=== PATIENT | female | born 1960 | race Caucasian/White ===

== ENCOUNTER → 2016-11-27 | Outpatient (CLI) | payer MEDICARE, OTHER ==
[2016-11-21 15:25] VITALS: BMI 20.9
[2016-11-27 12:54] VITALS: BP 145/63; PULSE 97; RESP 16; TEMP 98.1
--- NOTE | 2016-11-28 10:52 | P.CONS ---
History of Present Illness - Reason for Consult Consult date: 11/27/16 - History of Present Illness This is the initial consultation visit for this 74 years old female with a chronic history of severe neck and upper back pain and low back pain, the pain started more than 30 years ago and she is being in the treatment of different physicians, and she was diagnosed with fibromyalgia and lumbar degenerative disc disease, patient had multiple pain intervention is procedure/lumbar epidural steroid injection and she got no benefit, and she tried different kind of pain medication, she cannot either side effects or no benefit from it, currently patient on OxyContin 60 mg 3 times a day and oxycodone 30 mg every 6 hours, and Motrin 800 mg 2-3 times a day, and trazodone 50 mg daily at bedtime, patient denies any side effects of the medication she denies any excessive drowsiness and sleepiness and she reported that the current regimen is helping to control her pain, patient denies any motor or sensory deficit and she denies any change in the bowel movement or urination, and patient denies any fever or night sweats, she tried physical therapy in the past without any benefit, and she reported that most of her pain localized in the low back area with radiation to the left leg ,and hips pain ,and she is complaining of severe neck pain and upper back pain but this pain is not transmitted to the upper extremity Past Medical History Past Medical History: COPD, Fibromyalgia, GERD/Reflux, Hyperlipidemia, Hypertension Additional Past Medical History / Comment(s): diverticulitis, emphysema, pain posterior back from rashad. scapulas down History of Any Multi-Drug Resistant Organisms: MRSA Year Discovered:: 08/2014 MDRO Source:: unknown Past Surgical History: Appendectomy, Bowel Resection, Orthopedic Surgery, Tubal Ligation Additional Past Surgical History / Comment(s): rt wrist fusion, neck fusion, 3 surgeries for kidney stones, salpingo/oophorectomy Past Anesthesia/Blood Transfusion Reactions: No Reported Reaction Additional Past Anesthesia/Blood Transfusion Reaction / Comm: needed more medication for last colonoscopy Past Psychological History: Anxiety, Depression, PTSD Smoking Status: Current some day smoker Past Alcohol Use History: None Reported Additional Past Alcohol Use History / Comment(s): currently down to 2 cigarettes daily(was 1 PPD). smoked for 40 yrs Past Drug Use History: Marijuana Additional Drug Use History / Comment(s): rare-marijuana use. - Past Family History Sister(s) Family Medical History: Cancer Mother Family Medical History: Cancer Medications and Allergies Home Medications Medication Instructions Recorded Confirmed Type Lisinopril [Zestril] 2.5 mg PO 1500 09/09/14 11/27/16 History Albuterol Inhaler [Ventolin Hfa 2 puff INHALATION TID PRN 09/17/16 11/27/16 History Inhaler] Ezetimibe [Zetia] 10 mg PO 1500 09/17/16 11/27/16 History Ibuprofen [Motrin] 800 mg PO BID PRN 09/17/16 11/27/16 History oxyCODONE HCL 30 mg PO QID 09/17/16 11/27/16 History oxyCODONE HCL [OxyCONTIN] 60 mg PO TID 09/17/16 11/27/16 History traZODone HCL 50 mg PO HS 09/17/16 11/27/16 History Allergies Allergy/AdvReac Type Severity Reaction Status Date / Time pregabalin [From Lyrica] Allergy Severe Swelling Verified 11/27/16 12:28 of throat tizanidine HCl Allergy Severe Swelling Verified 11/27/16 12:28 [From Zanaflex] of throat Physical Exam Vitals: Vital Signs Temp Pulse Resp BP 11/27/16 12:52 98.1 F 97 16 145/63 Social history : smoker , NO ETOH , NO Illegal drugs use ( remotes history of marijuana use). Family history : , positive for cancer Review of Systems : 1- Constitutional : no chills , no fever , no night sweats , 2- Ears : no ear discharge , no change in hearing 3-Nose, Mouth ,Throat ; no bleeding gums, no sore throat , no epistaxis , 4-Cardiovascular : Denies chest pain, , no orthopnea , no palpitation 5-Respiratory : Denies cough , no dyspnea , no hemoptysis 6-Gastrointestinal :, no change in bowel habits , no coffee- ground emesis . 7-Genitourinary : No hematuria , no discharge , no incontinence, 8-Musculoskeletal : No gait dysfunction , report low back pain , 9- Neurological : no ataxia , no tremor , no sezure , 10-Psychatric , no suicidal ideation no hallucination 11- Endocrine : no cold intolerence , no polyuria , no polydypsia , 12-Hematologic : no easy bleeding , no easy brusing , 13-Allergic / immunology : no angioedema , no wheezing ,no allergic rhinitis 14-Integumentary : no brttle nails , no change hair / nails , no foot/leg ulcers . Physical Examinations : 1-Constitutional : Cooperative , not in acute distress . 2-HEENT : nech ; supple , no Lymphadenopathy , no Thyromegaly , eyes , no icterus, no photophobia . ENT : , normal oropharynx , no Thrush 3- Respiratory : Chest clear to auscultations Bilaterally , no wheezing . 4- Cardiovascular : regular rate and rhythem , S1 , S2 , no S3 , no S4. 5- Gastrointestinal: abdomen soft no tenderness , no organomegally . 6- Genitourinary : Defferred . 7-Integumentary : No cellulitis , no ulcers , normal skin turgor , no cyanotic . 8- neurologic : Cranial nerve II to XII intact , no focal neurological deffecit 9-psychatric : alert , oriented X 3 , appropriate affect , intact judgment and insight . 10-Lymphatic : no Lymphadenopathy. 11- musculoskeltal: normal gait , exams of the cervical spine = motor stregnth in the deltoid and biceps, normal right side , normal Left side motor stregnth biceps and the wrist extensors normal right side ,normal left side . motor stregnth in the triceps muscle . normal Right side , normal Left side deep tendon reflexes normal at the biceps , normal at Brachioradialis , normal at triceps. positive cervical facet loading test . Generalized tenderness over the cervical paravertebral muscles and the neck area anteriorly. Exams of the thoracic spine= generalized tenderness in the upper thoracic paravertebral muscles between the shoulder blade area bilaterally. exams of the Lumber spine = moter stegnth lower extremities , thigh and legs 5/5 Right side , 5/5 Left side deep tendon reflexes : normal Knee Jerk , normal ankle Jerk positive lumber facet Loading Test Range of motion of the lumbar spine Flexion 30 degrees, extension 10 degrees strait leg raising test , positive at 60 degree Fabere test positive RT and positive LT . Sever tenderness over the trochanteric bursa bilaterally. Results Comments: Computed tomography scan of the lumbar spine done in August 2016= lumbar degenerative disc disease Assessment and Plan Plan: Assessment and plan = - Chronic low back pain secondary to lumbar degenerative disc disease , -Chronic pain secondary to fibromyalgia -Patient denies any side effect of the medication, and the current medication helped the patient to control the pain and improve activity of daily living, The patient was counseled about risk of opioid use, psychological risk associated with opioid Patient signed the narcotic agreement , and was orally counseled not to overuse , abuse , divert, or sell medications ,and take them as prescribed only , and the patient was counseled against driving and while you are using the narcotic medication also not to use alcohol or any illicit drugs and the patient verbalized understanding Recommend start patient on Cymbalta 30 mg daily , I recommend start patient on Flexeril 5 mg 3 times a day, and we recommend decreasing the OxyContin dose to 60 mg twice a day and continue oxycodone 30 mg every 6 hours and trazodone 50 mg daily at bedtime (she isn't getting Prescription from her primary care, and patient will follow up with the pain clinic when necessary basis (discussed with the patient the option of doing an interventional pain management,patient refused to have any interventions goes, and she prefers medication management) Time with Patient: Greater than 30
== END | disposition home or self-care (01) ==
LOC: PNWHC3 12:00
PROVIDERS: ATTEND Specialist
DX: G89.29 Other chronic pain (principal); M51.36 Other intervertebral disc degeneration, lumbar region; M79.7 Fibromyalgia; I10 Essential (primary) hypertension; F32.9 Major depressive disorder, single episode, unspecified; F17.200 Nicotine dependence, unspecified, uncomplicated; Z88.6 Allergy status to analgesic agent; Z88.8 Allergy status to other drugs, medicaments and biological substances; Z86.14 Personal history of Methicillin resistant Staphylococcus aureus infection; Z79.891 Long term (current) use of opiate analgesic; Z79.899 Other long term (current) drug therapy
CPT/HCPCS: 99211

== ENCOUNTER 2016-12-03 23:29 | Emergency (ER) | payer MEDICARE, OTHER ==
[2016-12-03] MEDS ORDERED: ALBUTEROL NEB (CONC) 2.5 MG/0.5 ML INHALATION STA (23:40)
[2016-12-03] MEDS ORDERED: IPRATROPIUM-ALBUTEROL 3 ML NEB INHALATION STA (23:40)
[2016-12-04] MEDS ORDERED: IPRATROPIUM-ALBUTEROL 3 ML NEB INHALATION STA (00:19)
[2016-12-04] MEDS ORDERED: predniSONE 20 MG TAB PO STA (00:19)
[2016-12-04] MEDS ORDERED: MORPHINE SULFATE 4 MG/ML SYRINGE IV STA (00:19)
--- NOTE | 2016-12-04 00:23 | ED ---
SOB HPI - General Chief Complaint: Chest Pain Stated Complaint: Chest Pain/SOB Time Seen by Provider: 12/04/16 00:11 Source: patient, RN notes reviewed Mode of arrival: ambulatory Limitations: no limitations - History of Present Illness Initial Comments: This patient's 56-year-old woman who has 2 complaints. She complains of what she thinks is a worsening of her COPD, with increased cough (nonproductive), wheezing, and shortness of breath. She is also having left low back pain that she states is a sequela of a fall as she had on Friday. She states that she had gotten up and was off balance and fell landing on her left side striking just above the hip. The patient states she has noticed a large bruise to that area. She denies any related abdominal pain. MD Complaint: shortness of breath, cough Onset/Timin -: days(s) Worsens With: nothing Known History Of: COPD Associated Symptoms: cough - Related Data Home Medications Medication Instructions Recorded Confirmed Lisinopril [Zestril] 2.5 mg PO 1500 09/09/14 11/27/16 Albuterol Inhaler [Ventolin Hfa 2 puff INHALATION TID PRN 09/17/16 11/27/16 Inhaler] Ezetimibe [Zetia] 10 mg PO 1500 09/17/16 11/27/16 Ibuprofen [Motrin] 800 mg PO BID PRN 09/17/16 11/27/16 oxyCODONE HCL 30 mg PO QID 09/17/16 11/27/16 oxyCODONE HCL [OxyCONTIN] 60 mg PO TID 09/17/16 11/27/16 traZODone HCL 50 mg PO HS 09/17/16 11/27/16 Previous Rx's Medication Instructions Recorded Levofloxacin [Levaquin] 750 mg PO DAILY #7 tab 12/04/16 predniSONE 20 mg PO BID #8 tab 12/04/16 Allergies Allergy/AdvReac Type Severity Reaction Status Date / Time pregabalin [From Lyrica] Allergy Severe Swelling Verified 12/03/16 23:35 of throat tizanidine HCl Allergy Severe Swelling Verified 12/03/16 23:35 [From Zanaflex] of throat Review of Systems ROS Statement: Those systems with pertinent positive or pertinent negative responses have been documented in the HPI. ROS Other: All systems not noted in ROS Statement are negative. Constitutional: Denies: fever, chills Respiratory: Reports: cough, dyspnea, wheezes. Denies: hemoptysis Cardiovascular: Denies: chest pain Gastrointestinal: Denies: abdominal pain, nausea, vomiting Genitourinary: Denies: dysuria, hematuria Musculoskeletal: Reports: back pain Skin: Denies: rash Neurological: Denies: headache, weakness, numbness Past Medical History Past Medical History: COPD, Fibromyalgia, GERD/Reflux, Hyperlipidemia, Hypertension Additional Past Medical History / Comment(s): diverticulitis, emphysema, pain posterior back from rashad. scapulas down History of Any Multi-Drug Resistant Organisms: MRSA Date of last positivie culture/infection: 08/2014 MDRO Source:: unknown Past Surgical History: Appendectomy, Bowel Resection, Orthopedic Surgery, Tubal Ligation Additional Past Surgical History / Comment(s): rt wrist fusion, neck fusion, 3 surgeries for kidney stones, salpingo/oophorectomy Past Anesthesia/Blood Transfusion Reactions: No Reported Reaction Additional Past Anesthesia/Blood Transfusion Reaction / Comment(s): needed more medication for last colonoscopy Past Psychological History: Anxiety, Depression, PTSD Smoking Status: Current some day smoker Past Alcohol Use History: None Reported Additional Past Alcohol Use History / Comment(s): currently down to 2 cigarettes daily(was 1 PPD). smoked for 40 yrs Past Drug Use History: Marijuana Additional Drug Use History / Comment(s): rare-marijuana use. - Past Family History Sister(s) Family Medical History: Cancer Mother Family Medical History: Cancer General Exam Limitations: no limitations General appearance: alert, in no apparent distress Head exam: Present: atraumatic, normocephalic Eye exam: Present: normal appearance. Absent: scleral icterus, conjunctival injection ENT exam: Present: normal oropharynx Respiratory exam: Present: wheezes, decreased breath sounds. Absent: respiratory distress, rales, rhonchi, stridor, chest wall tenderness, accessory muscle use, prolonged expiratory Cardiovascular Exam: Present: regular rate, normal rhythm, normal heart sounds. Absent: systolic murmur, diastolic murmur, rubs, gallop GI/Abdominal exam: Present: soft. Absent: distended, tenderness, guarding, rebound, mass Extremities exam: Present: normal inspection, full ROM, normal capillary refill. Absent: pedal edema, calf tenderness Back exam: Present: other (Patient has an approximately 6-8 cm hematoma to the left flank located just above the posterior iliac crest. There is moderate tenderness.). Absent: CVA tenderness (R), CVA tenderness (L) Neurological exam: Present: alert, normal gait Skin exam: Present: warm, dry, intact, normal color. Absent: rash Course Vital Signs 12/03/16 12/03/16 12/03/16 23:33 23:47 23:52 Temperature 98.1 F Pulse Rate 100 97 88 Respiratory 24 Rate Blood Pressure 152/71 O2 Sat by Pulse 99 Oximetry 12/04/16 12/04/16 12/04/16 00:36 00:46 01:20 Temperature Pulse Rate 99 104 H 90 Respiratory 18 Rate Blood Pressure 111/56 O2 Sat by Pulse 95 Oximetry 12/04/16 12/04/16 12/04/16 02:00 02:50 03:50 Temperature 98.3 F Pulse Rate 86 96 78 Respiratory 18 18 18 Rate Blood Pressure 116/67 126/67 139/66 O2 Sat by Pulse 96 96 95 Oximetry Medical Decision Making - Medical Decision Making Patient is reevaluated following medications, and she states she is feeling significantly better and that she wishes to go home. Did discuss appropriate further care and follow-up as well as return parameters. - Lab Data Result diagrams: 12/03/16 23:52 12/03/16 23:52 Lab Results 12/03/16 12/03/16 12/03/16 Range/Units 23:52 23:52 23:52 WBC 9.3 (3.8-10.6) k/uL RBC 4.41 (3.80-5.40) m/uL Hgb 14.0 (11.4-16.0) gm/dL Hct 41.3 (34.0-46.0) % MCV 93.6 (80.0-100.0) fL MCH 31.6 (25.0-35.0) pg MCHC 33.8 (31.0-37.0) g/dL RDW 12.9 (11.5-15.5) % Plt Count 314 (150-450) k/uL Neutrophils % 53 % Lymphocytes % 34 % Monocytes % 8 % Eosinophils % 2 % Basophils % 1 % Neutrophils # 5.0 (1.3-7.7) k/uL Lymphocytes # 3.1 (1.0-4.8) k/uL Monocytes # 0.7 (0-1.0) k/uL Eosinophils # 0.2 (0-0.7) k/uL Basophils # 0.0 (0-0.2) k/uL PT (9.0-12.0) sec INR (<1.1) APTT (22.0-30.0) sec D-Dimer (<0.60) mg/L FEU Sodium 140 (137-145) mmol/L Potassium 3.5 (3.5-5.1) mmol/L Chloride 99 (98-107) mmol/L Carbon Dioxide 24 (22-30) mmol/L Anion Gap 17 mmol/L BUN 6 L (7-17) mg/dL Creatinine 0.63 (0.52-1.04) mg/dL Est GFR (MDRD) Af Amer >60 (>60 ml/min/1.73 sqM) Est GFR (MDRD) Non-Af >60 (>60 ml/min/1.73 sqM) Glucose 97 (74-99) mg/dL Calcium 9.4 (8.4-10.2) mg/dL Magnesium 1.7 (1.6-2.3) mg/dL Total Bilirubin 0.6 (0.2-1.3) mg/dL AST 32 (14-36) U/L ALT 23 (9-52) U/L Alkaline Phosphatase 63 (38-126) U/L Total Creatine Kinase 117 (30-135) U/L CK-MB (CK-2) 1.8 (0.0-2.4) ng/mL CK-MB (CK-2) Rel Index 1.5 Troponin I <0.012 (0.000-0.034) ng/mL Total Protein 8.2 (6.3-8.2) g/dL Albumin 4.4 (3.5-5.0) g/dL Serum Alcohol mg/dL 12/03/16 12/03/16 12/03/16 Range/Units 23:52 23:52 23:52 WBC (3.8-10.6) k/uL RBC (3.80-5.40) m/uL Hgb (11.4-16.0) gm/dL Hct (34.0-46.0) % MCV (80.0-100.0) fL MCH (25.0-35.0) pg MCHC (31.0-37.0) g/dL RDW (11.5-15.5) % Plt Count (150-450) k/uL Neutrophils % % Lymphocytes % % Monocytes % % Eosinophils % % Basophils % % Neutrophils # (1.3-7.7) k/uL Lymphocytes # (1.0-4.8) k/uL Monocytes # (0-1.0) k/uL Eosinophils # (0-0.7) k/uL Basophils # (0-0.2) k/uL PT 9.7 (9.0-12.0) sec INR 0.9 (<1.1) APTT 24.9 (22.0-30.0) sec D-Dimer 0.97 H (<0.60) mg/L FEU Sodium (137-145) mmol/L Potassium (3.5-5.1) mmol/L Chloride (98-107) mmol/L Carbon Dioxide (22-30) mmol/L Anion Gap mmol/L BUN (7-17) mg/dL Creatinine (0.52-1.04) mg/dL Est GFR (MDRD) Af Amer (>60 ml/min/1.73 sqM) Est GFR (MDRD) Non-Af (>60 ml/min/1.73 sqM) Glucose (74-99) mg/dL Calcium (8.4-10.2) mg/dL Magnesium (1.6-2.3) mg/dL Total Bilirubin (0.2-1.3) mg/dL AST (14-36) U/L ALT (9-52) U/L Alkaline Phosphatase (38-126) U/L Total Creatine Kinase (30-135) U/L CK-MB (CK-2) (0.0-2.4) ng/mL CK-MB (CK-2) Rel Index Troponin I (0.000-0.034) ng/mL Total Protein (6.3-8.2) g/dL Albumin (3.5-5.0) g/dL Serum Alcohol 174 mg/dL - EKG Data -: EKG Interpreted by [facility] EKG shows normal: sinus rhythm, axis (Normal), intervals (Normal), QRS complexes (Normal), ST-T waves (Normal) Rate: normal (Rate 93 bpm) Interpretation: normal EKG Disposition Clinical Impression: COPD exacerbation, Pneumonia, Hematoma Disposition: HOME SELF-CARE Condition: Fair Instructions: COPD (Chronic Obstructive Pulmonary Disease) (ED), Pneumonia (ED) , Hematoma (ED) Prescriptions: Levofloxacin [Levaquin] 750 mg PO DAILY #7 tab predniSONE 20 mg PO BID #8 tab Referrals: Abrahan Anderson MD [Primary Care Provider] - 1-2 days
[2016-12-04 00:24] LABS: Basophils % (A) 1 %; CH 31.7; Eosinophils # (A) 0.2 k/uL (0-0.7); Eosinophils % (A) 2 %; HCT 41.3 % (34.0-46.0); HDW 2.61; Luc # (Auto) 0.25; Luc % (Auto) 3; Lymphocytes # (A) 3.1 k/uL (1.0-4.8); Lymphocytes % (A) 34 %; MCH 31.6 pg (25.0-35.0); MCHC 33.8 g/dL (31.0-37.0); MCV 93.6 fL (80.0-100.0); Mean Platelet Volume 7.3; Monocytes # (A) 0.7 k/uL (0-1.0); Monocytes % (A) 8 %; Neutrophils % (A) 53 %; RBC 4.41 m/uL (3.80-5.40); RDW 12.9 % (11.5-15.5); WBC 9.3 k/uL (3.8-10.6); WBC (Perox) 9.42
[2016-12-04 00:32] LABS: INR 0.9 (<1.1); Partial Thromboplastin Time 24.9 sec (22.0-30.0); Prothrombin Time 9.7 sec (9.0-12.0)
--- NOTE | 2016-12-04 00:38 | XR ---
EXAMINATION TYPE: XR chest 2V DATE OF EXAM: 12/04/2016 12:24 AM COMPARISON: 09/09/2014 HISTORY: Wheezing and difficulty breathing TECHNIQUE: Frontal and lateral views of the chest are obtained. FINDINGS: Heart and mediastinum are normal. Lungs are clear. Diaphragm is normal. Bony thorax is int act. There are chest leads. IMPRESSION: Normal chest. No change.
[2016-12-04 00:41] LABS: Anion Gap 17 mmol/L; Calcium 9.4 mg/dL (8.4-10.2); Carbon Dioxide 24 mmol/L (22-30); Chloride 99 mmol/L (98-107); Glucose 97 mg/dL (74-99); Non-African American GFR(MDRD) >60 (>60 ml/min/1.73 sqM); Sodium 140 mmol/L (137-145); Total Bilirubin 0.6 mg/dL (0.2-1.3); Total Protein 8.2 g/dL (6.3-8.2)
[2016-12-04 00:42] LABS: Potassium 3.5 mmol/L (3.5-5.1)
[2016-12-04 00:43] LABS: ALT 23 U/L (9-52); AST 32 U/L (14-36); Alkaline Phosphatase 63 U/L (38-126); Blood Urea Nitrogen 6 mg/dL (7-17); Magnesium 1.7 mg/dL (1.6-2.3)
[2016-12-04 00:44] LABS: Creatine Kinase 117 U/L (30-135)
[2016-12-04 00:57] LABS: Creatine Kinase MB 1.8 ng/mL (0.0-2.4); Troponin I <0.012 ng/mL (0.000-0.034)
[2016-12-04] MEDS ORDERED: RX INFO: IV CONTRAST WAS GIVEN 1 EACH MISC MISCELLANE PRN (01:28)
[2016-12-04] MEDS ORDERED: HYDROmorphone 1 MG/ML 1 ML SYRINGE IVP STA ×2 (01:28→03:22)
[2016-12-04 01:42] VITALS: RESP 18
--- NOTE | 2016-12-04 02:21 | CT ---
EXAMINATION TYPE: CT chest angio for PE DATE OF EXAM: 12/04/2016 1:52 AM COMPARISON: NONE HISTORY: R/O PE, MUKUND, wheezing CT DLP: 335 mGycm Automated exposure control for dose reduction was used. CONTRAST: CT Chest for pulmonary embolism performed with with IV Contrast, patient injected with 70 mL of Omnip aque 350. FINDINGS: There is slight coarsening of pulmonary interstitial markings. There is no pulmonary consolidation. T here is no evidence of a pulmonary mass. There is normal contrast opacification of the pulmonary kim buster. I see no filling defects. There is no evidence of aortic aneurysm or dissection. There are no h ilar masses. There is no mediastinal adenopathy. There is no pleural effusion. The bony thorax appear s intact. There are bronchial lymph nodes that measure up to 1 cm. IMPRESSION: No evidence of pulmonary embolism. Slight increased pulmonary interstitial density could relate to mi nimal interstitial pneumonia.
[2016-12-04] MEDS ORDERED: LEVOFLOXACIN 750MG-D5W PMX 750 MG in DEXTROSE/WATER 1 150ML.BAG IVPB STA (03:23)
[2016-12-04 04:12] VITALS: BP 139/66; PULSE 78; TEMP 98.3
== END 2016-12-04 04:13 | disposition home or self-care (01) ==
LOC: EC 23:29
DX: J44.1 Chronic obstructive pulmonary disease with (acute) exacerbation (principal); J18.9 Pneumonia, unspecified organism; S70.02XA Contusion of left hip, initial encounter; M54.5 Low back pain; W19.XXXA Unspecified fall, initial encounter; E78.5 Hyperlipidemia, unspecified; I10 Essential (primary) hypertension; M79.7 Fibromyalgia; F32.9 Major depressive disorder, single episode, unspecified; F17.210 Nicotine dependence, cigarettes, uncomplicated; Z79.891 Long term (current) use of opiate analgesic; Z79.899 Other long term (current) drug therapy; Z88.8 Allergy status to other drugs, medicaments and biological substances
CPT/HCPCS: 36415; 94640 ×2; 93005; 85379; 80053; 82550; 82553; 83735; 84484; 85025; 85610; 85730; 80320; 71020; 71275; 99285; 96365; 96375; 96376; J2270; Q9967; J1170; J1956; J7512

== ENCOUNTER → 2017-01-27 | Outpatient (CLI) | payer MEDICARE, OTHER ==
--- NOTE | 2017-01-27 08:34 | MR ---
EXAMINATION TYPE: MR tspine/lspine wo con DATE OF EXAM: 01/27/2017 8:17 AM COMPARISON: CT chest December 04, 2016. CT lumbar spine September 18, 2016. HISTORY: Tsp/Lsp pain per order. Mid back pain for 12 years with burning and stabbing sensation per p atient. Low back pain for 12 years going into right thigh and buttocks per patient. TECHNIQUE: Multiplanar, multisequence imaging of the thoracic and lumbar spine are performed without IV contrast. FINDINGS: T-SPINE: FINDINGS: Spinal cord shows normal course, caliber, and signal as it courses the thoracic spine. Shahnaz tebral body heights and alignment are satisfactory. There is mild to moderate multilevel disc space n arrowing with mild to moderate spurring centered in the mid thoracic spine. Small posterior disc neelam iation is seen T7-T8 level on sagittal image 9 and T10-T11 level on sagittal image 11. Artifact from fusion hardware C7-T1 level is noted. Right paracentral disc herniation effacing clovis lateral thecal sac at T10-T11 level is confirmed on axial image 8. Remainder thoracic levels on axial images show no additional suspicious disc herniation or neural foraminal narrowing. IMPRESSION: Some mild to moderate multilevel spurring and disc space narrowing with 2 small disc neelam iations noted as detailed above. L-SPINE: Sagittal images of the lumbar spine show vertebral body heights and alignment to appear satisfactory. There is multilevel disc desiccation with relative sparing of L5-S1 level. There is mild disc space narrowing L4-L5 level otherwise disc space heights are fairly well-maintained. No significant posteri or disc herniations are seen on sagittal images. The conus medullaris is normal in position and signa l ending at mid L1 vertebral body level. The bone marrow signal intensity is within normal limits. M ild multilevel anterior spurring is present. Axial images show the T12-L1 and L1-L2 levels to appear within normal limits. Axial images at L2-L3 level show mild to moderate broad disc bulge effacing anterior thecal sac on ax ial image 18, there is mild bilateral anterior inferior neural foraminal narrowing. Axial images at L3-L4 level show mild broad disc bulge mildly effacing anterior thecal sac on axial i mage 13, there is mild bilateral anterior inferior neural foraminal narrowing at this level identifie d. Axial images at L4-L5 level show mild facet degenerative changes bilaterally with mild broad disc bul ge appears to have a left lateral disc protrusion component, there is mild to moderate left-sided ant erior inferior neural foraminal narrowing with mild right-sided anterior inferior neural foraminal na rrowing noted. Axial images at L5-S1 level show mild facet degenerative changes bilaterally. There is no significant disc herniation. Spinal canal is preserved. Bilateral neural foramina are patent. IMPRESSION: Some multilevel degenerative changes in the mid to lower lumbar spine as detailed above, however no suspicious disc herniation is seen to account for patient's right-sided radiculopathy type symptoms.
== END | disposition home or self-care (01) ==
LOC: RADMRIMAIN 07:15
PROVIDERS: ATTEND Physical Medicine & Rehabilitation Pain Medicine
DX: M47.816 Spondylosis without myelopathy or radiculopathy, lumbar region (principal)
CPT/HCPCS: 72146; 72148

== ENCOUNTER 2017-05-03 01:49 | Emergency (ER) | payer MEDICARE, OTHER ==
[2017-05-03] MEDS ORDERED: IPRATROPIUM-ALBUTEROL 3 ML NEB INHALATION STA (02:03)
[2017-05-03] MEDS ORDERED: MORPHINE SULFATE 4 MG/ML SYRINGE IVP STA (02:03)
[2017-05-03] MEDS ORDERED: KETOROLAC 30 MG/ML 1 ML VIAL IVP STA (02:03)
--- NOTE | 2017-05-03 02:04 | ED ---
General Adult HPI - General Chief complaint: Shortness of Breath Stated complaint: SOB Time Seen by Provider: 05/03/17 01:58 Source: patient, RN notes reviewed, old records reviewed Mode of arrival: ambulatory Limitations: no limitations - History of Present Illness Initial comments: This is a 26-year-old female year for a shortness of breath, back pain, not feeling well. Patient was has no shortness of breath, also had a fall. Following aback that her back pain medication was not working, severe back pain. No fevers, mild cough mild congestion. No other traumatic injury - Related Data Home Medications Medication Instructions Recorded Confirmed Lisinopril [Zestril] 2.5 mg PO 1500 09/09/14 05/03/17 Albuterol Inhaler [Ventolin Hfa 2 puff INHALATION TID PRN 09/17/16 05/03/17 Inhaler] Ezetimibe [Zetia] 10 mg PO 1500 09/17/16 05/03/17 Ibuprofen [Motrin] 800 mg PO BID PRN 09/17/16 05/03/17 oxyCODONE HCL 30 mg PO QID 09/17/16 05/03/17 oxyCODONE HCL [OxyCONTIN] 60 mg PO TID 09/17/16 05/03/17 traZODone HCL 50 mg PO HS 09/17/16 05/03/17 Previous Rx's Medication Instructions Recorded predniSONE 20 mg PO BID #8 tab 12/04/16 Allergies Allergy/AdvReac Type Severity Reaction Status Date / Time pregabalin [From Lyrica] Allergy Severe Swelling Verified 05/03/17 01:55 of throat tizanidine HCl Allergy Severe Swelling Verified 05/03/17 01:55 [From Zanaflex] of throat Review of Systems ROS Statement: Those systems with pertinent positive or pertinent negative responses have been documented in the HPI. ROS Other: All systems not noted in ROS Statement are negative. Past Medical History Past Medical History: COPD, Fibromyalgia, GERD/Reflux, Hyperlipidemia, Hypertension Additional Past Medical History / Comment(s): diverticulitis, emphysema, pain posterior back from rashad. scapulas down History of Any Multi-Drug Resistant Organisms: MRSA Date of last positivie culture/infection: 08/2014 MDRO Source:: unknown Past Surgical History: Appendectomy, Bowel Resection, Orthopedic Surgery, Tubal Ligation Additional Past Surgical History / Comment(s): rt wrist fusion, neck fusion, 3 surgeries for kidney stones, salpingo/oophorectomy Past Anesthesia/Blood Transfusion Reactions: No Reported Reaction Additional Past Anesthesia/Blood Transfusion Reaction / Comment(s): needed more medication for last colonoscopy Past Psychological History: Anxiety, Depression, PTSD Smoking Status: Current some day smoker Past Alcohol Use History: None Reported Past Drug Use History: Marijuana - Past Family History Sister(s) Family Medical History: Cancer Mother Family Medical History: Cancer General Exam Limitations: no limitations General appearance: alert, in no apparent distress, anxious Head exam: Present: atraumatic, normocephalic, normal inspection Eye exam: Present: normal appearance, PERRL, EOMI. Absent: scleral icterus, conjunctival injection, periorbital swelling ENT exam: Present: normal exam, mucous membranes moist Neck exam: Present: normal inspection. Absent: tenderness, meningismus, lymphadenopathy Respiratory exam: Present: normal lung sounds bilaterally. Absent: respiratory distress, wheezes, rales, rhonchi, stridor Cardiovascular Exam: Present: normal rhythm, tachycardia, normal heart sounds. Absent: systolic murmur, diastolic murmur, rubs, gallop, clicks GI/Abdominal exam: Present: soft, normal bowel sounds. Absent: distended, tenderness, guarding, rebound, rigid Extremities exam: Present: normal inspection, full ROM, normal capillary refill. Absent: tenderness, pedal edema, joint swelling, calf tenderness Back exam: Present: normal inspection Neurological exam: Present: alert, oriented X3, CN II-XII intact Psychiatric exam: Present: normal affect, normal mood Skin exam: Present: warm, dry, intact, normal color. Absent: rash Course Vital Signs 05/03/17 05/03/17 05/03/17 01:51 02:12 02:13 Temperature 98.3 F Pulse Rate 116 H 98 99 Respiratory 20 18 Rate Blood Pressure 118/77 140/76 O2 Sat by Pulse 98 98 Oximetry 05/03/17 05/03/17 05/03/17 02:22 03:02 03:55 Temperature 97.7 F Pulse Rate 103 H 98 100 Respiratory 18 18 Rate Blood Pressure 110/73 107/74 O2 Sat by Pulse 98 96 Oximetry EKG Findings - EKG Comments: EKG Findings:: EKG shows sinus tach rate of 107, ME 160, QRS 72, QTc 453. EKG shows rate of about 2, ME 132, QRS 80, QTC 463 Medical Decision Making - Medical Decision Making 56 female to the ER today status post fall shortness of breath, patient has no trauma from fall, does have some back pain which is improved at this time, x- rays otherwise negative lab work is normal, patient's breathing is much improved with breathing treatment and symptom control. Patient is stable for discharge home - Lab Data Result diagrams: 05/03/17 02:25 05/03/17 02:25 Lab Results 05/03/17 05/03/17 05/03/17 Range/Units 02:25 02:25 02:25 WBC 12.8 H (3.8-10.6) k/uL RBC 4.65 (3.80-5.40) m/uL Hgb 15.1 (11.4-16.0) gm/dL Hct 43.3 (34.0-46.0) % MCV 93.0 (80.0-100.0) fL MCH 32.5 (25.0-35.0) pg MCHC 34.9 (31.0-37.0) g/dL RDW 13.1 (11.5-15.5) % Plt Count 335 (150-450) k/uL Neutrophils % 59 % Lymphocytes % 32 % Monocytes % 5 % Eosinophils % 2 % Basophils % 1 % Neutrophils # 7.5 (1.3-7.7) k/uL Lymphocytes # 4.1 (1.0-4.8) k/uL Monocytes # 0.6 (0-1.0) k/uL Eosinophils # 0.2 (0-0.7) k/uL Basophils # 0.1 (0-0.2) k/uL PT (9.0-12.0) sec INR (<1.1) APTT (22.0-30.0) sec Sodium 140 (137-145) mmol/L Potassium 3.7 (3.5-5.1) mmol/L Chloride 106 (98-107) mmol/L Carbon Dioxide 22 (22-30) mmol/L Anion Gap 12 mmol/L BUN 11 (7-17) mg/dL Creatinine 0.50 L (0.52-1.04) mg/dL Est GFR (MDRD) Af Amer >60 (>60 ml/min/1.73 sqM) Est GFR (MDRD) Non-Af >60 (>60 ml/min/1.73 sqM) Glucose 85 (74-99) mg/dL Calcium 9.4 (8.4-10.2) mg/dL Magnesium 1.6 (1.6-2.3) mg/dL Total Bilirubin 0.5 (0.2-1.3) mg/dL AST 24 (14-36) U/L ALT 31 (9-52) U/L Alkaline Phosphatase 75 (38-126) U/L Total Creatine Kinase 193 H (30-135) U/L CK-MB (CK-2) 1.4 (0.0-2.4) ng/mL CK-MB (CK-2) Rel Index 0.7 Troponin I <0.012 (0.000-0.034) ng/mL Total Protein 7.0 (6.3-8.2) g/dL Albumin 4.3 (3.5-5.0) g/dL 05/03/17 Range/Units 02:25 WBC (3.8-10.6) k/uL RBC (3.80-5.40) m/uL Hgb (11.4-16.0) gm/dL Hct (34.0-46.0) % MCV (80.0-100.0) fL MCH (25.0-35.0) pg MCHC (31.0-37.0) g/dL RDW (11.5-15.5) % Plt Count (150-450) k/uL Neutrophils % % Lymphocytes % % Monocytes % % Eosinophils % % Basophils % % Neutrophils # (1.3-7.7) k/uL Lymphocytes # (1.0-4.8) k/uL Monocytes # (0-1.0) k/uL Eosinophils # (0-0.7) k/uL Basophils # (0-0.2) k/uL PT 10.1 (9.0-12.0) sec INR 1.0 (<1.1) APTT 26.8 (22.0-30.0) sec Sodium (137-145) mmol/L Potassium (3.5-5.1) mmol/L Chloride (98-107) mmol/L Carbon Dioxide (22-30) mmol/L Anion Gap mmol/L BUN (7-17) mg/dL Creatinine (0.52-1.04) mg/dL Est GFR (MDRD) Af Amer (>60 ml/min/1.73 sqM) Est GFR (MDRD) Non-Af (>60 ml/min/1.73 sqM) Glucose (74-99) mg/dL Calcium (8.4-10.2) mg/dL Magnesium (1.6-2.3) mg/dL Total Bilirubin (0.2-1.3) mg/dL AST (14-36) U/L ALT (9-52) U/L Alkaline Phosphatase (38-126) U/L Total Creatine Kinase (30-135) U/L CK-MB (CK-2) (0.0-2.4) ng/mL CK-MB (CK-2) Rel Index Troponin I (0.000-0.034) ng/mL Total Protein (6.3-8.2) g/dL Albumin (3.5-5.0) g/dL - Radiology Data Radiology results: report reviewed (Chest x-ray with rib study is negative for traumatic injury), image reviewed Disposition Clinical Impression: COPD exacerbation, Tachycardia, Contusion of rib on left side, Fall Disposition: HOME SELF-CARE Condition: Good Instructions: Rib Contusion (ED) Referrals: Abrahan Anderson MD [Primary Care Provider] - 1-2 days
[2017-05-03 02:39] LABS: Basophils # (A) 0.1 k/uL (0-0.2); Basophils % (A) 1 %; CH 32.1; CHCM 34.6; Eosinophils # (A) 0.2 k/uL (0-0.7); Eosinophils % (A) 2 %; HCT 43.3 % (34.0-46.0); HDW 2.12; HGB 15.1 gm/dL (11.4-16.0); Luc # (Auto) 0.23; Luc % (Auto) 2; Lymphocytes # (A) 4.1 k/uL (1.0-4.8); Lymphocytes % (A) 32 %; MCH 32.5 pg (25.0-35.0); MCHC 34.9 g/dL (31.0-37.0); Mean Platelet Volume 6.6; Monocytes # (A) 0.6 k/uL (0-1.0); Monocytes % (A) 5 %; Neutrophils # (A) 7.5 k/uL (1.3-7.7); Neutrophils % (A) 59 %; RBC 4.65 m/uL (3.80-5.40); RDW 13.1 % (11.5-15.5); WBC 12.8 k/uL (3.8-10.6); WBC (Perox) 11.61
[2017-05-03 02:49] LABS: ALT 31 U/L (9-52); AST 24 U/L (14-36); Alkaline Phosphatase 75 U/L (38-126); Anion Gap 12 mmol/L; Blood Urea Nitrogen 11 mg/dL (7-17); Calcium 9.4 mg/dL (8.4-10.2); Carbon Dioxide 22 mmol/L (22-30); Chloride 106 mmol/L (98-107); Glucose 85 mg/dL (74-99); Magnesium 1.6 mg/dL (1.6-2.3); Non-African American GFR(MDRD) >60 (>60 ml/min/1.73 sqM); Potassium 3.7 mmol/L (3.5-5.1); Sodium 140 mmol/L (137-145); Total Bilirubin 0.5 mg/dL (0.2-1.3)
[2017-05-03 02:57] LABS: Partial Thromboplastin Time 26.8 sec (22.0-30.0); Prothrombin Time 10.1 sec (9.0-12.0)
--- NOTE | 2017-05-03 03:02 | XR ---
CXR 2 View INDICATION: difficulty breathing COMPARISON: chest radiography 12/04/16 FINDINGS: frontal and lateral views of the chest. The cardiomediastinal silhouette is within normal limits. No evidence for pleural effusion. No focal consolidations. Partially visualize cervical fusion hardware. There are overlying leads. No evidence for acute displaced fracture. IMPRESSION: No acute cardiopulmonary disease.
--- NOTE | 2017-05-03 03:06 | XR ---
Left Rib radiograph Indication: Pain Comparison: none FINDINGS: Two views of the left ribs. No evidence for acute displaced rib fractures. Partially visualized cervical fusion hardware. There are overlying leads. IMPRESSION: No evidence for acute displaced ribs fractures. Please note if there is history of trauma, CT is the modality of choice for evaluation of trauma.
[2017-05-03 03:14] LABS: Creatine Kinase 193 U/L (30-135)
[2017-05-03 03:24] VITALS: RESP 18
[2017-05-03 03:27] LABS: Creatine Kinase MB 1.4 ng/mL (0.0-2.4); Troponin I <0.012 ng/mL (0.000-0.034)
[2017-05-03 03:56] VITALS: BP 107/74; PULSE 100; TEMP 97.7
== END 2017-05-03 03:56 | disposition home or self-care (01) ==
LOC: EC 01:49
DX: S20.222A Contusion of left back wall of thorax, initial encounter (principal); J44.1 Chronic obstructive pulmonary disease with (acute) exacerbation; R00.0 Tachycardia, unspecified; E78.5 Hyperlipidemia, unspecified; I10 Essential (primary) hypertension; F41.9 Anxiety disorder, unspecified; F43.10 Post-traumatic stress disorder, unspecified; F32.9 Major depressive disorder, single episode, unspecified; F17.200 Nicotine dependence, unspecified, uncomplicated; Z88.8 Allergy status to other drugs, medicaments and biological substances; Z79.891 Long term (current) use of opiate analgesic; Z79.899 Other long term (current) drug therapy; W19.XXXA Unspecified fall, initial encounter
CPT/HCPCS: 99285; 96374; 96375; 36415; 94640; 93005; 80053; 82550; 82553; 83735; 84484; 85025; 85610; 85730; 71020; 71100; J2270; J1885

== ENCOUNTER 2017-09-22 16:05 | Emergency (ER) | payer MEDICARE, OTHER ==
[2017-09-22 16:24] VITALS: RESP 20
[2017-09-22] MEDS ORDERED: HYDROmorphone 2 MG/ML 1 ML SYRINGE IM STA (18:16)
[2017-09-22] MEDS ORDERED: IBUPROFEN 800 MG TAB PO STA (18:16)
[2017-09-22] MEDS ORDERED: DIAZEPAM 5 MG TAB PO STA (18:16)
[2017-09-22] MEDS ORDERED: predniSONE 20 MG TAB PO STA (18:16)
--- NOTE | 2017-09-22 18:18 | ED ---
General Adult HPI - General Chief complaint: Back Pain/Injury Stated complaint: Back Pain Time Seen by Provider: 09/22/17 18:04 Source: EMS, RN notes reviewed, old records reviewed Mode of arrival: wheelchair Limitations: no limitations - History of Present Illness Initial comments: This is a 49-year-old female to ER for reevaluation back pain history of acute on chronic back pain patient is followed pain management does get injections does have significant pain control medications at home. Patient denies significant fall or trauma no neurological deficits. No fevers. Patient denies any recent tattoos or drug abuse. - Related Data Home Medications Medication Instructions Recorded Confirmed Lisinopril [Zestril] 2.5 mg PO 1500 09/09/14 05/03/17 Albuterol Inhaler [Ventolin Hfa 2 puff INHALATION TID PRN 09/17/16 05/03/17 Inhaler] Ezetimibe [Zetia] 10 mg PO 1500 09/17/16 05/03/17 Ibuprofen [Motrin] 800 mg PO BID PRN 09/17/16 05/03/17 oxyCODONE HCL 30 mg PO QID 09/17/16 05/03/17 oxyCODONE HCL [OxyCONTIN] 60 mg PO TID 09/17/16 05/03/17 traZODone HCL 50 mg PO HS 09/17/16 05/03/17 Previous Rx's Medication Instructions Recorded predniSONE 20 mg PO BID #8 tab 12/04/16 Allergies Allergy/AdvReac Type Severity Reaction Status Date / Time pregabalin [From Lyrica] Allergy Severe Swelling Verified 09/22/17 16:24 of throat tizanidine HCl Allergy Severe Swelling Verified 09/22/17 16:24 [From Zanaflex] of throat Review of Systems ROS Statement: Those systems with pertinent positive or pertinent negative responses have been documented in the HPI. ROS Other: All systems not noted in ROS Statement are negative. Past Medical History Past Medical History: Cancer, COPD, Fibromyalgia, GERD/Reflux, Hyperlipidemia, Hypertension Additional Past Medical History / Comment(s): diverticulitis, emphysema, pain posterior back from rashad. scapulas down. lung cancer History of Any Multi-Drug Resistant Organisms: MRSA Date of last positivie culture/infection: 08/2014 MDRO Source:: unknown Past Surgical History: Appendectomy, Bowel Resection, Orthopedic Surgery, Tubal Ligation Additional Past Surgical History / Comment(s): rt wrist fusion, neck fusion, 3 surgeries for kidney stones, salpingo/oophorectomy Past Anesthesia/Blood Transfusion Reactions: No Reported Reaction Additional Past Anesthesia/Blood Transfusion Reaction / Comment(s): needed more medication for last colonoscopy Past Psychological History: Anxiety, Depression, PTSD Smoking Status: Current some day smoker Past Alcohol Use History: Occasional Past Drug Use History: Marijuana - Past Family History Sister(s) Family Medical History: Cancer Mother Family Medical History: Cancer General Exam Limitations: no limitations General appearance: alert, in no apparent distress Head exam: Present: atraumatic, normocephalic, normal inspection Eye exam: Present: normal appearance, PERRL, EOMI. Absent: scleral icterus, conjunctival injection, periorbital swelling ENT exam: Present: normal exam, mucous membranes moist Neck exam: Present: normal inspection. Absent: tenderness, meningismus, lymphadenopathy Respiratory exam: Present: normal lung sounds bilaterally. Absent: respiratory distress, wheezes, rales, rhonchi, stridor Cardiovascular Exam: Present: regular rate, normal rhythm, normal heart sounds. Absent: systolic murmur, diastolic murmur, rubs, gallop, clicks GI/Abdominal exam: Present: soft, normal bowel sounds. Absent: distended, tenderness, guarding, rebound, rigid Extremities exam: Present: normal inspection, full ROM, normal capillary refill. Absent: tenderness, pedal edema, joint swelling, calf tenderness Back exam: Present: normal inspection Neurological exam: Present: alert, oriented X3, CN II-XII intact Psychiatric exam: Present: normal affect, normal mood Skin exam: Present: warm, dry, intact, normal color. Absent: rash Course Vital Signs 09/22/17 16:19 Temperature 97.8 F Pulse Rate 108 H Respiratory 20 Rate Blood Pressure 130/71 O2 Sat by Pulse 98 Oximetry - Reevaluation(s) Reevaluation #1: 09/22/17 18:17 Back pain is improved at this time Medical Decision Making - Medical Decision Making 57 female to the ER for evaluation of acute on chronic back pain. Sprained back. Patient given injections here in emergency room and will be discharged home Disposition Clinical Impression: Mechanical back pain, Strain of lumbar region, Chronic back pain Disposition: HOME SELF-CARE Condition: Good Instructions: Acute Low Back Pain (ED), Chronic Back Pain (ED) Referrals: Abrahan Anderson MD [Primary Care Provider] - 1-2 days
[2017-09-22 18:37] VITALS: BP 141/69; PULSE 100; TEMP 98
== END 2017-09-22 18:37 | disposition home or self-care (01) ==
LOC: EC 16:05
DX: S39.012A Strain of muscle, fascia and tendon of lower back, initial encounter (principal); E78.5 Hyperlipidemia, unspecified; I10 Essential (primary) hypertension; M79.7 Fibromyalgia; F41.9 Anxiety disorder, unspecified; F32.9 Major depressive disorder, single episode, unspecified; F43.10 Post-traumatic stress disorder, unspecified; F17.200 Nicotine dependence, unspecified, uncomplicated; Z85.118 Personal history of other malignant neoplasm of bronchus and lung; Z86.14 Personal history of Methicillin resistant Staphylococcus aureus infection; Z79.891 Long term (current) use of opiate analgesic; Z79.899 Other long term (current) drug therapy; Z88.8 Allergy status to other drugs, medicaments and biological substances; X58.XXXA Exposure to other specified factors, initial encounter
CPT/HCPCS: 99284; 96372; J1170; J7512

== ENCOUNTER → 2018-01-10 | Outpatient (CLI) | payer MEDICARE, OTHER ==
--- NOTE | 2018-01-10 14:08 | MR ---
EXAMINATION TYPE: MR thoracic spine wo con DATE OF EXAM: 01/10/2018 COMPARISON: 01/27/2017 HISTORY: Back Pain x10 years Standard multiplanar, multisequence MRI departmental protocol Multiplanar, multisequence images of the thoracic spine were acquired. . FINDINGS: Alignment is anatomic. There is loss of disc signal at all levels with loss of disc space particularl y noted at levels T4-T9. Findings compatible with multilevel degenerative disc disease which appears stable from the prior exam. Central and left paracentral disc bulging or protrusion T7-T8 stable with mild effacement of thecal s ac. No foraminal encroachment or spinal cord contact. At T10-T11 there is a right paracentral disc bulge or tiny protrusion. No foraminal encroachment or c anal stenosis. Finding is stable. Abnormal signal involving the T11 vertebral body is nonspecific. Hypertrophic spurring noted on the previous exam and stable. No abnormal signal the visualized spinal cord. Visualized aorta of normal caliber. Artifact from prev ious surgery involving the lower cervical spine again noted. IMPRESSION: 1. Stable multilevel degenerative disc disease. 2. Stable disc bulge or protrusion T7-T8 and T10-T11 with no foraminal encroachment or spinal cord co ntact. 3. There is nonspecific reduced signal within the T11 vertebral body on the sagittal images. This may be artifactual. Bone scan could BE obtained for confirmation.
== END | disposition home or self-care (01) ==
LOC: RADMRIMAIN 12:37
PROVIDERS: ATTEND Physical Medicine & Rehabilitation Pain Medicine
DX: M51.34 Other intervertebral disc degeneration, thoracic region (principal); M51.24 Other intervertebral disc displacement, thoracic region
CPT/HCPCS: 72146

== ENCOUNTER 2018-03-10 21:47 | Emergency (ER) | payer MEDICARE, OTHER ==
[2018-03-10] MEDS ORDERED: DIPH,PERTUS(ACELL)TETVAC-LF 0.5 ML VIAL IM ONE (21:54)
[2018-03-10 21:56] VITALS: TEMP 98.3
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
[2018-03-10 22:25] LABS: Basophils % (A) 0 %; Eosinophils # (A) 0.3 k/uL (0-0.7); Eosinophils % (A) 2 %; HCT 39.9 % (34.0-46.0); HGB 13.5 gm/dL (11.4-16.0); Lymphocytes % (A) 25 %; MCH 32.6 pg (25.0-35.0); Mean Platelet Volume 7.6; Monocytes # (A) 0.6 k/uL (0-1.0); Monocytes % (A) 5 %; Neutrophils # (A) 7.9 k/uL (1.3-7.7); Neutrophils % (A) 66 %; Platelet Count 188 k/uL (150-450); RBC 4.15 m/uL (3.80-5.40)
[2018-03-10 22:33] LABS: Anion Gap 19 mmol/L; Blood Urea Nitrogen 12 mg/dL (7-17); Calcium 9.6 mg/dL (8.4-10.2); Carbon Dioxide 19 mmol/L (22-30); Chloride 110 mmol/L (98-107); Glucose 125 mg/dL (74-99); Potassium 3.6 mmol/L (3.5-5.1); Sodium 148 mmol/L (137-145)
[2018-03-10 22:40] LABS: Alcohol 296 mg/dL
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
[2018-03-11 00:14] LABS: Partial Thromboplastin Time 22.8 sec (22.0-30.0); Prothrombin Time 9.5 sec (9.0-12.0)
[2018-03-11] MEDS ORDERED: oxyCODONE ER 20 MG TAB.ER.12H PO STA (00:51)
[2018-03-11 01:41] VITALS: BP 112/77; PULSE 103; RESP 18
== END 2018-03-11 01:55 | disposition home or self-care (01) ==
LOC: EC 21:47
DX: S01.01XA Laceration without foreign body of scalp, initial encounter (principal); F10.129 Alcohol abuse with intoxication, unspecified; Y90.8 Blood alcohol level of 240 mg/100 ml or more; M79.7 Fibromyalgia; F17.200 Nicotine dependence, unspecified, uncomplicated; Z23 Encounter for immunization; Z86.14 Personal history of Methicillin resistant Staphylococcus aureus infection; Z98.1 Arthrodesis status; Z88.8 Allergy status to other drugs, medicaments and biological substances; Z79.891 Long term (current) use of opiate analgesic; Y04.0XXA Assault by unarmed brawl or fight, initial encounter; W18.09XA Striking against other object with subsequent fall, initial encounter; Y92.009 Unspecified place in unspecified non-institutional (private) residence as the place of occurrence of the external cause
CPT/HCPCS: 12002; 36415; 70450; 72125; 80048; 80320; 85025; 85610; 85730; 90471; 90715; 99284

== ENCOUNTER 2018-08-10 20:35 | Emergency (ER) | payer MEDICARE, OTHER ==
--- NOTE | 2018-08-10 22:31 | ED ---
Head Injury HPI - General Stated complaint: FALL, ETOH Time Seen by Provider: 08/10/18 21:00 Limitations: altered mental status (Intoxicated) - History of Present Illness Initial comments: This patient is a 55-year-old woman sent to the emergency department to be evaluated after she had a fall and hit her head. The patient was not able to give history initially and it came from EMS personnel. They had reportedly taken report from her life partner. Patient had a fair amount to drink tonight. The patient is not able to recall the details of the fall. MD Complaint: head injury -: unknown Mechanism of Injury: mechanical fall Location: frontal Loss of Consciousness: unsure Place: home Other Injuries: laceration Associated Symptoms: confusion, repetitive questioning - Related Data Home Medications Medication Instructions Recorded Confirmed oxyCODONE HCL 30 mg PO QID PRN 09/17/16 08/10/18 oxyCODONE HCL [OxyCONTIN] 60 mg PO BID 09/17/16 08/10/18 Allergies/Adverse reactions: Allergies Allergy/AdvReac Type Severity Reaction Status Date / Time pregabalin [From Lyrica] Allergy Severe Anaphylaxis Verified 08/10/18 23:20 tizanidine HCl Allergy Severe Anaphylaxis Verified 08/10/18 23:20 [From Zanaflex] Review of Systems ROS Statement: Those systems with pertinent positive or pertinent negative responses have been documented in the HPI. ROS Other: All systems not noted in ROS Statement are negative. Limitations: ROS unobtainable due to patients medical condition (Appears intoxicated) Past Medical History Past Medical History: Cancer, COPD, Fibromyalgia, GERD/Reflux, Hyperlipidemia, Hypertension Additional Past Medical History / Comment(s): diverticulitis, emphysema, pain posterior back from rashad. scapulas down. lung cancer History of Any Multi-Drug Resistant Organisms: MRSA Date of last positivie culture/infection: 08/2014 MDRO Source:: unknown Past Surgical History: Appendectomy, Bowel Resection, Orthopedic Surgery, Tubal Ligation Additional Past Surgical History / Comment(s): rt wrist fusion, neck fusion, 3 surgeries for kidney stones, salpingo/oophorectomy Past Anesthesia/Blood Transfusion Reactions: No Reported Reaction Additional Past Anesthesia/Blood Transfusion Reaction / Comment(s): needed more medication for last colonoscopy Past Psychological History: Anxiety, Depression, PTSD Smoking Status: Current some day smoker Past Alcohol Use History: Occasional Past Drug Use History: Marijuana - Past Family History Sister(s) Family Medical History: Cancer Mother Family Medical History: Cancer General Exam General appearance: alert, appears intoxicated Head exam: Present: normocephalic, other (Patient has laceration to the right forehead approximately 5-6 cm in length, linear, no foreign body.) Eye exam: Present: normal appearance, PERRL, EOMI, nystagmus. Absent: scleral icterus, conjunctival injection ENT exam: Present: normal oropharynx Neck exam: Present: normal inspection, full ROM. Absent: tenderness Respiratory exam: Present: normal lung sounds bilaterally. Absent: respiratory distress, wheezes, rales, rhonchi, stridor Cardiovascular Exam: Present: regular rate (Heart rate approximately 108 at my exam), normal rhythm, normal heart sounds. Absent: systolic murmur, diastolic murmur, rubs, gallop GI/Abdominal exam: Present: soft. Absent: tenderness, guarding, rebound, rigid , mass Extremities exam: Present: normal inspection, normal capillary refill. Absent: pedal edema, calf tenderness Back exam: Present: normal inspection, vertebral tenderness (Patient has some mild tenderness palpation over the upper lumbar spine.). Absent: CVA tenderness (R), CVA tenderness (L) Neurological exam: Present: alert, CN II-XII intact. Absent: oriented X3 ( Oriented only to person), motor sensory deficit Skin exam: Present: warm, dry, intact, normal color. Absent: rash Course Vital Signs 08/10/18 08/11/18 08/11/18 20:39 00:00 03:11 Temperature 98.2 F 98.4 F Pulse Rate 107 H 94 87 Respiratory 20 20 20 Rate Blood Pressure 139/91 109/74 114/77 O2 Sat by Pulse 96 96 97 Oximetry Procedures - Laceration Laceration #1 Consent Obtained: verbal consent Indication: laceration Site: face Size (cm): 6 Description: linear Anesthetic Used: lidocaine 1% Anesthesia Technique: local infiltration Type of Sutures: nylon Size of Sutures: 6-0 Number of Sutures: 7 Technique: simple, interrupted Patient Tolerated Procedure: well, no complications Medical Decision Making - Lab Data Result diagrams: 08/10/18 21:52 08/10/18 21:52 Lab Results 08/10/18 08/10/18 Range/Units 21:52 21:52 WBC 12.2 H (3.8-10.6) k/uL RBC 4.06 (3.80-5.40) m/uL Hgb 13.5 (11.4-16.0) gm/dL Hct 41.5 (34.0-46.0) % MCV 102.2 H (80.0-100.0) fL MCH 33.2 (25.0-35.0) pg MCHC 32.5 (31.0-37.0) g/dL RDW 13.2 (11.5-15.5) % Plt Count 297 (150-450) k/uL Neutrophils % 67 % Lymphocytes % 22 % Monocytes % 7 % Eosinophils % 1 % Basophils % 1 % Neutrophils # 8.1 H (1.3-7.7) k/uL Lymphocytes # 2.7 (1.0-4.8) k/uL Monocytes # 0.9 (0-1.0) k/uL Eosinophils # 0.1 (0-0.7) k/uL Basophils # 0.1 (0-0.2) k/uL Macrocytosis Slight Sodium 143 (137-145) mmol/L Potassium 3.8 (3.5-5.1) mmol/L Chloride 109 H (98-107) mmol/L Carbon Dioxide 23 (22-30) mmol/L Anion Gap 11 mmol/L BUN 8 (7-17) mg/dL Creatinine 0.42 L (0.52-1.04) mg/dL Est GFR (CKD-EPI)AfAm >90 (>60 ml/min/1.73 sqM) Est GFR (CKD-EPI)NonAf >90 (>60 ml/min/1.73 sqM) Glucose 89 (74-99) mg/dL Calcium 9.2 (8.4-10.2) mg/dL Serum Alcohol 285 H* mg/dL Disposition Clinical Impression: Fall, Head injury, Laceration, Alcohol intoxication Disposition: HOME SELF-CARE Condition: Fair Instructions: Laceration (ED), Head Injury (ED), Alcohol Intoxication (ED) Is patient prescribed a controlled substance at d/c from ED?: No Referrals: Abrahan Anderson MD [Primary Care Provider] - 1-2 days
[2018-08-10 22:36] VITALS: RESP 20
[2018-08-10 23:48] LABS: Anion Gap 11 mmol/L; Blood Urea Nitrogen 8 mg/dL (7-17); Calcium 9.2 mg/dL (8.4-10.2); Carbon Dioxide 23 mmol/L (22-30); Chloride 109 mmol/L (98-107); Glucose 89 mg/dL (74-99); Potassium 3.8 mmol/L (3.5-5.1); Sodium 143 mmol/L (137-145)
[2018-08-10 23:49] LABS: Alcohol 285 mg/dL; Basophils # (A) 0.1 k/uL (0-0.2); Basophils % (A) 1 %; Eosinophils # (A) 0.1 k/uL (0-0.7); Eosinophils % (A) 1 %; HCT 41.5 % (34.0-46.0); HGB 13.5 gm/dL (11.4-16.0); Lymphocytes # (A) 2.7 k/uL (1.0-4.8); Lymphocytes % (A) 22 %; MCH 33.2 pg (25.0-35.0); MCHC 32.5 g/dL (31.0-37.0); MCV 102.2 fL (80.0-100.0); Macrocytosis Slight; Mean Platelet Volume 7.2; Monocytes # (A) 0.9 k/uL (0-1.0); Monocytes % (A) 7 %; Neutrophils # (A) 8.1 k/uL (1.3-7.7); Neutrophils % (A) 67 %; Platelet Count 297 k/uL (150-450); RBC 4.06 m/uL (3.80-5.40); RDW 13.2 % (11.5-15.5); WBC 12.2 k/uL (3.8-10.6)
[2018-08-11] MEDS ORDERED: LIDOCAINE 1% INJ 10MG/ML (20 ML MDV) SQ ONE (02:12)
[2018-08-11] MEDS ORDERED: HYDROcodone/APAP 5-325MG 1 EACH TAB PO STA (02:45)
[2018-08-11 03:14] VITALS: BP 114/77; PULSE 87; TEMP 98.4
== END 2018-08-11 03:10 | disposition home or self-care (01) ==
LOC: EC 20:35
DX: S01.81XA Laceration without foreign body of other part of head, initial encounter (principal); F10.129 Alcohol abuse with intoxication, unspecified; F17.200 Nicotine dependence, unspecified, uncomplicated; Z79.899 Other long term (current) drug therapy; Z88.8 Allergy status to other drugs, medicaments and biological substances; W18.09XA Striking against other object with subsequent fall, initial encounter
CPT/HCPCS: 36415; 80048; 85025; 99283; 12014; G0480; J2001; 80320

== ENCOUNTER 2018-11-09 05:08 | Inpatient (IN) | payer MEDICARE, OTHER ==
[2018-11-09] MEDS ORDERED: SODIUM CHLORIDE 0.9% 1,000 ML IV STA (05:33)
[2018-11-09] MEDS ORDERED: THIAMINE 100 MG/ML 2 ML VIAL IM STA (05:33)
[2018-11-09] MEDS ORDERED: chlordiazePOXIDE 25 MG CAP PO STA (05:41)
[2018-11-09] MEDS: LORazepam 2 MG/ML INJ IV PRN ×4 (05:43→22:51)
--- NOTE | 2018-11-09 05:45 | ED ---
SOB HPI - General Chief Complaint: Shortness of Breath Stated Complaint: chest pain Time Seen by Provider: 11/09/18 05:31 Source: patient Mode of arrival: wheelchair Limitations: no limitations - History of Present Illness Initial Comments: This patient is a 58-year-old woman who presents with many complaints, the major one being that she believes she is drinking alcohol withdrawal. Patient states she has been drinking for approximately 14 months, lately about a fifth per day. She states that she has not had a drink in a number of hours now and is feeling very anxious, shaking. Patient also is concerned she may have a pneumonia developing. She states she has had that previously and feels similar now. She is complaining of cough with some yellow sputum as well as shortness of breath though she states this may be her emphysema. She has had some burning substernal chest pain. MD Complaint: shortness of breath, cough, chest pain -: hour(s) Severity: moderate Quality: aching Consistency: constant Improves With: upright position Worsens With: lying flat Known History Of: COPD - Related Data Home Medications Medication Instructions Recorded Confirmed oxyCODONE HCL 30 mg PO QID PRN 09/17/16 08/10/18 oxyCODONE HCL [OxyCONTIN] 60 mg PO BID 09/17/16 08/10/18 Albuterol Inhaler [Ventolin Hfa 2 puff INHALATION RT-Q6H PRN 11/09/18 11/09/18 Inhaler] Allergies Allergy/AdvReac Type Severity Reaction Status Date / Time pregabalin [From Lyrica] Allergy Severe Anaphylaxis Verified 11/09/18 07:08 tizanidine HCl Allergy Severe Anaphylaxis Verified 11/09/18 07:08 [From Zanaflex] Review of Systems ROS Statement: Those systems with pertinent positive or pertinent negative responses have been documented in the HPI. ROS Other: All systems not noted in ROS Statement are negative. Constitutional: Denies: fever, chills, weakness Respiratory: Reports: cough, dyspnea. Denies: hemoptysis Cardiovascular: Reports: chest pain, palpitations, orthopnea. Denies: edema, syncope Gastrointestinal: Reports: nausea, vomiting. Denies: abdominal pain, diarrhea Genitourinary: Denies: dysuria, hematuria Musculoskeletal: Denies: back pain Skin: Denies: rash Neurological: Denies: headache, weakness, numbness Psychiatric: Reports: anxiety. Denies: homicidal thoughts, suicidal thoughts Past Medical History Past Medical History: Cancer, COPD, Fibromyalgia, GERD/Reflux, Hyperlipidemia, Hypertension Additional Past Medical History / Comment(s): diverticulitis, emphysema, pain posterior back from [place]. scapulas down. lung cancer History of Any Multi-Drug Resistant Organisms: MRSA Date of last positivie culture/infection: 08/2014 MDRO Source:: unknown Past Surgical History: Appendectomy, Bowel Resection, Orthopedic Surgery, Tubal Ligation Additional Past Surgical History / Comment(s): rt wrist fusion, neck fusion, 3 surgeries for kidney stones, salpingo/oophorectomy Past Anesthesia/Blood Transfusion Reactions: No Reported Reaction Additional Past Anesthesia/Blood Transfusion Reaction / Comment(s): needed more medication for last colonoscopy Past Psychological History: Anxiety, Depression, PTSD Smoking Status: Current some day smoker Past Alcohol Use History: Abuse, Daily, Heavy Past Drug Use History: Marijuana - Past Family History Sister(s) Family Medical History: Cancer Mother Family Medical History: Cancer General Exam Limitations: no limitations General appearance: alert, anxious, other (Tremulous) Head exam: Present: atraumatic, normocephalic Eye exam: Present: normal appearance. Absent: scleral icterus, conjunctival injection ENT exam: Present: mucous membranes dry Neck exam: Present: normal inspection, full ROM Respiratory exam: Present: wheezes. Absent: rales, rhonchi, stridor, accessory muscle use, decreased breath sounds, prolonged expiratory Cardiovascular Exam: Present: tachycardia, normal heart sounds. Absent: systolic murmur, diastolic murmur, rubs, gallop GI/Abdominal exam: Present: soft. Absent: distended, tenderness, guarding, rebound, rigid, mass Extremities exam: Present: normal inspection, normal capillary refill. Absent: pedal edema, calf tenderness Back exam: Present: normal inspection. Absent: CVA tenderness (R), CVA tenderness (L) Neurological exam: Present: alert Psychiatric exam: Present: anxious. Absent: homicidal ideation, suicidal ideation Skin exam: Present: warm, dry, intact, normal color. Absent: rash Course Vital Signs 11/09/18 11/09/18 11/09/18 05:13 05:45 06:09 Temperature 98.2 F Pulse Rate 109 H 75 87 Respiratory 18 18 20 Rate Blood Pressure 157/79 151/81 166/82 O2 Sat by Pulse 96 97 97 Oximetry Medical Decision Making - Lab Data Result diagrams: 11/09/18 05:26 11/09/18 05:26 Lab Results 11/09/18 11/09/18 11/09/18 Range/Units 05:26 05:26 05:26 WBC 6.7 (3.8-10.6) k/uL RBC 4.23 (3.80-5.40) m/uL Hgb 14.3 (11.4-16.0) gm/dL Hct 42.0 (34.0-46.0) % MCV 99.4 (80.0-100.0) fL MCH 33.8 (25.0-35.0) pg MCHC 34.1 (31.0-37.0) g/dL RDW 14.6 (11.5-15.5) % Plt Count 225 (150-450) k/uL Neutrophils % 58 % Lymphocytes % 30 % Monocytes % 6 % Eosinophils % 1 % Basophils % 1 % Neutrophils # 3.9 (1.3-7.7) k/uL Lymphocytes # 2.0 (1.0-4.8) k/uL Monocytes # 0.4 (0-1.0) k/uL Eosinophils # 0.1 (0-0.7) k/uL Basophils # 0.1 (0-0.2) k/uL Macrocytosis Slight PT (9.0-12.0) sec INR (<1.2) APTT (22.0-30.0) sec Sodium 137 (137-145) mmol/L Potassium 3.6 (3.5-5.1) mmol/L Chloride 99 (98-107) mmol/L Carbon Dioxide 28 (22-30) mmol/L Anion Gap 10 mmol/L BUN 6 L (7-17) mg/dL Creatinine 0.51 L (0.52-1.04) mg/dL Est GFR (CKD-EPI)AfAm >90 (>60 ml/min/1.73 sqM) Est GFR (CKD-EPI)NonAf >90 (>60 ml/min/1.73 sqM) Glucose 95 (74-99) mg/dL Calcium 9.5 (8.4-10.2) mg/dL Magnesium 1.3 L (1.6-2.3) mg/dL Total Bilirubin 0.7 (0.2-1.3) mg/dL AST 55 H (14-36) U/L ALT 28 (9-52) U/L Alkaline Phosphatase 99 (38-126) U/L Total Creatine Kinase 234 H (30-135) U/L CK-MB (CK-2) 3.3 H (0.0-2.4) ng/mL CK-MB (CK-2) Rel Index 1.4 Troponin I <0.012 (0.000-0.034) ng/mL Total Protein 8.2 (6.3-8.2) g/dL Albumin 4.6 (3.5-5.0) g/dL Amylase 51 (30-110) U/L Lipase 49 (23-300) U/L 11/09/18 Range/Units 05:26 WBC (3.8-10.6) k/uL RBC (3.80-5.40) m/uL Hgb (11.4-16.0) gm/dL Hct (34.0-46.0) % MCV (80.0-100.0) fL MCH (25.0-35.0) pg MCHC (31.0-37.0) g/dL RDW (11.5-15.5) % Plt Count (150-450) k/uL Neutrophils % % Lymphocytes % % Monocytes % % Eosinophils % % Basophils % % Neutrophils # (1.3-7.7) k/uL Lymphocytes # (1.0-4.8) k/uL Monocytes # (0-1.0) k/uL Eosinophils # (0-0.7) k/uL Basophils # (0-0.2) k/uL Macrocytosis PT 10.0 (9.0-12.0) sec INR 0.9 (<1.2) APTT 26.6 (22.0-30.0) sec Sodium (137-145) mmol/L Potassium (3.5-5.1) mmol/L Chloride (98-107) mmol/L Carbon Dioxide (22-30) mmol/L Anion Gap mmol/L BUN (7-17) mg/dL Creatinine (0.52-1.04) mg/dL Est GFR (CKD-EPI)AfAm (>60 ml/min/1.73 sqM) Est GFR (CKD-EPI)NonAf (>60 ml/min/1.73 sqM) Glucose (74-99) mg/dL Calcium (8.4-10.2) mg/dL Magnesium (1.6-2.3) mg/dL Total Bilirubin (0.2-1.3) mg/dL AST (14-36) U/L ALT (9-52) U/L Alkaline Phosphatase (38-126) U/L Total Creatine Kinase (30-135) U/L CK-MB (CK-2) (0.0-2.4) ng/mL CK-MB (CK-2) Rel Index Troponin I (0.000-0.034) ng/mL Total Protein (6.3-8.2) g/dL Albumin (3.5-5.0) g/dL Amylase (30-110) U/L Lipase (23-300) U/L Disposition Clinical Impression: COPD exacerbation, Chest pain, Alcohol withdrawal Disposition: ADMITTED IP TO THIS HOSP Condition: Fair Referrals: Abrahan Anderson MD [Primary Care Provider] - 1-2 days
[2018-11-09 06:04] LABS: Basophils # (A) 0.1 k/uL (0-0.2); Basophils % (A) 1 %; Eosinophils # (A) 0.1 k/uL (0-0.7); Eosinophils % (A) 1 %; HGB 14.3 gm/dL (11.4-16.0); Lymphocytes % (A) 30 %; MCH 33.8 pg (25.0-35.0); MCHC 34.1 g/dL (31.0-37.0); MCV 99.4 fL (80.0-100.0); Macrocytosis Slight; Mean Platelet Volume 6.8; Monocytes # (A) 0.4 k/uL (0-1.0); Monocytes % (A) 6 %; Neutrophils # (A) 3.9 k/uL (1.3-7.7); Neutrophils % (A) 58 %; Platelet Count 225 k/uL (150-450); RBC 4.23 m/uL (3.80-5.40); RDW 14.6 % (11.5-15.5); WBC 6.7 k/uL (3.8-10.6)
--- NOTE | 2018-11-09 06:08 | XR ---
EXAM: XR Chest, 1 View CLINICAL HISTORY: ITS.REASON XR Reason: chest pain TECHNIQUE: Frontal view of the chest. COMPARISON: 05/03/17 chest x-ray IMPRESSION: Normal heart size. No consolidation or pleural effusion. Unremarkable exam.
[2018-11-09 06:13] LABS: INR 0.9 (<1.2); Partial Thromboplastin Time 26.6 sec (22.0-30.0)
[2018-11-09 06:15] LABS: ALT 28 U/L (9-52); AST 55 U/L (14-36); Albumin 4.6 g/dL (3.5-5.0); Alkaline Phosphatase 99 U/L (38-126); Amylase 51 U/L (30-110); Anion Gap 10 mmol/L; Blood Urea Nitrogen 6 mg/dL (7-17); Calcium 9.5 mg/dL (8.4-10.2); Carbon Dioxide 28 mmol/L (22-30); Chloride 99 mmol/L (98-107); Glucose 95 mg/dL (74-99); Lipase 49 U/L (23-300); Magnesium 1.3 mg/dL (1.6-2.3); Potassium 3.6 mmol/L (3.5-5.1); Sodium 137 mmol/L (137-145); Total Bilirubin 0.7 mg/dL (0.2-1.3); Total Protein 8.2 g/dL (6.3-8.2)
[2018-11-09 06:36] LABS: Creatine Kinase 234 U/L (30-135)
[2018-11-09] MEDS ORDERED: NITROGLYCERIN SL TABS 0.4 MG TAB SUBLINGUAL PRN (06:42)
[2018-11-09 06:49] LABS: Creatine Kinase MB 3.3 ng/mL (0.0-2.4); Troponin I <0.012 ng/mL (0.000-0.034)
[2018-11-09] MEDS ORDERED: Magnesium Replacement Protocol 1 EACH MISC MISCELLANE PRN (07:56)
[2018-11-09] MEDS: MAGNESIUM SULFATE-D5W PMX 1 GM in DEXTROSE/WATER 1 100ML.BAG IVPB SCH ×3 (08:23→12:12)
--- NOTE | 2018-11-09 10:19 | CONS ---
CONSULTATION CHIEF COMPLAINT: Chest pain. Ashley is a 58-year-old lady with history of EtOH abuse, who presented to hospital with alcohol withdrawal. She complains of chest discomfort that is sharp, atypical, unrelated to exertion with diaphoresis. There is no definite radiation to neck, arm or back. She has been drinking for 14 months about a fifth a day and has not had a drink for several hours is feeling anxious and shaky. She came to the hospital from where she has been admitted. EKG shows normal sinus rhythm without acute ST-T wave changes. Labs show that the troponin is negative. I believe her problem is primarily related to alcohol abuse and this chest discomfort is of unclear clinical significance. I will obtain a 2D echo to evaluate her LV function and if LV function and wall motion appear normal patient does not require any further evaluation at this time. PAST MEDICAL HISTORY: Negative for hypertension, diabetes, dyslipidemia. MEDICATIONS: Medications include albuterol inhaler and OxyContin. ALLERGIES: Allergies to LYRICA and ZANAFLEX. FAMILY HISTORY: Family history is negative for premature coronary artery disease. SOCIAL HISTORY: Significant for smoking and EtOH abuse. REVIEW OF SYSTEMS: HEENT is unremarkable. CARDIAC: As described above. RESPIRATORY: Negative. GI: Negative. GENITOURINARY: Negative. ALLERGY/IMMUNOLOGICAL: Negative. SKIN: Negative. MUSCULOSKELETAL: Significant for arthritis. PSYCHOSOCIAL: Negative. ENDOCRINE: Negative. HEMATOLOGIC: Negative. DERM: Negative. CONSTITUTIONAL: Negative. ONCOLOGICAL: Negative. Rest of the system review is not relevant. PHYSICAL EXAMINATION: On exam, patient is comfortable at rest. Vital signs are stable. There is no jugular venous distention. Carotid upstroke is normal. There is no bruit. Chest exam reveals good air entry bilaterally. Heart exam reveals first and second heart sounds. No gallop. Examination of extremities did not reveal edema. Peripheral pulses are felt. LABS: Labs show that the hemoglobin is 14.3, platelet count is 225. Potassium is 3.6, creatinine is 0.5. Troponin is negative. EKG is normal. ASSESSMENT: 1. Precordial chest pain. 2. Alcohol withdrawal. PLAN: Her chest discomfort is sharp, atypical. I will obtain a 2D echo and another set of troponin and if these are unremarkable, she does not require any further evaluation at this time. MMODL / IJN: [id number] /
[2018-11-09] MEDS: oxyCODONE ER 20 MG TAB.ER.12H PO SCH ×2 (11:24→21:06)
[2018-11-09 11:37] VITALS: BMI 20.9
[2018-11-09 12:07] LABS: Creatine Kinase 217 U/L (30-135)
[2018-11-09 12:15] LABS: Creatine Kinase MB 3.2 ng/mL (0.0-2.4); Troponin I <0.012 ng/mL (0.000-0.034)
[2018-11-09] MEDS: THIAMINE 100 MG TAB PO SCH (16:43)
[2018-11-09 18:44] LABS: Troponin I 0.013 ng/mL (0.000-0.034)
--- NOTE | 2018-11-09 19:47 | ECHOF ---
Referral Reason:cp MEASUREMENTS -------- HEIGHT: 167.6 cm WEIGHT: 59.0 kg BP: 143/78 RVIDd: 2.4 cm (< 3.3) IVSd: 1.0 cm (0.6 - 1.1) LVIDd: 4.3 cm (3.9 - 5.3) LVPWd: 1.2 cm (0.6 - 1.1) IVSs: 1.1 cm LVIDs: 2.9 cm LVPWs: 1.3 cm LAESV Index (A-L): 19.18 ml/m Ao Diam: 2.9 cm (2.0 - 3.7) AV Cusp: 1.8 cm (1.5 - 2.6) LA Diam: 2.5 cm (2.7 - 3.8) MV E Kevon: 0.85 m/s MV DecT: 389 ms MV A Kevon: 1.17 m/s MV E/A Ratio: 0.73 RAP: 5.00 mmHg RVSP: 10.25 mmHg FINDINGS -------- Sinus rhythm. This was a technically good study. The left ventricular size is normal. There is borderline concentric left ventricular hypertrophy. Overall left ventricular systolic function is normal with, an EF between 55 - 60 %. The right ventricle is normal in size and function. Normal LA size by volume 22+/-6 ml/m2. The right atrium is normal in size. Aortic valve is trileaflet and is mildly thickened. There is no evidence of aortic regurgitation. There is no evidence of aortic stenosis. The mitral valve leaflets are mildly thickened. There is trace to mild mitral regurgitation. Trace tricuspid regurgitation present. Right ventricular systolic pressure is normal at < 35 mmHg. There is no evidence of pulmonary hypertension. Trace/mild (physiologic) pulmonic regurgitation. The aortic root size is normal. Normal inferior vena cava with normal inspiratory collapse consistent with estimated right atrial pre ssure of 5 mmHg. There is no pericardial effusion. CONCLUSIONS -------- 1. Sinus rhythm. 2. This was a technically good study. 3. The left ventricular size is normal. 4. There is borderline concentric left ventricular hypertrophy. 5. Overall left ventricular systolic function is normal with, an EF between 55 - 60 %. 6. Normal LA size by volume 22+/-6 ml/m2. 7. Aortic valve is trileaflet and is mildly thickened. 8. The mitral valve leaflets are mildly thickened. 9. There is trace to mild mitral regurgitation. 10. Trace tricuspid regurgitation present. 11. Right ventricular systolic pressure is normal at < 35 mmHg. 12. There is no evidence of pulmonary hypertension. 13. Trace/mild (physiologic) pulmonic regurgitation. 14. The aortic root size is normal. 15. There is no pericardial effusion. [employer] SERVICER: Dar Sy RDCS
--- NOTE | 2018-11-09 21:38 | P.HPIM ---
History of Present Illness H&P Date: 11/09/18 Chief Complaint: Chest pain This is a 58-year-old white female who has been struggling with alcoholism for the last year at least. She has an element of chronic pain. The patient states significant chest pain and alcohol withdrawal elements. She's been drinking up to a fifth of liquor daily. She is now admitted for appropriate detoxification and evaluation for cardiac issues. Psychiatry and cardiology consulted. Review of Systems Constitutional: Denies chills, Denies fever Eyes: denies blurred vision, denies pain Ears, nose, mouth and throat: Denies headache, Denies sore throat Cardiovascular: Denies chest pain, Denies shortness of breath Respiratory: Denies cough Gastrointestinal: Denies abdominal pain, Denies diarrhea, Denies nausea, Denies vomiting Genitourinary: Denies dysuria, Denies hematuria Psychiatric: Reports anxiety, Reports hopelessness Past Medical History Past Medical History: Cancer, COPD, Fibromyalgia, GERD/Reflux, Hyperlipidemia, Hypertension Additional Past Medical History / Comment(s): diverticulitis, emphysema, pain posterior back from [place]ad. scapulas down. lung cancer History of Any Multi-Drug Resistant Organisms: MRSA Date of last positivie culture/infection: 08/2014 MDRO Source:: unknown Past Surgical History: Appendectomy, Bowel Resection, Orthopedic Surgery, Tubal Ligation Additional Past Surgical History / Comment(s): rt wrist fusion, neck fusion, 3 surgeries for kidney stones, salpingo/oophorectomy Past Anesthesia/Blood Transfusion Reactions: No Reported Reaction Additional Past Anesthesia/Blood Transfusion Reaction / Comment(s): needed more medication for last colonoscopy Past Psychological History: Anxiety, Depression, PTSD Smoking Status: Current some day smoker Past Alcohol Use History: Abuse, Daily, Heavy Past Drug Use History: Marijuana - Past Family History Sister(s) Family Medical History: Cancer Mother Family Medical History: Cancer Medications and Allergies Home Medications Medication Instructions Recorded Confirmed Type oxyCODONE HCL 30 mg PO Q6H PRN 09/17/16 11/09/18 History oxyCODONE HCL [OxyCONTIN] 60 mg PO BID 09/17/16 11/09/18 History Albuterol Inhaler [Ventolin Hfa 2 puff INHALATION RT-Q6H PRN 11/09/18 11/09/18 History Inhaler] Allergies Allergy/AdvReac Type Severity Reaction Status Date / Time pregabalin [From Lyrica] Allergy Severe Anaphylaxis Verified 11/09/18 07:08 tizanidine HCl Allergy Severe Anaphylaxis Verified 11/09/18 07:08 [From Zanaflex] Physical Exam Vitals: Vital Signs Temp Pulse Resp BP Pulse Ox 11/09/18 06:09 87 20 166/82 97 11/09/18 05:45 75 18 151/81 97 11/09/18 05:13 98.2 F 109 H 18 157/79 96 Intake and Output 11/08/18 11/09/18 11/09/18 22:59 06:59 14:59 Other: Weight 58.967 kg - Constitutional General appearance: no acute distress - EENT Eyes: EOMI - Neck Neck: no lymphadenopathy - Respiratory Respiratory: bilateral: CTA - Cardiovascular Rhythm: regular Heart sounds: normal: S1, S2 Abnormal Heart Sounds: no S3 Gallop - Gastrointestinal General gastrointestinal: soft, no tenderness - Neurologic Neurologic: CNII-XII intact - Psychiatric Psychiatric: A&O x's 3, no appropriate affect Results CBC & Chem 7: 11/09/18 05:26 11/09/18 05:26 Labs: Abnormal Lab Results - Last 24 Hours (Table) 11/09/18 11/09/18 Range/Units 05:26 05:26 BUN 6 L (7-17) mg/dL Creatinine 0.51 L (0.52-1.04) mg/dL Magnesium 1.3 L (1.6-2.3) mg/dL AST 55 H (14-36) U/L Total Creatine Kinase 234 H (30-135) U/L CK-MB (CK-2) 3.3 H (0.0-2.4) ng/mL Assessment and Plan (1) Alcohol withdrawal Current Visit: Yes Status: Acute Code(s): F10.239 - ALCOHOL DEPENDENCE WITH WITHDRAWAL, UNSPECIFIED SNOMED Code(s): 686760973 (2) COPD exacerbation Current Visit: Yes Status: Acute Code(s): J44.1 - CHRONIC OBSTRUCTIVE PULMONARY DISEASE W (ACUTE) EXACERBATION SNOMED Code(s): 342945653 (3) Chest pain Current Visit: Yes Status: Acute Code(s): R07.9 - CHEST PAIN, UNSPECIFIED SNOMED Code(s): 54114193 Plan: Rule out myocardial infarction. Alcohol withdrawal protocol. Hypomagnesemia will be addressed by protocol. Check CBC and CMP in a.m. Appreciate consultants input. see orders otherwise. Opiate dependence element will be also addressed. Otherwise, she is full code.
[2018-11-10] MEDS: LORazepam 2 MG/ML INJ IV PRN ×8 (00:09→22:01)
[2018-11-10 07:14] LABS: Magnesium 1.7 mg/dL (1.6-2.3)
[2018-11-10] MEDS: oxyCODONE ER 20 MG TAB.ER.12H PO SCH ×2 (08:37→20:54)
[2018-11-10] MEDS: ASPIRIN 325 MG TAB PO SCH (08:38)
[2018-11-10] MEDS: MAGNESIUM SULFATE-D5W PMX 1 GM in DEXTROSE/WATER 1 100ML.BAG IVPB SCH ×2 (08:39→10:35)
--- NOTE | 2018-11-10 11:43 | P.PN ---
Subjective Progress Note Date: 11/10/18 This is a 58-year-old female with history of EtOH abuse who presented to the hospital with alcohol withdrawal. She was complaining of some chest discomfort, atypical, sharp in nature and related to exertion. Her troponins were negative 3. Her initial EKG showed a normal sinus rhythm with no ST-T wave changes. Patient does not have any history of hypertension, no diabetes, no hyperlipidemia. An echocardiogram with Doppler study was performed which revealed an ejection fraction of 55-60%. Blood pressure 150/80, heart rate in the 90s, 96% on 2 L of oxygen. At the time of my examination this morning, the patient complains of feeling tired, weak, achy all over. Objective - Vital Signs Vital signs: Vital Signs Temp 98.3 F 11/10/18 08:00 Pulse 96 11/10/18 08:00 Resp 20 11/10/18 08:00 BP 151/83 11/10/18 08:00 Pulse Ox 96 11/10/18 08:00 Intake & Output 11/09/18 11/10/18 11/10/18 18:59 06:59 18:59 Intake Total 1422 160 240 Output Total 700 Balance 1422 -540 240 Weight 58.967 kg 64 kg Intake: IV 1200 160 0.9@20ml/hr 160 Magnesium Sulfate-D5w Pmx 200 1 gm In Dextrose/Water 1 100ml.bag @ 100 mls/hr IVPB Q1H ABHI Rx#: [id number] Sodium Chloride 0.9% 1, 1000 000 ml @ 999 mls/hr IV . Q1H1M STA Rx#:[id number] Oral 222 240 Output: Urine 700 Other: Voiding Method Toilet Toilet Toilet # Voids 1 - Exam PHYSICAL EXAMINATION: GENERAL: 58-year-old female in no acute distress at the time of my examination HEENT: Head is atraumatic, normocephalic. Pupils equal, round. Sclera anicteric. Conjunctiva are clear. Mucous membranes of the mouth are moist. Neck is supple. There is no elevated jugular venous pressure. No carotid bruit is heard. HEART EXAMINATION: Heart S1, S2 normal. No murmur or gallop heard. CHEST EXAMINATION: On's reveal scattered coarse rhonchi that clear with cough. ABDOMEN: Soft, nontender. Bowel sounds are heard. No organomegaly noted. EXTREMITIES: 2+ peripheral pulses with no evidence of peripheral edema and no calf tenderness noted. NEUROLOGIC patient is awake, alert and oriented 3 . . - Labs CBC & Chem 7: 11/09/18 05:26 11/09/18 05:26 Labs: Abnormal Lab Results - Last 24 Hours (Table) 11/09/18 11/09/18 11/10/18 Range/Units 11:03 17:23 05:49 Total Creatine Kinase 217 H 174 H (30-135) U/L CK-MB (CK-2) 3.2 H (0.0-2.4) ng/mL Cholesterol 271 H (<200) mg/dL HDL Cholesterol 193 H (40-60) mg/dL Assessment and Plan Plan: Assessment and plan #1 atypical chest discomfort, troponins negative 3. Echo reveals normal left ventricular systolic function. #2 no prior documented history of hypertension, diabetes, hyperlipidemia. #3 hypertension #4 EtOH abuse Plan We will start the patient on a small dose of Norvasc to optimize blood pressure control. From our perspective she may be able to be discharged home once cleared by primary. DNP note has been reviewed, I agree with a documented findings and plan of care. Patient was seen and examined.
[2018-11-10] MEDS: THIAMINE 100 MG TAB PO SCH ×2 (11:51→17:25)
[2018-11-11] MEDS: LORazepam 2 MG/ML INJ IV PRN ×3 (01:05→08:12)
--- NOTE | 2018-11-11 08:02 | P.DS ---
Providers Date of admission: 11/09/18 06:42 Attending physician: Abrahan Anderson Consults: 11/09/18 06:42 Consult Physician Routine Consulting Provider: Danielito Taylor Consult Reason/Comments: alcohol dependence Do you want consulting provider notified?: Yes Consult Physician Routine Consulting Provider: Lee Whelan Consult Reason/Comments: Chest pain Do you want consulting provider notified?: Yes Primary care physician: Abrahan Anderson - Discharge Diagnosis(es) (1) Alcohol withdrawal Current Visit: Yes Status: Acute (2) COPD exacerbation Current Visit: Yes Status: Acute (3) Chest pain Current Visit: Yes Status: Acute Hospital Course: This is a discharge summary 58-year-old white female who has been binge alcoholic drinking for the last several months. She drinks of the fifth daily. She states that she is significantly sad because she does not live with her immediate family in [place]. She is worried because she knows that this is inappropriate behavior to do with her chronic pain medication. I've told her that this could be an issue in the future as far as continuing to get her chronic pain medication from her Dr. Lester Turner. Commercial Underwriter consulted secondary chest pain. Psychiatry was consulted secondary to her alcohol dependence. We will discharge once cleared by her consultants. We will reconcile home medications and have her follow-up in about 3-4 days. Patient Condition at Discharge: Serious Plan - Discharge Summary Discharge Rx Participant: No New Discharge Prescriptions: New Aspirin 325 mg PO DAILY tab Continue oxyCODONE HCL [OxyCONTIN] 60 mg PO BID oxyCODONE HCL 30 mg PO Q6H PRN PRN Reason: Pain Albuterol Inhaler [Ventolin Hfa Inhaler] 2 puff INHALATION RT-Q6H PRN PRN Reason: Shortness Of Breath Discharge Medication List oxyCODONE HCL 30 mg PO Q6H PRN 09/17/16 [History] oxyCODONE HCL [OxyCONTIN] 60 mg PO BID 09/17/16 [History] Albuterol Inhaler [Ventolin Hfa Inhaler] 2 puff INHALATION RT-Q6H PRN 11/09/18 [ History] Aspirin 325 mg PO DAILY tab 11/11/18 [Rx] Follow up Appointment(s)/Referral(s): Lee Whelan MD [STAFF PHYSICIAN] - 3 Weeks (Commercial Underwriter.) Abrahan Anderson MD [Primary Care Provider] - 1 Week (Friday) Patient Instructions/Handouts: Chest Pain (DC), How to Stop Smoking (DC), Alcohol Withdrawal (DC), Hypomagnesemia (DC)
[2018-11-11] MEDS: THIAMINE 100 MG TAB PO SCH (08:06)
[2018-11-11] MEDS: ASPIRIN 325 MG TAB PO SCH (08:06)
[2018-11-11] MEDS: oxyCODONE ER 20 MG TAB.ER.12H PO SCH (08:08)
[2018-11-11 08:17] VITALS: BP 136/79; PULSE 92; RESP 18; TEMP 98
[2018-11-11] MEDS ORDERED: oxyCODONE ER 20 MG TAB.ER.12H PO SCH (09:00)
--- NOTE | 2018-11-11 11:31 | P.PN ---
Subjective Progress Note Date: 11/11/18 This is a 58-year-old female with history of EtOH abuse who presented to the hospital with alcohol withdrawal. She was complaining of some chest discomfort, atypical, sharp in nature and related to exertion. Her troponins were negative 3. Her initial EKG showed a normal sinus rhythm with no ST-T wave changes. Patient does not have any history of hypertension, no diabetes, no hyperlipidemia. An echocardiogram with Doppler study was performed which revealed an ejection fraction of 55-60%. Blood pressure 150/80, heart rate in the 90s, 96% on 2 L of oxygen. At the time of my examination this morning, the patient complains of feeling tired, weak, achy all over. 11/11/2018 Patient was seen and examined this morning, blood pressure 136/70, heart rate in the 90s, 95% on room air. No lab data obtained today. Objective - Vital Signs Vital signs: Vital Signs Temp 98 F 11/11/18 08:00 Pulse 92 11/11/18 08:00 Resp 18 11/11/18 08:00 BP 136/79 11/11/18 08:00 Pulse Ox 95 11/11/18 08:00 Intake & Output 11/10/18 11/11/18 11/11/18 18:59 06:59 18:59 Intake Total 684 160 240 Output Total 1500 Balance -816 160 240 Weight 61.9 kg Intake: IV 160 0.9@20ml/hr 160 Oral 684 240 Output: Urine 1500 Other: Voiding Method Toilet Toilet # Voids 1 - Exam PHYSICAL EXAMINATION: GENERAL: 58-year-old female in no acute distress at the time of my examination HEENT: Head is atraumatic, normocephalic. Pupils equal, round. Sclera anicteric. Conjunctiva are clear. Mucous membranes of the mouth are moist. Neck is supple. There is no elevated jugular venous pressure. No carotid bruit is heard. HEART EXAMINATION: Heart S1, S2 normal. No murmur or gallop heard. CHEST EXAMINATION: On's reveal scattered coarse rhonchi that clear with cough. ABDOMEN: Soft, nontender. Bowel sounds are heard. No organomegaly noted. EXTREMITIES: 2+ peripheral pulses with no evidence of peripheral edema and no calf tenderness noted. NEUROLOGIC patient is awake, alert and oriented 3 . . - Labs CBC & Chem 7: 11/09/18 05:26 11/09/18 05:26 Assessment and Plan Plan: Assessment and plan #1 atypical chest discomfort, troponins negative 3. Echo reveals normal left ventricular systolic function. #2 no prior documented history of hypertension, diabetes, hyperlipidemia. #3 hypertension #4 EtOH abuse Plan Patient may be discharged home today from cardiology's perspective. Continue current medications DNP note has been reviewed, I agree with a documented findings and plan of care. Patient was seen and examined.
[2018-11-12] MEDS ORDERED: ASPIRIN 81 MG PO SCH (09:00)
== END 2018-11-11 13:34 | disposition home or self-care (01) | DRG 897 ==
LOC: EC 05:08 → 3SCARD 06:42
PROVIDERS: ADMIT Family Medicine; ATTEND Family Medicine
DX: F10.239 Alcohol dependence with withdrawal, unspecified (principal); F11.20 Opioid dependence, uncomplicated; J44.1 Chronic obstructive pulmonary disease with (acute) exacerbation; F17.210 Nicotine dependence, cigarettes, uncomplicated; E78.5 Hyperlipidemia, unspecified; E83.42 Hypomagnesemia; F32.9 Major depressive disorder, single episode, unspecified; F43.10 Post-traumatic stress disorder, unspecified; G89.29 Other chronic pain; I10 Essential (primary) hypertension; K21.9 Gastro-esophageal reflux disease without esophagitis; M79.7 Fibromyalgia; Z85.118 Personal history of other malignant neoplasm of bronchus and lung; Z87.442 Personal history of urinary calculi; Z98.1 Arthrodesis status; Z80.9 Family history of malignant neoplasm, unspecified; Z90.49 Acquired absence of other specified parts of digestive tract; Z86.14 Personal history of Methicillin resistant Staphylococcus aureus infection; R07.89 Other chest pain; Z88.8 Allergy status to other drugs, medicaments and biological substances; Z79.899 Other long term (current) drug therapy; Z90.79 Acquired absence of other genital organ(s); Z90.721 Acquired absence of ovaries, unilateral
CPT/HCPCS: 36415; 71045; 80053; 80061; 82150; 82550; 82553; 83690; 83735; 84484; 85025; 85610; 85730; 93005; 93306; 94760; 96361; 96372; 96374; 99285

== ENCOUNTER 2019-08-07 12:27 | Emergency (ER) | payer MEDICARE, OTHER ==
[2019-08-07] MEDS ORDERED: SODIUM CHLORIDE 0.9% 1,000 ML IV STA (12:47)
[2019-08-07 12:55] VITALS: RESP 18
--- NOTE | 2019-08-07 13:10 | ED ---
Altered Mental Status HPI - General Chief Complaint: Altered Mental Status Stated Complaint: Seizure Time Seen by Provider: 08/07/19 12:27 Source: patient, EMS, RN notes reviewed, old records reviewed Mode of arrival: EMS Limitations: no limitations - History of Present Illness Initial Comments: This is a 59-year-old female with a known history of alcoholism who states her last drink was 2 days ago who was apparently found by a friend who thought she was dad initially she was unresponsive. EMS was called. The patient was evaluated by EMS. Is brought in with a suspected postictal state. Patient now is more waking cognizant. She is not recall what happened earlier today. He does recall some of the trip in by EMS. He does complain some head and neck pain no chest pain no other abnormalities reported. MD Complaint: confusion, decreased responsiveness - Related Data Home Medications Medication Instructions Recorded Confirmed Albuterol Inhaler [Ventolin Hfa 2 puff INHALATION RT-Q6H PRN 11/09/18 08/07/19 Inhaler] Ezetimibe [Zetia] 10 mg PO DAILY 12/06/18 08/07/19 hydrOXYzine PAMOATE 50 mg PO QID 12/06/18 08/07/19 Buprenorphine HCl/Naloxone HCl 1 film SL BID 08/07/19 08/07/19 [Suboxone 8 mg-2 mg Sl Film] Citalopram Hydrobromide [CeleXA] 20 mg PO DAILY 08/07/19 08/07/19 Allergies Allergy/AdvReac Type Severity Reaction Status Date / Time pregabalin [From Lyrica] Allergy Severe Anaphylaxis Verified 08/07/19 13:15 tizanidine HCl Allergy Severe Anaphylaxis Verified 08/07/19 13:15 [From Zanaflex] Review of Systems ROS Statement: Those systems with pertinent positive or pertinent negative responses have been documented in the HPI. ROS Other: All systems not noted in ROS Statement are negative. Past Medical History Past Medical History: COPD, Fibromyalgia, GERD/Reflux, Hyperlipidemia, Hypertension Additional Past Medical History / Comment(s): diverticulitis, emphysema, History of Any Multi-Drug Resistant Organisms: MRSA Date of last positivie culture/infection: 08/2014 MDRO Source:: unknown Past Surgical History: Appendectomy, Bowel Resection, Orthopedic Surgery Additional Past Surgical History / Comment(s): rt wrist fusion, neck fusion, 3 surgeries for kidney stones, salpingo/oophorectomy Past Anesthesia/Blood Transfusion Reactions: No Reported Reaction Additional Past Anesthesia/Blood Transfusion Reaction / Comment(s): needed more medication for last colonoscopy Past Psychological History: Anxiety, Depression, PTSD Smoking Status: Current some day smoker Past Alcohol Use History: Abuse, Daily, Heavy Past Drug Use History: Marijuana - Past Family History Sister(s) Family Medical History: Cancer Additional Family Medical History / Comment(s): Pt states she does not know what type of cancer her sister had Mother Family Medical History: Cancer Additional Family Medical History / Comment(s): Mother of colon cancer. Maternal grandmother had breast cancer. Father Family Medical History: Diabetes Mellitus Additional Family Medical History / Comment(s): alcoholism General Exam - General Exam Comments Initial Comments: This is a well-developed well-nourished awake alert oriented 3 female Limitations: no limitations General appearance: alert, in no apparent distress Head exam: Present: atraumatic, normocephalic, normal inspection Eye exam: Present: normal appearance, PERRL, EOMI. Absent: scleral icterus, conjunctival injection, periorbital swelling ENT exam: Present: normal exam, mucous membranes moist Neck exam: Present: normal inspection, tenderness, other (No stridor JVD or bruits). Absent: meningismus, lymphadenopathy Respiratory exam: Present: normal lung sounds bilaterally. Absent: respiratory distress, wheezes, rales, rhonchi, stridor Cardiovascular Exam: Present: normal rhythm, tachycardia. Absent: systolic murmur, diastolic murmur, rubs, gallop, clicks GI/Abdominal exam: Present: soft, normal bowel sounds. Absent: distended, tenderness, guarding, rebound, rigid Extremities exam: Present: normal inspection, full ROM, normal capillary refill. Absent: tenderness, pedal edema, joint swelling, calf tenderness Back exam: Present: normal inspection Neurological exam: Present: alert, oriented X3, CN II-XII intact Psychiatric exam: Present: normal affect, normal mood Skin exam: Present: warm, intact, normal color, diaphoretic. Absent: rash Course Vital Signs 08/07/19 12:51 Temperature 98.4 F Pulse Rate 120 H Respiratory 18 Rate Blood Pressure 147/85 O2 Sat by Pulse 95 Oximetry Medical Decision Making - Medical Decision Making Patient is observed for a period time I did suggest admission the patient refuses she will leave A. She is awake alert oriented 3 no acute distress she does have the capabilities make informed decisions. - Lab Data Result diagrams: 08/07/19 12:57 08/07/19 12:57 Lab Results 08/07/19 08/07/19 08/07/19 Range/Units 12:57 12:57 12:57 WBC 9.0 (3.8-10.6) k/uL RBC 4.96 (3.80-5.40) m/uL Hgb 15.0 (11.4-16.0) gm/dL Hct 46.7 H (34.0-46.0) % MCV 94.3 (80.0-100.0) fL MCH 30.4 (25.0-35.0) pg MCHC 32.2 (31.0-37.0) g/dL RDW 13.6 (11.5-15.5) % Plt Count 209 (150-450) k/uL Neutrophils % 76 % Lymphocytes % 14 % Monocytes % 4 % Eosinophils % 2 % Basophils % 2 % Neutrophils # 6.8 (1.3-7.7) k/uL Lymphocytes # 1.3 (1.0-4.8) k/uL Monocytes # 0.4 (0-1.0) k/uL Eosinophils # 0.2 (0-0.7) k/uL Basophils # 0.2 (0-0.2) k/uL Sodium 134 L (137-145) mmol/L Potassium 3.4 L (3.5-5.1) mmol/L Chloride 93 L (98-107) mmol/L Carbon Dioxide 21 L (22-30) mmol/L Anion Gap 20 mmol/L BUN 12 (7-17) mg/dL Creatinine 0.54 (0.52-1.04) mg/dL Est GFR (CKD-EPI)AfAm >90 (>60 ml/min/1.73 sqM) Est GFR (CKD-EPI)NonAf >90 (>60 ml/min/1.73 sqM) Glucose 140 H (74-99) mg/dL Calcium 9.4 (8.4-10.2) mg/dL Magnesium 1.0 L (1.6-2.3) mg/dL Total Bilirubin 1.1 (0.2-1.3) mg/dL AST 113 H (14-36) U/L ALT 65 H (9-52) U/L Alkaline Phosphatase 115 (38-126) U/L Ammonia 34 H (<30) umol/L Creatine Kinase 98 (30-135) U/L Total Protein 7.7 (6.3-8.2) g/dL Albumin 4.5 (3.5-5.0) g/dL Lipase 66 (23-300) U/L Serum Alcohol <10 mg/dL - EKG Data -: EKG Interpreted by Me (EKG shows sinus tachycardia of 116. Interval 164 QRS 78 ) 08/07/19 13:38 Further comments to QT/QTc is 350/46 this is compared with an EKG dated 12/06/18 - Radiology Data Radiology results: report reviewed (Did review the imaging and report no acute findings.), image reviewed Disposition Clinical Impression: Alcohol withdrawal, Hypomagnesemia syndrome, Hypokalemia Disposition: Left Against Medical Advice Condition: Stable Referrals: Abrahan Anderson MD [Primary Care Provider] - 1-2 days
[2019-08-07 13:15] LABS: ALT 65 U/L (9-52); AST 113 U/L (14-36); African American GFR (CKD) >90 (>60 ml/min/1.73 sqM); Albumin 4.5 g/dL (3.5-5.0); Alcohol <10 mg/dL; Alkaline Phosphatase 115 U/L (38-126); Anion Gap 20 mmol/L; Blood Urea Nitrogen 12 mg/dL (7-17); Calcium 9.4 mg/dL (8.4-10.2); Carbon Dioxide 21 mmol/L (22-30); Chloride 93 mmol/L (98-107); Creatine Kinase 98 U/L (30-135); Glucose 140 mg/dL (74-99); Potassium 3.4 mmol/L (3.5-5.1); Sodium 134 mmol/L (137-145); Total Bilirubin 1.1 mg/dL (0.2-1.3); Total Protein 7.7 g/dL (6.3-8.2)
[2019-08-07] MEDS ORDERED: SODIUM CHLORIDE 0.9% 1,000 ML with MVI, ADULT NO.4 WITH VIT K 10 ML, THIAMINE 100 MG, F... IV ONE ×4 (13:15)
[2019-08-07 13:16] LABS: Basophils # (A) 0.2 k/uL (0-0.2); Basophils % (A) 2 %; Eosinophils # (A) 0.2 k/uL (0-0.7); Eosinophils % (A) 2 %; HCT 46.7 % (34.0-46.0); Lymphocytes # (A) 1.3 k/uL (1.0-4.8); Lymphocytes % (A) 14 %; MCH 30.4 pg (25.0-35.0); MCHC 32.2 g/dL (31.0-37.0); MCV 94.3 fL (80.0-100.0); Monocytes # (A) 0.4 k/uL (0-1.0); Monocytes % (A) 4 %; Neutrophils # (A) 6.8 k/uL (1.3-7.7); Neutrophils % (A) 76 %; Platelet Count 209 k/uL (150-450); RBC 4.96 m/uL (3.80-5.40); RDW 13.6 % (11.5-15.5)
--- NOTE | 2019-08-07 13:46 | CT ---
EXAMINATION TYPE: CT brain mary louine wo con DATE OF EXAM: 08/07/2019 COMPARISON: Previous study dated 08/10/2018. HISTORY: headache and neck pain post seizure CT DLP: 1241.7 mGycm Automated exposure control for dose reduction was used. TECHNIQUE: CT scan of the head and cervical spine are performed without contrast. FINDINGS: BRAIN: Central structures are midline. There is no evidence of hydrocephalus. No acute focal lesion, mass effect or midline shift is seen. I do not see evidence of intracranial blood. Visualized portions of the paranasal sinuses and mastoids are clear. The bony calvarium is intact. IMPRESSION: NORMAL CT SCAN OF THE BRAIN. CERVICAL SPINE: Visualized portions of the lungs are clear. Prevertebral soft tissues are normal. There has been a previous ACDF at C5, C6 and C7. Alignment remains normal. Atlantoaxial relationships are normal. There is mild facet hypertrophy at C3-4, greater on the left than the right. This is also true at C4- 5. No definite protrusion is seen. IMPRESSION: 1. NO ACUTE OSSEOUS LESION. 2. MILD DEGENERATIVE CHANGE. 3. POSTSURGICAL CHANGE.
[2019-08-07] MEDS ORDERED: SODIUM CHLORIDE 0.9% 1,000 ML IV ONE (13:47)
[2019-08-07] MEDS ORDERED: SODIUM CHLORIDE 0.9% 500 ML 500 ML IV ONE (13:47)
[2019-08-07] MEDS ORDERED: KETOROLAC 30 MG/ML 1 ML VIAL IVP STA (14:36)
[2019-08-07] MEDS ORDERED: MAGNESIUM SULFATE-D5W PMX 1 GM in DEXTROSE/WATER 1 100ML.BAG IVPB SCH (15:00)
[2019-08-07 15:52] VITALS: BP 126/83; PULSE 99
[2019-08-07 15:55] VITALS: TEMP 98.2
== END 2019-08-07 15:50 | disposition left against medical advice (07) ==
LOC: EC 12:27
DX: E87.6 Hypokalemia (principal); E83.42 Hypomagnesemia; F10.239 Alcohol dependence with withdrawal, unspecified; R51 Headache; M54.2 Cervicalgia; J43.9 Emphysema, unspecified; E78.5 Hyperlipidemia, unspecified; I10 Essential (primary) hypertension; F41.9 Anxiety disorder, unspecified; F32.9 Major depressive disorder, single episode, unspecified; F17.200 Nicotine dependence, unspecified, uncomplicated; Z88.8 Allergy status to other drugs, medicaments and biological substances; Z79.891 Long term (current) use of opiate analgesic; Z79.899 Other long term (current) drug therapy; Z86.14 Personal history of Methicillin resistant Staphylococcus aureus infection; Z98.1 Arthrodesis status; Y90.0 Blood alcohol level of less than 20 mg/100 ml; Z81.1 Family history of alcohol abuse and dependence; Z53.20 Procedure and treatment not carried out because of patient's decision for unspecified reasons
CPT/HCPCS: 99285; 96374; 96361 ×3; 36415; 80053; 82140; 82550; 83690; 83735; 85025; 72125; 70450; G0480; J1885; 80320

== ENCOUNTER 2019-10-06 06:19 | Inpatient (IN) | payer MEDICARE, OTHER ==
[2019-10-06 06:27] LABS: Glucose,Whole Blood 104 mg/dL (75-99)
[2019-10-06] MEDS ORDERED: IPRATROPIUM-ALBUTEROL 3 ML NEB INHALATION STA (06:34)
[2019-10-06] MEDS ORDERED: methylPREDNISolone SOD SUCCI 125 MG/2 ML VIAL IV STA (06:34)
[2019-10-06 06:56] LABS: Basophils # (A) 0.1 k/uL (0-0.2); Basophils % (A) 1 %; Eosinophils # (A) 0.2 k/uL (0-0.7); Eosinophils % (A) 3 %; HCT 41.8 % (34.0-46.0); HGB 13.5 gm/dL (11.4-16.0); Lymphocytes # (A) 2.8 k/uL (1.0-4.8); Lymphocytes % (A) 45 %; MCH 31.2 pg (25.0-35.0); MCHC 32.3 g/dL (31.0-37.0); MCV 96.7 fL (80.0-100.0); Mean Platelet Volume 6.8; Monocytes # (A) 0.4 k/uL (0-1.0); Monocytes % (A) 7 %; Neutrophils # (A) 2.6 k/uL (1.3-7.7); Neutrophils % (A) 41 %; Platelet Count 377 k/uL (150-450); RBC 4.32 m/uL (3.80-5.40); RDW 14.6 % (11.5-15.5); WBC 6.3 k/uL (3.8-10.6)
[2019-10-06 06:57] LABS: VBG PH 7.36 (7.31-7.41)
--- NOTE | 2019-10-06 07:01 | ED ---
General Adult HPI - General Source: patient, EMS, RN notes reviewed Mode of arrival: EMS Limitations: altered mental status <Zechariah Mujica - Last Filed: 10/06/19 07:28> <Mariola Crowell - Last Filed: 10/11/19 13:23> - General Chief complaint: Alcohol Stated complaint: Altered Mental Status Time Seen by Provider: 10/06/19 06:22 - History of Present Illness Initial comments: 59-year-old female presents emergency Department via EMS for alcohol intoxication, difficulty breathing. EMS reports that they were called by his sister has patient's drank over the fifth of rum. She is a known alcoholic. He did note that her pulse ox was in the low 80s was placed on oxygen and did somewhat improve. She does have a history of COPD and continues to smoke. Information from the patient has very limited as she is severely intoxicated. She does deny any abdominal pain or any chest pain at this time. (Zechariah Mujica) - Related Data Home Medications Medication Instructions Recorded Confirmed Albuterol Inhaler [Ventolin Hfa 2 puff INHALATION RT-Q6H PRN 11/09/18 10/06/19 Inhaler] Ezetimibe [Zetia] 10 mg PO DAILY 12/06/18 10/06/19 hydrOXYzine PAMOATE 50 mg PO QID 12/06/18 10/06/19 Citalopram Hydrobromide [CeleXA] 20 mg PO DAILY 08/07/19 10/06/19 Buprenorphine HCl/Naloxone HCl 1 film SL DAILY 10/06/19 10/06/19 [Suboxone 12 mg-3 mg Sl Film] Previous Rx's Medication Instructions Recorded predniSONE 0 mg PO DIRECTED #10 tab 10/08/19 Allergies Allergy/AdvReac Type Severity Reaction Status Date / Time pregabalin [From Lyrica] Allergy Severe Anaphylaxis Verified 10/06/19 07:57 tizanidine HCl Allergy Severe Anaphylaxis Verified 10/06/19 07:57 [From Zanaflex] Review of Systems ROS Other: All systems not noted in ROS Statement are negative. <Zechariah Mujica - Last Filed: 10/06/19 07:28> ROS Other: All systems not noted in ROS Statement are negative. <Mariola Crowell - Last Filed: 10/11/19 13:23> ROS Statement: Those systems with pertinent positive or pertinent negative responses have been documented in the HPI. Past Medical History Past Medical History: COPD, Fibromyalgia, GERD/Reflux, Hyperlipidemia, Hypertension Additional Past Medical History / Comment(s): diverticulitis, emphysema, History of Any Multi-Drug Resistant Organisms: MRSA Date of last positivie culture/infection: 08/2014 MDRO Source:: unknown Past Surgical History: Appendectomy, Bowel Resection, Orthopedic Surgery Additional Past Surgical History / Comment(s): rt wrist fusion, neck fusion, 3 surgeries for kidney stones, salpingo/oophorectomy Past Anesthesia/Blood Transfusion Reactions: No Reported Reaction Additional Past Anesthesia/Blood Transfusion Reaction / Comment(s): needed more medication for last colonoscopy Past Psychological History: Anxiety, Depression, PTSD Smoking Status: Current some day smoker Past Alcohol Use History: Abuse, Daily, Heavy Past Drug Use History: Marijuana - Past Family History Sister(s) Family Medical History: Cancer Additional Family Medical History / Comment(s): Pt states she does not know what type of cancer her sister had Mother Family Medical History: Cancer Additional Family Medical History / Comment(s): Mother of colon cancer. Maternal grandmother had breast cancer. Father Family Medical History: Diabetes Mellitus Additional Family Medical History / Comment(s): alcoholism <Zecharaih Mujica - Last Filed: 10/06/19 07:28> General Exam General appearance: alert, in no apparent distress, appears intoxicated Head exam: Present: atraumatic, normocephalic, normal inspection Eye exam: Present: normal appearance, PERRL, EOMI. Absent: scleral icterus, conjunctival injection, periorbital swelling ENT exam: Present: normal exam, normal oropharynx, mucous membranes moist Neck exam: Present: normal inspection, full ROM. Absent: tenderness, meningismus, lymphadenopathy Respiratory exam: Present: wheezes, decreased breath sounds. Absent: normal lung sounds bilaterally, respiratory distress, rales, rhonchi, stridor Cardiovascular Exam: Present: regular rate, normal rhythm, normal heart sounds. Absent: systolic murmur, diastolic murmur, rubs, gallop, clicks GI/Abdominal exam: Present: soft, normal bowel sounds. Absent: distended, tenderness, guarding, rebound, rigid Neurological exam: Present: alert. Absent: oriented X3 Skin exam: Present: warm, dry, intact, normal color. Absent: rash <Zechariah Mujica - Last Filed: 10/06/19 07:28> Course Vital Signs 10/06/19 10/06/19 10/06/19 06:21 06:29 06:45 Temperature 98.5 F Pulse Rate 93 85 Respiratory 16 14 Rate Blood Pressure 127/78 127/78 O2 Sat by Pulse 88 L 94 L Oximetry 10/06/19 10/06/19 10/06/19 07:00 07:03 07:30 Temperature Pulse Rate 104 H 109 H 99 Respiratory 14 16 Rate Blood Pressure 127/78 134/75 O2 Sat by Pulse 94 L 90 L Oximetry 10/06/19 10/06/19 08:00 09:00 Temperature Pulse Rate 92 84 Respiratory 14 15 Rate Blood Pressure 124/75 121/61 O2 Sat by Pulse 94 L 95 Oximetry Medical Decision Making - Lab Data Result diagrams: 10/06/19 06:46 10/06/19 06:45 <Zechariah Mujica - Last Filed: 10/06/19 07:28> - Lab Data Result diagrams: 10/06/19 06:46 10/06/19 06:45 <Mariola Crowell - Last Filed: 10/11/19 13:23> - Medical Decision Making Patient will be admitted for COPD exacerbation, chest x-rays unremarkable for acute changes just shows chronic changes. Patient does have mild hypokalemia, hypomagnesemia patient has alcohol level of 448. Patient does have COPD exacerbation will be admitted for IV steroids, breathing treatments, patient was placed on CIWA and Ativan protocol. (Zechariah Mujica) I was available for consultation in the emergency department. The history and physical exam were done by the midlevel provider. I was consulted for this patients care. I reviewed the case with the midlevel provider and based on their presentation of the patient, I agree with the assessment, medical decision making and plan of care as documented. I agreed with hospital admission. Chart was dictated using [employer] dictation software. Attempts were made to correct any dictation errors however some typographical errors may persist. (Mariola Crowell) - Lab Data Lab Results 10/06/19 10/06/19 10/06/19 Range/Units 06:26 06:45 06:45 WBC (3.8-10.6) k/uL RBC (3.80-5.40) m/uL Hgb (11.4-16.0) gm/dL Hct (34.0-46.0) % MCV (80.0-100.0) fL MCH (25.0-35.0) pg MCHC (31.0-37.0) g/dL RDW (11.5-15.5) % Plt Count (150-450) k/uL Neutrophils % % Lymphocytes % % Monocytes % % Eosinophils % % Basophils % % Neutrophils # (1.3-7.7) k/uL Lymphocytes # (1.0-4.8) k/uL Monocytes # (0-1.0) k/uL Eosinophils # (0-0.7) k/uL Basophils # (0-0.2) k/uL VBG pH (7.31-7.41) VBG pCO2 (37-51) mmHg VBG HCO3 (24-28) mmol/L Sodium 146 H (137-145) mmol/L Potassium 3.4 L (3.5-5.1) mmol/L Chloride 107 (98-107) mmol/L Carbon Dioxide 28 (22-30) mmol/L Anion Gap 11 mmol/L BUN 9 (7-17) mg/dL Creatinine 0.53 (0.52-1.04) mg/dL Est GFR (CKD-EPI)AfAm >90 (>60 ml/min/1.73 sqM) Est GFR (CKD-EPI)NonAf >90 (>60 ml/min/1.73 sqM) Glucose 102 H (74-99) mg/dL POC Glucose (mg/dL) 104 H (75-99) mg/dL POC Glu Comic [employer] Writer ID Ciara Rojas Lactic Ac Sepsis Rflx Plasma Lactic Acid Phan 2.7 H* (0.7-2.0) mmol/L Calcium 8.6 (8.4-10.2) mg/dL Magnesium 1.4 L (1.6-2.3) mg/dL Total Bilirubin 0.3 (0.2-1.3) mg/dL AST 34 (14-36) U/L ALT 27 (9-52) U/L Alkaline Phosphatase 72 (38-126) U/L Troponin I (0.000-0.034) ng/mL Total Protein 7.0 (6.3-8.2) g/dL Albumin 3.9 (3.5-5.0) g/dL Lipase 73 (23-300) U/L Serum Alcohol 448 H* mg/dL 10/06/19 10/06/19 10/06/19 Range/Units 06:45 06:45 06:46 WBC 6.3 (3.8-10.6) k/uL RBC 4.32 (3.80-5.40) m/uL Hgb 13.5 (11.4-16.0) gm/dL Hct 41.8 (34.0-46.0) % MCV 96.7 (80.0-100.0) fL MCH 31.2 (25.0-35.0) pg MCHC 32.3 (31.0-37.0) g/dL RDW 14.6 (11.5-15.5) % Plt Count 377 (150-450) k/uL Neutrophils % 41 % Lymphocytes % 45 % Monocytes % 7 % Eosinophils % 3 % Basophils % 1 % Neutrophils # 2.6 (1.3-7.7) k/uL Lymphocytes # 2.8 (1.0-4.8) k/uL Monocytes # 0.4 (0-1.0) k/uL Eosinophils # 0.2 (0-0.7) k/uL Basophils # 0.1 (0-0.2) k/uL VBG pH 7.36 (7.31-7.41) VBG pCO2 53 H (37-51) mmHg VBG HCO3 29 H (24-28) mmol/L Sodium (137-145) mmol/L Potassium (3.5-5.1) mmol/L Chloride (98-107) mmol/L Carbon Dioxide (22-30) mmol/L Anion Gap mmol/L BUN (7-17) mg/dL Creatinine (0.52-1.04) mg/dL Est GFR (CKD-EPI)AfAm (>60 ml/min/1.73 sqM) Est GFR (CKD-EPI)NonAf (>60 ml/min/1.73 sqM) Glucose (74-99) mg/dL POC Glucose (mg/dL) (75-99) mg/dL POC Glu Comic Book Writer ID Lactic Ac Sepsis Rflx Plasma Lactic Acid Phan (0.7-2.0) mmol/L Calcium (8.4-10.2) mg/dL Magnesium (1.6-2.3) mg/dL Total Bilirubin (0.2-1.3) mg/dL AST (14-36) U/L ALT (9-52) U/L Alkaline Phosphatase (38-126) U/L Troponin I <0.012 (0.000-0.034) ng/mL Total Protein (6.3-8.2) g/dL Albumin (3.5-5.0) g/dL Lipase (23-300) U/L Serum Alcohol mg/dL 10/06/19 Range/Units 07:06 WBC (3.8-10.6) k/uL RBC (3.80-5.40) m/uL Hgb (11.4-16.0) gm/dL Hct (34.0-46.0) % MCV (80.0-100.0) fL MCH (25.0-35.0) pg MCHC (31.0-37.0) g/dL RDW (11.5-15.5) % Plt Count (150-450) k/uL Neutrophils % % Lymphocytes % % Monocytes % % Eosinophils % % Basophils % % Neutrophils # (1.3-7.7) k/uL Lymphocytes # (1.0-4.8) k/uL Monocytes # (0-1.0) k/uL Eosinophils # (0-0.7) k/uL Basophils # (0-0.2) k/uL VBG pH (7.31-7.41) VBG pCO2 (37-51) mmHg VBG HCO3 (24-28) mmol/L Sodium (137-145) mmol/L Potassium (3.5-5.1) mmol/L Chloride (98-107) mmol/L Carbon Dioxide (22-30) mmol/L Anion Gap mmol/L BUN (7-17) mg/dL Creatinine (0.52-1.04) mg/dL Est GFR (CKD-EPI)AfAm (>60 ml/min/1.73 sqM) Est GFR (CKD-EPI)NonAf (>60 ml/min/1.73 sqM) Glucose (74-99) mg/dL POC Glucose (mg/dL) (75-99) mg/dL POC Glu Comic Book Writer ID Lactic Ac Sepsis Rflx Y Plasma Lactic Acid Phan (0.7-2.0) mmol/L Calcium (8.4-10.2) mg/dL Magnesium (1.6-2.3) mg/dL Total Bilirubin (0.2-1.3) mg/dL AST (14-36) U/L ALT (9-52) U/L Alkaline Phosphatase (38-126) U/L Troponin I (0.000-0.034) ng/mL Total Protein (6.3-8.2) g/dL Albumin (3.5-5.0) g/dL Lipase (23-300) U/L Serum Alcohol mg/dL Disposition <Zechariah Mujica - Last Filed: 10/06/19 07:28> <Mariola Crowell - Last Filed: 10/11/19 13:23> Clinical Impression: Alcoholic intoxication, COPD exacerbation, Hypomagnesemia, Hypokalemia Disposition: ADMITTED IP TO THIS HOSP Condition: Fair
[2019-10-06 07:10] LABS: ALT 27 U/L (9-52); AST 34 U/L (14-36); African American GFR (CKD) >90 (>60 ml/min/1.73 sqM); Albumin 3.9 g/dL (3.5-5.0); Alkaline Phosphatase 72 U/L (38-126); Anion Gap 11 mmol/L; Blood Urea Nitrogen 9 mg/dL (7-17); Calcium 8.6 mg/dL (8.4-10.2); Carbon Dioxide 28 mmol/L (22-30); Chloride 107 mmol/L (98-107); Glucose 102 mg/dL (74-99); Magnesium 1.4 mg/dL (1.6-2.3); Non-African American GFR(CKD) >90 (>60 ml/min/1.73 sqM); Potassium 3.4 mmol/L (3.5-5.1); Sodium 146 mmol/L (137-145); Total Bilirubin 0.3 mg/dL (0.2-1.3)
--- NOTE | 2019-10-06 07:21 | XR ---
EXAMINATION TYPE: XR chest 1V DATE OF EXAM: 10/06/2019 COMPARISON: 12/06/2018 HISTORY: Shortness of breath TECHNIQUE: Single frontal view of the chest is obtained. FINDINGS: There is no focal air space opacity, pleural effusion, or pneumothorax seen. Pulmonary ar teries are enlarged unchanged from the prior. The cardiac silhouette size is within normal limits. The osseous structures are intact. Cervical fusion device is seen. IMPRESSION: Enlargement of main pulmonary artery suggesting underlying pulmonary hypertension. No ac [employer] cardiopulmonary process.
[2019-10-06 07:22] LABS: Alcohol 448 mg/dL
[2019-10-06] MEDS ORDERED: SODIUM CHLORIDE 0.9% 1,000 ML IV ONE ×2 (07:22→12:25)
[2019-10-06] MEDS ORDERED: SODIUM CHLORIDE 0.9% 1,000 ML with MVI, ADULT NO.4 WITH VIT K 10 ML, THIAMINE 100 MG, F... IV ONE ×4 (07:23)
[2019-10-06] MEDS ORDERED: LORazepam 2 MG/ML INJ IV PRN ×2 (07:23)
[2019-10-06] MEDS ORDERED: ALBUTEROL NEBULIZED 2.5 MG/3 ML INHALATION STA (07:46)
[2019-10-06] MEDS: IPRATROPIUM-ALBUTEROL 3 ML NEB INHALATION SCH ×4 (10:19→20:21)
[2019-10-06 12:17] LABS: Glucose,Whole Blood 134 mg/dL (75-99)
[2019-10-06] MEDS: methylPREDNISolone SOD SUCCI 125 MG/2 ML VIAL IV SCH ×2 (12:17→16:58)
[2019-10-06] MEDS: INSULIN ASPART (NovoLOG) 100 UNIT/ML VIAL SQ SCH ×3 (12:33→21:27)
[2019-10-06] MEDS ORDERED: ALBUTEROL NEBULIZED 2.5 MG/3 ML INHALATION PRN (12:39)
[2019-10-06] MEDS: hydrOXYzine PAMOATE 25 MG CAP PO SCH ×3 (14:08→21:27)
[2019-10-06] MEDS: LORazepam 2 MG/ML INJ IV PRN ×3 (14:09→20:02)
[2019-10-06] MEDS: THIAMINE 100 MG TAB PO SCH (16:56)
[2019-10-06 16:57] LABS: Appearance,Urine Clear (Clear); Bilirubin,Urine Negative (Negative); Blood,Urine Small (Negative); Color,Urine Yellow; Glucose,Urine (UA) Negative (Negative); Hyaline Casts,Urine 1 /lpf (0-2); Ketones,Urine Negative (Negative); Leukocyte Esterase,Urine Negative (Negative); Mucus,Urine Rare /hpf; Nitrite,Urine Negative (Negative); PH, Urine 5.5 (5.0-8.0); Protein,Urine Trace (Negative); RBC,Urine 2 /hpf (0-5); Specific Gravity,Urine 1.014 (1.001-1.035); Squamous Epithelial Cell,Urine <1 /hpf (0-4); Urobilinogen,Urine <2.0 mg/dL (<2.0); WBC,Urine 1 /hpf (0-5)
[2019-10-06 17:07] LABS: Glucose,Whole Blood 132 mg/dL (75-99)
[2019-10-06 20:56] LABS: Glucose,Whole Blood 185 mg/dL (75-99)
[2019-10-07] MEDS: methylPREDNISolone SOD SUCCI 125 MG/2 ML VIAL IV SCH ×4 (00:58→17:46)
[2019-10-07] MEDS: LORazepam 2 MG/ML INJ IV PRN ×3 (01:06→21:16)
[2019-10-07 07:13] LABS: Glucose,Whole Blood 173 mg/dL (75-99)
[2019-10-07] MEDS: IPRATROPIUM-ALBUTEROL 3 ML NEB INHALATION SCH ×4 (07:40→19:41)
--- NOTE | 2019-10-07 07:47 | P.HPIM ---
History of Present Illness H&P Date: 10/07/19 Chief Complaint: Altered mental status This is a history of physical 59-year-old white female who has an underlying history of chronic back pain who was found to have acute alcohol intoxication. The patient is essentially admitted for rehab she has an underlying history of COPD. No significant fever or chills. She is slowly becoming less obtunded. Her main complaint today is back pain. Review of Systems Constitutional: Denies chills, Denies fever Eyes: denies blurred vision, denies pain Ears, nose, mouth and throat: Denies headache, Denies sore throat Cardiovascular: Denies chest pain, Denies shortness of breath Respiratory: Reports cough Gastrointestinal: Denies abdominal pain, Denies diarrhea, Denies nausea, Denies vomiting Genitourinary: Denies dysuria, Denies hematuria Musculoskeletal: Reports limitation of motion, Reports myalgias Integumentary: Denies pruritus, Denies rash Neurological: Denies numbness, Denies weakness Past Medical History Past Medical History: COPD, Fibromyalgia, GERD/Reflux, Hyperlipidemia, Hypertension, Renal Disease Additional Past Medical History / Comment(s): ETOH abuse, chronic low back pain, diverticulitis, benign colon polyps, kidney stones with surgical removal. History of Any Multi-Drug Resistant Organisms: MRSA Date of last positivie culture/infection: 08/2014 MDRO Source:: L elbow Past Surgical History: Appendectomy, Bowel Resection, Orthopedic Surgery Additional Past Surgical History / Comment(s): Bowel resection d/t diverticulitis, R wrist fusion with bone graft, cervical fusion with metal, kidney stone surgery x 3, colonoscopy with bening polypectomy, salpingo- oophorectomy (pt cannot recall laterallity). Past Anesthesia/Blood Transfusion Reactions: No Reported Reaction Additional Past Anesthesia/Blood Transfusion Reaction / Comment(s): needed more medication for last colonoscopy Smoking Status: Current every day smoker - Past Family History Sister(s) Family Medical History: Cancer Additional Family Medical History / Comment(s): Pt states she does not know what type of cancer her sister had Mother Family Medical History: Cancer Additional Family Medical History / Comment(s): Mother of colon cancer. Maternal grandmother had breast cancer. Father Family Medical History: Diabetes Mellitus Additional Family Medical History / Comment(s): alcoholism Medications and Allergies Home Medications Medication Instructions Recorded Confirmed Type Albuterol Inhaler [Ventolin Hfa 2 puff INHALATION RT-Q6H PRN 11/09/18 10/06/19 History Inhaler] Ezetimibe [Zetia] 10 mg PO DAILY 12/06/18 10/06/19 History hydrOXYzine PAMOATE 50 mg PO QID 12/06/18 10/06/19 History Citalopram Hydrobromide [CeleXA] 20 mg PO DAILY 08/07/19 10/06/19 History Buprenorphine HCl/Naloxone HCl 1 film SL DAILY 10/06/19 10/06/19 History [Suboxone 12 mg-3 mg Sl Film] Allergies Allergy/AdvReac Type Severity Reaction Status Date / Time pregabalin [From Lyrica] Allergy Severe Anaphylaxis Verified 10/06/19 07:57 tizanidine HCl Allergy Severe Anaphylaxis Verified 10/06/19 07:57 [From Zanaflex] Physical Exam Vitals: Vital Signs Temp Pulse Pulse Resp BP BP Pulse Ox 10/07/19 05:35 97.7 F 73 18 164/96 97 10/06/19 20:05 98.9 F 103 H 18 161/80 95 10/06/19 16:31 90 16 10/06/19 16:21 92 16 10/06/19 15:00 98.3 F 90 16 125/78 94 L 10/06/19 11:25 96 10/06/19 11:15 90 95 10/06/19 09:40 98.1 F 88 16 131/76 98 10/06/19 09:00 84 15 121/61 95 10/06/19 08:00 92 14 124/75 94 L Intake and Output 10/06/19 10/07/19 10/07/19 22:59 06:59 14:59 Other: # Voids 1 - Constitutional General appearance: no acute distress - EENT Eyes: EOMI - Neck Neck: no lymphadenopathy - Respiratory Respiratory: bilateral: CTA - Cardiovascular Rhythm: regular Heart sounds: normal: S1, S2 - Gastrointestinal General gastrointestinal: soft, no tenderness - Neurologic Neurologic: CNII-XII intact Results CBC & Chem 7: 10/06/19 06:46 10/06/19 06:45 Labs: Abnormal Lab Results - Last 24 Hours (Table) 10/06/19 10/06/19 10/06/19 Range/Units 10:41 12:15 16:02 POC Glucose (mg/dL) 134 H (75-99) mg/dL Plasma Lactic Acid Phan 3.3 H* 2.3 H* (0.7-2.0) mmol/L Urine Protein (Negative) Urine Blood (Negative) Urine Mucus (None) /hpf 10/06/19 10/06/19 10/06/19 Range/Units 17:05 19:50 20:55 POC Glucose (mg/dL) 132 H 185 H (75-99) mg/dL Plasma Lactic Acid Phan 2.2 H* (0.7-2.0) mmol/L Urine Protein (Negative) Urine Blood (Negative) Urine Mucus (None) /hpf 10/06/19 10/07/19 Range/Units Unknown 07:11 POC Glucose (mg/dL) 173 H (75-99) mg/dL Plasma Lactic Acid Phan (0.7-2.0) mmol/L Urine Protein Trace H (Negative) Urine Blood Small H (Negative) Urine Mucus Rare H (None) /hpf Thrombosis Risk Factor Assmnt - Choose All That Apply Any of the Below Risk Factors Present?: Yes Each Factor Represents 1 point: Abnormal pulmonary function (COPD), Age 41-60 years Other Risk Factors: No Other congenital or acquired thrombophilia - If yes, enter type in comment: No Thrombosis Risk Factor Assessment Total Risk Factor Score: 2 Thrombosis Risk Factor Assessment Level: Low Risk Assessment and Plan (1) Alcoholic intoxication Current Visit: Yes Status: Acute Code(s): F10.929 - ALCOHOL USE, UNSPECIFIED WITH INTOXICATION, UNSPECIFIED SNOMED Code(s): 36439691 (2) COPD exacerbation Current Visit: Yes Status: Acute Code(s): J44.1 - CHRONIC OBSTRUCTIVE PULMONARY DISEASE W (ACUTE) EXACERBATION SNOMED Code(s): 407749031 (3) Alcohol withdrawal Current Visit: No Status: Acute Code(s): F10.239 - ALCOHOL DEPENDENCE WITH WITHDRAWAL, UNSPECIFIED SNOMED Code(s): 643471113 Plan: Reconcile home medications as necessary. Place on appropriate CIWA scale. Check CBC and CMP with alcohol level in the a.m. Anticipate discharge in the a.m. Question need for psychiatry if no better. Time with Patient: Less than 30
[2019-10-07] MEDS: THIAMINE 100 MG TAB PO SCH ×2 (08:49→17:46)
[2019-10-07] MEDS: hydrOXYzine PAMOATE 25 MG CAP PO SCH ×4 (08:49→21:15)
[2019-10-07] MEDS: CITALOPRAM HYDROBROMIDE 20 MG TAB PO SCH (08:49)
[2019-10-07] MEDS: INSULIN ASPART (NovoLOG) 100 UNIT/ML VIAL SQ SCH ×4 (08:50→21:15)
[2019-10-07] MEDS: [UNRECOGNIZED DRUG - OTHER] SUBLINGUAL SCH (08:50)
[2019-10-07] MEDS: NALOXONE HCL SUBLINGUAL SCH (08:50)
[2019-10-07] MEDS: BUPRENORPHINE HCL SUBLINGUAL SCH (08:50)
[2019-10-07] MEDS: EZETIMIBE 10 MG TAB PO SCH (08:54)
[2019-10-07 12:04] LABS: Glucose,Whole Blood 131 mg/dL (75-99)
[2019-10-07 17:09] LABS: Glucose,Whole Blood 185 mg/dL (75-99)
[2019-10-07 20:55] LABS: Glucose,Whole Blood 103 mg/dL (75-99)
[2019-10-08] MEDS: methylPREDNISolone SOD SUCCI 125 MG/2 ML VIAL IV SCH ×3 (00:40→08:04)
[2019-10-08] MEDS: LORazepam 2 MG/ML INJ IV PRN ×2 (00:58→04:21)
[2019-10-08 07:25] LABS: Glucose,Whole Blood 130 mg/dL (75-99)
--- NOTE | 2019-10-08 07:55 | P.DS ---
Providers Date of admission: 10/06/19 07:31 Attending physician: Abrahan Anderson Primary care physician: Abrahan Anderson - Discharge Diagnosis(es) (1) Alcoholic intoxication Current Visit: Yes Status: Acute (2) COPD exacerbation Current Visit: Yes Status: Acute (3) Alcohol withdrawal Current Visit: Yes Status: Acute Hospital Course: the patient is a 59-year-old white female centimeter for acute INTOXICATION AND WAS ADMITTED FOR POSSIBLE WITHDRAWAL. WE HAD A SIGNIFICANT DISCUSSION BECAUSE SHE HAS AN UNDERLYING HISTORY OF CHRONIC PAIN AND WE CANNOT NECESSARILY GIVE HER BENZODIAZEPINES WITH SUBOXONE. WE HAD A LONG DISCUSSION ABOUT PROBABLE WEANING SCHEDULE FOR SUBOXONE. SHE'LL BE DISCHARGED NOW SHE IS TOLERATING DIET WITHOUT DIFFICULTY AND NO DELIRIUM TREMENS OR ACUTE ALCOHOL WITHDRAWAL SYMPTOMS WHICH WERE PROBLEMATIC. THE PATIENT WILL FOLLOW-UP WITH ME IN ONE WEEK. Patient Condition at Discharge: Fair Plan - Discharge Summary Discharge Rx Participant: No New Discharge Prescriptions: No Action Albuterol Inhaler [Ventolin Hfa Inhaler] 2 puff INHALATION RT-Q6H PRN PRN Reason: Shortness Of Breath hydrOXYzine PAMOATE 50 mg PO QID Ezetimibe [Zetia] 10 mg PO DAILY Citalopram Hydrobromide [CeleXA] 20 mg PO DAILY Buprenorphine HCl/Naloxone HCl [Suboxone 12 mg-3 mg Sl Film] 1 film SL DAILY Discharge Medication List Albuterol Inhaler [Ventolin Hfa Inhaler] 2 puff INHALATION RT-Q6H PRN 11/09/18 [History] Ezetimibe [Zetia] 10 mg PO DAILY 12/06/18 [History] hydrOXYzine PAMOATE 50 mg PO QID 12/06/18 [History] Citalopram Hydrobromide [CeleXA] 20 mg PO DAILY 08/07/19 [History] Buprenorphine HCl/Naloxone HCl [Suboxone 12 mg-3 mg Sl Film] 1 film SL DAILY 10/06/19 [History] Follow up Appointment(s)/Referral(s): Abrahan Anderson MD [Primary Care Provider] - 1-2 days
[2019-10-08] MEDS: [UNRECOGNIZED DRUG - OTHER] SUBLINGUAL SCH (08:04)
[2019-10-08] MEDS: NALOXONE HCL SUBLINGUAL SCH (08:04)
[2019-10-08] MEDS: BUPRENORPHINE HCL SUBLINGUAL SCH (08:04)
[2019-10-08] MEDS: INSULIN ASPART (NovoLOG) 100 UNIT/ML VIAL SQ SCH (08:04)
[2019-10-08] MEDS: EZETIMIBE 10 MG TAB PO SCH (08:07)
[2019-10-08] MEDS: THIAMINE 100 MG TAB PO SCH (08:07)
[2019-10-08] MEDS: CITALOPRAM HYDROBROMIDE 20 MG TAB PO SCH (08:07)
[2019-10-08] MEDS: hydrOXYzine PAMOATE 25 MG CAP PO SCH (08:07)
[2019-10-08 08:09] VITALS: BP 150/90; PULSE 81; RESP 18; TEMP 97
[2019-10-08] MEDS: IPRATROPIUM-ALBUTEROL 3 ML NEB INHALATION SCH (08:57)
== END 2019-10-08 09:05 | disposition home or self-care (01) | DRG 897 ==
LOC: EC 06:19 → 4MS4W 07:31
PROVIDERS: ADMIT Family Medicine; ATTEND Family Medicine
DX: F10.229 Alcohol dependence with intoxication, unspecified (principal); E83.42 Hypomagnesemia; J43.9 Emphysema, unspecified; F10.239 Alcohol dependence with withdrawal, unspecified; Y90.8 Blood alcohol level of 240 mg/100 ml or more; E87.6 Hypokalemia; E78.5 Hyperlipidemia, unspecified; I10 Essential (primary) hypertension; M79.7 Fibromyalgia; K21.9 Gastro-esophageal reflux disease without esophagitis; F43.10 Post-traumatic stress disorder, unspecified; F32.9 Major depressive disorder, single episode, unspecified; F41.9 Anxiety disorder, unspecified; G89.29 Other chronic pain; M54.5 Low back pain; F17.200 Nicotine dependence, unspecified, uncomplicated; Z71.6 Tobacco abuse counseling; Z79.899 Other long term (current) drug therapy; Z86.14 Personal history of Methicillin resistant Staphylococcus aureus infection; Z90.49 Acquired absence of other specified parts of digestive tract; Z98.1 Arthrodesis status; Z87.442 Personal history of urinary calculi; Z87.19 Personal history of other diseases of the digestive system; Z80.0 Family history of malignant neoplasm of digestive organs; Z88.8 Allergy status to other drugs, medicaments and biological substances; Z80.3 Family history of malignant neoplasm of breast; Z83.3 Family history of diabetes mellitus; Z81.1 Family history of alcohol abuse and dependence
CPT/HCPCS: 36415; 71045; 80053; 80320; 81001; 82803; 83605; 83690; 83735; 84484; 85025; 93005; 94640; 94760; 96361; 96374; 99285

== ENCOUNTER 2019-11-04 06:27 | Inpatient (IN) | payer MEDICARE, OTHER ==
--- NOTE | 2019-11-04 06:38 | ED ---
General Adult HPI - General Source: patient, EMS, RN notes reviewed Mode of arrival: EMS <Paul Grey - Last Filed: 11/04/19 17:48> <Mariola Crowell - Last Filed: 11/12/19 14:24> - General Chief complaint: Chest Pain Stated complaint: Chest Pain Time Seen by Provider: 11/04/19 06:33 - History of Present Illness Initial comments: 59-year-old female with a past medical history of COPD, fibromyalgia, GERD, hyperlipidemia, hypertension, alcohol abuse presents to the emergency department for a chief complaint of chest discomfort. Patient states that this started about 9 hours ago. States it is a burning pain in nature. Patient denies any radiating pain. Does admit to associated nausea. Denies diaphoresis. Admits to associated shortness of breath and states she is always short of breath given her COPD. Patient states her last drink was yesterday. Patient is a current every day smoker. Patient was evaluated by cardiology in October 2018 for atypical chest discomfort. Echo was performed which revealed a normal left ventricular systolic function. Patient has no other complaints at this time including abdominal pain, nausea or vomiting, headache, or visual changes. (Paul Grey) - Related Data Home Medications Medication Instructions Recorded Confirmed Ezetimibe [Zetia] 10 mg PO DAILY 12/06/18 11/12/19 Citalopram Hydrobromide 20 mg PO DAILY 11/12/19 11/12/19 [Citalopram HBr] Metoprolol Tartrate [Lopressor] 50 mg PO BID 11/12/19 11/12/19 Allergies Allergy/AdvReac Type Severity Reaction Status Date / Time pregabalin [From Lyrica] Allergy Severe Anaphylaxis Verified 11/12/19 09:33 tizanidine HCl Allergy Severe Anaphylaxis Verified 11/12/19 09:33 [From Zanaflex] Review of Systems ROS Other: All systems not noted in ROS Statement are negative. <Paul Grey - Last Filed: 11/04/19 17:48> ROS Other: All systems not noted in ROS Statement are negative. <Mariola Crowell - Last Filed: 11/12/19 14:24> ROS Statement: Those systems with pertinent positive or pertinent negative responses have been documented in the HPI. Past Medical History Past Medical History: COPD, Fibromyalgia, GERD/Reflux, Hyperlipidemia, Hypertension, Renal Disease Additional Past Medical History / Comment(s): ETOH abuse, chronic low back pain, diverticulitis, benign colon polyps, kidney stones with surgical removal. History of Any Multi-Drug Resistant Organisms: MRSA Date of last positivie culture/infection: 08/2014 MDRO Source:: L elbow Past Surgical History: Appendectomy, Bowel Resection, Orthopedic Surgery Additional Past Surgical History / Comment(s): Bowel resection d/t diverticulitis, R wrist fusion with bone graft, cervical fusion with metal, kidney stone surgery x 3, colonoscopy with bening polypectomy, salpingo- oophorectomy (pt cannot recall laterallity). Past Anesthesia/Blood Transfusion Reactions: No Reported Reaction Additional Past Anesthesia/Blood Transfusion Reaction / Comment(s): needed more medication for last colonoscopy Past Psychological History: Anxiety, Depression, PTSD Smoking Status: Current every day smoker Past Alcohol Use History: Daily Past Drug Use History: None Reported - Past Family History Sister(s) Family Medical History: Cancer Additional Family Medical History / Comment(s): Pt states she does not know what type of cancer her sister had Mother Family Medical History: Cancer Additional Family Medical History / Comment(s): Mother of colon cancer. Maternal grandmother had breast cancer. Father Family Medical History: Diabetes Mellitus Additional Family Medical History / Comment(s): alcoholism <Paul Grey P - Last Filed: 11/04/19 17:48> General Exam General appearance: alert, in no apparent distress (tremors noted), anxious Head exam: Present: atraumatic, normocephalic, normal inspection Eye exam: Present: normal appearance, PERRL, EOMI. Absent: scleral icterus, conjunctival injection, periorbital swelling ENT exam: Present: normal exam, mucous membranes moist Neck exam: Present: normal inspection, full ROM. Absent: tenderness, meningismus, lymphadenopathy Respiratory exam: Present: wheezes (minimal wheezing in lower lung nix). Absent: respiratory distress, rales, rhonchi, stridor Cardiovascular Exam: Present: regular rate, normal rhythm, normal heart sounds. Absent: systolic murmur, diastolic murmur, rubs, gallop, clicks GI/Abdominal exam: Present: soft, normal bowel sounds. Absent: distended, tenderness, guarding, rebound, rigid Neurological exam: Present: alert <Paul Grey - Last Filed: 11/04/19 17:48> Course Vital Signs 11/04/19 11/04/19 11/04/19 06:28 06:35 07:00 Temperature 98 F Pulse Rate 114 H 105 H Pulse Rate [ 108 H [employer] ] Respiratory 20 Rate Blood Pressure 163/102 O2 Sat by Pulse 96 Oximetry 11/04/19 11/04/19 11/04/19 07:09 07:54 11:05 Temperature 99 F 98.9 F Pulse Rate 102 H 112 H 109 H Pulse Rate [ [employer] ] Respiratory 20 20 Rate Blood Pressure 149/79 136/74 O2 Sat by Pulse 95 93 L Oximetry EKG Findings - EKG Comments: EKG Findings:: ST, vent rate 111, FL int 166, QRS 82, QTc 492 <Paul Grey - Last Filed: 11/04/19 17:48> Medical Decision Making - Lab Data Result diagrams: 11/04/19 06:42 11/04/19 06:42 <Paul Grey - Last Filed: 11/04/19 17:48> - Lab Data Result diagrams: 11/05/19 06:31 11/05/19 06:31 <Mariola Crowell - Last Filed: 11/12/19 14:24> - Medical Decision Making CBC unremarkable. CMP did demonstrate a potassium of 3.0 and magnesium of 1.2 both of which were orally and parenterally replaced. Serum alcohol 135, patient noted to have tremors, started on CIWA protocol given impending DTs. Troponin negative. However d-dimer is elevated therefore chest CTA was obtained that court wed no suspicious acute pulmonary process. However there is a long segment wall thickening of the mid to distal esophagus extending below the diaphragmatic hiatus, neoplasm cannot be excluded, nonemergent endoscopy advised. Although atypical in nature we will trend troponin given patient's chest pain. Patient also being monitored for alcohol withdrawal. (Paul Grey) I was available for consultation in the emergency department. The history and physical exam were done by the midlevel provider. I was consulted for this patients care. I reviewed the case with the midlevel provider and based on their presentation of the patient, I agree with the assessment, medical decision making and plan of care as documented. I evaluated the patient myself. I discussed the case with Dr. Anderson who accepted admission for the patient. Chart was dictated using [employer] dictation software. Attempts were made to correct any dictation errors however some typographical errors may persist. (Mariola Crowell) - Lab Data Lab Results 11/04/19 11/04/19 11/04/19 Range/Units 06:42 06:42 06:42 WBC 9.7 (3.8-10.6) k/uL RBC 4.23 (3.80-5.40) m/uL Hgb 14.0 (11.4-16.0) gm/dL Hct 41.2 (34.0-46.0) % MCV 97.4 (80.0-100.0) fL MCH 33.1 (25.0-35.0) pg MCHC 34.0 (31.0-37.0) g/dL RDW 15.6 H (11.5-15.5) % Plt Count 169 D (150-450) k/uL Neutrophils % 80 % Lymphocytes % 13 % Monocytes % 5 % Eosinophils % 1 % Basophils % 1 % Neutrophils # 7.7 (1.3-7.7) k/uL Lymphocytes # 1.3 (1.0-4.8) k/uL Monocytes # 0.5 (0-1.0) k/uL Eosinophils # 0.1 (0-0.7) k/uL Basophils # 0.1 (0-0.2) k/uL Anisocytosis Macrocytosis PT 9.8 (9.0-12.0) sec INR 0.9 (<1.2) APTT 23.4 (22.0-30.0) sec D-Dimer 1.14 H (<0.60) mg/L FEU Sodium 138 (137-145) mmol/L Potassium 3.0 L (3.5-5.1) mmol/L Chloride 90 L (98-107) mmol/L Carbon Dioxide 27 (22-30) mmol/L Anion Gap 21 mmol/L BUN 13 (7-17) mg/dL Creatinine 0.60 (0.52-1.04) mg/dL Est GFR (CKD-EPI)AfAm >90 (>60 ml/min/1.73 sqM) Est GFR (CKD-EPI)NonAf >90 (>60 ml/min/1.73 sqM) Glucose 77 (74-99) mg/dL Calcium 9.1 (8.4-10.2) mg/dL Magnesium 1.2 L (1.6-2.3) mg/dL Total Bilirubin 1.2 (0.2-1.3) mg/dL AST 162 H (14-36) U/L ALT 67 H (4-34) U/L Alkaline Phosphatase 130 H (38-126) U/L Troponin I (0.000-0.034) ng/mL NT-Pro-B Natriuret Pep pg/mL Total Protein 8.2 (6.3-8.2) g/dL Albumin 5.0 (3.5-5.0) g/dL Triglycerides (<150) mg/dL Cholesterol (<200) mg/dL LDL Cholesterol, Calc (0-99) mg/dL HDL Cholesterol (40-60) mg/dL Amylase 73 (30-110) U/L Lipase 84 (23-300) U/L Serum Alcohol 135 mg/dL 11/04/19 11/04/19 11/04/19 Range/Units 06:42 06:42 12:18 WBC (3.8-10.6) k/uL RBC (3.80-5.40) m/uL Hgb (11.4-16.0) gm/dL Hct (34.0-46.0) % MCV (80.0-100.0) fL MCH (25.0-35.0) pg MCHC (31.0-37.0) g/dL RDW (11.5-15.5) % Plt Count (150-450) k/uL Neutrophils % % Lymphocytes % % Monocytes % % Eosinophils % % Basophils % % Neutrophils # (1.3-7.7) k/uL Lymphocytes # (1.0-4.8) k/uL Monocytes # (0-1.0) k/uL Eosinophils # (0-0.7) k/uL Basophils # (0-0.2) k/uL Anisocytosis Macrocytosis PT (9.0-12.0) sec INR (<1.2) APTT (22.0-30.0) sec D-Dimer (<0.60) mg/L FEU Sodium (137-145) mmol/L Potassium (3.5-5.1) mmol/L Chloride (98-107) mmol/L Carbon Dioxide (22-30) mmol/L Anion Gap mmol/L BUN (7-17) mg/dL Creatinine (0.52-1.04) mg/dL Est GFR (CKD-EPI)AfAm (>60 ml/min/1.73 sqM) Est GFR (CKD-EPI)NonAf (>60 ml/min/1.73 sqM) Glucose (74-99) mg/dL Calcium (8.4-10.2) mg/dL Magnesium (1.6-2.3) mg/dL Total Bilirubin (0.2-1.3) mg/dL AST (14-36) U/L ALT (4-34) U/L Alkaline Phosphatase (38-126) U/L Troponin I <0.012 <0.012 (0.000-0.034) ng/mL NT-Pro-B Natriuret Pep 167 pg/mL Total Protein (6.3-8.2) g/dL Albumin (3.5-5.0) g/dL Triglycerides (<150) mg/dL Cholesterol (<200) mg/dL LDL Cholesterol, Calc (0-99) mg/dL HDL Cholesterol (40-60) mg/dL Amylase (30-110) U/L Lipase (23-300) U/L Serum Alcohol mg/dL 11/04/19 11/05/19 11/05/19 Range/Units 18:54 06:31 06:31 WBC 8.9 (3.8-10.6) k/uL RBC 4.25 (3.80-5.40) m/uL Hgb 14.1 (11.4-16.0) gm/dL Hct 43.5 (34.0-46.0) % MCV 102.5 H D (80.0-100.0) fL MCH 33.1 (25.0-35.0) pg MCHC 32.3 (31.0-37.0) g/dL RDW 16.2 H (11.5-15.5) % Plt Count 100 L (150-450) k/uL Neutrophils % % Lymphocytes % % Monocytes % % Eosinophils % % Basophils % % Neutrophils # (1.3-7.7) k/uL Lymphocytes # (1.0-4.8) k/uL Monocytes # (0-1.0) k/uL Eosinophils # (0-0.7) k/uL Basophils # (0-0.2) k/uL Anisocytosis Slight Macrocytosis Moderate PT (9.0-12.0) sec INR (<1.2) APTT (22.0-30.0) sec D-Dimer (<0.60) mg/L FEU Sodium 133 L (137-145) mmol/L Potassium 3.7 (3.5-5.1) mmol/L Chloride 91 L (98-107) mmol/L Carbon Dioxide 30 (22-30) mmol/L Anion Gap 12 mmol/L BUN 10 (7-17) mg/dL Creatinine 0.53 (0.52-1.04) mg/dL Est GFR (CKD-EPI)AfAm >90 (>60 ml/min/1.73 sqM) Est GFR (CKD-EPI)NonAf >90 (>60 ml/min/1.73 sqM) Glucose 92 (74-99) mg/dL Calcium 8.7 (8.4-10.2) mg/dL Magnesium 1.8 (1.6-2.3) mg/dL Total Bilirubin (0.2-1.3) mg/dL AST (14-36) U/L ALT (4-34) U/L Alkaline Phosphatase (38-126) U/L Troponin I <0.012 (0.000-0.034) ng/mL NT-Pro-B Natriuret Pep pg/mL Total Protein (6.3-8.2) g/dL Albumin (3.5-5.0) g/dL Triglycerides 69 (<150) mg/dL Cholesterol 310 H (<200) mg/dL LDL Cholesterol, Calc 95 (0-99) mg/dL HDL Cholesterol 201 H (40-60) mg/dL Amylase (30-110) U/L Lipase (23-300) U/L Serum Alcohol mg/dL Disposition Is patient prescribed a controlled substance at d/c from ED?: No Time of Disposition: 17:51 <Paul Grey P - Last Filed: 11/04/19 17:48> <Mariola Crowell - Last Filed: 11/12/19 14:24> Clinical Impression: Chest pain, Hypomagnesemia, Hypokalemia, Alcohol withdrawal, Tachycardia, Alcoholic intoxication Disposition: ADMITTED IP TO THIS HOSP Condition: Fair
[2019-11-04] MEDS ORDERED: SODIUM CHLORIDE 0.9% 1,000 ML IV STA (06:41)
[2019-11-04] MEDS ORDERED: ASPIRIN 81 MG PO STA (06:41)
[2019-11-04] MEDS ORDERED: LORazepam 2 MG/ML INJ IV STA ×2 (06:41→08:30)
[2019-11-04] MEDS ORDERED: MORPHINE SULFATE 2 MG/ML SYRINGE IVP STA (06:41)
[2019-11-04] MEDS ORDERED: IPRATROPIUM-ALBUTEROL 3 ML NEB INHALATION STA (06:42)
[2019-11-04 06:59] LABS: Basophils # (A) 0.1 k/uL (0-0.2); Basophils % (A) 1 %; Eosinophils # (A) 0.1 k/uL (0-0.7); Eosinophils % (A) 1 %; HCT 41.2 % (34.0-46.0); Lymphocytes # (A) 1.3 k/uL (1.0-4.8); Lymphocytes % (A) 13 %; MCH 33.1 pg (25.0-35.0); MCV 97.4 fL (80.0-100.0); Monocytes # (A) 0.5 k/uL (0-1.0); Monocytes % (A) 5 %; Neutrophils # (A) 7.7 k/uL (1.3-7.7); Neutrophils % (A) 80 %; RBC 4.23 m/uL (3.80-5.40); RDW 15.6 % (11.5-15.5); WBC 9.7 k/uL (3.8-10.6)
[2019-11-04 07:01] LABS: Platelet Count 169 k/uL (150-450)
--- NOTE | 2019-11-04 07:07 | XR ---
EXAMINATION TYPE: XR chest 2V DATE OF EXAM: 11/04/2019 COMPARISON: 10/06/2019 HISTORY: Chest pain with history of COPD TECHNIQUE: Frontal and lateral views of the chest are obtained. FINDINGS: There is no focal air space opacity, pleural effusion, or pneumothorax seen. Pulmonary hyp erinflation and flattening of the diaphragms is noted compatible COPD. Prominence of the main pulmona ry arteries suggests pulmonary arterial hypertension. The cardiac silhouette size is within normal l imits. The osseous structures are intact. Cervical fusion device is seen. Mild degenerative change of the spine. IMPRESSION: No acute cardiopulmonary process. Radiographic sequela of COPD.
[2019-11-04 07:10] LABS: ALT 67 U/L (4-34); AST 162 U/L (14-36); African American GFR (CKD) >90 (>60 ml/min/1.73 sqM); Alkaline Phosphatase 130 U/L (38-126); Amylase 73 U/L (30-110); Anion Gap 21 mmol/L; Blood Urea Nitrogen 13 mg/dL (7-17); Calcium 9.1 mg/dL (8.4-10.2); Carbon Dioxide 27 mmol/L (22-30); Chloride 90 mmol/L (98-107); Glucose 77 mg/dL (74-99); Magnesium 1.2 mg/dL (1.6-2.3); Non-African American GFR(CKD) >90 (>60 ml/min/1.73 sqM); Sodium 138 mmol/L (137-145); Total Bilirubin 1.2 mg/dL (0.2-1.3); Total Protein 8.2 g/dL (6.3-8.2)
[2019-11-04 07:18] LABS: INR 0.9 (<1.2); Partial Thromboplastin Time 23.4 sec (22.0-30.0); Prothrombin Time 9.8 sec (9.0-12.0)
[2019-11-04 07:50] LABS: Alcohol 135 mg/dL
[2019-11-04] MEDS ORDERED: POTASSIUM CHLORIDE ER 20 MEQ TAB.ER PO STA (07:57)
[2019-11-04] MEDS ORDERED: MAGNESIUM OXIDE 400 MG TAB PO STA (08:18)
[2019-11-04 08:22] LABS: D-Dimer 1.14 mg/L FEU (<0.60)
[2019-11-04] MEDS ORDERED: MAG HYDROX/AL HYDROX/SIMETH 30 ML, HYOSCYAMINE ELIXIR 10 ML, LIDOCAINE VISCOUS 2% 10 ML PO STA ×3 (08:29)
[2019-11-04] MEDS ORDERED: FAMOTIDINE 20 MG/2 ML VIAL IV STA (08:29)
[2019-11-04] MEDS ORDERED: POTASSIUM CHLORIDE 10 MEQ in WATER FOR INJECTION 1 100ML.BAG IVPB ONE (08:36)
[2019-11-04] MEDS: MAGNESIUM SULFATE-D5W PMX 1 GM in DEXTROSE/WATER 1 100ML.BAG IVPB SCH ×4 (08:54→15:57)
--- NOTE | 2019-11-04 09:22 | CT ---
EXAMINATION TYPE: CT chest angio for PE DATE OF EXAM: 11/04/2019 COMPARISON: Same day chest x-ray. CT chest December 04, 2016. HISTORY: Chest pain and shortness of breath. CT DLP: 250.8 mGycm. Automated Exposure Control for Dose Reduction was Utilized. CONTRAST: CTA scan of the thorax is performed without and with IV Contrast, patient injected with 100 ml mL of Isovue 370, pulmonary embolism protocol. MIP Images are created on CT scanner and reviewed. FINDINGS: Exam is degraded by significant respiratory motion artifact degradation, this makes evaluat ion suboptimal particularly for subcentimeter nodules. Mild chronic and emphysematous changes with sc attered areas of scarring and/or atelectasis in the lower lungs and few small scattered blebs are red emonstrated. No suspicious consolidation or new focal infiltrate. No pleural effusion or pneumothorax . No obvious pulmonary masses. LUNGS: The lungs are grossly clear, there is no concerning parenchymal mass or nodule identified. T here is no pleural effusion or pneumothorax seen. The tracheobronchial tree is patent. MEDIASTINUM: There is near equal contrasted right and left heart systems with heterogeneity but no CT evidence for acute pulmonary embolism. There are no greater than 1 cm hilar or mediastinal lymph no joni. No cardiomegaly or pericardial effusion is seen. Beginning at level of [place] there is long se gment moderate to severe wall thickening of the esophagus extending below diaphragm that is new from prior study and warrants follow-up. OTHER: Visualized liver is markedly hypodense consistent with diffuse fatty infiltration. Mild-to-mod erate multilevel anterior spurring in the thoracic spine.. IMPRESSION: 1. Suboptimal study without CT evidence for acute pulmonary embolism or new suspicious acute pulmonar y process. Mild underlying emphysematous change is redemonstrated. 2. New suspicious long segment wall thickening of the mid to distal esophagus extending below the kaushik phragmatic hiatus, neoplasm cannot be excluded. Further investigation with nonemergent endoscopy advi sed.
[2019-11-04] MEDS ORDERED: MORPHINE SULFATE 4 MG/ML SYRINGE IVP STA (09:39)
[2019-11-04] MEDS ORDERED: NITROGLYCERIN SL TABS 0.4 MG TAB SUBLINGUAL PRN (09:48)
[2019-11-04] MEDS ORDERED: LORazepam 2 MG/ML INJ IV PRN ×3 (09:51)
[2019-11-04] MEDS ORDERED: THIAMINE 100 MG/ML 2 ML VIAL IM STA (09:51)
--- NOTE | 2019-11-04 12:13 | P.CRDCN ---
History of Present Illness Consult date: 11/04/19 Requesting physician: Abrahan Anderson Consult reason: chest pain History of present illness: This is a 59-year-old female with history of EtOH abuse, nicotine dependence, who presented to the hospital with symptoms of chest pain that she describes as a burning sensation in her chest, symptoms started through the ni ght last night when she was trying to sleep. She states that it feels like heartburn. According to the patient she has not had a drink for several days however her serum alcohol level on admission was 135. At the time of my examination, she is quite tremulous, and complain of this burning sensation in the center of her chest. Patient also continues to smoke approximately a pack of cigarettes per day, she does have history of COPD. White blood cell count on admission 9.7, hemoglobin 14, platelet count 169. D-dimer 1.1. Sodium 138, potassium 3.0, BUN 13, creatinine 0.6. Magnesium 1.2, AST 162, ALT 67, alk phos 1:30, troponin 0.012, BNP level 167. Chest x-ray does not reveal any acute c ardiopulmonary disease. CTA of the chest shows suboptimal study without CT evidence of pulmonary embolism or new suspicious acute pulmonary process. Mild underlying emphysema changes redemonstrated. New suspicious long segment wall thickening of the mid to distal esophagus. Neoplasm cannot be excluded. EKG shows a sinus tachycardia with no acute changes. Blood pressure 136/70 with a heart rate of 112, 93% on room air. Past Medical History Past Medical History: COPD, Fibromyalgia, GERD/Reflux, Hyperlipidemia, Hypertension, Renal Disease Additional Past Medical History / Comment(s): ETOH abuse, chronic low back pain, diverticulitis, benign colon polyps, kidney stones with surgical removal. History of Any Multi-Drug Resistant Organisms: MRSA Date of last positivie culture/infection: 08/2014 MDRO Source:: L elbow Past Surgical History: Appendectomy, Bowel Resection, Orthopedic Surgery Additional Past Surgical History / Comment(s): Bowel resection d/t diverticulitis, R wrist fusion with bone graft, cervical fusion with metal, kidney stone surgery x 3, colonoscopy with bening polypectomy, salpingo- oophorectomy (pt cannot recall laterallity). Past Anesthesia/Blood Transfusion Reactions: No Reported Reaction Additional Past Anesthesia/Blood Transfusion Reaction / Comment(s): needed more medication for last colonoscopy Past Psychological History: Anxiety, Depression, PTSD Smoking Status: Current every day smoker Past Alcohol Use History: Daily Past Drug Use History: None Reported - Past Family History Sister(s) Family Medical History: Cancer Additional Family Medical History / Comment(s): Pt states she does not know what type of cancer her sister had Mother Family Medical History: Cancer Additional Family Medical History / Comment(s): Mother of colon cancer. Maternal grandmother had breast cancer. Father Family Medical History: Diabetes Mellitus Additional Family Medical History / Comment(s): alcoholism Medications and Allergies Home Medications Medication Instructions Recorded Confirmed Type Albuterol Inhaler [Ventolin Hfa 2 puff INHALATION RT-Q6H PRN 11/09/18 11/04/19 History Inhaler] Ezetimibe [Zetia] 10 mg PO DAILY 12/06/18 11/04/19 History Allergies Allergy/AdvReac Type Severity Reaction Status Date / Time pregabalin [From Lyrica] Allergy Severe Anaphylaxis Verified 11/04/19 08:03 tizanidine HCl Allergy Severe Anaphylaxis Verified 11/04/19 08:03 [From Zanaflex] Physical Exam Vitals: Vital Signs Temp Pulse Pulse Resp BP Pulse Ox 11/04/19 11:05 98.9 F 109 H 20 136/74 93 L 11/04/19 07:54 99 F 112 H 20 149/79 95 11/04/19 07:09 102 H 11/04/19 07:00 105 H 11/04/19 06:35 108 H 11/04/19 06:28 98 F 114 H 20 163/102 96 Intake and Output 11/03/19 11/04/19 11/04/19 22:59 06:59 14:59 Other: Weight 68.039 kg PHYSICAL EXAMINATION: GENERAL: 59-year-old female in no acute distress at the time of my examination HEENT: Head is atraumatic, normocephalic. Pupils equal, round. Sclera anicteric. Conjunctiva are clear. Mucous membranes of the mouth are moist. Neck is supple. There is no elevated jugular venous pressure. No carotid bruit is heard. HEART EXAMINATION: [Heart S1, S2 normal. No murmur or gallop heard.] CHEST EXAMINATION: lungs reveal a decreased air exchange throughout with scattered wheezing throughout. ABDOMEN: [ Soft, nontender. Bowel sounds are heard. No organomegaly noted]. EXTREMITIES:[ 2+ peripheral pulses with no evidence of peripheral edema and no calf tenderness noted]. NEUROLOGIC [patient is awake, alert and oriented 3. Significant tremors noted.] . Results 11/04/19 06:42 11/04/19 06:42 Cardiac Enzymes 11/04/19 11/04/19 Range/Units 06:42 06:42 AST 162 H (14-36) U/L Troponin I <0.012 (0.000-0.034) ng/mL Coagulation 11/04/19 Range/Units 06:42 PT 9.8 (9.0-12.0) sec APTT 23.4 (22.0-30.0) sec CBC 11/04/19 Range/Units 06:42 WBC 9.7 (3.8-10.6) k/uL RBC 4.23 (3.80-5.40) m/uL Hgb 14.0 (11.4-16.0) gm/dL Hct 41.2 (34.0-46.0) % Plt Count 169 D (150-450) k/uL Comprehensive Metabolic Panel 11/04/19 Range/Units 06:42 Sodium 138 (137-145) mmol/L Potassium 3.0 L (3.5-5.1) mmol/L Chloride 90 L (98-107) mmol/L Carbon Dioxide 27 (22-30) mmol/L BUN 13 (7-17) mg/dL Creatinine 0.60 (0.52-1.04) mg/dL Glucose 77 (74-99) mg/dL Calcium 9.1 (8.4-10.2) mg/dL AST 162 H (14-36) U/L ALT 67 H (4-34) U/L Alkaline Phosphatase 130 H (38-126) U/L Total Protein 8.2 (6.3-8.2) g/dL Albumin 5.0 (3.5-5.0) g/dL Current Medications Generic Name Dose Route Start Last Admin Trade Name Freq PRN Reason Stop Dose Admin Magnesium Sulfate/Dextrose 1 100 mls @ 100 mls/hr 11/04/19 11:30 gm/ IV Solution IVPB 11/04/19 13:29 Q1H ABHI Lorazepam 1 mg 11/04/19 09:51 Ativan IV Q2HR PRN CIWA 8 or 9 Lorazepam 1 mg 11/04/19 09:51 Ativan IV Q1HR PRN CIWA 10 to 15 Lorazepam 2 mg 11/04/19 09:51 Ativan IV 11/06/19 09:51 Q10M PRN CIWA 16 or higher Nitroglycerin 0.4 mg 11/04/19 09:48 Nitrostat SUBLINGUAL Q5M PRN Chest Pain Thiamine HCl 100 mg 11/04/19 17:30 Vitamin B-1 PO BID-W/MEALS ABHI Intake and Output 11/03/19 11/04/19 11/04/19 22:59 06:59 14:59 Other: Weight 68.039 kg 11/04/19 06:42 11/04/19 06:42 EKG Interpretations (text) EKG on presentation here shows a sinus tachycardia. Assessment and Plan Plan: Assessment and plan #1 atypical chest pain, initial troponin negative. EKG shows a sinus tachycardia #2 EtOH abuse, currently level is 135 #3 nicotine dependence #4 COPD #5 abnormal liver enzymes, likely secondary to EtOH #6 hypomagnesemia #7 hypokalemia #8 elevated d-dimer, no evidence of pulmonary embolism on CT scan. Plan We will replace the patient's potassium and magnesium. Obtain an echocardiogram with Doppler study. Add metoprolol 25 mg one tablet by mouth twice a day to that patient's medication regime. Once the patient is not intoxicated, we recommend as an outpatient to do stress testing. Further recommendations to ilda dominguez. DNP note has been reviewed, I agree with a documented findings and plan of care. Patient was seen and examined.
[2019-11-04] MEDS: METOPROLOL TARTRATE 25 MG TAB PO SCH ×2 (12:40→21:43)
[2019-11-04] MEDS ORDERED: ONDANSETRON 4 MG/2 ML VIAL IVP STA (12:55)
[2019-11-04] MEDS ORDERED: ONDANSETRON 4 MG/2 ML VIAL IVP PRN (13:19)
[2019-11-04] MEDS: THIAMINE 100 MG TAB PO SCH (17:22)
[2019-11-04] MEDS ORDERED: CALCIUM CARBONATE 500 MG CHEWABLE PO PRN (18:32)
[2019-11-04] MEDS: PANTOPRAZOLE 40 MG/10 ML VIAL IVP SCH (19:00)
[2019-11-05] MEDS: THIAMINE 100 MG TAB PO SCH (06:46)
[2019-11-05 07:02] LABS: Cholesterol 310 mg/dL (<200); Potassium 3.7 mmol/L (3.5-5.1); Triglycerides 69 mg/dL (<150)
[2019-11-05 07:10] LABS: LDL Cholesterol,Calculated 95 mg/dL (0-99)
[2019-11-05 07:30] LABS: HDL Cholesterol 201 mg/dL (40-60)
--- NOTE | 2019-11-05 08:01 | P.HPIM ---
History of Present Illness H&P Date: 11/05/19 Chief Complaint: Alcoholism This is a history and physical on a 59-year-old white female with known history of opiate dependence/has struggled alcoholism. There is an element of family stress that has been brewing over the last several months. She was recently admitted in September 2019 for similar symptoms and behavior. She has been on Suboxone in the past and has struggled with alcoholism for many many years. No sniffing nausea or vomiting. There is no suicidal thoughts or homicidal ideations. The patient is now being admitted for detoxification. The patient unfortunately however, has developed a new esophageal finding on CAT scan. She has struggled reflux esophagitis in the past. Review of Systems Constitutional: Denies chills, Denies fever Eyes: denies blurred vision, denies pain Ears, nose, mouth and throat: Denies headache, Denies sore throat Cardiovascular: Denies chest pain, Denies shortness of breath Respiratory: Denies cough Gastrointestinal: Reports abdominal pain, Reports heartburn, Denies diarrhea Genitourinary: Denies dysuria, Denies hematuria Psychiatric: Reports hopelessness, Reports mood swings, Denies suicidal ideation Endocrine: Denies fatigue, Denies weight change Past Medical History Past Medical History: COPD, Fibromyalgia, GERD/Reflux, Hyperlipidemia, Hypertension, Renal Disease Additional Past Medical History / Comment(s): ETOH abuse, chronic low back pain, diverticulitis, benign colon polyps, kidney stones with surgical removal. History of Any Multi-Drug Resistant Organisms: MRSA Date of last positivie culture/infection: 08/2014 MDRO Source:: L elbow Past Surgical History: Appendectomy, Bowel Resection, Orthopedic Surgery Additional Past Surgical History / Comment(s): Bowel resection d/t diverticulitis, R wrist fusion with bone graft, cervical fusion with metal, kidney stone surgery x 3, colonoscopy with bening polypectomy, salpingo- oophorectomy (pt cannot recall laterallity). Past Anesthesia/Blood Transfusion Reactions: No Reported Reaction Additional Past Anesthesia/Blood Transfusion Reaction / Comment(s): needed more medication for last colonoscopy Past Psychological History: Anxiety, Depression, PTSD Smoking Status: Current every day smoker Past Alcohol Use History: Daily Past Drug Use History: None Reported - Past Family History Sister(s) Family Medical History: Cancer Additional Family Medical History / Comment(s): Pt states she does not know what type of cancer her sister had Mother Family Medical History: Cancer Additional Family Medical History / Comment(s): Mother of colon cancer. Maternal grandmother had breast cancer. Father Family Medical History: Diabetes Mellitus Additional Family Medical History / Comment(s): alcoholism Medications and Allergies Home Medications Medication Instructions Recorded Confirmed Type Albuterol Inhaler [Ventolin Hfa 2 puff INHALATION RT-Q6H PRN 11/09/18 11/04/19 History Inhaler] Ezetimibe [Zetia] 10 mg PO DAILY 12/06/18 11/04/19 History Allergies Allergy/AdvReac Type Severity Reaction Status Date / Time pregabalin [From Lyrica] Allergy Severe Anaphylaxis Verified 11/04/19 08:03 tizanidine HCl Allergy Severe Anaphylaxis Verified 11/04/19 08:03 [From Zanaflex] Physical Exam Vitals: Vital Signs Temp Pulse Pulse Resp BP BP Pulse Ox 11/05/19 04:00 97.9 F 98 18 166/106 97 11/05/19 00:00 97.3 F L 88 20 162/93 97 11/04/19 19:39 98.9 F 86 18 156/76 90 L 11/04/19 15:50 98.8 F 85 20 145/87 93 L 11/04/19 11:20 98.6 F 101 H 20 135/73 91 L 11/04/19 11:05 98.9 F 109 H 20 136/74 93 L Intake and Output 11/04/19 11/05/19 11/05/19 22:59 06:59 14:59 Intake Total 444 Balance 444 Intake: Oral 444 Other: Voiding Method Toilet # Voids 1 1 Weight 68.039 kg 62.2 kg - Constitutional General appearance: no acute distress - EENT Eyes: EOMI - Neck Neck: no lymphadenopathy - Respiratory Respiratory: bilateral: CTA - Cardiovascular Rhythm: regular Heart sounds: normal: S1, S2 Abnormal Heart Sounds: no S3 Gallop - Gastrointestinal General gastrointestinal: no tenderness - Neurologic Neurologic: CNII-XII intact - Psychiatric Psychiatric: A&O x's 3, appropriate affect Results CBC & Chem 7: 11/04/19 06:42 11/05/19 06:31 Labs: Abnormal Lab Results - Last 24 Hours (Table) 11/04/19 11/05/19 Range/Units 06:42 06:31 D-Dimer 1.14 H (<0.60) mg/L FEU Cholesterol 310 H (<200) mg/dL HDL Cholesterol 201 H (40-60) mg/dL Thrombosis Risk Factor Assmnt - Choose All That Apply Any of the Below Risk Factors Present?: Yes Each Factor Represents 1 point: Age 41-60 years Other Risk Factors: No Other congenital or acquired thrombophilia - If yes, enter type in comment: No Thrombosis Risk Factor Assessment Total Risk Factor Score: 1 Thrombosis Risk Factor Assessment Level: Low Risk Assessment and Plan (1) Opiate dependence Current Visit: Yes Status: Acute Code(s): F11.20 - OPIOID DEPENDENCE, UNCOMPLICATED SNOMED Code(s): 42935251 (2) Reflux esophagitis Current Visit: Yes Status: Acute Code(s): K21.0 - GASTRO-ESOPHAGEAL REFLUX DISEASE WITH ESOPHAGITIS SNOMED Code(s): 628264271 (3) Esophageal thickening Current Visit: Yes Status: Acute Code(s): K22.8 - OTHER SPECIFIED DISEASES OF ESOPHAGUS SNOMED Code(s): 49568330 (4) Alcohol withdrawal Current Visit: Yes Status: Acute Code(s): F10.239 - ALCOHOL DEPENDENCE WITH WITHDRAWAL, UNSPECIFIED SNOMED Code(s): 900854122 (5) Alcoholic intoxication Current Visit: Yes Status: Acute Code(s): F10.929 - ALCOHOL USE, UNSPECIFIED WITH INTOXICATION, UNSPECIFIED SNOMED Code(s): 52849398 (6) Chest pain Current Visit: Yes Status: Acute Code(s): R07.9 - CHEST PAIN, UNSPECIFIED SNOMED Code(s): 91438712 Plan: Continue appropriate protocol for alcohol withdrawal. Otherwise, last GI to see the patient for possible EGD as an in or outpatient. Reconcile home medications. Anticipate discharge in next 24-48 hours once cleared by consultants. Prognosis is guarded secondary to her multiple and mental health issues Time with Patient: Greater than 30
[2019-11-05] MEDS ORDERED: ALBUTEROL NEBULIZED 2.5 MG/3 ML INHALATION PRN (08:02)
[2019-11-05] MEDS: PANTOPRAZOLE 40 MG/10 ML VIAL IVP SCH (08:33)
[2019-11-05] MEDS: METOPROLOL TARTRATE 25 MG TAB PO SCH (08:33)
[2019-11-05] MEDS ORDERED: ASPIRIN 325 MG TAB PO SCH (09:00)
[2019-11-05 10:02] VITALS: RESP 18
[2019-11-05 11:08] LABS: Anisocytosis Slight; HCT 43.5 % (34.0-46.0); HGB 14.1 gm/dL (11.4-16.0); MCH 33.1 pg (25.0-35.0); MCHC 32.3 g/dL (31.0-37.0); Macrocytosis Moderate; Mean Platelet Volume 11.5; Platelet Count 100 k/uL (150-450); RBC 4.25 m/uL (3.80-5.40); RDW 16.2 % (11.5-15.5); WBC 8.9 k/uL (3.8-10.6)
[2019-11-05] MEDS: ALBUTEROL NEBULIZED 2.5 MG/3 ML INHALATION SCH ×2 (11:19→15:50)
--- NOTE | 2019-11-05 11:26 | ECHOF ---
Referral Reason:chest pain MEASUREMENTS -------- HEIGHT: 167.6 cm WEIGHT: 68.0 kg BP: 136/74 IVSd: 0.8 cm (0.6 - 1.1) LVIDd: 3.3 cm (3.9 - 5.3) LVPWd: 1.2 cm (0.6 - 1.1) IVSs: 1.3 cm LVIDs: 1.9 cm LVPWs: 1.6 cm LAESV Index (A-L): 28.07 ml/m Ao Diam: 2.6 cm (2.0 - 3.7) AV Cusp: 1.9 cm (1.5 - 2.6) LA Diam: 2.6 cm (2.7 - 3.8) MV EXCURSION: 17.007 mm (> 18.000) MV EF SLOPE: 117 mm/s (70 - 150) EPSS: 0.4 cm MV E Kevon: 0.95 m/s MV DecT: 187 ms MV A Kevon: 0.78 m/s MV E/A Ratio: 1.21 RAP: 5.00 mmHg RVSP: 9.49 mmHg FINDINGS -------- Sinus rhythm. This was a technically adequate study. The left ventricular size is normal. Left ventricular wall thickness is normal. Overall left vent ricular systolic function is normal with, an EF between 55 - 60 %. The diastolic filling pattern is normal for the age of the patient 8.42. The right ventricle is normal in size. The left atrial size is normal. Normal LA size by volume 22+/-6 ml/m2. The right atrial size is normal. The aortic valve is trileaflet and appears structurally normal. The mitral valve is normal. There is trace mitral regurgitation. The tricuspid valve appears structurally normal. Trace tricuspid regurgitation present. Right cristian tricular systolic pressure is normal at < 35 mmHg. There is no pulmonic regurgitation present. The aortic root size is normal. Normal inferior vena cava with normal inspiratory collapse consistent with estimated right atrial pre ssure of 5 mmHg. There is no pericardial effusion. CONCLUSIONS -------- 1. Sinus rhythm. 2. This was a technically adequate study. 3. The left ventricular size is normal. 4. Left ventricular wall thickness is normal. 5. Overall left ventricular systolic function is normal with, an EF between 55 - 60 %. 6. The diastolic filling pattern is normal for the age of the patient 8.42 7. The right ventricle is normal in size. 8. The left atrial size is normal. 9. Normal LA size by volume 22+/-6 ml/m2. 10. The right atrial size is normal. 11. The aortic valve is trileaflet and appears structurally normal. 12. The mitral valve is normal. 13. There is trace mitral regurgitation. 14. The tricuspid valve appears structurally normal. 15. Trace tricuspid regurgitation present. 16. Right ventricular systolic pressure is normal at < 35 mmHg. 17. There is no pulmonic regurgitation present. 18. The aortic root size is normal. 19. Normal inferior vena cava with normal inspiratory collapse consistent with estimated right atrial pressure of 5 mmHg. 20. There is no pericardial effusion. BUILD AND RELEASE MANAGER: Lidia Rogesr RDCS
[2019-11-05 11:32] LABS: African American GFR (CKD) >90 (>60 ml/min/1.73 sqM); Anion Gap 12 mmol/L; Blood Urea Nitrogen 10 mg/dL (7-17); Calcium 8.7 mg/dL (8.4-10.2); Carbon Dioxide 30 mmol/L (22-30); Chloride 91 mmol/L (98-107); Glucose 92 mg/dL (74-99); Magnesium 1.8 mg/dL (1.6-2.3); Non-African American GFR(CKD) >90 (>60 ml/min/1.73 sqM); Sodium 133 mmol/L (137-145)
[2019-11-05 11:36] LABS: MCV 102.5 fL (80.0-100.0)
[2019-11-05 11:49] VITALS: BMI 22.1
--- NOTE | 2019-11-05 12:05 | PN ---
PROGRESS NOTE Mrs. Wadsworth came in with acute alcoholic intoxication and also developed atypical chest pain. Troponins are normal, pain is atypical. I am recommending we increase the metoprolol tartrate to 50 mg b.i.d., check a BMP tomorrow, increase activity and she can be discharged and have a stress test as an outpatient. Vitals are stable, no JVD. S1, S2 heard normally. Lungs are clear. Abdomen is soft. Lower extremities reveal diminished pulses. Central nervous system is normal. I am recommending that we increase metoprolol to 50 mg b.i.d., check BMP in the morning. MMODL / IJN: [id number] /
[2019-11-05 17:12] VITALS: BP 140/94; PULSE 92; TEMP 98.4
--- NOTE | 2019-11-05 20:35 | CONS ---
CONSULTATION DATE OF DICTATION: November 05, 2019 REASON FOR CONSULTATION: Atypical chest pain and severe heartburn. HISTORY OF PRESENT ILLNESS: The patient is a 59-year-old pleasant white female admitted to the hospital because of severe chest pain for the last 2 days duration. Her pain was so intense. She felt like she had severe extreme heartburn for the last 2 days. She was evaluated by Cardiology and troponins were negative. Metoprolol was increased to 50 mg twice daily. The patient is feeling much better. She is also on Protonix 40 mg daily. Since being in the hospital, she is feeling much better. The chest pain has almost resolved. She had food with no recurrent symptoms. She had longstanding history of GERD for many years. She was on Zegerid for many years. She quit taking about 4 years ago because she was doing extremely well. She denies any abdominal pain. No nausea, vomiting. PAST MEDICAL HISTORY: Significant for anxiety, alcohol use, COPD, hypertension, hypercholesteremia. MEDICATIONS: At home, include: Ventolin, Zetia. ALLERGIES: TO ZANAFLEX AND LYRICA. PAST SURGICAL HISTORY: Appendectomy, bowel resection for diverticulitis, history of right wrist fusion, hysterectomy, bilateral salpingo-oophorectomy, colonoscopy in the past. PAST SOCIAL HISTORY: Chronic smoker. Alcohol use as mentioned above. FAMILY HISTORY: Sister had some kind of cancer. Mother has hypertension. Father had diabetes mellitus. Mother had colon cancer. REVIEW OF SYSTEMS: CARDIOPULMONARY: No chest pain, shortness of breath. GENITOURINARY: No dysuria or hematuria. MUSCULOSKELETAL: Unremarkable. SKIN unremarkable. ENDOCRINE unremarkable. PSYCHIATRIC unremarkable. NEUROLOGY unremarkable. ENT/vision unremarkable. CONSTITUTIONAL: No recent weight loss. No fever, chills, night sweats. PHYSICAL EXAMINATION: She appears comfortable. No apparent distress. VITAL SIGNS: Stable. Blood pressure is 150/67, pulse rate 77, temperature 98.6. HEENT examination unremarkable. Conjunctivae pink. Sclerae anicteric. Oral cavity no lesions. NECK: No JVD or lymph node enlargement. CHEST: Chest was clear to auscultation. HEART: Regular rate and rhythm. ABDOMEN: Soft. Bowel sounds are positive. No organomegaly. EXTREMITIES: No pedal edema. SKIN no rashes. NEUROLOGIC: Alert and oriented x3. No focal deficits. LABS: WBC 9.7, hemoglobin 14, platelets normal. Basic metabolic panel is within normal limits. Troponin was less than 0.01. AST and ALT 162 and 67 respectively. Alkaline phosphatase is 130, T-bilirubin is 1.2. Serum alcohol level is 130. IMPRESSION: 1. Acute onset of severe chest pain for the last 2 days duration. Symptoms are very atypical . Most likely it is a result of gastroesophageal reflux disease. She is presently on Protonix 40 mg daily and symptoms are significantly improved. Cardiology has evaluated the patient. 2. History of anxiety and depression. 3. History of alcohol abuse. RECOMMENDATION: 1. Continue with Protonix 1 daily. 2. Briefly educated the patient about diet modification and anti-reflux measures. 3. Use antacids as needed. 4. Patient can be discharged home and she is scheduled for an outpatient EGD in 2 weeks from now. Thank you for this consultation. ELOISE / CHYNA: [id number] /
[2019-11-05] MEDS ORDERED: METOPROLOL TARTRATE 50 MG TAB PO SCH (21:00)
--- NOTE | 2019-11-11 08:25 | CDI ---
Documentation Clarification Form Date: 11/11/2019 08:11:21 AM From: Natalie Cordon Phone: If you have a question about this query, please contact Remedios Velasco, Dispatcher Maintenance Service at [phone] between 8am and 5pm. Admit Date: 11/05/2019 11:42:00 AM Patient Name: Faye Wadsworth Visit Number: [id number] Discharge Date: 11/05/2019 05:52:00 PM ATTENTION: The Clinical Documentation Specialists (CDI) and [facility] Coding Staff appreciate your assistance in clarifying documentation. Please respond to the clarification below the line at the bottom and electronically sign. The CDI & [facility] Coding staff will review the response and follow-up if needed. Please note: Queries are made part of the Legal Health Record. If you have any questions, please contact the author of this message via ITS. Dr. Abrahan Anderson Chest pain is documented In ER notes as patient's chief complaint. GI consult documents Acute onset of servere CP for the last 2 days duration. Symptoms are very atypical . Most likely it is a result of GERD. Your H and P documents the patient has developed a new esophageal finding on CAT scan. Please clarify cause of CP. Patient C/O: CP History/Risk factors: alcoholic with WD and intoxication, opiate dependence Treatment: Protonix 40 mg daily Consults: GI and cardiology In your professional opinion, can please clarify if the chest pain signifies, or is due to: GERD alcohol intoxication-This is the correct dx Other condition, please specify Unable to determine MTDD
== END 2019-11-05 17:52 | disposition home or self-care (01) | DRG 897 ==
LOC: EC 06:27 → 3SCARD 10:21 → OBSVTOIN 11-05 11:42
PROVIDERS: ADMIT Family Medicine; ATTEND Family Medicine
DX: F10.229 Alcohol dependence with intoxication, unspecified (principal); F11.20 Opioid dependence, uncomplicated; K21.0 Gastro-esophageal reflux disease with esophagitis; F10.239 Alcohol dependence with withdrawal, unspecified; E78.00 Pure hypercholesterolemia, unspecified; E78.5 Hyperlipidemia, unspecified; E83.42 Hypomagnesemia; E87.6 Hypokalemia; F17.210 Nicotine dependence, cigarettes, uncomplicated; F32.9 Major depressive disorder, single episode, unspecified; F43.10 Post-traumatic stress disorder, unspecified; F41.9 Anxiety disorder, unspecified; I10 Essential (primary) hypertension; J43.9 Emphysema, unspecified; M79.7 Fibromyalgia; Y90.6 Blood alcohol level of 120-199 mg/100 ml; Z79.899 Other long term (current) drug therapy; Z80.0 Family history of malignant neoplasm of digestive organs; Z80.3 Family history of malignant neoplasm of breast; Z82.49 Family history of ischemic heart disease and other diseases of the circulatory system; Z83.3 Family history of diabetes mellitus; Z87.19 Personal history of other diseases of the digestive system; Z87.442 Personal history of urinary calculi; Z90.710 Acquired absence of both cervix and uterus; R79.1 Abnormal coagulation profile; Z90.49 Acquired absence of other specified parts of digestive tract; Z90.79 Acquired absence of other genital organ(s); Z90.722 Acquired absence of ovaries, bilateral; Z98.1 Arthrodesis status; M54.5 Low back pain; G89.29 Other chronic pain; Z86.14 Personal history of Methicillin resistant Staphylococcus aureus infection; Z88.8 Allergy status to other drugs, medicaments and biological substances
CPT/HCPCS: 36415; 71046; 71275; 80048; 80053; 80061; 80320; 82150; 83690; 83735; 83880; 84484; 85025; 85027; 85379; 85610; 85730; 93005; 93306; 94640; 96361; 96365; 96366; 96368; 96372; 96375; 96376; 99285

== ENCOUNTER 2019-11-12 00:47 | Inpatient (IN) | payer MEDICARE, OTHER ==
[2019-11-12] MEDS ORDERED: THIAMINE 100 MG/ML 2 ML VIAL IM STA (01:27)
[2019-11-12] MEDS ORDERED: LORazepam 2 MG/ML INJ IV PRN (01:27)
[2019-11-12] MEDS ORDERED: SODIUM CHLORIDE 0.9% 1,000 ML IV STA (01:27)
--- NOTE | 2019-11-12 01:45 | ED ---
General Adult HPI - General Chief complaint: Alcohol Stated complaint: etoh Time Seen by Provider: 11/12/19 00:52 Source: patient, EMS, RN notes reviewed, old records reviewed Mode of arrival: EMS Limitations: no limitations - History of Present Illness Initial comments: 59-year-old female patient past history most significant for alcohol use disorder presents to ED for chief complaint of alcohol intoxication, back pain. EMS was reportedly called to residence for another patient, when they arrived the patient was reportedly laying on the ground somewhat unresponsive. Patient did respond to stimuli. Patient reports she lays on the ground because her back hurts which is chronic for her. Denies any recent falls or trauma. Does report excessive alcohol use on a regular basis. Denies any other red flag symptoms or other complaints. Systemic: Pt denies fatigue, fever/chills, rash. Pt denies weakness, night sweats, weight loss. Neuro: Pt denies headache, visual disturbances, syncope or pre-syncope. HEENT: Pt denies ocular discharge or irritation, otalgia, rhinorrhea, pharyngitis or notable lymphadenopathy. Cardiopulmonary: Pt denies chest pain, SOB, heart palpitations, dyspnea on exertion. Abdominal/GI: Pt denies abdominal pain, n/v/d. : Pt denies dysuria, burning w/ urination, frequency/urgency. Denies new onset urinary or bowel incontinence. MSK: Pt denies myalgia, loss of strength or function in extremities. Neuro: Pt denies new onset weakness, paresthesias. - Related Data Home Medications Medication Instructions Recorded Confirmed Albuterol Inhaler [Ventolin Hfa 2 puff INHALATION RT-Q6H PRN 11/09/18 11/04/19 Inhaler] Ezetimibe [Zetia] 10 mg PO DAILY 12/06/18 11/04/19 Allergies Allergy/AdvReac Type Severity Reaction Status Date / Time pregabalin [From Lyrica] Allergy Severe Anaphylaxis Verified 11/04/19 08:03 tizanidine HCl Allergy Severe Anaphylaxis Verified 11/04/19 08:03 [From Zanaflex] Review of Systems ROS Statement: Those systems with pertinent positive or pertinent negative responses have been documented in the HPI. ROS Other: All systems not noted in ROS Statement are negative. Past Medical History Past Medical History: COPD, Fibromyalgia, GERD/Reflux, Hyperlipidemia, Hypertension, Renal Disease Additional Past Medical History / Comment(s): ETOH abuse, chronic low back pain, diverticulitis, benign colon polyps, kidney stones with surgical removal. History of Any Multi-Drug Resistant Organisms: MRSA Date of last positivie culture/infection: 08/2014 MDRO Source:: L elbow Past Surgical History: Appendectomy, Bowel Resection, Orthopedic Surgery Additional Past Surgical History / Comment(s): Bowel resection d/t diverticulitis, R wrist fusion with bone graft, cervical fusion with metal, kidney stone surgery x 3, colonoscopy with bening polypectomy, salpingo- oophorectomy (pt cannot recall laterallity). Past Anesthesia/Blood Transfusion Reactions: No Reported Reaction Additional Past Anesthesia/Blood Transfusion Reaction / Comment(s): needed more medication for last colonoscopy Past Psychological History: Anxiety, Depression, PTSD Smoking Status: Current every day smoker Past Alcohol Use History: Daily Past Drug Use History: None Reported - Past Family History Sister(s) Family Medical History: Cancer Additional Family Medical History / Comment(s): Pt states she does not know what type of cancer her sister had Mother Family Medical History: Cancer Additional Family Medical History / Comment(s): Mother of colon cancer. Maternal grandmother had breast cancer. Father Family Medical History: Diabetes Mellitus Additional Family Medical History / Comment(s): alcoholism General Exam - General Exam Comments Initial Comments: Constitutional: NAD, AOX3, Pt has pleasant affect. HEENT: NC/AT, trachea midline, neck supple, no lymphadenopathy. Posterior pharynx non erythematous, without exudates. External ears appear normal, without discharge. Mucous membranes moist. Eyes PERRLA, EOM intact. There is no scleral icterus. No pallor noted. Cardiopulmonary: RRR, no murmurs, rubs or gallops, no JVD noted. Lungs CTAB in anterior and posterior nix. No peripheral edema. Abdominal exam: Abdomen soft and non-distended. Abdomen non-tender to palpation in all 4 quadrants. Bowel sounds active in LLQ. No hepatosplenomegaly. No ecchymosis Neuro: CN II-XII intact. No nuchal rigidity. No raccon eyes, no pike sign, no hemotympanum. No cervical spinal tenderness. MSK: No posterior calf tenderness bilaterally, homans sign negative bilaterally. Posterior tibialis and radial pulse +2 bilaterally. Sensation intact in upper and lower extremities. Full active ROM ilower extremities, 5/5 stregnth. Tender ness to left clavicle midshaft with swelling. No external ecchymoses. Limitations: no limitations Course Vital Signs 11/12/19 11/12/19 11/12/19 00:50 01:36 04:55 Temperature 96.8 F L Pulse Rate 98 92 98 Respiratory 20 18 16 Rate Blood Pressure 134/76 119/90 131/81 O2 Sat by Pulse 98 97 97 Oximetry Medical Decision Making - Medical Decision Making 59-year-old female patient past history most significant for alcohol use di juan jose presents to ED for chief complaint of alcohol intoxication, back pain. EMS was reportedly called to residence for another patient, when they arrived the patient was reportedly laying on the ground somewhat unresponsive. Patient did respond to stimuli. Patient reports she lays on the ground because her back hurts which is chronic for her. Denies any recent falls or trauma. Does report excessive alcohol use on a regular basis. Denies any other red flag symptoms or other complaints. Pt VSS, afebrile. On initial physical exam no acute pathology was identified. Neurologic exam was within normal limits. Patient was complaining of some mild lumbar back pain which was nonfocal. Full active range of motion in all extremities. Laboratory investigations were conducted which did reveal mild hypernatremia, mild hypokalemia mild urinary tract infection, serum alcohol 361. Upon reevaluation patient is now complaining of left clavicle pain and left lateral rib pain. Patient reports that she no longer has discomfort in her back. Denies any other areas of discomfort at this time. Physical exam does reveal point tenderness to the left clavicle region. Also point tenderness of left lateral rib region. Chest x-ray was obtained which was read as negative per believes doees display left clavicle fracture. Plain film lumbar spine didn't display any acute process. Further radiographic studies were obtained including the lateral ribs and dedicated clavicle film. For repeat physical exam was obtained at this time, no cervical spinal tenderness, neurologic exam is intact, no focal deficit, no other areas of tenderness. Full active range of motion in lower extremities. Ambulatory without diffuclty. Patient initiated on one dose of Rocephin. Will be admitted for alcohol intoxication and left clavicle fracture. Patient continues to state that she does not know date of injury or when his injury occurred. There are no ecchymoses or skin changes in the area of left clavicle fracture. Case discussed in depth widenisse Zuleta. - Lab Data Result diagrams: 11/12/19 03:00 11/12/19 03:00 Lab Results 11/12/19 11/12/19 11/12/19 Range/Units 03:00 03:00 03:00 WBC 10.3 (3.8-10.6) k/uL RBC 5.10 (3.80-5.40) m/uL Hgb 16.8 H (11.4-16.0) gm/dL Hct 50.5 H (34.0-46.0) % MCV 98.9 (80.0-100.0) fL MCH 32.9 (25.0-35.0) pg MCHC 33.3 (31.0-37.0) g/dL RDW 15.1 (11.5-15.5) % Plt Count 374 D (150-450) k/uL Neutrophils % 49 % Lymphocytes % 34 % Monocytes % 10 % Eosinophils % 2 % Basophils % 3 % Neutrophils # 5.1 (1.3-7.7) k/uL Lymphocytes # 3.5 (1.0-4.8) k/uL Monocytes # 1.0 (0-1.0) k/uL Eosinophils # 0.2 (0-0.7) k/uL Basophils # 0.3 H (0-0.2) k/uL Sodium 150 H (137-145) mmol/L Potassium 3.1 L (3.5-5.1) mmol/L Chloride 110 H (98-107) mmol/L Carbon Dioxide 26 (22-30) mmol/L Anion Gap 14 mmol/L BUN 9 (7-17) mg/dL Creatinine 0.67 (0.52-1.04) mg/dL Est GFR (CKD-EPI)AfAm >90 (>60 ml/min/1.73 sqM) Est GFR (CKD-EPI)NonAf >90 (>60 ml/min/1.73 sqM) Glucose 92 (74-99) mg/dL Calcium 10.0 (8.4-10.2) mg/dL Phosphorus 4.8 H (2.5-4.5) mg/dL Magnesium 1.6 (1.6-2.3) mg/dL Total Bilirubin 0.4 (0.2-1.3) mg/dL AST 156 H (14-36) U/L ALT 105 H (4-34) U/L Alkaline Phosphatase 125 (38-126) U/L Creatine Kinase 78 (30-135) U/L Troponin I <0.012 (0.000-0.034) ng/mL Total Protein 8.6 H (6.3-8.2) g/dL Albumin 4.9 (3.5-5.0) g/dL Urine Color Urine Appearance (Clear) Urine pH (5.0-8.0) Ur Specific [place] (1.001-1.035) Urine Protein (Negative) Urine Glucose (UA) (Negative) Urine Ketones (Negative) Urine Blood (Negative) Urine Nitrite (Negative) Urine Bilirubin (Negative) Urine Urobilinogen (<2.0) mg/dL Ur Leukocyte Esterase (Negative) Urine RBC (0-5) /hpf Urine WBC (0-5) /hpf Ur Squamous Epith Cells (0-4) /hpf Urine Bacteria (None) /hpf Hyaline Casts (0-2) /lpf Urine Opiates Screen (NotDetected) Ur Oxycodone Screen (NotDetected) Urine Methadone Screen (NotDetected) Ur Propoxyphene Screen (NotDetected) Ur Barbiturates Screen (NotDetected) U Tricyclic Antidepress (NotDetected) Ur Phencyclidine Scrn (NotDetected) Ur Amphetamines Screen (NotDetected) U Methamphetamines Scrn (NotDetected) U Benzodiazepines Scrn (NotDetected) Urine Cocaine Screen (NotDetected) U Marijuana (THC) Screen (NotDetected) Serum Alcohol 361 H* mg/dL 11/12/19 11/12/19 Range/Units 04:00 04:00 WBC (3.8-10.6) k/uL RBC (3.80-5.40) m/uL Hgb (11.4-16.0) gm/dL Hct (34.0-46.0) % MCV (80.0-100.0) fL MCH (25.0-35.0) pg MCHC (31.0-37.0) g/dL RDW (11.5-15.5) % Plt Count (150-450) k/uL Neutrophils % % Lymphocytes % % Monocytes % % Eosinophils % % Basophils % % Neutrophils # (1.3-7.7) k/uL Lymphocytes # (1.0-4.8) k/uL Monocytes # (0-1.0) k/uL Eosinophils # (0-0.7) k/uL Basophils # (0-0.2) k/uL Sodium (137-145) mmol/L Potassium (3.5-5.1) mmol/L Chloride (98-107) mmol/L Carbon Dioxide (22-30) mmol/L Anion Gap mmol/L BUN (7-17) mg/dL Creatinine (0.52-1.04) mg/dL Est GFR (CKD-EPI)AfAm (>60 ml/min/1.73 sqM) Est GFR (CKD-EPI)NonAf (>60 ml/min/1.73 sqM) Glucose (74-99) mg/dL Calcium (8.4-10.2) mg/dL Phosphorus (2.5-4.5) mg/dL Magnesium (1.6-2.3) mg/dL Total Bilirubin (0.2-1.3) mg/dL AST (14-36) U/L ALT (4-34) U/L Alkaline Phosphatase (38-126) U/L Creatine Kinase (30-135) U/L Troponin I (0.000-0.034) ng/mL Total Protein (6.3-8.2) g/dL Albumin (3.5-5.0) g/dL Urine Color Light Yellow Urine Appearance Clear (Clear) Urine pH 6.5 (5.0-8.0) Ur Specific [place] 1.006 (1.001-1.035) Urine Protein Trace H (Negative) Urine Glucose (UA) Negative (Negative) Urine Ketones Negative (Negative) Urine Blood Small H (Negative) Urine Nitrite Positive H (Negative) Urine Bilirubin Negative (Negative) Urine Urobilinogen <2.0 (<2.0) mg/dL Ur Leukocyte Esterase Large H (Negative) Urine RBC <1 (0-5) /hpf Urine WBC 15 H (0-5) /hpf Ur Squamous Epith Cells 1 (0-4) /hpf Urine Bacteria Few H (None) /hpf Hyaline Casts 1 (0-2) /lpf Urine Opiates Screen Not Detected (NotDetected) Ur Oxycodone Screen Not Detected (NotDetected) Urine Methadone Screen Not Detected (NotDetected) Ur Propoxyphene Screen Not Detected (NotDetected) Ur Barbiturates Screen Not Detected (NotDetected) U Tricyclic Antidepress Not Detected (NotDetected) Ur Phencyclidine Scrn Not Detected (NotDetected) Ur Amphetamines Screen Not Detected (NotDetected) U Methamphetamines Scrn Not Detected (NotDetected) U Benzodiazepines Scrn Not Detected (NotDetected) Urine Cocaine Screen Not Detected (NotDetected) U Marijuana (THC) Screen Not Detected (NotDetected) Serum Alcohol mg/dL Disposition Clinical Impression: ETOH abuse, Clavicle fracture, UTI (urinary tract infection) Disposition: ADMITTED IP TO THIS [facility] Condition: Serious Is patient prescribed a controlled substance at d/c from ED?: No Referrals: Abrahan Anderson MD [Primary Care Provider] - 1-2 days
--- NOTE | 2019-11-12 02:42 | XR ---
EXAMINATION TYPE: XR lumbar spine 2 or 3V DATE OF EXAM: 11/12/2019 COMPARISON: 08/10/2018 HISTORY: Back pain TECHNIQUE: 3 views FINDINGS: Lumbar vertebra have normal alignment. Posterior elements are intact. Disc spaces are fairl y normal. Abdominal aorta is atheromatous. Sacroiliac joints appear intact. IMPRESSION: Mild degenerative spondylotic changes in the lumbar spine. No fracture. No change compare d to old exam.
[2019-11-12 03:13] LABS: Basophils # (A) 0.3 k/uL (0-0.2); Basophils % (A) 3 %; Eosinophils # (A) 0.2 k/uL (0-0.7); Eosinophils % (A) 2 %; HCT 50.5 % (34.0-46.0); HGB 16.8 gm/dL (11.4-16.0); Lymphocytes # (A) 3.5 k/uL (1.0-4.8); Lymphocytes % (A) 34 %; MCH 32.9 pg (25.0-35.0); MCHC 33.3 g/dL (31.0-37.0); MCV 98.9 fL (80.0-100.0); Mean Platelet Volume 7.2; Monocytes % (A) 10 %; Neutrophils # (A) 5.1 k/uL (1.3-7.7); Neutrophils % (A) 49 %; RDW 15.1 % (11.5-15.5); WBC 10.3 k/uL (3.8-10.6)
[2019-11-12 03:24] LABS: Platelet Count 374 k/uL (150-450)
[2019-11-12 03:26] LABS: ALT 105 U/L (4-34); AST 156 U/L (14-36); African American GFR (CKD) >90 (>60 ml/min/1.73 sqM); Albumin 4.9 g/dL (3.5-5.0); Alkaline Phosphatase 125 U/L (38-126); Anion Gap 14 mmol/L; Blood Urea Nitrogen 9 mg/dL (7-17); Carbon Dioxide 26 mmol/L (22-30); Chloride 110 mmol/L (98-107); Creatine Kinase 78 U/L (30-135); Glucose 92 mg/dL (74-99); Magnesium 1.6 mg/dL (1.6-2.3); Non-African American GFR(CKD) >90 (>60 ml/min/1.73 sqM); Phosphorus 4.8 mg/dL (2.5-4.5); Potassium 3.1 mmol/L (3.5-5.1); Sodium 150 mmol/L (137-145); Total Bilirubin 0.4 mg/dL (0.2-1.3); Total Protein 8.6 g/dL (6.3-8.2)
[2019-11-12 03:44] LABS: Alcohol 361 mg/dL
--- NOTE | 2019-11-12 03:55 | XR ---
EXAMINATION TYPE: XR chest 2V DATE OF EXAM: 11/12/2019 COMPARISON: 11/04/2019 HISTORY: Chest pain TECHNIQUE: FINDINGS: Heart and mediastinum are normal. Lungs are clear. Diaphragm is normal. There is no hilar m asses. Bony thorax is intact IMPRESSION: Normal chest. No change.
[2019-11-12] MEDS ORDERED: POTASSIUM CHLORIDE ER 20 MEQ TAB.ER PO STA (04:28)
[2019-11-12 04:34] LABS: Appearance,Urine Clear (Clear); Bacteria,Urine Few /hpf; Bilirubin,Urine Negative (Negative); Blood,Urine Small (Negative); Color,Urine Light Yellow; Glucose,Urine (UA) Negative (Negative); Hyaline Casts,Urine 1 /lpf (0-2); Ketones,Urine Negative (Negative); Leukocyte Esterase,Urine Large (Negative); Nitrite,Urine Positive (Negative); PH, Urine 6.5 (5.0-8.0); Protein,Urine Trace (Negative); RBC,Urine <1 /hpf (0-5); Specific Gravity,Urine 1.006 (1.001-1.035); Squamous Epithelial Cell,Urine 1 /hpf (0-4); Urobilinogen,Urine <2.0 mg/dL (<2.0); WBC,Urine 15 /hpf (0-5)
[2019-11-12] MEDS ORDERED: MORPHINE SULFATE 4 MG/ML SYRINGE IV STA ×2 (04:38→05:11)
[2019-11-12 04:41] LABS: Amphetamine Screen,Urine Not Detected (NotDetected); Barbiturate Screen,Urine Not Detected (NotDetected); Benzodiazepines Screen,Urine Not Detected (NotDetected); Cocaine Screen,Urine Not Detected (NotDetected); Methadone Screen, Urine Not Detected (NotDetected); Opiate Screen,Urine Not Detected (NotDetected); Oxycodone Screen, Urine Not Detected (NotDetected); Phencyclidine Screen,Urine Not Detected (NotDetected); Tricyclic Antidepressant,Urine Not Detected (NotDetected); Urn Cannabinoid Scrn Not Detected (NotDetected)
[2019-11-12] MEDS ORDERED: cefTRIAXone IN SWFI 1,000 MG/10 ML SYRINGE IVP STA (04:41)
[2019-11-12] MEDS ORDERED: NALOXONE 0.4 MG/ML 1 ML VIAL IV PRN (04:54)
--- NOTE | 2019-11-12 04:58 | XR ---
EXAMINATION TYPE: XR clavicle LT DATE OF EXAM: 11/12/2019 COMPARISON: NONE HISTORY: Pain TECHNIQUE: 2 views FINDINGS: There is comminuted fracture of the mid shaft of the left clavicle. There is 1.5 cm inferio r displacement of the lateral fragment. There is no dislocation. IMPRESSION: Acute comminuted displaced clavicle fracture.
--- NOTE | 2019-11-12 05:01 | XR ---
EXAMINATION TYPE: XR ribs LT DATE OF EXAM: 11/12/2019 COMPARISON: Chest x-ray 11/12/2019 HISTORY: Chest pain TECHNIQUE: 3 views FINDINGS: The left lung is clear. There is no pleural effusion or pneumothorax. I see no displaced ri b fracture. There is comminuted left clavicle fracture which appears acute. IMPRESSION: Comminuted acute left clavicle fracture is new compared to chest x-ray 11/04/2019. No rib fracture seen.
--- NOTE | 2019-11-12 05:19 | XR ---
EXAMINATION TYPE: XR chest 1V portable DATE OF EXAM: 11/12/2019 COMPARISON: 11/12/2019 HISTORY: Chest pain TECHNIQUE: FINDINGS: Portable supine view shows no heart failure nor confluent pneumonic infiltrate. There is ri ght nipple shadow. There is left clavicle fracture with some comminution. No pneumothorax. There is n o evidence of pleural effusion. IMPRESSION: No active cardiopulmonary disease. No change compared to recent exam today.
[2019-11-12] MEDS: SODIUM CHLORIDE 0.9% 1,000 ML IV SCH ×2 (08:37→14:59)
--- NOTE | 2019-11-12 08:44 | P.HPIM ---
History of Present Illness H&P Date: 11/12/19 Chief Complaint: Fall with alcohol intoxication This is a history of physical 59-year-old white female who has struggled with alcoholism severely for the last several months. This is her third admission in 3 months for alcohol intoxication or the patient has struggled with significant family stress. Unfortunate, she fell and had comminuted fracture of her clavicle on the left. Orthopedics is not consulted. No sniffing chest pain or shortness of breath stated. She has taken Suboxone in the past. Review of Systems Constitutional: Denies chills, Denies fever Eyes: denies blurred vision, denies pain Ears, nose, mouth and throat: Denies headache, Denies sore throat Respiratory: Denies cough Gastrointestinal: Denies abdominal pain, Denies diarrhea, Denies nausea, Denies vomiting Genitourinary: Denies dysuria, Denies hematuria Musculoskeletal: Reports as per HPI, Reports frequent falls Past Medical History Past Medical History: COPD, Fibromyalgia, GERD/Reflux, Hyperlipidemia, Hypertension, Renal Disease Additional Past Medical History / Comment(s): ETOH abuse, chronic low back pain, diverticulitis, benign colon polyps, kidney stones with surgical removal. History of Any Multi-Drug Resistant Organisms: MRSA Date of last positivie culture/infection: 08/2014 MDRO Source:: L elbow Past Surgical History: Appendectomy, Bowel Resection, Orthopedic Surgery Additional Past Surgical History / Comment(s): Bowel resection d/t diverticulitis, R wrist fusion with bone graft, cervical fusion with metal, kidney stone surgery x 3, colonoscopy with bening polypectomy, salpingo-oophorectomy (pt cannot recall laterallity). Past Anesthesia/Blood Transfusion Reactions: No Reported Reaction Additional Past Anesthesia/Blood Transfusion Reaction / Comment(s): needed more medication for last colonoscopy Past Psychological History: Anxiety, Depression, PTSD Smoking Status: Current every day smoker Past Alcohol Use History: Daily Past Drug Use History: None Reported - Past Family History Sister(s) Family Medical History: Cancer Additional Family Medical History / Comment(s): Pt states she does not know what type of cancer her sister had Mother Family Medical History: Cancer Additional Family Medical History / Comment(s): Mother of colon cancer. Maternal grandmother had breast cancer. Father Family Medical History: Diabetes Mellitus Additional Family Medical History / Comment(s): alcoholism Medications and Allergies Home Medications Medication Instructions Recorded Confirmed Type Albuterol Inhaler [Ventolin Hfa 2 puff INHALATION RT-Q6H PRN 11/09/18 11/04/19 History Inhaler] Ezetimibe [Zetia] 10 mg PO DAILY 12/06/18 11/04/19 History Allergies Allergy/AdvReac Type Severity Reaction Status Date / Time pregabalin [From Lyrica] Allergy Severe Anaphylaxis Verified 11/04/19 08:03 tizanidine HCl Allergy Severe Anaphylaxis Verified 11/04/19 08:03 [From Zanaflex] Physical Exam Vitals: Vital Signs Temp Pulse Pulse Resp BP BP Pulse Ox 11/12/19 06:38 98.5 F 97 20 138/84 97 11/12/19 05:42 96 16 125/81 97 11/12/19 04:55 98 16 131/81 97 11/12/19 01:36 92 18 119/90 97 11/12/19 00:50 96.8 F L 98 20 134/76 98 Intake and Output 11/11/19 11/12/19 11/12/19 22:59 06:59 14:59 Other: Weight 58.967 kg - Constitutional General appearance: no acute distress - EENT Eyes: EOMI - Neck Neck: no lymphadenopathy - Respiratory Respiratory: bilateral: CTA - Cardiovascular Rhythm: regular Heart sounds: normal: S1, S2 Abnormal Heart Sounds: no S3 Gallop - Gastrointestinal General gastrointestinal: soft, no tenderness - Integumentary Integumentary: normal Results CBC & Chem 7: 11/12/19 03:00 11/12/19 03:00 Labs: Abnormal Lab Results - Last 24 Hours (Table) 11/12/19 11/12/19 11/12/19 Range/Units 03:00 03:00 04:00 Hgb 16.8 H (11.4-16.0) gm/dL Hct 50.5 H (34.0-46.0) % Basophils # 0.3 H (0-0.2) k/uL Sodium 150 H (137-145) mmol/L Potassium 3.1 L (3.5-5.1) mmol/L Chloride 110 H (98-107) mmol/L Phosphorus 4.8 H (2.5-4.5) mg/dL AST 156 H (14-36) U/L ALT 105 H (4-34) U/L Total Protein 8.6 H (6.3-8.2) g/dL Urine Protein Trace H (Negative) Urine Blood Small H (Negative) Urine Nitrite Positive H (Negative) Ur Leukocyte Esterase Large H (Negative) Urine WBC 15 H (0-5) /hpf Urine Bacteria Few H (None) /hpf Serum Alcohol 361 H* mg/dL Assessment and Plan (1) Clavicle fracture Current Visit: Yes Status: Acute Code(s): S42.009A - FRACTURE OF UNSP PART OF UNSP CLAVICLE, INIT FOR CLOS FX SNOMED Code(s): 92250612 (2) ETOH abuse Current Visit: Yes Status: Acute Code(s): F10.10 - ALCOHOL ABUSE, UNCOMPLICATED SNOMED Code(s): 68213328 (3) UTI (urinary tract infection) Current Visit: Yes Status: Acute Code(s): N39.0 - URINARY TRACT INFECTION, SITE NOT SPECIFIED SNOMED Code(s): 51234176 (4) Alcohol withdrawal Current Visit: No Status: Acute Code(s): F10.239 - ALCOHOL DEPENDENCE WITH WITHDRAWAL, UNSPECIFIED SNOMED Code(s): 123507634 (5) Alcoholic intoxication Current Visit: No Status: Acute Code(s): F10.929 - ALCOHOL USE, UNSPECIFIED WITH INTOXICATION, UNSPECIFIED SNOMED Code(s): 86491692 Plan: Pain control. Check CBC and CMP in a.m.. Reconcile medications. Dr. Jama's group will covering for the weekend. Appreciate orthopedic consultation. See orders otherwise.
[2019-11-12] MEDS: MORPHINE SULFATE 4 MG/ML SYRINGE IV PRN ×5 (08:47→22:33)
[2019-11-12] MEDS: CIPROFLOXACIN HCL 500 MG TAB PO SCH ×2 (09:48→21:22)
[2019-11-12 10:35] VITALS: BMI 20.3
[2019-11-12] MEDS: HYDROcodone/APAP 7.5-325MG 1 EACH TAB PO PRN ×3 (13:11→23:44)
--- NOTE | 2019-11-12 13:47 | P.CNOR ---
History of Present Illness - [facility] Consult date: 11/12/19 Consult reason: fracture History of present illness: Patient is a 59-year-old female who was brought to [facility] early this morning due to acute alcohol intoxication with questionable history of a fall. Upon arrival to the hospital, patient was very intoxicated, multiple labs and imaging test were done. Initially there was concern with low back pain and left-sided rib pain, as the visit progress she started to complain of left shoulder pain. Images demonstrated a displaced left midshaft clavicle fracture. I was contacted by the emergency room staff regarding this patient early this morning. Patient was admitted under internal medicine and orthopedic team was consulted. Patient was evaluated today at bedside, she was sleeping upon arrival. She was easily awoken and answering my questions adequately. She states that the fault that occurred yesterday evening. She states that initially her back and ribs hurt worse, now it's more her ribs and her shoulder that her problems. She had a previous cervical fusion done in her neck many years ago, she states she has no new onset of pain involving her neck. Besides the rib and shoulder, she has no other orthopedic complaints this time. Review of Systems Constitutional: Reports as per HPI Past Medical History Past Medical History: COPD, Fibromyalgia, GERD/Reflux, Hyperlipidemia, Hypertension, Renal Disease Additional Past Medical History / Comment(s): ETOH abuse, chronic low back pain, diverticulitis, benign colon polyps, kidney stones with surgical removal. History of Any Multi-Drug Resistant Organisms: MRSA Year Discovered:: 08/2014 MDRO Source:: L elbow Past Surgical History: Appendectomy, Bowel Resection, Orthopedic Surgery Additional Past Surgical History / Comment(s): Bowel resection d/t diverticulitis, R wrist fusion with bone graft, cervical fusion with metal, kidney stone surgery x 3, colonoscopy with bening polypectomy, salpingo- oophorectomy (pt cannot recall laterallity). Past Anesthesia/Blood Transfusion Reactions: No Reported Reaction Additional Past Anesthesia/Blood Transfusion Reaction / Comm: needed more medication for last colonoscopy Smoking Status: Current every day smoker - Past Family History Sister(s) Family Medical History: Cancer Additional Family Medical History / Comment(s): Pt states she does not know what type of cancer her sister had Mother Family Medical History: Cancer Additional Family Medical History / Comment(s): Mother of colon cancer. Maternal grandmother had breast cancer. Father Family Medical History: Diabetes Mellitus Additional Family Medical History / Comment(s): alcoholism Medications and Allergies Home Medications Medication Instructions Recorded Confirmed Type RX: Ezetimibe [Zetia] 10 mg PO DAILY 12/06/18 11/12/19 History Citalopram Hydrobromide 20 mg PO DAILY 11/12/19 11/12/19 History [Citalopram HBr] Metoprolol Tartrate [Lopressor] 50 mg PO BID 11/12/19 11/12/19 History Allergies Allergy/AdvReac Type Severity Reaction Status Date / Time pregabalin [From Lyrica] Allergy Severe Anaphylaxis Verified 11/12/19 09:33 tizanidine HCl Allergy Severe Anaphylaxis Verified 11/12/19 09:33 [From Zanaflex] Physical Examination Left upper extremity: Patient utilizing arm sling at this time No open lesions or sores present, no significant areas of erythema or soft tissue swelling Patient is able to extend and flex the wrist with no difficulty, she can pronate and supinate. She is able to make a full fist. Range of motion at the elbow is limited due to pain in the shoulder, range of motion of the shoulder was not assessed due to pain Obvious tenderness with palpation involving the midshaft clavicle Sensation to light touch throughout extremities intact, radial pulses 2+ Results - Labs Labs: Abnormal Lab Results - Last 24 Hours (Table) 11/12/19 11/12/19 11/12/19 Range/Units 03:00 03:00 04:00 Hgb 16.8 H (11.4-16.0) gm/dL Hct 50.5 H (34.0-46.0) % Basophils # 0.3 H (0-0.2) k/uL Sodium 150 H (137-145) mmol/L Potassium 3.1 L (3.5-5.1) mmol/L Chloride 110 H (98-107) mmol/L Phosphorus 4.8 H (2.5-4.5) mg/dL AST 156 H (14-36) U/L ALT 105 H (4-34) U/L Total Protein 8.6 H (6.3-8.2) g/dL Urine Protein Trace H (Negative) Urine Blood Small H (Negative) Urine Nitrite Positive H (Negative) Ur Leukocyte Esterase Large H (Negative) Urine WBC 15 H (0-5) /hpf Urine Bacteria Few H (None) /hpf Serum Alcohol 361 H* mg/dL Microbiology - Last 24 Hours (Table) 11/12/19 04:00 Urine Culture - Preliminary Urine,Clean Catch H & H 11/12/19 Range/Units 03:00 Hgb 16.8 H (11.4-16.0) gm/dL Hct 50.5 H (34.0-46.0) % Result Diagrams: 11/12/19 03:00 11/12/19 03:00 Assessment and Plan Plan: Imaging: Multiple imaging test were done, including chest x-ray, left clavicle, ribs, lumbar spine. Reports noted no acute fractures involving the lumbar spine or ribs. X-rays of the clavicle did demonstrated displaced left mid shaft clavicle fracture. Assessment: 1. Displaced left midshaft clavicle fracture 2. Alcohol abuse disorder 3. Other medical comorbidities Plan: I was able to discuss the case, including both physical exam findings and imaging studies my attending Dr. Diaz. No orthopedic surgical intervention recommended at this time. Recommend conservative management, this to include icing and use of the shoulder sling at all times. Pain control, oral medication as needed An orthopedic standpoint, one patient's pain is managed she is stable for discharge to home. Recommend follow-up in the outpatient setting. Time with Patient: Less than 30
[2019-11-12] MEDS: THIAMINE 100 MG TAB PO SCH (14:57)
[2019-11-12] MEDS: IPRATROPIUM-ALBUTEROL 3 ML NEB INHALATION PRN (21:00)
[2019-11-12] MEDS: LORazepam 2 MG/ML INJ IV PRN (23:56)
[2019-11-13] MEDS: LORazepam 2 MG/ML INJ IV PRN ×5 (01:41→23:43)
[2019-11-13] MEDS: SODIUM CHLORIDE 0.9% 1,000 ML IV SCH ×3 (02:37→21:59)
[2019-11-13] MEDS: HYDROcodone/APAP 7.5-325MG 1 EACH TAB PO PRN ×2 (04:07→11:29)
[2019-11-13] MEDS: MORPHINE SULFATE 4 MG/ML SYRINGE IV PRN ×2 (06:03→09:36)
[2019-11-13 07:20] LABS: HCT 39.8 % (34.0-46.0); MCH 32.5 pg (25.0-35.0); MCV 101.7 fL (80.0-100.0); Macrocytosis Slight; Mean Platelet Volume 7.5; Platelet Count 274 k/uL (150-450); RBC 3.91 m/uL (3.80-5.40); RDW 14.9 % (11.5-15.5); WBC 11.8 k/uL (3.8-10.6)
[2019-11-13 07:28] LABS: HGB 12.7 gm/dL (11.4-16.0)
[2019-11-13 07:34] LABS: ALT 66 U/L (4-34); AST 79 U/L (14-36); African American GFR (CKD) >90 (>60 ml/min/1.73 sqM); Albumin 3.6 g/dL (3.5-5.0); Alkaline Phosphatase 88 U/L (38-126); Anion Gap 7 mmol/L; Blood Urea Nitrogen 13 mg/dL (7-17); Calcium 8.1 mg/dL (8.4-10.2); Carbon Dioxide 23 mmol/L (22-30); Chloride 107 mmol/L (98-107); Glucose 87 mg/dL (74-99); Non-African American GFR(CKD) >90 (>60 ml/min/1.73 sqM); Potassium 3.3 mmol/L (3.5-5.1); Sodium 137 mmol/L (137-145); Total Bilirubin 0.7 mg/dL (0.2-1.3); Total Protein 6.4 g/dL (6.3-8.2)
[2019-11-13] MEDS: THIAMINE 100 MG TAB PO SCH ×2 (07:49→16:52)
[2019-11-13] MEDS: POTASSIUM CHLORIDE ER 10 MEQ TAB.ER.PRT PO SCH ×2 (07:49→08:57)
[2019-11-13] MEDS: CIPROFLOXACIN HCL 500 MG TAB PO SCH ×2 (07:49→22:00)
[2019-11-13] MEDS: IPRATROPIUM-ALBUTEROL 3 ML NEB INHALATION PRN (11:07)
[2019-11-13] MEDS: PANTOPRAZOLE 40 MG TABLET PO SCH (11:29)
--- NOTE | 2019-11-13 13:13 | P.PN ---
Subjective On-call hospitalist covering for Dr. Anderson over the weekend This is a pleasant 59 years old female with past medical history of fibromyalgia, COPD, GERD, hyperlipidemia, hypertension, chronic back pain, kidney stones, alcohol abuse. She presents because of fall and fracture. Vision was drinking alcohol every night about 1 pint of liquor, last night she was trying to move from one side in her bed when she fell on her left side and hurt her left shoulder followed by severe pain in the area. X-ray and emergency room showed clavicular fracture when I saw the patient she was awake and alert and oriented however she was in severe distress due to uncontrolled pain at her fracture site. No other abdominal, urinary complaints. Patient blood pressure and high side, probably due to pain. She has mild leukocytosis of 11.8 K, S, place, creatinine is normal. Liver enzymes slightly elevated, mostly due to alcohol effect but they're trending down. Urinalysis is suspicious for infection. Urine culture is growing gram-negative bacilli. Alco hol level elevated 361 on admission. urine drug screen is negative EKG: Sinus tachycardia at 105, no significant ST-T changes. Chest x-ray: No acute process by radiologist Left clavicle x-ray: Acute comminuted displaced clavicular fracture Patient has been evaluated by orthopedic surgeon service and recommended no surgical intervention but continue with conservative management, continue icing CONSTITUTIONAL: No fever, no malaise, no fatigue. HEENT: No recent visual problems or hearing problems. Denied any sore throat. CARDIOVASCULAR: No orthopnea, PND, no palpitations, no syncope. PULMONARY: No shortness of breath, no cough, no hemoptysis. GASTROINTESTINAL: No diarrhea, no nausea, no vomiting, no abdominal pain. Normoactive bowel sounds. NEUROLOGICAL: No headaches, no weakness, no numbness. HEMATOLOGICAL: Denies any bleeding or petechiae. GENITOURINARY: Denies any burning micturition, frequency, or urgency. ENDOCRINE: Denies any polyuria or polydipsia. Active Medications Generic Name Dose Route Start Last Admin Trade Name Freq PRN Reason Stop Dose Admin Hydrocodone Bitart/Acetaminophen 1 each 11/12/19 13:00 11/13/19 11:29 [place] 7.5-325 PO 1 each Q6H PRN Administration MODERATE Pain Albuterol/Ipratropium 3 ml 11/12/19 20:26 11/13/19 11:07 Duoneb 0.5 Mg-3 Mg/3 Ml Soln INHALATION 3 ml RT-Q6H PRN Administration Shortness Of Breath Or Wheezing Ciprofloxacin 500 mg 11/12/19 09:00 11/13/19 07:49 Cipro PO 500 mg BID ABHI Administration Heparin Sodium (Porcine) 5,000 unit 11/13/19 21:00 Heparin SQ Q12HR ABHI Heparin Sodium (Porcine) 5,000 unit 11/13/19 13:15 Heparin SQ Q12HR ABHI Hydromorphone HCl 0.5 mg 11/13/19 10:57 Dilaudid IVP Q3HR PRN SEVERE PAIN Sodium Chloride 1,000 mls @ 100 mls/hr 11/12/19 05:00 11/13/19 10:32 Saline 0.9% IV 100 mls/hr .Q10H ABHI Administration Lorazepam 1 mg 11/12/19 01:27 11/13/19 07:50 Ativan IV 1 mg Q2HR PRN Administration CIWA 8 or 9 Lorazepam 1 mg 11/12/19 01:27 11/13/19 01:41 Ativan IV 1 mg Q1HR PRN Administration CIWA 10 to 15 Lorazepam 2 mg 11/12/19 01:27 Ativan IV 11/14/19 01:27 Q10M PRN CIWA 16 or higher Naloxone HCl 0.2 mg 11/12/19 04:54 Narcan IV Q2M PRN Opioid Reversal Pantoprazole Sodium 40 mg 11/13/19 11:00 11/13/19 11:29 Protonix PO 40 mg [id number] Administration Thiamine HCl 100 mg 11/12/19 17:30 11/13/19 07:49 Vitamin B-1 PO 100 mg BID-W/MEALS ABHI Administration Objective - Vital Signs Vital signs: Vital Signs Temp 99.5 F 11/13/19 07:00 Pulse 84 11/13/19 11:14 Resp 16 11/13/19 07:00 BP 175/94 11/13/19 07:00 Pulse Ox 93 L 11/13/19 07:00 Intake & Output 11/12/19 11/13/19 11/13/19 18:59 06:59 18:59 Weight 58.967 kg Other: # Voids 1 1 - Exam GENERAL: The patient is alert and oriented x3, not in any acute distress. Well developed, well nourished. HEENT: Pupils are round and equally reacting to light. EOMI. No scleral icterus. No conjunctival pallor. Normocephalic, atraumatic. No pharyngeal erythema. No thyromegaly. CARDIOVASCULAR: S1 and S2 present. No murmurs, rubs, or gallops. PULMONARY: Chest is clear to auscultation, no wheezing or crackles. ABDOMEN: Soft, nontender, nondistended, normoactive bowel sounds. No palpable organomegaly. MUSCULOSKELETAL: No joint swelling or deformity. -EXTREMITIES: No cyanosis, clubbing, or pedal edema. Severe pain, tenderness and swelling in the left clavicle NEUROLOGICAL: Gross neurological examination did not reveal any focal deficits. SKIN: No rashes. no petechiae. - Labs CBC & Chem 7: 11/13/19 06:57 11/13/19 11:18 Labs: Abnormal Lab Results - Last 24 Hours (Table) 11/13/19 11/13/19 Range/Units 06:57 06:57 WBC 11.8 H (3.8-10.6) k/uL MCV 101.7 H (80.0-100.0) fL Potassium 3.3 L (3.5-5.1) mmol/L Creatinine 0.49 L (0.52-1.04) mg/dL Calcium 8.1 L (8.4-10.2) mg/dL AST 79 H (14-36) U/L ALT 66 H (4-34) U/L Microbiology - Last 24 Hours (Table) 11/12/19 04:00 Urine Culture - Preliminary Urine,Clean Catch Gram Neg Bacilli Assessment and Plan Assessment: Acute comminuted displaced clavicular fracture Alcohol abuse and withdrawal acute urinary tract infection COPD, in mild acute exacerbation possibly Hypertension Hyperlipidemia Plan: This is a pleasant 59 years old female who presents with a displaced and comminuted clavicular fracture, already evaluated by orthopedics and recommended conservative therapy. Continue with CIWA protocol, continue with thiamine. Continue with antibiotic and follow-up urine culture results. Currently she is on Cipro on admission. Labs and medication were reviewed.. Continue same treatment. Continue with symptomatic treatment. Resume home medication. Monitor lytes and vitals. DVT and GI prophylaxis. Further recommendations of the clinical course of the patient DVT prophylaxis: Subcutaneous heparin GI Prophylaxis: Protonix PT/OT: Pending Prognosis is guarded
[2019-11-13] MEDS: HYDROmorphone 0.5 MG/0.5 ML SYRINGE IVP PRN (13:47)
[2019-11-13] MEDS: HEPARIN SODIUM,PORCINE 5,000 UNIT/ML 1 ML VIAL SQ SCH ×2 (14:18→22:00)
[2019-11-13] MEDS: HYDROmorphone 1 MG/ML 1 ML SYRINGE IVP PRN ×3 (16:52→23:02)
[2019-11-13] MEDS ORDERED: HEPARIN SODIUM,PORCINE 5,000 UNIT/ML 1 ML VIAL SQ SCH (21:00)
[2019-11-13] MEDS: amLODIPine 5 MG TAB PO SCH (23:04)
[2019-11-14] MEDS: HYDROmorphone 1 MG/ML 1 ML SYRINGE IVP PRN ×7 (00:57→20:31)
[2019-11-14] MEDS: LORazepam 2 MG/ML INJ IV PRN ×6 (00:59→22:52)
[2019-11-14] MEDS ORDERED: HYDROmorphone 1 MG/ML 1 ML SYRINGE IVP ONE (04:21)
[2019-11-14] MEDS ORDERED: amLODIPine 5 MG TAB PO STA (05:55)
[2019-11-14] MEDS: IPRATROPIUM-ALBUTEROL 3 ML NEB INHALATION PRN (07:16)
[2019-11-14] MEDS: amLODIPine 5 MG TAB PO SCH (07:45)
[2019-11-14] MEDS: PANTOPRAZOLE 40 MG TABLET PO SCH (07:51)
[2019-11-14] MEDS: METOPROLOL TARTRATE 25 MG TAB PO SCH ×2 (07:51→20:36)
[2019-11-14] MEDS: THIAMINE 100 MG TAB PO SCH ×2 (07:51→16:06)
[2019-11-14] MEDS: CIPROFLOXACIN HCL 500 MG TAB PO SCH (07:51)
[2019-11-14] MEDS: HEPARIN SODIUM,PORCINE 5,000 UNIT/ML 1 ML VIAL SQ SCH ×2 (07:51→20:36)
[2019-11-14] MEDS: SODIUM CHLORIDE 0.9% 1,000 ML IV SCH (07:52)
[2019-11-14 08:14] LABS: HCT 44.8 % (34.0-46.0); HGB 14.4 gm/dL (11.4-16.0); MCH 32.3 pg (25.0-35.0); MCHC 32.1 g/dL (31.0-37.0); MCV 100.8 fL (80.0-100.0); Macrocytosis Slight; Mean Platelet Volume 8.4; Platelet Count 368 k/uL (150-450); RBC 4.44 m/uL (3.80-5.40); RDW 14.5 % (11.5-15.5); WBC 26.4 k/uL (3.8-10.6)
[2019-11-14 08:15] LABS: African American GFR (CKD) >90 (>60 ml/min/1.73 sqM); Anion Gap 10 mmol/L; Blood Urea Nitrogen 4 mg/dL (7-17); Calcium 8.7 mg/dL (8.4-10.2); Carbon Dioxide 25 mmol/L (22-30); Chloride 101 mmol/L (98-107); Glucose 101 mg/dL (74-99); Non-African American GFR(CKD) >90 (>60 ml/min/1.73 sqM); Potassium 3.7 mmol/L (3.5-5.1); Sodium 136 mmol/L (137-145)
[2019-11-14 09:11] LABS: Lymphocytes # (M) 3.43 k/uL (1.0-4.8); Monocytes # (M) 1.85 k/uL (0-1.0); Neutrophils # (M) 21.12 k/uL (1.3-7.7); Neutrophils % (M) 80 %; Nucleated Red Blood Cells 0 /100 WBC (0-0); Total Cells Counted 100; Toxic Granulation Present
[2019-11-14 09:12] LABS: Poikilocytosis (M) Present
[2019-11-14] MEDS ORDERED: Magnesium Replacement Protocol 1 EACH MISC MISCELLANE PRN (15:12)
[2019-11-14] MEDS ORDERED: Potassium Replacement Protocol 1 EACH MISC MISCELLANE PRN (15:14)
--- NOTE | 2019-11-14 15:14 | P.PN ---
Subjective On-call hospitalist covering for Dr. Anderson over the weekend This is a pleasant 59 years old female with past medical history of fibromyalgia, COPD, GERD, hyperlipidemia, hypertension, chronic back pain, kidney stones, alcohol abuse. She presents because of fall and fracture. Vision was drinking alcohol every night about 1 pint of liquor, last night she was trying to move from one side in her bed when she fell on her left side and hurt her left shoulder followed by severe pain in the area. X-ray and emergency room showed clavicular fracture when I saw the patient she was awake and alert and oriented however she was in severe distress due to uncontrolled pain at her fracture site. No other abdominal, urinary complaints. Patient blood pressure and high side, probably due to pain. She has mild leukocytosis of 11.8 K, S, place, creatinine is normal. Liver enzymes slightly elevated, mostly due to alcohol effect but they're trending down. Urinalysis is suspicious for infection. Urine culture is growing gram-negative bacilli. Alco hol level elevated 361 on admission. urine drug screen is negative EKG: Sinus tachycardia at 105, no significant ST-T changes. Chest x-ray: No acute process by radiologist Left clavicle x-ray: Acute comminuted displaced clavicular fracture Patient has been evaluated by orthopedic surgeon service and recommended no surgical intervention but continue with conservative management, continue icing 11/14/2019 Patient is still complaining from pain, at her left shoulder site, pain is significant and hard to control, pain consult is requested. Patient was a little bit sleepy although she is fully awake and oriented, we lowered her Dilaudid from 1 mg every 2 hours to 1 mg every 3 hours. Add lidocaine patch and Toradol. Continue with CIWA protocol for alcohol withdrawal, her CIWA score is 15. Urine culture is growing E. coli is resistant to Rocephin and sensitive to Cipro and Levaquin, we'll start the patient on Levaquin as her WBC went up to 24k. EKG showing sinus tachycardia at [address]-T changes, we will check troponin although I think most of her pain is coming from her shoulder is due to fracture. Objective - Vital Signs Vital signs: Vital Signs Temp 97.9 F 11/14/19 14:59 Pulse 100 11/14/19 14:59 Resp 16 11/14/19 14:59 BP 109/73 11/14/19 14:59 Pulse Ox 96 11/14/19 14:59 Intake & Output 11/13/19 11/14/19 11/14/19 18:59 06:59 18:59 Other: Voiding Method Toilet # Voids 1 4 2 - Exam GENERAL: The patient is alert and oriented x3, not in any acute distress. Well developed, well nourished. HEENT: Pupils are round and equally reacting to light. EOMI. No scleral icterus. No conjunctival pallor. Normocephalic, atraumatic. No pharyngeal erythema. No thyromegaly. CARDIOVASCULAR: S1 and S2 present. No murmurs, rubs, or gallops. PULMONARY: Chest is clear to auscultation, no wheezing or crackles. ABDOMEN: Soft, nontender, nondistended, normoactive bowel sounds. No palpable organomegaly. MUSCULOSKELETAL: No joint swelling or deformity. -EXTREMITIES: No cyanosis, clubbing, or pedal edema. Severe pain, tenderness and swelling in the left clavicle NEUROLOGICAL: Gross neurological examination did not reveal any focal deficits. SKIN: No rashes. no petechiae. - Labs CBC & Chem 7: 11/14/19 07:30 11/14/19 07:30 Labs: Abnormal Lab Results - Last 24 Hours (Table) 11/14/19 11/14/19 Range/Units 07:30 07:30 WBC 26.4 H (3.8-10.6) k/uL MCV 100.8 H (80.0-100.0) fL Neutrophils # (Manual) 21.12 H (1.3-7.7) k/uL Monocytes # (Manual) 1.85 H (0-1.0) k/uL Sodium 136 L (137-145) mmol/L BUN 4 L (7-17) mg/dL Creatinine 0.47 L (0.52-1.04) mg/dL Glucose 101 H (74-99) mg/dL Magnesium 1.0 L (1.6-2.3) mg/dL Microbiology - Last 24 Hours (Table) 11/12/19 04:00 Urine Culture - Final Urine,Clean Catch Escherichia coli Assessment and Plan Assessment: Acute comminuted displaced clavicular fracture Alcohol abuse and withdrawal acute urinary tract infection COPD, in mild acute exacerbation possibly Hypertension Hyperlipidemia Plan: This is a pleasant 59 years old female who presents with a displaced and comminuted clavicular fracture, already evaluated by orthopedics and recommended conservative therapy. Consult pain management. Continue with CIWA protocol, continue with thiamine. Consult infectious disease for UTI. Change Cipro to Levaquin. Labs and medication were reviewed.. Continue same treatment. Continue with symptomatic treatment. Resume home medication. Monitor lytes and vitals. DVT and GI prophylaxis. Further recommendations of the clinical course of the patient DVT prophylaxis: Subcutaneous heparin GI Prophylaxis: Protonix PT/OT: Pending Prognosis is guarded Dr. Anderson will resume the care of the patient tomorrow
[2019-11-14] MEDS ORDERED: LIDOCAINE 5% PATCH TOPICAL SCH (16:00)
[2019-11-14] MEDS ORDERED: LEVOFLOXACIN 500MG-D5W PMX 500 MG in DEXTROSE/WATER 1 100ML.BAG IVPB SCH (16:00)
[2019-11-14] MEDS: KETOROLAC 30 MG/ML 1 ML VIAL IVP SCH ×2 (16:05→22:43)
[2019-11-14] MEDS: HYDROcodone/APAP 7.5-325MG 1 EACH TAB PO PRN (21:54)
[2019-11-14] MEDS: MAGNESIUM SULFATE-D5W PMX 1 GM in DEXTROSE/WATER 1 100ML.BAG IVPB SCH ×2 (21:56→23:12)
[2019-11-14 22:12] VITALS: RESP 20
--- NOTE | 2019-11-14 23:55 | P.CONS ---
History of Present Illness - Reason for Consult Consult date: 11/14/19 UTI , Leukocytosis Requesting physician: Kory E Sheet - Chief Complaint fall and left sided chest pain x 1 day - History of Present Illness Patient is a 59-year-old female with a past medical he significant for alcohol abuse/intoxication EMS was called to the patient residence with the patient was noticed to be on the ground somewhat unresponsive though did respond to stimuli patient reports she was lying on the ground because she hurt her back which is chronic patient mention she recently arranged sitting in the room and she slid off the bed and hit the garbage can patient was complaining of excruciating pain to the left shoulder area to be almost alert and severe with no radiation patient on arrival to the ER was afebrile and the patient remained to be febrile patient did have a normal white count presentation subsequent vitals of been 0.8 yesterday's apparently 6.1 today patient did have a mildly positive UA with leukocyte esterase positive and 50 WBC culture has been finalized and E. coli he was initially on oral Cipro that has been switched to Levaquin because of some her white count infectious disease was consulted for further recommendation regarding antibiotics patient did have a x-rays of the clavicle which shows acute angulated displaced clavicle fracture for the patient has been evaluated by the orthopedics there was evidence of a negative fracture. The patient is also complaining of pain in the left upper quadrant area describ ing it to be sharp almost 10 out of 10 in severity she did have some nausea but no vomiting and denies having any diarrhea she did complain some occasionally regarding and frequency but no hematuria suprapubic or flank pain. Review of Systems Positive point has been mentioned in HPI rest of the systems are negative Past Medical History Past Medical History: COPD, Fibromyalgia, GERD/Reflux, Hyperlipidemia, Hypertension, Renal Disease Additional Past Medical History / Comment(s): ETOH abuse, chronic low back pain, diverticulitis, benign colon polyps, kidney stones with surgical removal. History of Any Multi-Drug Resistant Organisms: MRSA Year Discovered:: 08/2014 MDRO Source:: Bonilla billy Past Surgical History: Appendectomy, Bowel Resection, Orthopedic Surgery Additional Past Surgical History / Comment(s): Bowel resection d/t diverticulitis, R wrist fusion with bone graft, cervical fusion with metal, kidney stone surgery x 3, colonoscopy with bening polypectomy, salpingo-o ophorectomy (pt cannot recall laterallity). Past Anesthesia/Blood Transfusion Reactions: No Reported Reaction Additional Past Anesthesia/Blood Transfusion Reaction / Comm: needed more medication for last colonoscopy Smoking Status: Current every day smoker - Past Family History Sister(s) Family Medical History: Cancer Additional Family Medical History / Comment(s): Pt states she does not know what type of cancer her sister had Mother Family Medical History: Cancer Additional Family Medical History / Comment(s): Mother of colon cancer. Maternal grandmother had breast cancer. Father Family Medical History: Diabetes Mellitus Additional Family Medical History / Comment(s): alcoholism Medications and Allergies Home Medications Medication Instructions Recorded Confirmed Type Ezetimibe [Zetia] 10 mg PO DAILY 12/06/18 11/12/19 History Citalopram Hydrobromide 20 mg PO DAILY 11/12/19 11/12/19 History [Citalopram HBr] Metoprolol Tartrate [Lopressor] 50 mg PO BID 11/12/19 11/12/19 History Allergies Allergy/AdvReac Type Severity Reaction Status Date / Time pregabalin [From Lyrica] Allergy Severe Anaphylaxis Verified 11/12/19 09:33 tizanidine HCl Allergy Severe Anaphylaxis Verified 11/12/19 09:33 [From Zanaflex] Physical Exam Vitals: Vital Signs Temp Pulse Pulse Resp BP Pulse Ox 11/14/19 16:00 16 11/14/19 14:59 97.9 F 100 16 109/73 96 11/14/19 10:12 110 H 18 95 11/14/19 07:40 138 H 22 11/14/19 07:30 98.1 F 134 H 16 135/84 94 L 11/14/19 07:28 129 H 11/14/19 07:17 99 11/14/19 05:48 99.4 F 120 H 29 H 179/81 95 11/14/19 03:48 115 H 24 174/80 98 11/14/19 03:28 99.6 F 132 H 24 177/98 98 11/13/19 20:55 99.3 F 119 H 24 182/87 96 Intake and Output 11/14/19 11/14/19 11/14/19 06:59 14:59 22:59 Other: Voiding Method Toilet # Voids 4 2 2 GENERAL DESCRIPTION: Middle-aged female lying in bed, no distress. No tachypnea or accessory muscle of respiration use. HEENT: Shows Pallor , no scleral icterus. Oral mucous membrane is dry. NECK: Trachea central, no thyromegaly. LUNGS: Unlabored breathing. Clear to auscultation anteriorly. No wheeze or crackle. HEART: S1, S2, regular rate and rhythm. ABDOMEN: Soft, no tenderness , guarding or rigidity EXTREMITIES: No edema of feet. SKIN: No rash, no masses palpable. NEUROLOGICAL: The patient is awake, alert, oriented x3, mood and affect normal. Results CBC & Chem 7: 11/14/19 07:30 11/14/19 07:30 Labs: Abnormal Lab Results - Last 24 Hours (Table) 11/14/19 11/14/19 Range/Units 07:30 07:30 WBC 26.4 H (3.8-10.6) k/uL MCV 100.8 H (80.0-100.0) fL Neutrophils # (Manual) 21.12 H (1.3-7.7) k/uL Monocytes # (Manual) 1.85 H (0-1.0) k/uL Sodium 136 L (137-145) mmol/L BUN 4 L (7-17) mg/dL Creatinine 0.47 L (0.52-1.04) mg/dL Glucose 101 H (74-99) mg/dL Magnesium 1.0 L (1.6-2.3) mg/dL Microbiology - Last 24 Hours (Table) 11/12/19 04:00 Urine Culture - Final Urine,Clean Catch Escherichia coli Assessment and Plan Assessment: 1-patient with leukocytosis that is worsening in this patient admitted to hospital after a fall in this patient who did have left clavicular fracture and is also complaining of pain to the left upper quadrant area with a positive urine culture for E. coli, underlying abdominal source not excluded this patient who did have a significant history of drinking (1) Leukocytosis Current Visit: Yes Status: Acute Code(s): D72.829 - ELEVATED WHITE BLOOD CELL COUNT, UNSPECIFIED SNOMED Code(s): 268287275 (2) UTI (urinary tract infection) Current Visit: Yes Status: Acute Code(s): N39.0 - URINARY TRACT INFECTION, SITE NOT SPECIFIED SNOMED Code(s): 58384047 Plan: 1-we will obtain a CT of abdominal pelvis to rule out any intra-abdominal pathology or injury 2- Discontinue Levaquin 3-start the patient on Rocephin 1 g daily 4-gentle IV fluid We will follow on clinical condition and cultures to further adjust medication if needed Thank you for this consultation we will follow the patient along with you Time with Patient: Greater than 30
[2019-11-15] MEDS: MAGNESIUM SULFATE-D5W PMX 1 GM in DEXTROSE/WATER 1 100ML.BAG IVPB SCH (00:38)
[2019-11-15] MEDS: HYDROmorphone 1 MG/ML 1 ML SYRINGE IVP PRN (00:45)
[2019-11-15] MEDS: HYDROmorphone 0.5 MG/0.5 ML SYRINGE IVP PRN ×4 (04:05→20:38)
[2019-11-15] MEDS: SODIUM CHLORIDE 0.9% 1,000 ML IV SCH ×2 (04:09→20:36)
[2019-11-15] MEDS: KETOROLAC 30 MG/ML 1 ML VIAL IVP SCH ×4 (05:31→23:16)
[2019-11-15] MEDS: LORazepam 2 MG/ML INJ IV PRN (06:28)
[2019-11-15 07:31] LABS: Basophils # (A) 0.1 k/uL (0-0.2); Basophils % (A) 1 %; Eosinophils # (A) 0.1 k/uL (0-0.7); Eosinophils % (A) 1 %; HGB 11.7 gm/dL (11.4-16.0); Lymphocytes # (A) 1.2 k/uL (1.0-4.8); Lymphocytes % (A) 7 %; MCH 33.2 pg (25.0-35.0); MCHC 33.4 g/dL (31.0-37.0); MCV 99.3 fL (80.0-100.0); Mean Platelet Volume 7.7; Monocytes % (A) 6 %; Neutrophils # (A) 14.7 k/uL (1.3-7.7); Neutrophils % (A) 85 %; Platelet Count 327 k/uL (150-450); RBC 3.53 m/uL (3.80-5.40); RDW 14.3 % (11.5-15.5); WBC 17.4 k/uL (3.8-10.6)
[2019-11-15] MEDS: HEPARIN SODIUM,PORCINE 5,000 UNIT/ML 1 ML VIAL SQ SCH ×2 (07:57→20:37)
[2019-11-15] MEDS: amLODIPine 5 MG TAB PO SCH (07:59)
[2019-11-15] MEDS: PANTOPRAZOLE 40 MG TABLET PO SCH (07:59)
[2019-11-15] MEDS: METOPROLOL TARTRATE 25 MG TAB PO SCH ×2 (07:59→20:37)
[2019-11-15] MEDS: THIAMINE 100 MG TAB PO SCH ×2 (08:00→16:05)
[2019-11-15 08:03] LABS: African American GFR (CKD) >90 (>60 ml/min/1.73 sqM); Anion Gap 7 mmol/L; Blood Urea Nitrogen 10 mg/dL (7-17); Calcium 8.2 mg/dL (8.4-10.2); Carbon Dioxide 24 mmol/L (22-30); Chloride 104 mmol/L (98-107); Glucose 119 mg/dL (74-99); Non-African American GFR(CKD) >90 (>60 ml/min/1.73 sqM); Potassium 3.3 mmol/L (3.5-5.1); Sodium 135 mmol/L (137-145)
[2019-11-15] MEDS: IOPAMIDOL CONTRAST (ORAL USE) VIAL PO PRN ×2 (08:06→09:00)
[2019-11-15 08:37] LABS: C Reactive Protein 246.2 mg/L (<10.0)
[2019-11-15] MEDS: POTASSIUM CHLORIDE ER 20 MEQ TAB.ER PO SCH ×2 (10:56→11:37)
--- NOTE | 2019-11-15 10:56 | CT ---
EXAMINATION TYPE: CT abdomen pelvis w con DATE OF EXAM: 11/15/2019 HISTORY: abd pain , fall and leukocytosis CT DLP: 971mGycm Automated Exposure Control for Dose Reduction was Utilized. CONTRAST: CT scan of the abdomen and pelvis is performed with IV Contrast, patient injected with 100 mL of Isov ue 300. COMPARISON: CT abdomen and pelvis September 09, 2014. CTA chest November 04, 2019. Most recent chest x-r ay November 12, 2019 FINDINGS: LUNG BASES: There is new small left pleural effusion and associated left basilar compressive atelecta sis.. LIVER/GB: Liver remains diffusely low dense consistent with diffuse fatty infiltration. Contracted ga llbladder. PANCREAS: No significant abnormality is seen. SPLEEN: No significant abnormality is seen. ADRENALS: No significant abnormality is seen. KIDNEYS: Symmetric cortical medullary uptake and excretion without hydronephrosis seen bilaterally. S ubcentimeter low dense lesion seen anteriorly lower pole right kidney coronal image 49 to small to fu rther characterize presumed benign. BOWEL: Oral contrast reaches level of terminal ileum. Suboptimal evaluation of distal bowel. There is low lying cecum into the right pelvis. No suspicious small or large bowel dilatation. Moderate 2 sev ere prominence of fecal material right colon including low lying cecum. Occasional diverticula in the left and sigmoid colon. Surgical sutures suspected sigmoid colon mid pelvis axial image 60. Mild gas eous prominence of the rectum. Mild focal wall thickening proximal sigmoid colon axial image 56 favor ed product of nondistention but is nonspecific. UTERUS/ADNEXA: Anteverted uterus sagittal image 42 projects to left of midline. No suspicious adnexal masses. LYMPH NODES: No greater than 1cm abdominal or pelvic lymph nodes are appreciated. 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 Mild to moderate narrowing of both hip joints redemonstrated. OTHER: Mild/moderate calcite plaque of the aorta extends into branch vessels. IMPRESSION: 1. New small left pleural effusion and associated left basilar compressive atelectasis. 2. Overall nonobstructive bowel gas pattern. Moderate to severe proximal colonic fecal stasis noted. Possible mild colitis proximal sigmoid colon level though favor product of poor distention. Surgical changes mid sigmoid colon level noted.
[2019-11-15] MEDS ORDERED: LIDOCAINE 5% PATCH TOPICAL SCH (12:00)
--- NOTE | 2019-11-15 12:31 | P.PN ---
Subjective Progress Note Date: 11/15/19 Principal diagnosis: Clavicular fracture This is a continue progress on a 59-year-old white female essentially admitted for status post fall from all his him. She hasn't underlying history of alcohol withdrawal with EtOH abuse and left clavicle fracture. Conservative management has been deemed appropriate by orthopedics. We had a long discussion regarding pain control and appropriate follow-up with alcohol rehab. She is considering [place] I have discussed with her that she needs to start the appropriate process. Our clinical social worker and is now up to do this at this time. Otherwise, we will sign perception for cane 4. Objective - Vital Signs Vital signs: Vital Signs Temp 97.7 F 11/15/19 04:35 Pulse 98 11/15/19 04:35 Resp 20 11/15/19 08:00 BP 120/70 11/15/19 04:35 Pulse Ox 98 11/15/19 04:35 Intake & Output 11/14/19 11/15/19 11/15/19 18:59 06:59 18:59 Intake Total 400 Balance 400 Weight 58.967 kg Intake: Oral 400 Other: Voiding Method Toilet Toilet # Voids 2 2 3 # Bowel Movements 1 - Constitutional General appearance: Present: average body habitus - EENT Eyes: Absent: abnormal pupil - Neck Neck: Absent: lymphadenopathy - Respiratory Respiratory: bilateral: CTA - Cardiovascular Rhythm: regular Heart sounds: normal: S1, S2 Abnormal Heart Sounds: Absent: S3 Gallop - Gastrointestinal General gastrointestinal: Present: soft. Absent: tenderness - Neurologic Neurologic: Present: CNII-XII intact. Absent: focal deficits - Labs CBC & Chem 7: 11/15/19 07:14 11/15/19 07:14 Labs: Abnormal Lab Results - Last 24 Hours (Table) 11/15/19 11/15/19 Range/Units 07:14 07:14 WBC 17.4 H (3.8-10.6) k/uL RBC 3.53 L (3.80-5.40) m/uL Neutrophils # 14.7 H (1.3-7.7) k/uL Sodium 135 L (137-145) mmol/L Potassium 3.3 L (3.5-5.1) mmol/L Creatinine 0.48 L (0.52-1.04) mg/dL Glucose 119 H (74-99) mg/dL Calcium 8.2 L (8.4-10.2) mg/dL C-Reactive Protein 246.2 H (<10.0) mg/L Microbiology - Last 24 Hours (Table) 11/12/19 04:00 Urine Culture - Final Urine,Clean Catch Escherichia coli Assessment and Plan (1) Clavicle fracture Current Visit: Yes Status: Acute Code(s): S42.009A - FRACTURE OF UNSP PART OF UNSP CLAVICLE, INIT FOR CLOS FX SNOMED Code(s): 73026731 (2) ETOH abuse Current Visit: Yes Status: Acute Code(s): F10.10 - ALCOHOL ABUSE, UNCOMPLICATED SNOMED Code(s): 81125236 (3) UTI (urinary tract infection) Current Visit: Yes Status: Acute Code(s): N39.0 - URINARY TRACT INFECTION, SITE NOT SPECIFIED SNOMED Code(s): 54392759 (4) Alcohol withdrawal Current Visit: Yes Status: Acute Code(s): F10.239 - ALCOHOL DEPENDENCE WITH WITHDRAWAL, UNSPECIFIED SNOMED Code(s): 678015498 (5) Alcoholic intoxication Current Visit: No Status: Acute Code(s): F10.929 - ALCOHOL USE, UNSPECIFIED WITH INTOXICATION, UNSPECIFIED SNOMED Code(s): 51514807 Plan: Pain control. Continue Dilaudid with hydrocodone. Alcohol rehab referral as necessary. Anticipate discharge in a.m.
[2019-11-15] MEDS: CYCLOBENZAPRINE 10 MG TAB PO SCH ×3 (12:58→20:37)
--- NOTE | 2019-11-15 14:10 | P.PAINCN ---
History of Present Illness - Reason for Consult Consult date: 11/15/19 - History of Present Illness This is a 59-year-old patient referred by Dr. Kory Cope who was brought to [facility] on 11/12/2019 due to acute alcohol intoxication with fall. Patient reports that she fell off the side of her bed and landed on a trash can, injuring her left neck and chest wall. Upon arrival to the hospital, patient was very intoxicated, multiple labs and imaging test were done and rochelle ging demonstrated a displaced left midshaft clavicle fracture, no rib fractures. Her current medications include [place] 7.5/325 every 6 hours when necessary, Dilaudid 0.5-1 mg every 3 hours when necessary, Toradol 30 mg every 6 hours. She is also on Ativan for alcohol withdrawal/DTs. Her pain is primarily located in the left clavicle area as well as left chest. Her pain has not been very well controlled with this regimen. Patient denies new-onset weakness, bowel/bladder incontinence, or any other signs or symptoms of cauda equina syndrome. In addition to above, 13-point review of systems is also negative for chest pain, new onset weakness, abdominal pain, diarrhea, extreme fatigue, malaise, fever, skin changes, or bowel or bladder incontinence. She does note shortness of breath that she attributes to chest wall pain. Past Medical History Past Medical History: COPD, Fibromyalgia, GERD/Reflux, Hyperlipidemia, Hypertension, Renal Disease Additional Past Medical History / Comment(s): ETOH abuse, chronic low back pain, diverticulitis, benign colon polyps, kidney stones with surgical removal. History of Any Multi-Drug Resistant Organisms: MRSA Year Discovered:: 08/2014 MDRO Source:: L elbow Past Surgical History: Appendectomy, Bowel Resection, Orthopedic Surgery Additional Past Surgical History / Comment(s): Bowel resection d/t diverticulitis, R wrist fusion with bone graft, cervical fusion with metal, kidney stone surgery x 3, colonoscopy with bening polypectomy, salpingo-oophorec sanam (pt cannot recall laterallity). Past Anesthesia/Blood Transfusion Reactions: No Reported Reaction Additional Past Anesthesia/Blood Transfusion Reaction / Comm: needed more medication for last colonoscopy Smoking Status: Current every day smoker - Past Family History Sister(s) Family Medical History: Cancer Additional Family Medical History / Comment(s): Pt states she does not know what type of cancer her sister had Mother Family Medical History: Cancer Additional Family Medical History / Comment(s): Mother of colon cancer. Maternal grandmother had breast cancer. Father Family Medical History: Diabetes Mellitus Additional Family Medical History / Comment(s): alcoholism Medications and Allergies Home Medications Medication Instructions Recorded Confirmed Type Ezetimibe [Zetia] 10 mg PO DAILY 12/06/18 11/12/19 History Citalopram Hydrobromide 20 mg PO DAILY 11/12/19 11/12/19 History [Citalopram HBr] Metoprolol Tartrate [Lopressor] 50 mg PO BID 11/12/19 11/12/19 History Allergies Allergy/AdvReac Type Severity Reaction Status Date / Time pregabalin [From Lyrica] Allergy Severe Anaphylaxis Verified 11/12/19 09:33 tizanidine HCl Allergy Severe Anaphylaxis Verified 11/12/19 09:33 [From Zanaflex] Physical Exam Vitals: Vital Signs Temp Pulse Resp BP Pulse Ox 11/15/19 08:00 20 11/15/19 04:35 97.7 F 98 20 120/70 98 11/15/19 00:00 20 11/14/19 21:30 97.3 F L 101 H 20 124/84 99 11/14/19 16:00 16 11/14/19 14:59 97.9 F 100 16 109/73 96 Intake and Output 11/14/19 11/15/19 11/15/19 22:59 06:59 14:59 Intake Total 200 200 Balance 200 200 Intake: Oral 200 200 Other: Voiding Method Toilet Toilet # Voids 1 2 3 # Bowel Movements 1 Weight 58.967 kg Vital Signs: Reviewed in EMR GENERAL: Well appearing, in no acute distress PSYCH: Mood and affect is appropriate. Awake, alert, and oriented 3 SKIN: Skin color, texture, normal, no rashes or lesions HEENT: Normocephalic. EOM intact. Left clavicle is swollen and tender. CV: No pedal edema RESP: Respirations are unlabored, no audible wheezing, bruising noted in left posterior thoracic regionapproximately T8 to T10, this is tender to palpation GI: Abdomen non-distended MUSCULOSKELETAL: Bilateral upper and lower extremity strength is normal and symmetric. No atrophy or tone abnormalities are noted. Extremities: Peripheral joint ROM is full and pain free without obvious instability or laxity in all four extremities. No edema or skin discolorations noted. NEUR: Cranial nerves are grossly intact. Results Results: Imaging: X-rays done at [facility] on 11/12/2019 showsno acute rib fractures, comminuted acute left clavicle fracture CBC & Chem 7: 11/15/19 07:14 11/15/19 07:14 Labs: Abnormal Lab Results - Last 24 Hours (Table) 11/15/19 11/15/19 Range/Units 07:14 07:14 WBC 17.4 H (3.8-10.6) k/uL RBC 3.53 L (3.80-5.40) m/uL Neutrophils # 14.7 H (1.3-7.7) k/uL Sodium 135 L (137-145) mmol/L Potassium 3.3 L (3.5-5.1) mmol/L Creatinine 0.48 L (0.52-1.04) mg/dL Glucose 119 H (74-99) mg/dL Calcium 8.2 L (8.4-10.2) mg/dL C-Reactive Protein 246.2 H (<10.0) mg/L Microbiology - Last 24 Hours (Table) 11/12/19 04:00 Urine Culture - Final Urine,Clean Catch Escherichia coli Assessment and Plan Plan: Assessment: 1. Left clavicle Fracture and left chest wall bruising resulting in acute pain. Clavicle fracture is nonoperative per orthopedics team. 2. Alcohol abuse Plan: Medications: Would add lidocaine 5% patches and Flexeril 10 mg 3 times a day. Unfortunately, we are not able to had scheduled Tylenol due to patient's alc oholism. Patient also has had anaphylactic reaction to Lyrica, hence would not use gabapentinoids. No interventional pain procedures indicated at this time Thank you for allowing us to participate in the care of this patient. Please call with questions. Time with Patient: Less than 30 PQRS Measure Charge Sheet PQRS Narrative: Smoking Status Current every day smoker Do You Want the Pneumonia Vaccine Up to Date Vaccine AT THIS TIME? Narcotic Agreement Date Signed 11/27/16 Blood Pressure [Right Arm] 120/70 Blood Pressure 125/81 Pain Intensity [Left Shoulder] 10 Pain Intensity [Left Upper 12 Chest] Pain Intensity 10 Pain Scale Used Numeric (1 - 10) Scale Used Numeric (1 - 10) Hx Alcohol Use (MH) No Home Medications: Ambulatory Orders Ezetimibe [Zetia] 10 mg PO DAILY 12/06/18 Citalopram Hydrobromide [Citalopram HBr] 20 mg PO DAILY 11/12/19 Metoprolol Tartrate [Lopressor] 50 mg PO BID 11/12/19
[2019-11-15] MEDS: HYDROcodone/APAP 7.5-325MG 1 EACH TAB PO PRN ×2 (16:05→23:15)
[2019-11-15] MEDS: CIPROFLOXACIN HCL 500 MG TAB PO SCH ×2 (16:05→23:15)
--- NOTE | 2019-11-15 19:47 | PN ---
PROGRESS NOTE DATE OF SERVICE: 11/15/2019 REASON FOR FOLLOWUP: UTI and leukocytosis. INTERVAL HISTORY: The patient is currently afebrile, still complaining of pain to the left side of the chest area. The patient denies having any nausea or vomiting. No abdominal pain. No diarrhea. PHYSICAL EXAMINATION: Blood pressure 117/68 with a pulse of 80, temperature 97.1. She is 96% on room air. General description is a middle-aged female lying in bed in no distress. RESPIRATORY SYSTEM: Unlabored breathing. Clear to auscultation anteriorly. HEART: S1, S2. Regular rate and rhythm. ABDOMEN: Soft. No tenderness. LABS/IMAGING: Hemoglobin is 11.7, white count 17.4, creatinine 0.48. CT of abdomen and pelvis did not show any significant intraabdominal abnormality. Urine has been finalized with an E coli that is resistant to ceftriaxone. DIAGNOSTIC IMPRESSION AND PLAN: Patient with leukocytosis which is likely multifactorial in this patient who did have a component of urinary tract infection, urine with Escherichia coli. Antibiotic was switched over to oral Cipro 500 mg twice a day, which the patient will need for about 7 to 10 days to finish her course of therapy, and discontinue the Rocephin. MMODL / IJN: [id number] /
[2019-11-16] MEDS: HYDROmorphone 0.5 MG/0.5 ML SYRINGE IVP PRN (00:44)
[2019-11-16] MEDS: HYDROmorphone 1 MG/ML 1 ML SYRINGE IVP PRN (03:08)
[2019-11-16 05:08] VITALS: BP 127/71; PULSE 92; TEMP 98.7
[2019-11-16] MEDS: KETOROLAC 30 MG/ML 1 ML VIAL IVP SCH (05:41)
--- NOTE | 2019-11-16 07:58 | P.DS ---
Providers Date of admission: 11/13/19 08:30 Attending physician: Abrahan Anderson Consults: 11/12/19 04:54 Consult Physician Stat Consulting Provider: Spencer Diaz Consult Reason/Comments: clavicle fracture Do you want consulting provider notified?: Yes 11/14/19 15:13 Consult Physician Urgent Consulting Provider: Alber Valencia Consult Reason/Comments: uti Do you want consulting provider notified?: Yes Primary care physician: Abrahan Anderson - Discharge Diagnosis(es) (1) Clavicle fracture Current Visit: Yes Status: Acute (2) ETOH abuse Current Visit: Yes Status: Acute (3) UTI (urinary tract infection) Current Visit: Yes Status: Acute (4) Alcohol withdrawal Current Visit: Yes Status: Acute (5) Alcoholic intoxication Current Visit: No Status: Acute Hospital Course: This is discharge from an 59-year-old white female essentially admitted for left clavicular fracture related to a fall sustained due to alcoholism. The patient was stabilized and conservative management was done from an orthopedic perspective. She was placed on appropriate CIWA scale and is discharged in stable condition to follow-up with outpatient alcoholic rehab. Patient Condition at Discharge: Serious Plan - Discharge Summary Discharge Rx Participant: No New Discharge Prescriptions: New RX: Ciprofloxacin HCl [Cipro] 500 mg PO BID #10 tab RX: Cyclobenzaprine [Flexeril] 10 mg PO TID #30 tab RX: Lidocaine 5% Patch [Lidoderm 5% Patch] 2 patch TOPICAL Q24H #60 patch RX: Metoprolol Tartrate [Lopressor] 12.5 mg PO BID #60 tab RX: HYDROcodone/APAP 7.5-325MG [[place] 7.5-325] 1 each PO Q6H PRN #60 tab PRN Reason: MODERATE Pain RX: amLODIPine [Norvasc] 5 mg PO DAILY #30 tab RX: Pantoprazole [Protonix] 40 mg PO AC-BRKFST #0 tablet. Continue RX: Ezetimibe [Zetia] 10 mg PO DAILY RX: Citalopram Hydrobromide [Citalopram HBr] 20 mg PO DAILY Discontinued Metoprolol Tartrate [Lopressor] 50 mg PO BID Discharge Medication List RX: Ezetimibe [Zetia] 10 mg PO DAILY 12/06/18 [History] RX: Citalopram Hydrobromide [Citalopram HBr] 20 mg PO DAILY 11/12/19 [History] RX: Ciprofloxacin HCl [Cipro] 500 mg PO BID #10 tab 11/16/19 [Rx] RX: Cyclobenzaprine [Flexeril] 10 mg PO TID #30 tab 11/16/19 [Rx] RX: HYDROcodone/APAP 7.5-325MG [[place] 7.5-325] 1 each PO Q6H PRN #60 tab 11/16/19 [Rx] RX: Lidocaine 5% Patch [Lidoderm 5% Patch] 2 patch TOPICAL Q24H #60 patch 11/16/19 [Rx] RX: Metoprolol Tartrate [Lopressor] 12.5 mg PO BID #60 tab 11/16/19 [Rx] RX: Pantoprazole [Protonix] 40 mg PO AC-BRKFST #0 tablet.dr 11/16/19 [Rx] RX: amLODIPine [Norvasc] 5 mg PO DAILY #30 tab 11/16/19 [Rx] Follow up Appointment(s)/Referral(s): Abrahan Anderson MD [Primary Care Provider] - 1-2 days Spencer Diaz DO [Doctor of Osteopathic Medicine] - 3 Days Activity/Diet/Wound Care/Special Instructions: Orthopedic discharge instructions: 1. Utilize arm sling at all times 2. Avoid excessive use of the left arm 3. OTC Tylenol or anti-inflammatories as needed, utilize ice also 4. Plan for follow-up in the outpatient setting next week Discharge Disposition: HOME SELF-CARE
[2019-11-16] MEDS: HEPARIN SODIUM,PORCINE 5,000 UNIT/ML 1 ML VIAL SQ SCH (08:09)
[2019-11-16] MEDS: CYCLOBENZAPRINE 10 MG TAB PO SCH (08:09)
[2019-11-16] MEDS: METOPROLOL TARTRATE 25 MG TAB PO SCH (08:09)
[2019-11-16] MEDS: HYDROcodone/APAP 7.5-325MG 1 EACH TAB PO PRN (08:10)
[2019-11-16] MEDS: PANTOPRAZOLE 40 MG TABLET PO SCH (08:10)
[2019-11-16] MEDS: THIAMINE 100 MG TAB PO SCH (08:11)
[2019-11-16] MEDS: CIPROFLOXACIN HCL 500 MG TAB PO SCH (08:11)
[2019-11-16] MEDS: amLODIPine 5 MG TAB PO SCH (08:11)
[2019-11-16 09:54] LABS: Magnesium 1.7 mg/dL (1.6-2.3)
[2019-11-16 09:56] LABS: Potassium 3.9 mmol/L (3.5-5.1)
--- NOTE | 2019-11-22 10:54 | CDI ---
Documentation Clarification Form Date: 11/22/19 From: Aura Friedman Phone: If you have a question about this query, please contact Remedios Velasco Journeyman Press Operator at [phone] between 8am and 5pm. Admit Date: 11/13/19 Discharge Date: 11/16/19 Patient Name: Faye Wadsworth Visit Number: [id number] ATTENTION: The Clinical Documentation Specialists (CDI) and [facility] Coding Staff appreciate your assistance in clarifying documentation. Please respond to the clarification below the line at the bottom and electronically sign. The CDI & [facility] Coding staff will review the response and follow-up if needed. Please note: Queries are made part of the Legal Health Record. If you have any questions, please contact the author of this message via ITS. Dear Dr. Anderson Alcoholic intoxication is documented in the H&P, 11/15 progress note and discharge summary. Alcohol withdrawal is documented in the H&P, discharge summary, your 11/[address] Cope's 11/14 progress note. Alcoholism is documented in the H&P and discharge summary. Alcohol abuse is documented in Dr. Wagner' and Dr. Valencia's consult notes and Dr. Cope's progress notes History/Risk Factors: Excessive alcohol use on a regular basis Clinical Indicators: Alcohol intoxication Labs: Alcohol level 361, sodium 150 Treatment: [facility] protocol In your professional opinion, can you please clarify if the above clinical indicators and treatment signify any of the following? Alcohol dependence Alcohol abuse-This is the correct choice Other, please specify Unable to determine MTDD
== END 2019-11-16 09:39 | disposition home or self-care (01) | DRG 897 ==
LOC: EC 00:47 → 6NMEDSUR 05:31 → OBSVTOIN 11-13 08:30
PROVIDERS: ADMIT Family Medicine; ATTEND Family Medicine
DX: F10.121 Alcohol abuse with intoxication delirium (principal); E87.0 Hyperosmolality and hypernatremia; J44.1 Chronic obstructive pulmonary disease with (acute) exacerbation; N39.0 Urinary tract infection, site not specified; S42.022A Displaced fracture of shaft of left clavicle, initial encounter for closed fracture; E78.5 Hyperlipidemia, unspecified; B96.20 Unspecified Escherichia coli [E. coli] as the cause of diseases classified elsewhere; E87.6 Hypokalemia; F17.200 Nicotine dependence, unspecified, uncomplicated; F32.9 Major depressive disorder, single episode, unspecified; F43.10 Post-traumatic stress disorder, unspecified; I10 Essential (primary) hypertension; M79.7 Fibromyalgia; G89.29 Other chronic pain; K21.9 Gastro-esophageal reflux disease without esophagitis; M54.5 Low back pain; K57.90 Diverticulosis of intestine, part unspecified, without perforation or abscess without bleeding; F41.9 Anxiety disorder, unspecified; Z98.1 Arthrodesis status; Z87.442 Personal history of urinary calculi; Z79.899 Other long term (current) drug therapy; Z88.8 Allergy status to other drugs, medicaments and biological substances; Z90.49 Acquired absence of other specified parts of digestive tract; Z86.010 Personal history of colon polyps; Z90.79 Acquired absence of other genital organ(s); Z86.14 Personal history of Methicillin resistant Staphylococcus aureus infection; Z90.721 Acquired absence of ovaries, unilateral; Z80.0 Family history of malignant neoplasm of digestive organs; Z80.3 Family history of malignant neoplasm of breast; Z83.3 Family history of diabetes mellitus; Z81.1 Family history of alcohol abuse and dependence; Y90.8 Blood alcohol level of 240 mg/100 ml or more; W06.XXXA Fall from bed, initial encounter
CPT/HCPCS: 36415; 71045; 71046; 72100; 74177; 80048; 80053; 80306; 80320; 81001; 82550; 83735; 84100; 84132; 84484; 85025; 85027; 86140; 87077; 87086; 87186; 93005; 94640; 96361; 96374; 96375; 99285

== ENCOUNTER 2019-11-27 12:12 | Inpatient (IN) | payer MEDICARE, OTHER ==
[2019-11-27] MEDS ORDERED: IPRATROPIUM 0.5 MG/2.5 ML NEBU INHALATION STA (12:18)
[2019-11-27] MEDS ORDERED: methylPREDNISolone SOD SUCCI 125 MG/2 ML VIAL IV STA (12:18)
[2019-11-27] MEDS ORDERED: ALBUTEROL NEBULIZED 2.5 MG/3 ML INHALATION STA (12:18)
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
[2019-11-27] MEDS ORDERED: KETOROLAC 30 MG/ML 1 ML VIAL IVP STA (12:46)
[2019-11-27] MEDS ORDERED: SODIUM CHLORIDE 0.9% 500 ML 500 ML IV ONE ×2 (12:46→15:40)
[2019-11-27 13:56] LABS: ALT 17 U/L (4-34); AST 51 U/L (14-36); African American GFR (CKD) >90 (>60 ml/min/1.73 sqM); Albumin 4.4 g/dL (3.5-5.0); Alkaline Phosphatase 87 U/L (38-126); Anion Gap 13 mmol/L; Blood Urea Nitrogen 14 mg/dL (7-17); Calcium 8.4 mg/dL (8.4-10.2); Carbon Dioxide 21 mmol/L (22-30); Chloride 101 mmol/L (98-107); Glucose 72 mg/dL (74-99); Magnesium 1.7 mg/dL (1.6-2.3); Non-African American GFR(CKD) >90 (>60 ml/min/1.73 sqM); Sodium 135 mmol/L (137-145); Total Bilirubin 0.9 mg/dL (0.2-1.3); Total Protein 8.1 g/dL (6.3-8.2)
[2019-11-27 14:09] LABS: Alcohol 316 mg/dL
[2019-11-27 14:13] LABS: Potassium 3.5 mmol/L (3.5-5.1)
[2019-11-27 14:20] LABS: HCT 48.4 % (34.0-46.0); MCHC 33.6 g/dL (31.0-37.0); MCV 98.1 fL (80.0-100.0); Mean Platelet Volume 7.8; Platelet Count 487 k/uL (150-450); RBC 4.94 m/uL (3.80-5.40); RDW 14.3 % (11.5-15.5); WBC 14.4 k/uL (3.8-10.6)
[2019-11-27 14:28] LABS: HGB 16.3 gm/dL (11.4-16.0)
[2019-11-27 14:56] LABS: Band Neutrophils % 1 %; Basophils # (M) 0.14 k/uL (0-0.2); Eosinophils # (M) 0.14 k/uL (0-0.7); Lymphocytes # (M) 3.89 k/uL (1.0-4.8); Monocytes # (M) 1.01 k/uL (0-1.0); Myelocytes # (M) 0.14 k/uL (0); Myelocytes % 1 %; Neutrophils % (M) 63 %; Nucleated Red Blood Cells 0 /100 WBC (0-0); Total Cells Counted 200
[2019-11-27 14:57] LABS: Toxic Granulation Present
--- NOTE | 2019-11-27 15:09 | XR ---
EXAMINATION TYPE: XR chest 2V DATE OF EXAM: 11/27/2019 COMPARISON: 11/12/2019 HISTORY: 59-year-old female shortness of breath, difficulty breathing TECHNIQUE: PA and lateral views FINDINGS: ACDF hardware. Oblique mid clavicular shaft fracture of the left. Mild comminution is demonstrated wi th some regionally displaced fracture fragments inferiorly. Similar displacement of the patient's cla vicle fracture with one and a half shaft width of inferior displacement. Some vague nodularity projec ting at zhanna periphery of the left midlung probably projectional relating to rib ends. There now seems to be a displaced fracture of the left posterolateral second rib not seen back on 10/27. Heart normal size. Aorta and pulmonary vasculature within normal limits. No consolidation or pleural effusion. IMPRESSION: 1. Redemonstrated oblique left midclavicular shaft fracture with mild comminution and similar one and a half shaft's width of inferior displacement. 2. Newly apparent displaced fracture of the left posterolateral second rib. Likely interval displacem ent of a previously occult rib fracture. 3. Some subtle nodularity periphery of the left mid lung seems to correspond to the left third and fo urth rib ends. This could represent some healing callus of previously occult rib injuries. 4. No underlying acute pulmonary process.
[2019-11-27] MEDS ORDERED: DIAZEPAM 5 MG/ML 2 ML INJ IVP STA (15:40)
[2019-11-27] MEDS ORDERED: MORPHINE SULFATE 4 MG/ML SYRINGE IVP STA (15:40)
[2019-11-27] MEDS ORDERED: THIAMINE 100 MG/ML 2 ML VIAL IM STA (16:08)
[2019-11-27] MEDS ORDERED: LORazepam 2 MG/ML INJ IV PRN ×2 (16:08)
[2019-11-27] MEDS ORDERED: IPRATROPIUM-ALBUTEROL 3 ML NEB INHALATION PRN (16:09)
[2019-11-27] MEDS: SODIUM CHLORIDE 0.9% 1,000 ML IV SCH (16:29)
[2019-11-27] MEDS ORDERED: HYDROcodone/APAP 5-325MG 1 EACH TAB PO PRN (17:06)
[2019-11-27] MEDS ORDERED: TEMAZEPAM 15 MG CAP PO PRN (17:29)
[2019-11-27] MEDS ORDERED: ACETAMINOPHEN TAB 500 MG TAB PO PRN (17:29)
[2019-11-27] MEDS ORDERED: PANTOPRAZOLE 40 MG TABLET PO SCH (17:30)
[2019-11-27] MEDS: HYDROcodone/APAP 7.5-325MG 1 EACH TAB PO PRN ×2 (18:06→23:59)
[2019-11-27] MEDS: THIAMINE 100 MG TAB PO SCH (18:06)
[2019-11-27] MEDS: AZITHROMYCIN 500 MG TAB PO SCH (18:06)
[2019-11-27] MEDS: methylPREDNISolone SOD SUCCI 125 MG/2 ML VIAL IV SCH ×2 (18:08→23:58)
[2019-11-27] MEDS: NICOTINE 14MG/24HR PATCH TRANSDERM SCH (18:08)
[2019-11-27] MEDS: LIDOCAINE 5% PATCH TOPICAL SCH (18:09)
[2019-11-27] MEDS: BUDESONIDE 1 MG/2 ML NEBU INHALATION SCH (19:02)
[2019-11-27] MEDS: FORMOTEROL FUMARATE 20 MCG/2 ML NEBU INHALATION SCH (19:02)
[2019-11-27] MEDS: IPRATROPIUM-ALBUTEROL 3 ML NEB INHALATION SCH (19:02)
[2019-11-27] MEDS: LORazepam 2 MG/ML INJ IV PRN ×2 (19:53→23:58)
[2019-11-27] MEDS: METOPROLOL TARTRATE 12.5 MG TAB PO SCH (19:55)
[2019-11-27] MEDS: ONDANSETRON 4 MG/2 ML VIAL IVP PRN (19:58)
[2019-11-27] MEDS: PANTOPRAZOLE 40 MG/10 ML VIAL IVP SCH (21:04)
[2019-11-27] MEDS: KETOROLAC 30 MG/ML 1 ML VIAL IVP PRN (21:05)
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
[2019-11-28] MEDS: KETOROLAC 30 MG/ML 1 ML VIAL IVP PRN ×2 (04:32→19:14)
[2019-11-28] MEDS: methylPREDNISolone SOD SUCCI 125 MG/2 ML VIAL IV SCH ×4 (04:58→23:24)
[2019-11-28] MEDS: LORazepam 2 MG/ML INJ IV PRN ×4 (04:59→23:24)
[2019-11-28 07:38] LABS: ALT 14 U/L (4-34); AST 26 U/L (14-36); African American GFR (CKD) >90 (>60 ml/min/1.73 sqM); Albumin 3.6 g/dL (3.5-5.0); Alkaline Phosphatase 79 U/L (38-126); Anion Gap 12 mmol/L; Blood Urea Nitrogen 16 mg/dL (7-17); Calcium 8.3 mg/dL (8.4-10.2); Carbon Dioxide 19 mmol/L (22-30); Chloride 102 mmol/L (98-107); Glucose 152 mg/dL (74-99); Non-African American GFR(CKD) >90 (>60 ml/min/1.73 sqM); Potassium 4.3 mmol/L (3.5-5.1); Sodium 133 mmol/L (137-145); Total Bilirubin 0.6 mg/dL (0.2-1.3); Total Protein 6.6 g/dL (6.3-8.2)
[2019-11-28 07:53] LABS: Basophils # (A) 0.2 k/uL (0-0.2); Basophils % (A) 1 %; Eosinophils # (A) 0.1 k/uL (0-0.7); Eosinophils % (A) 0 %; HCT 40.3 % (34.0-46.0); Lymphocytes % (A) 5 %; MCH 32.1 pg (25.0-35.0); MCHC 32.4 g/dL (31.0-37.0); Mean Platelet Volume 7.8; Monocytes # (A) 0.3 k/uL (0-1.0); Monocytes % (A) 2 %; Neutrophils # (A) 18.7 k/uL (1.3-7.7); Neutrophils % (A) 92 %; Platelet Count 407 k/uL (150-450); RBC 4.07 m/uL (3.80-5.40); RDW 14.2 % (11.5-15.5); WBC 20.3 k/uL (3.8-10.6)
[2019-11-28 07:56] LABS: HGB 13.1 gm/dL (11.4-16.0)
[2019-11-28] MEDS: FORMOTEROL FUMARATE 20 MCG/2 ML NEBU INHALATION SCH ×2 (08:09→21:14)
[2019-11-28] MEDS: BUDESONIDE 1 MG/2 ML NEBU INHALATION SCH ×2 (08:09→21:14)
[2019-11-28] MEDS: IPRATROPIUM-ALBUTEROL 3 ML NEB INHALATION SCH ×4 (08:09→21:14)
[2019-11-28] MEDS: NICOTINE 14MG/24HR PATCH TRANSDERM SCH (08:33)
[2019-11-28] MEDS: amLODIPine 5 MG TAB PO SCH (08:34)
[2019-11-28] MEDS: HYDROcodone/APAP 7.5-325MG 1 EACH TAB PO PRN ×3 (08:34→20:25)
[2019-11-28] MEDS: THIAMINE 100 MG TAB PO SCH ×2 (08:34→18:05)
[2019-11-28] MEDS: METOPROLOL TARTRATE 12.5 MG TAB PO SCH ×2 (08:34→20:25)
[2019-11-28] MEDS: CITALOPRAM HYDROBROMIDE 20 MG TAB PO SCH (08:34)
[2019-11-28] MEDS: PANTOPRAZOLE 40 MG/10 ML VIAL IVP SCH ×2 (08:35→20:25)
[2019-11-28] MEDS: EZETIMIBE 10 MG TAB PO SCH (08:35)
[2019-11-28] MEDS: SODIUM CHLORIDE 0.9% 1,000 ML IV SCH ×2 (10:09→15:58)
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
[2019-11-28] MEDS: HYDROmorphone 0.5 MG/0.5 ML SYRINGE IVP PRN ×4 (11:38→22:19)
--- NOTE | 2019-11-28 12:08 | XR ---
EXAMINATION TYPE: XR shoulder complete LT , 3 VIEWS DATE OF EXAM ORDERED: 11/28/2019 HISTORY: clavicle fracture. COMPARISON: None. FINDINGS: There are mild hypertrophic changes in the left AC joint. No fracture, dislocation or othe r acute osseous lesion is seen. IMPRESSION: 1. NO ACUTE OSSEOUS LESION. 2. DEGENERATIVE CHANGE.
[2019-11-28] MEDS: AZITHROMYCIN 500 MG TAB PO SCH (18:05)
[2019-11-28] MEDS: LIDOCAINE 5% PATCH TOPICAL SCH (18:05)
--- NOTE | 2019-11-28 19:59 | PN ---
PROGRESS NOTE DATE OF SERVICE: 11/28/2019 I am covering for Dr. Anderson. This 59-year-old woman was admitted with significant alcohol intoxication as well as delirium tremens also had fracture of the left clavicle with some deformities. The patient complaining of severe pain at this time. The patient has also had withdrawal symptoms also. Orthopedic surgery evaluation in progress. PAST MEDICAL HISTORY: Reviewed. REVIEW OF SYSTEMS: Cardio system: No angina or palpitations. RESPIRATORY: As mentioned earlier. GI: As mentioned earlier. : No dysuria. CENTRAL NERVOUS SYSTEM: No numbness or weakness. CURRENT MEDICATIONS: Reviewed and include: 1. Tylenol p.r.n. 2. [place] 7.5 p.r.n. 3. DuoNeb q.i.d. and p.r.n. 4. Norvasc. 5. Zithromax. 6. Rocephin. 7. Zetia. 8. Perforomist. 9. Dilaudid. 10.Toradol. 11.Lidoderm Patch. 12.Ativan. 13.Solu Medrol. 14.Lopressor. 15.Habitrol. 16.Zofran. 17.Protonix. 18.Restoril. 19.Doses are reviewed. PHYSICAL EXAM: Patient is alert and oriented x3. The pulse is 110. Blood pressure is 140/83, respiration 20, temperature 97.2, pulse ox 98% on room air. HEENT: Conjunctivae normal. CARDIOVASCULAR: S1, S2 muffed. NECK: No JVD. RESPIRATORY: Breath sounds diminished in the bases. A few scattered rhonchi. ABDOMEN: Soft, nontender. LEGS: No edema. No swelling. CENTRAL NERVOUS SYSTEM: No focal deficits. Examination of the right shoulder and clavicle area tenderness. Some deformity also present at the site of the clavicle fracture. LAB STUDIES: WBC 20.3, sodium 130, potassium 4.3. ASSESSMENT: 1. Acute alcohol intoxication. 2. Change in mental status, acute metabolic encephalopathy secondary to alcohol intoxication. 3. Acute delirium tremens with alcohol withdrawal. 4. Severe significant left-sided musculoskeletal pain secondary to clavicle fracture and trauma possibly. 5. Increased WBC. 6. Chronic obstructive pulmonary disease acute exacerbation with acute purulent tracheobronchitis. 7. Hypoglycemia. 8. Hyponatremia. 9. History of chronic obstructive pulmonary disease. 10.Fibromyalgia. 11.Gastroesophageal reflux disease. 12.Hypertension. 13.Hyperlipidemia. 14.History of ETOH abuse. 15.History of colonic polyps. 16.History of bowel surgeries. 17.History of anxiety/depression /PTSD. 18.Mild to moderate protein calorie malnutrition. 19.FULL CODE. RECOMMENDATIONS AND DISCUSSION: I recommend to continue current medications, management and symptomatic treatment. Otherwise, at this time, repeat labs. Otherwise, pain medications. I would add IV Dilaudid and continue to monitor with Toradol as well. Otherwise, DVT prophylaxis. IV steroids for COPD. Continue the bronchodilators. Continue the empiric antibiotics. Prognosis extremely guarded because of multiple complex medical issues. Orthopedic evaluation and notes appreciated. Further recommendations to follow. MMJOCELYNL / TIFFANIEN: [id number] /
[2019-11-28] MEDS: LORazepam 1 MG TAB PO PRN (20:25)
[2019-11-28 23:55] VITALS: RESP 16
[2019-11-29] MEDS: HYDROmorphone 0.5 MG/0.5 ML SYRINGE IVP PRN ×2 (01:02→05:09)
[2019-11-29] MEDS: KETOROLAC 30 MG/ML 1 ML VIAL IVP PRN ×2 (01:03→08:35)
[2019-11-29] MEDS: LORazepam 1 MG TAB PO PRN ×2 (02:41→08:41)
[2019-11-29] MEDS: HYDROcodone/APAP 7.5-325MG 1 EACH TAB PO PRN ×2 (02:41→08:41)
[2019-11-29 04:35] VITALS: BP 170/94; PULSE 107; TEMP 96.9
[2019-11-29] MEDS: methylPREDNISolone SOD SUCCI 125 MG/2 ML VIAL IV SCH (05:09)
[2019-11-29] MEDS: ONDANSETRON 4 MG/2 ML VIAL IVP PRN (05:13)
[2019-11-29] MEDS: SODIUM CHLORIDE 0.9% 1,000 ML IV SCH (05:15)
[2019-11-29] MEDS: FORMOTEROL FUMARATE 20 MCG/2 ML NEBU INHALATION SCH (07:46)
[2019-11-29] MEDS: IPRATROPIUM-ALBUTEROL 3 ML NEB INHALATION SCH ×2 (07:46→12:04)
[2019-11-29] MEDS: BUDESONIDE 1 MG/2 ML NEBU INHALATION SCH (07:46)
--- NOTE | 2019-11-29 08:19 | P.PN ---
Subjective Progress Note Date: 11/29/19 Principal diagnosis: Alcohol withdrawal COPD Patient is readmitted for clavicular fracture. Appreciate orthopedic input. She seems more lucid. No element of withdrawal this morning. Objective - Vital Signs Vital signs: Vital Signs Temp 96.9 F L 11/29/19 04:33 Pulse 107 H 11/29/19 04:33 Resp 16 11/29/19 04:33 BP 170/94 11/29/19 04:33 Pulse Ox 95 11/29/19 04:33 Intake & Output 11/28/19 11/29/19 11/29/19 18:59 06:59 18:59 Intake Total 650 2620 Balance 650 2620 Intake: IV 650 Sodium Chloride 0.9% 1, 650 000 ml @ 75 mls/hr IV . [id number] [facility] Rx#:[id number] Intake, IV Titration 600 Amount Sodium Chloride 0.9% 1, 600 000 ml @ 75 mls/hr IV . [id number] [facility] Rx#:[id number] Oral 2020 Other: Voiding Method Toilet # Voids 2 - Constitutional General appearance: Present: average body habitus - EENT Eyes: Absent: abnormal pupil - Neck Neck: Absent: lymphadenopathy - Respiratory Respiratory: bilateral: CTA - Cardiovascular Rhythm: regular Heart sounds: normal: S1, S2 Abnormal Heart Sounds: Absent: S3 Gallop - Gastrointestinal General gastrointestinal: Present: soft. Absent: tenderness - Neurologic Neurologic: Present: CNII-XII intact - Labs CBC & Chem 7: 11/28/19 07:04 11/28/19 07:04 Assessment and Plan (1) Alcoholic intoxication Current Visit: Yes Status: Acute Code(s): F10.929 - ALCOHOL USE, UNSPECIFIED WITH INTOXICATION, UNSPECIFIED SNOMED Code(s): 28925173 (2) COPD exacerbation Current Visit: Yes Status: Acute Code(s): J44.1 - CHRONIC OBSTRUCTIVE PULMONARY DISEASE W (ACUTE) EXACERBATION SNOMED Code(s): 827625798 (3) ETOH abuse Current Visit: Yes Status: Acute Code(s): F10.10 - ALCOHOL ABUSE, UNCOMPLICATED SNOMED Code(s): 75570387 (4) Clavicle fracture Current Visit: No Status: Acute Code(s): S42.009A - FRACTURE OF UNSP PART OF UNSP CLAVICLE, INIT FOR CLOS FX SNOMED Code(s): 56024223 Plan: Wean off of Dilaudid at this time. CIWA scale. Anticipate discharge in next 24 hours. The patient is in still do now with her ethanol use. She claims morning that s he's been sober for the last week or 2.
[2019-11-29] MEDS: METOPROLOL TARTRATE 12.5 MG TAB PO SCH (08:22)
[2019-11-29] MEDS: NICOTINE 14MG/24HR PATCH TRANSDERM SCH (08:22)
[2019-11-29] MEDS: THIAMINE 100 MG TAB PO SCH (08:22)
[2019-11-29] MEDS: CITALOPRAM HYDROBROMIDE 20 MG TAB PO SCH (08:22)
[2019-11-29] MEDS: PANTOPRAZOLE 40 MG/10 ML VIAL IVP SCH (08:22)
[2019-11-29] MEDS: EZETIMIBE 10 MG TAB PO SCH (08:22)
[2019-11-29] MEDS: amLODIPine 5 MG TAB PO SCH (08:22)
[2019-11-29 08:35] LABS: Basophils # (A) 0.3 k/uL (0-0.2); Basophils % (A) 2 %; Eosinophils # (A) 0.2 k/uL (0-0.7); Eosinophils % (A) 1 %; HCT 39.4 % (34.0-46.0); HGB 12.5 gm/dL (11.4-16.0); Lymphocytes # (A) 0.9 k/uL (1.0-4.8); Lymphocytes % (A) 5 %; MCH 31.1 pg (25.0-35.0); MCHC 31.7 g/dL (31.0-37.0); MCV 98.2 fL (80.0-100.0); Mean Platelet Volume 7.5; Monocytes # (A) 0.3 k/uL (0-1.0); Monocytes % (A) 2 %; Neutrophils # (A) 16.9 k/uL (1.3-7.7); Neutrophils % (A) 90 %; Platelet Count 480 k/uL (150-450); RBC 4.01 m/uL (3.80-5.40); WBC 18.7 k/uL (3.8-10.6)
[2019-11-29 08:43] LABS: African American GFR (CKD) >90 (>60 ml/min/1.73 sqM); Anion Gap 6 mmol/L; Blood Urea Nitrogen 13 mg/dL (7-17); Calcium 8.2 mg/dL (8.4-10.2); Carbon Dioxide 25 mmol/L (22-30); Chloride 100 mmol/L (98-107); Glucose 178 mg/dL (74-99); Non-African American GFR(CKD) >90 (>60 ml/min/1.73 sqM); Sodium 131 mmol/L (137-145)
--- NOTE | 2019-11-29 10:48 | P.PN ---
Subjective Progress Note Date: 11/29/19 Principal diagnosis: Left clavicle fracture This is a 59 year-old female been following for a left clavicle fracture. The patient was evaluated at the bedside today. The patient denies nausea, vomiting, abdominal pain, shortness of breath, and chest pain this morning. She states her pain is not controlled at this time. The patient has not been wearing her sling but has been holding her arm on her chest when up. Dr. Anderson has discontinued her Dilaudid this morning. She states her pain is still quite severe after receiving [place], Toradol, and Ativan. The patient states that her pain was not this severe at home and was taking [place] without difficulty. The pain has worsened since being in the hospital. Objective - Vital Signs Vital signs: Vital Signs Temp 96.9 F L 11/29/19 04:33 Pulse 107 H 11/29/19 04:33 Resp 16 11/29/19 04:33 BP 170/94 11/29/19 04:33 Pulse Ox 95 11/29/19 04:33 Intake & Output 11/28/19 11/29/19 11/29/19 18:59 06:59 18:59 Intake Total 650 2620 Balance 650 2620 Intake: IV 650 Sodium Chloride 0.9% 1, 650 000 ml @ 75 mls/hr IV . [id number] [facility] Rx#:[id number] Intake, IV Titration 600 Amount Sodium Chloride 0.9% 1, 600 000 ml @ 75 mls/hr IV . [id number] [facility] Rx#:[id number] Oral 2020 Other: Voiding Method Toilet Toilet # Voids 2 - Exam This is a 59 year-old female in no acute distress. She is alert and oriented 3. Exam of the head neck reveal no obvious deformity. She has fairly normal cervical spine motion without pain. Exam of the upper extremities reveals swelling and a fracture bump about the left midshaft clavicle. No open wounds or abrasions. No skin tenting. She has fairly normal wrist and finger motion on the left. Shoulder motion was not examined today. Mild swelling the left hand is present. Neurovascular status the upper extremities intact. The remainder of her musculoskeletal exam is unremarkable. - Labs CBC & Chem 7: 11/29/19 08:19 11/29/19 08:19 Labs: Abnormal Lab Results - Last 24 Hours (Table) 11/29/19 11/29/19 Range/Units 08:19 08:19 WBC 18.7 H (3.8-10.6) k/uL Plt Count 480 H (150-450) k/uL Neutrophils # 16.9 H (1.3-7.7) k/uL Lymphocytes # 0.9 L (1.0-4.8) k/uL Basophils # 0.3 H (0-0.2) k/uL Sodium 131 L (137-145) mmol/L Glucose 178 H (74-99) mg/dL Calcium 8.2 L (8.4-10.2) mg/dL Assessment and Plan (1) Alcoholic intoxication Current Visit: Yes Status: Acute Code(s): F10.929 - ALCOHOL USE, UNSPECIFIED WITH INTOXICATION, UNSPECIFIED SNOMED Code(s): 38720779 (2) Clavicle fracture Current Visit: No Status: Acute Code(s): S42.009A - FRACTURE OF UNSP PART OF UNSP CLAVICLE, INIT FOR CLOS FX SNOMED Code(s): 04483631 Plan: The clinical and x-ray findings are discussed the patient. New x-rays of the left shoulder reveal a stable displaced clavicle fracture in satisfactory alignment. No surgical intervention is planned at this time. We recommend continuing with the sling and pain management. She will follow-up in our office on an outpatient basis. We will sign off at this time.
[2019-11-29 11:02] VITALS: BMI 18.8
[2019-11-29] MEDS ORDERED: methylPREDNISolone SOD SUCCI 40 MG/ML 1 ML VIAL IV SCH (16:00)
--- NOTE | 2019-12-01 18:40 | P.DS ---
Providers Date of admission: 11/29/19 08:05 Expected date of discharge: 11/29/19 Attending physician: Abrahan Anderson Consults: 11/27/19 16:14 Consult Physician Routine Consulting Provider: Zechariah Bermudez Consult Reason/Comments: Clavicle fracture Do you want consulting provider notified?: Yes Primary care physician: Abrahan Anderson - Discharge Diagnosis(es) (1) Alcoholic intoxication Status: Acute (2) COPD exacerbation Status: Acute (3) ETOH abuse Status: Acute (4) Clavicle fracture Status: Acute Hospital Course: This is discharge from in a 59-year-old white female who struggles with 6 severe alcoholism who came in with significant clavicular pain. The patient was evaluated by orthopedics who felt, given her overall health, that conservative management would be done. She is discharged on appropriate pain medication but when we weaned her medication, she left AGAINST MEDICAL ADVICE. Unfortunately she struggles with her addiction and most likely will be ultimately discharged from the practice. Patient Condition at Discharge: Stable Plan - Discharge Summary Discharge Rx Participant: No New Discharge Prescriptions: No Action Ezetimibe [Zetia] 10 mg PO DAILY Citalopram Hydrobromide [Citalopram HBr] 20 mg PO DAILY Lidocaine 5% Patch [Lidoderm 5% Patch] 2 patch TOPICAL Q24H #60 patch Metoprolol Tartrate [Lopressor] 12.5 mg PO BID #60 tab HYDROcodone/APAP 7.5-325MG [[place] 7.5-325] 1 each PO Q6H PRN #60 tab PRN Reason: MODERATE Pain amLODIPine [Norvasc] 5 mg PO DAILY #30 tab Albuterol Inhaler [Ventolin Hfa Inhaler] 2 puff INHALATION RT-Q6H PRN PRN Reason: Shortness Of Breath Discharge Medication List Ezetimibe [Zetia] 10 mg PO DAILY 12/06/18 [History] Citalopram Hydrobromide [Citalopram HBr] 20 mg PO DAILY 11/12/19 [History] HYDROcodone/APAP 7.5-325MG [[place] 7.5-325] 1 each PO Q6H PRN #60 tab 11/16/19 [Rx] Lidocaine 5% Patch [Lidoderm 5% Patch] 2 patch TOPICAL Q24H #60 patch 11/16/19 [Rx] Metoprolol Tartrate [Lopressor] 12.5 mg PO BID #60 tab 11/16/19 [Rx] amLODIPine [Norvasc] 5 mg PO DAILY #30 tab 11/16/19 [Rx] Albuterol Inhaler [Ventolin Hfa Inhaler] 2 puff INHALATION RT-Q6H PRN 11/27/19 [History] Follow up Appointment(s)/Referral(s): Abrahan Anderson MD [Primary Care Provider] - 1-2 days Poncho Bermudez DO [Doctor of Osteopathic Medicine] - 1 Week Activity/Diet/Wound Care/Special Instructions: Continue sling for comfort. Perform range of motion of the left elbow, wrist, and hand to prevent stiffness. Discharge Disposition: Left Against Medical Advice
== END 2019-11-29 12:21 | disposition left against medical advice (07) | DRG 894 ==
LOC: EC 12:12 → 5NMEDONC 16:47 → OBSVTOIN 11-29 08:05
PROVIDERS: ADMIT Family Medicine; ATTEND Family Medicine
DX: F10.231 Alcohol dependence with withdrawal delirium (principal); E44.0 Moderate protein-calorie malnutrition; E87.1 Hypo-osmolality and hyponatremia; J44.1 Chronic obstructive pulmonary disease with (acute) exacerbation; S22.39XA Fracture of one rib, unspecified side, initial encounter for closed fracture; Z68.1 Body mass index [BMI] 19.9 or less, adult; F10.221 Alcohol dependence with intoxication delirium; G31.2 Degeneration of nervous system due to alcohol; F10.239 Alcohol dependence with withdrawal, unspecified; D72.829 Elevated white blood cell count, unspecified; E16.2 Hypoglycemia, unspecified; E78.5 Hyperlipidemia, unspecified; E86.0 Dehydration; F17.200 Nicotine dependence, unspecified, uncomplicated; F43.10 Post-traumatic stress disorder, unspecified; G89.29 Other chronic pain; I10 Essential (primary) hypertension; K21.9 Gastro-esophageal reflux disease without esophagitis; M79.7 Fibromyalgia; S42.002A Fracture of unspecified part of left clavicle, initial encounter for closed fracture; M54.5 Low back pain; K57.90 Diverticulosis of intestine, part unspecified, without perforation or abscess without bleeding; F41.9 Anxiety disorder, unspecified; F32.9 Major depressive disorder, single episode, unspecified; J20.9 Acute bronchitis, unspecified; Z79.899 Other long term (current) drug therapy; Z91.19 Patient's noncompliance with other medical treatment and regimen; Z87.442 Personal history of urinary calculi; Z88.8 Allergy status to other drugs, medicaments and biological substances; Z90.49 Acquired absence of other specified parts of digestive tract; Z98.1 Arthrodesis status; Z86.010 Personal history of colon polyps; Z90.79 Acquired absence of other genital organ(s); Z90.722 Acquired absence of ovaries, bilateral; Z86.14 Personal history of Methicillin resistant Staphylococcus aureus infection; Z80.0 Family history of malignant neoplasm of digestive organs; Z80.3 Family history of malignant neoplasm of breast; Z83.3 Family history of diabetes mellitus; Z81.1 Family history of alcohol abuse and dependence; Y90.8 Blood alcohol level of 240 mg/100 ml or more
CPT/HCPCS: 36415; 71046; 80048; 80053; 80320; 83735; 85025; 87502; 94640; 96361; 96372; 96374; 96375; 99285

== ENCOUNTER 2019-12-07 15:49 | Emergency (ER) | payer MEDICARE, OTHER ==
[2019-12-07 16:27] VITALS: TEMP 98.7
--- NOTE | 2019-12-07 16:38 | ED ---
Lower Extremity Injury HPI - General Chief Complaint: Extremity Injury, Lower Stated Complaint: ETOH w/injuries Time Seen by Provider: 12/07/19 16:12 Source: patient, EMS, RN notes reviewed Mode of arrival: EMS Limitations: physical limitation - History of Present Illness Initial Comments: This is a 59-year-old female presents emergency Department with chief complaint of right leg, right foot injury. Patient states that she was angry yesterday and was attending a movie TV in which she dropped it on her leg. There is an abrasion with swelling and bruising to her right lower leg and right foot. Patient states her tetanus is up-to-date within last 5 years. Denies any other injuries from the TV. She states that she did have a fall 3 weeks ago which she was diagnosed with a left clavicle fracture she denies any head injury no loss conscious. Patient is a daily drinker she had drank approximately half of a fifth today - Related Data Home Medications Medication Instructions Recorded Confirmed Ezetimibe [Zetia] 10 mg PO DAILY 12/06/18 11/27/19 Citalopram Hydrobromide 20 mg PO DAILY 11/12/19 11/27/19 [Citalopram HBr] Albuterol Inhaler [Ventolin Hfa 2 puff INHALATION RT-Q6H PRN 11/27/19 11/27/19 Inhaler] Previous Rx's Medication Instructions Recorded HYDROcodone/APAP 7.5-325MG [[place] 1 each PO Q6H PRN #60 tab 11/16/19 7.5-325] Lidocaine 5% Patch [Lidoderm 5% 2 patch TOPICAL Q24H #60 patch 11/16/19 Patch] Metoprolol Tartrate [Lopressor] 12.5 mg PO BID #60 tab 11/16/19 amLODIPine [Norvasc] 5 mg PO DAILY #30 tab 11/16/19 Cephalexin [Keflex] 500 mg PO Q6HR #28 cap 12/07/19 Allergies Allergy/AdvReac Type Severity Reaction Status Date / Time pregabalin [From Lyrica] Allergy Severe Anaphylaxis Verified 12/07/19 16:21 tizanidine HCl Allergy Severe Anaphylaxis Verified 12/07/19 16:21 [From Zanaflex] Review of Systems ROS Statement: Those systems with pertinent positive or pertinent negative responses have been documented in the HPI. ROS Other: All systems not noted in ROS Statement are negative. Past Medical History Past Medical History: COPD, Fibromyalgia, GERD/Reflux, Hyperlipidemia, Hypertension, Renal Disease Additional Past Medical History / Comment(s): ETOH abuse, chronic low back pain, diverticulitis, benign colon polyps, kidney stones with surgical removal, broke collarbone, falls History of Any Multi-Drug Resistant Organisms: MRSA Date of last positivie culture/infection: 08/2014 MDRO Source:: L elbow Past Surgical History: Appendectomy, Bowel Resection, Orthopedic Surgery Additional Past Surgical History / Comment(s): Bowel resection d/t diverticulitis, R wrist fusion with bone graft, cervical fusion with metal, kidney stone surgery x 3, colonoscopy with bening polypectomy, salpingo- oophorectomy (pt cannot recall laterallity). Past Anesthesia/Blood Transfusion Reactions: No Reported Reaction Additional Past Anesthesia/Blood Transfusion Reaction / Comment(s): needed more medication for last colonoscopy Past Psychological History: Anxiety, Depression, PTSD Smoking Status: Current every day smoker Past Alcohol Use History: Abuse, Heavy Past Drug Use History: None Reported - Past Family History Sister(s) Family Medical History: Cancer Additional Family Medical History / Comment(s): Pt states she does not know what type of cancer her sister had Mother Family Medical History: Cancer Additional Family Medical History / Comment(s): Mother of colon cancer. Maternal grandmother had breast cancer. Father Family Medical History: Diabetes Mellitus Additional Family Medical History / Comment(s): alcoholism General Exam Limitations: physical limitation General appearance: alert, in no apparent distress, appears intoxicated Head exam: Present: atraumatic, normocephalic, normal inspection Respiratory exam: Present: normal lung sounds bilaterally, chest wall tenderness (Mild tenderness of the left clavicular region). Absent: respiratory distress, wheezes, rales, rhonchi, stridor Cardiovascular Exam: Present: regular rate, normal rhythm, normal heart sounds. Absent: systolic murmur, diastolic murmur, rubs, gallop, clicks Extremities exam: Present: other (Right lower leg there is abrasion with some eschar noted, swelling mild erythema and ecchymosis. Neurovascular intact moderate right foot tenderness) Skin exam: Present: warm, dry, intact Course Vital Signs 12/07/19 16:21 Temperature 98.7 F Pulse Rate 106 H Respiratory 18 Rate Blood Pressure 99/47 O2 Sat by Pulse 97 Oximetry Medical Decision Making - Medical Decision Making This a 59-year-old female presents emergency Department for right leg injury. There are no acute fractures. Patient does have moderate swelling, wound that does have some surrounding erythema leuk trase and Concern for possible early cellulitis. Patient will be discharged in stable condition was responsible caregiver to give a ride home. Disposition Clinical Impression: ETOH abuse, Contusion of right leg, Contusion of right foot Disposition: HOME SELF-CARE Condition: Stable Instructions (If sedation given, give patient instructions): Foot Contusion (ED) Additional Instructions: Please return to the Emergency Department if symptoms worsen or any other concerns. Prescriptions: Cephalexin [Keflex] 500 mg PO Q6HR #28 cap Is patient prescribed a controlled substance at d/c from ED?: No Referrals: Abrahan Anderson MD [Primary Care Provider] - 1-2 days Time of Disposition: 17:14
--- NOTE | 2019-12-07 16:58 | XR ---
EXAMINATION TYPE: XR tibia fibula RT DATE OF EXAM: 12/07/2019 COMPARISON: NONE HISTORY: Laceration anterior tibia TECHNIQUE: 2 views FINDINGS: I see no fracture nor dislocation. Joint spaces are normal. There is no sign of a foreign b helder. There is soft tissue swelling over the anterior lower tibia. IMPRESSION: Soft tissue swelling. No fracture seen.
--- NOTE | 2019-12-07 17:01 | XR ---
EXAMINATION TYPE: XR foot complete RT DATE OF EXAM: 12/07/2019 COMPARISON: NONE HISTORY: Pain TECHNIQUE: 3 views FINDINGS: There is small Achilles calcaneal spur. Metatarsals are intact. The joint spaces are fairly normal. There are no erosions. There is no subluxation. There is probably a degenerative cyst in the base of the first metatarsal. IMPRESSION: No acute abnormality of the right foot.
[2019-12-07 17:52] VITALS: RESP 20
[2019-12-07 17:54] VITALS: BP 128/84; PULSE 98
== END 2019-12-07 17:50 | disposition home or self-care (01) ==
LOC: EC 15:49
DX: S90.31XA Contusion of right foot, initial encounter (principal); S80.11XA Contusion of right lower leg, initial encounter; F10.10 Alcohol abuse, uncomplicated; S42.002D Fracture of unspecified part of left clavicle, subsequent encounter for fracture with routine healing; F32.9 Major depressive disorder, single episode, unspecified; F41.9 Anxiety disorder, unspecified; J44.9 Chronic obstructive pulmonary disease, unspecified; E78.5 Hyperlipidemia, unspecified; I10 Essential (primary) hypertension; F17.200 Nicotine dependence, unspecified, uncomplicated; Z79.51 Long term (current) use of inhaled steroids; Z79.899 Other long term (current) drug therapy; Z88.8 Allergy status to other drugs, medicaments and biological substances; Z98.890 Other specified postprocedural states; Z86.14 Personal history of Methicillin resistant Staphylococcus aureus infection; W20.8XXA Other cause of strike by thrown, projected or falling object, initial encounter
CPT/HCPCS: 99283

== ENCOUNTER 2020-01-02 13:46 | Inpatient (IN) | payer MEDICARE, OTHER ==
[2020-01-02] MEDS ORDERED: IPRATROPIUM 0.5 MG/2.5 ML NEBU INHALATION STA (14:07)
[2020-01-02] MEDS ORDERED: SODIUM CHLORIDE 0.9% 500 ML 500 ML IV STA (14:07)
[2020-01-02] MEDS ORDERED: ALBUTEROL NEBULIZED 2.5 MG/3 ML INHALATION STA (14:07)
[2020-01-02] MEDS ORDERED: methylPREDNISolone SOD SUCCI 125 MG/2 ML VIAL IV STA (14:07)
--- NOTE | 2020-01-02 14:52 | ED ---
General Adult HPI - General Chief complaint: Upper Respiratory Infection Stated complaint: SOB Time Seen by Provider: 01/02/20 14:05 Source: patient, RN notes reviewed, old records reviewed Mode of arrival: ambulatory Limitations: no limitations - History of Present Illness Initial comments: This is a 59-year-old female presents to the emergency department complaining that she's been coughing for the last 22 days. Patient states the difficulty breathing got conservative worse today so she decided come emergency department. Patient states she thinks she has a fever but hasn't taken her temperature. Patient denies any chest pain or palpitations. Patient denies any lightheadedness or dizziness. Patient states she feels weak all over. Patient initially stated she had been drinking and then denied it later. Patient denies any illegal drug use. Patient states she is a daily smoker. Patient denies any swelling to the lower legs or calf tenderness. - Related Data Home Medications Medication Instructions Recorded Confirmed No Known Home Medications 01/02/20 01/02/20 Allergies Allergy/AdvReac Type Severity Reaction Status Date / Time pregabalin [From Lyrica] Allergy Severe Anaphylaxis Verified 01/02/20 14:12 tizanidine HCl Allergy Severe Anaphylaxis Verified 01/02/20 14:12 [From Zanaflex] Review of Systems ROS Statement: Those systems with pertinent positive or pertinent negative responses have been documented in the HPI. ROS Other: All systems not noted in ROS Statement are negative. Past Medical History Past Medical History: COPD, Fibromyalgia, GERD/Reflux, Hyperlipidemia, Hypertension, Renal Disease Additional Past Medical History / Comment(s): ETOH abuse, chronic low back pain, diverticulitis, benign colon polyps, kidney stones with surgical removal, broke collarbone, falls History of Any Multi-Drug Resistant Organisms: MRSA Date of last positivie culture/infection: 08/2014 MDRO Source:: L elbow Past Surgical History: Appendectomy, Bowel Resection, Orthopedic Surgery Additional Past Surgical History / Comment(s): Bowel resection d/t diverticulitis, R wrist fusion with bone graft, cervical fusion with metal, kidney stone surgery x 3, colonoscopy with bening polypectomy, salpingo- oophorectomy (pt cannot recall laterallity). Past Anesthesia/Blood Transfusion Reactions: No Reported Reaction Additional Past Anesthesia/Blood Transfusion Reaction / Comment(s): needed more medication for last colonoscopy Past Psychological History: Anxiety, Depression, PTSD Smoking Status: Current every day smoker Past Alcohol Use History: Abuse, Heavy Past Drug Use History: None Reported - Past Family History Sister(s) Family Medical History: Cancer Additional Family Medical History / Comment(s): Pt states she does not know what type of cancer her sister had Mother Family Medical History: Cancer Additional Family Medical History / Comment(s): Mother of colon cancer. Maternal grandmother had breast cancer. Father Family Medical History: Diabetes Mellitus Additional Family Medical History / Comment(s): alcoholism General Exam - General Exam Comments Initial Comments: GENERAL: Patient is well-developed and well-nourished. Patient is nontoxic and well- hydrated and is in mild distress. ENT: Neck is soft and supple. No significant lymphadenopathy is noted. Oropharynx is clear. Moist mucous membranes. Neck has full range of motion without eliciting any pain. EYES: The sclera were anicteric and conjunctiva were pink and moist. Extraocular movements were intact and pupils were equal round and reactive to light. Eyelids were unremarkable. PULMONARY: Diffuse expiratory wheezing CARDIOVASCULAR: There is a regular rate and rhythm without any murmurs gallops or rubs. ABDOMEN: Soft and nontender with normal bowel sounds. SKIN: Skin is clear with no lesions or rashes and otherwise unremarkable. NEUROLOGIC: Patient is alert and oriented x3. Cranial nerves II through XII are grossly intact. Motor and sensory are also intact. Normal speech, volume and content. Symmetrical smile. MUSCULOSKELETAL: Normal extremities with adequate strength and full range of motion. No lower extremity swelling or edema. No calf tenderness. LYMPHATICS: No significant lymphadenopathy is noted PSYCHIATRIC: Normal psychiatric evaluation. Limitations: no limitations Course Vital Signs 01/02/20 01/02/20 01/02/20 14:00 14:04 14:07 Temperature 98.6 F Pulse Rate 112 H Respiratory 23 20 Rate Blood Pressure 139/82 O2 Sat by Pulse 96 97 Oximetry 01/02/20 01/02/20 01/02/20 14:30 14:39 15:00 Temperature Pulse Rate 113 H 104 H 106 H Respiratory 23 21 Rate Blood Pressure 139/82 132/74 O2 Sat by Pulse 96 100 Oximetry 01/02/20 01/02/20 01/02/20 15:07 15:30 16:00 Temperature Pulse Rate 113 H 108 H 105 H Respiratory 23 22 Rate Blood Pressure 123/73 163/84 O2 Sat by Pulse 95 95 Oximetry Medical Decision Making - Medical Decision Making EKG shows sinus tachycardia at 106 bpm WI interval 264 QRS is 74 QT interval 364 QTC is 483. Patient's EKG shows no ST segment elevation or depression. Patient's alcohol was over 260. But the patient see well protocol. Gave the patient 1 g of mag sulfate because her magnesium was low. Patient was also given antibiotics because she was a COPD or and did have an elevated white count along with a lactic acid. I spoke with Dr. Malik she agreed to admit the patient admitted the patient wrote admitting orders. - Lab Data Result diagrams: 01/02/20 14:50 01/02/20 14:50 Lab Results 01/02/20 01/02/20 01/02/20 Range/Units 14:35 14:50 14:50 WBC 14.1 H (3.8-10.6) k/uL RBC 4.29 (3.80-5.40) m/uL Hgb 13.7 (11.4-16.0) gm/dL Hct 41.8 (34.0-46.0) % MCV 97.3 (80.0-100.0) fL MCH 31.8 (25.0-35.0) pg MCHC 32.7 (31.0-37.0) g/dL RDW 13.3 (11.5-15.5) % Plt Count 340 (150-450) k/uL Neutrophils % 46 % Lymphocytes % 46 % Monocytes % 5 % Eosinophils % 1 % Basophils % 0 % Neutrophils # 6.5 (1.3-7.7) k/uL Lymphocytes # 6.4 H (1.0-4.8) k/uL Monocytes # 0.6 (0-1.0) k/uL Eosinophils # 0.1 (0-0.7) k/uL Basophils # 0.1 (0-0.2) k/uL Manual Slide Review Performed PT 9.5 (9.0-12.0) sec INR 0.9 (<1.2) APTT 23.1 (22.0-30.0) sec Sodium (137-145) mmol/L Potassium (3.5-5.1) mmol/L Chloride (98-107) mmol/L Carbon Dioxide (22-30) mmol/L Anion Gap mmol/L BUN (7-17) mg/dL Creatinine (0.52-1.04) mg/dL Est GFR (CKD-EPI)AfAm (>60 ml/min/1.73 sqM) Est GFR (CKD-EPI)NonAf (>60 ml/min/1.73 sqM) Glucose (74-99) mg/dL Plasma Lactic Acid Phan (0.7-2.0) mmol/L Calcium (8.4-10.2) mg/dL Magnesium (1.6-2.3) mg/dL Total Bilirubin (0.2-1.3) mg/dL AST (14-36) U/L ALT (4-34) U/L Alkaline Phosphatase (38-126) U/L Troponin I (0.000-0.034) ng/mL Total Protein (6.3-8.2) g/dL Albumin (3.5-5.0) g/dL Serum Alcohol mg/dL Influenza Type A RNA Not Detected (Not Detectd) Influenza Type B (PCR) Not Detected (Not Detectd) 01/02/20 01/02/20 01/02/20 Range/Units 14:50 14:50 14:50 WBC (3.8-10.6) k/uL RBC (3.80-5.40) m/uL Hgb (11.4-16.0) gm/dL Hct (34.0-46.0) % MCV (80.0-100.0) fL MCH (25.0-35.0) pg MCHC (31.0-37.0) g/dL RDW (11.5-15.5) % Plt Count (150-450) k/uL Neutrophils % % Lymphocytes % % Monocytes % % Eosinophils % % Basophils % % Neutrophils # (1.3-7.7) k/uL Lymphocytes # (1.0-4.8) k/uL Monocytes # (0-1.0) k/uL Eosinophils # (0-0.7) k/uL Basophils # (0-0.2) k/uL Manual Slide Review PT (9.0-12.0) sec INR (<1.2) APTT (22.0-30.0) sec Sodium 142 (137-145) mmol/L Potassium 3.1 L (3.5-5.1) mmol/L Chloride 105 (98-107) mmol/L Carbon Dioxide 24 (22-30) mmol/L Anion Gap 13 mmol/L BUN 8 (7-17) mg/dL Creatinine 0.45 L (0.52-1.04) mg/dL Est GFR (CKD-EPI)AfAm >90 (>60 ml/min/1.73 sqM) Est GFR (CKD-EPI)NonAf >90 (>60 ml/min/1.73 sqM) Glucose 89 (74-99) mg/dL Plasma Lactic Acid Phan 3.9 H* (0.7-2.0) mmol/L Calcium 9.0 (8.4-10.2) mg/dL Magnesium 1.4 L (1.6-2.3) mg/dL Total Bilirubin 0.3 (0.2-1.3) mg/dL AST 28 (14-36) U/L ALT 14 (4-34) U/L Alkaline Phosphatase 98 (38-126) U/L Troponin I <0.012 (0.000-0.034) ng/mL Total Protein 7.4 (6.3-8.2) g/dL Albumin 4.2 (3.5-5.0) g/dL Serum Alcohol 263 H* mg/dL Influenza Type A RNA (Not Detectd) Influenza Type B (PCR) (Not Detectd) Disposition Clinical Impression: Alcohol intoxication, Acute exacerbation of chronic obstructive pulmonary disease (COPD), Lactic acidosis, Hypomagnesemia Disposition: ADMITTED IP TO THIS HOSP Referrals: None,Stated [Primary Care Provider] - 1-2 days Time of Disposition: 16:29
[2020-01-02 15:14] LABS: INR 0.9 (<1.2); Partial Thromboplastin Time 23.1 sec (22.0-30.0); Prothrombin Time 9.5 sec (9.0-12.0)
[2020-01-02 15:15] LABS: ALT 14 U/L (4-34); AST 28 U/L (14-36); African American GFR (CKD) >90 (>60 ml/min/1.73 sqM); Albumin 4.2 g/dL (3.5-5.0); Alkaline Phosphatase 98 U/L (38-126); Anion Gap 13 mmol/L; Blood Urea Nitrogen 8 mg/dL (7-17); Carbon Dioxide 24 mmol/L (22-30); Chloride 105 mmol/L (98-107); Glucose 89 mg/dL (74-99); Magnesium 1.4 mg/dL (1.6-2.3); Non-African American GFR(CKD) >90 (>60 ml/min/1.73 sqM); Potassium 3.1 mmol/L (3.5-5.1); Sodium 142 mmol/L (137-145); Total Bilirubin 0.3 mg/dL (0.2-1.3); Total Protein 7.4 g/dL (6.3-8.2)
[2020-01-02 15:19] LABS: Basophils # (A) 0.1 k/uL (0-0.2); Basophils % (A) 0 %; Eosinophils # (A) 0.1 k/uL (0-0.7); Eosinophils % (A) 1 %; HCT 41.8 % (34.0-46.0); HGB 13.7 gm/dL (11.4-16.0); Lymphocytes # (A) 6.4 k/uL (1.0-4.8); Lymphocytes % (A) 46 %; MCH 31.8 pg (25.0-35.0); MCHC 32.7 g/dL (31.0-37.0); MCV 97.3 fL (80.0-100.0); Mean Platelet Volume 7.6; Monocytes # (A) 0.6 k/uL (0-1.0); Monocytes % (A) 5 %; Neutrophils # (A) 6.5 k/uL (1.3-7.7); Neutrophils % (A) 46 %; Platelet Count 340 k/uL (150-450); RBC 4.29 m/uL (3.80-5.40); RDW 13.3 % (11.5-15.5); WBC 14.1 k/uL (3.8-10.6)
[2020-01-02 15:22] LABS: Alcohol 263 mg/dL
[2020-01-02] MEDS ORDERED: SODIUM CHLORIDE 0.9% 1,200 ML IV ONE (15:24)
--- NOTE | 2020-01-02 15:28 | XR ---
EXAMINATION TYPE: XR chest 2V DATE OF EXAM: 01/02/2020 COMPARISON: 11/27/2019 HISTORY: Shoulder pain TECHNIQUE: 2 views FINDINGS: Heart and mediastinum are normal. Lungs are clear. Diaphragm is normal. There is old left c lavicle fracture. IMPRESSION: No cardiopulmonary disease. No change.
[2020-01-02] MEDS ORDERED: MAGNESIUM SULFATE-D5W PMX 1 GM in DEXTROSE/WATER 1 100ML.BAG IVPB ONE (15:40)
[2020-01-02] MEDS ORDERED: SODIUM CHLORIDE 0.9% 1,000 ML with MVI, ADULT NO.4 WITH VIT K 10 ML, THIAMINE 100 MG, F... IV ONE ×4 (16:00)
[2020-01-02] MEDS ORDERED: LORazepam 2 MG/ML INJ IV PRN (16:37)
[2020-01-02] MEDS ORDERED: THIAMINE 100 MG/ML 2 ML VIAL IM STA (16:37)
[2020-01-02] MEDS ORDERED: MORPHINE SULFATE 4 MG/ML SYRINGE IVP STA (16:45)
[2020-01-02] MEDS ORDERED: Potassium Replacement Protocol 1 EACH MISC MISCELLANE PRN ×2 (16:50→18:11)
[2020-01-02] MEDS ORDERED: NALOXONE 0.4 MG/ML 1 ML VIAL IV PRN (16:52)
--- NOTE | 2020-01-02 16:55 | P.HPIM ---
History of Present Illness H&P Date: 01/02/20 Chief Complaint: Shortness of breath 59-year-old female with PMH of alcohol abuse, COPD and emphysema, fibromyalgia, hypertension and dyslipidemia presents the ED for shortness of breath and wheezing. Patient reports 6 weeks ago suffering a mechanical fall and fracturing her left collarbone. She was able to see Orthopedic Surgery during that time which recommended conservative management. Patient reports shortness of breath that has been ongoing for the past 3 weeks. Patient states that 3 weeks ago she suffered symptoms of viral URI. Her symptoms are characterized by dry cough, rhinorrhea and nasal congestion. She does complain of intense right- sided rib pain especially when she coughs and takes deep inspiration. Patient states that she did not have any inhalers to use at home. She does not have a nebulizer machine. Her breathing progressively worsened which prompted her to come to the ED. Of note, patient reports smoking 3 cigarettes a day but has ch ronically been smoking much more over the past 40 years. She also reports multiple bowel movements (3-5) on a daily basis which she describes as loose stool, nonbloody. Patient reports drinking a half pint of liquor daily and her last drink was this morning. Patient reports pain in her right shoulder especially with movement but denies any traumatic injuries or falls. She denies any headache, lower extremity edema, nausea or vomiting, fever or chills, palpitations, changes in urination or bowel habits. No changes in appetite or weight. In the ED, her vital signs were stable except for increased respiratory rate of 23 and pulse of 112. CBC showed leukocytosis of 14.1. Coagulation pane l was negative. CMP showed potassium 3.1. Lactic acid was 3.9. Magnesium was 1.4. Troponin was less than 0.012, EKG showing sinus tachycardia. Serum alcohol is 263. Influenza was negative. Chest x-ray was negative. Patient is admitted for COPD exacerbation with pulmonology consulted. Review of Systems Pertinent positives and negatives as discussed in HPI, a complete review of systems was performed and all other systems are negative. Past Medical History Past Medical History: COPD, Fibromyalgia, GERD/Reflux, Hyperlipidemia, Hypertension, Renal Disease Additional Past Medical History / Comment(s): ETOH abuse, chronic low back pain, diverticulitis, benign colon polyps, kidney stones with surgical removal, broke collarbone, falls History of Any Multi-Drug Resistant Organisms: MRSA Date of last positivie culture/infection: 08/2014 MDRO Source:: L elbow Past Surgical History: Appendectomy, Bowel Resection, Orthopedic Surgery Additional Past Surgical History / Comment(s): Bowel resection d/t diverticulitis, R wrist fusion with bone graft, cervical fusion with metal, kidney stone surgery x 3, colonoscopy with bening polypectomy, salpingo- oophorectomy (pt cannot recall laterallity). Past Anesthesia/Blood Transfusion Reactions: No Reported Reaction Additional Past Anesthesia/Blood Transfusion Reaction / Comment(s): needed more medication for last colonoscopy Past Psychological History: Anxiety, Depression, PTSD Smoking Status: Current every day smoker Past Alcohol Use History: Abuse, Heavy Past Drug Use History: None Reported - Past Family History Sister(s) Family Medical History: Cancer Additional Family Medical History / Comment(s): Pt states she does not know what type of cancer her sister had Mother Family Medical History: Cancer Additional Family Medical History / Comment(s): Mother of colon cancer. Maternal grandmother had breast cancer. Father Family Medical History: Diabetes Mellitus Additional Family Medical History / Comment(s): alcoholism Medications and Allergies Home Medications Medication Instructions Recorded Confirmed Type No Known Home Medications 01/02/20 01/02/20 History Allergies Allergy/AdvReac Type Severity Reaction Status Date / Time pregabalin [From Lyrica] Allergy Severe Anaphylaxis Verified 01/02/20 14:12 tizanidine HCl Allergy Severe Anaphylaxis Verified 01/02/20 14:12 [From Zanaflex] Physical Exam Vitals: Vital Signs Temp Pulse Resp BP Pulse Ox 01/02/20 16:00 105 H 22 163/84 95 01/02/20 15:30 108 H 23 123/73 95 01/02/20 15:07 113 H 01/02/20 15:00 106 H 21 132/74 100 01/02/20 14:39 104 H 01/02/20 14:30 113 H 23 139/82 96 01/02/20 14:07 97 01/02/20 14:04 98.6 F 112 H 20 139/82 96 01/02/20 14:00 23 Intake and Output 01/02/20 01/02/20 01/02/20 06:59 14:59 22:59 Other: Weight 54.431 kg General: [non toxic], [no distress], [appears at stated age] Derm: [warm], [dry], [scattered bruises] Head: [atraumatic], [normocephalic], [symmetric] Eyes: [EOMI], [no lid lag], [anicteric sclera] Mouth: [no lip lesion], [mucus membranes moist] Cardiovascular: [S1S2 reg], [tachycardia], [positive posterior tibial pulse bilateral], Lungs: [Diffuse wheezing bilateral], [no rhonchi, no rales] , [no accessory muscle use] Abdominal: [soft], [ nontender to palpation], [no guarding], [no appreciable organomegaly] Ext: [no gross muscle atrophy], [no edema], [no contractures], [limited range of motion of the right shoulder due to pain], [tenderness over the left collarbone] Neuro: [ CN II-XI grossly intact], [no focal neuro deficits] Psych: [Alert], [oriented], [appropriate affect] Results CBC & Chem 7: 01/02/20 14:50 01/02/20 14:50 Labs: Abnormal Lab Results - Last 24 Hours (Table) 01/02/20 01/02/20 01/02/20 Range/Units 14:50 14:50 14:50 WBC 14.1 H (3.8-10.6) k/uL Lymphocytes # 6.4 H (1.0-4.8) k/uL Potassium 3.1 L (3.5-5.1) mmol/L Creatinine 0.45 L (0.52-1.04) mg/dL Plasma Lactic Acid Phan 3.9 H* (0.7-2.0) mmol/L Magnesium 1.4 L (1.6-2.3) mg/dL Serum Alcohol 263 H* mg/dL Assessment and Plan Assessment: Acute COPD exacerbation likely secondary to viral URI Lactic acidosis Alcohol intoxication with high risk for withdrawal Leukocytosis Hypokalemia Left collarbone fracture and Right shoulder pain Hypertension Patient symptoms are consistent with COPD exacerbation likely related to viral URI. Her chest x-ray is negative for pneumonia. Influenza negative. Plans: Tigist [place] scheduled. Start Levaquin for concerns of acute bronchitis. Continue Solu-Medrol. Telemetry monitoring. Supplemental O2 per NC to maintain O2 saturation greater than 92%. Follow pulmonology recommendations. Patient with lactic acid of 3.9. Possibly related to starvation ketoacidosis. Also related to dehydration from diarrhea. Plans: Continue normal saline at 100 mL per hour. Repeat lactic acid. Follow blood cultures. Patient reports drinking half pint of liquor daily. Plans: CIWA protocol. Ativan as needed for withdrawal. Start thiamine by mouth. Patient with leukocytosis of 14.1. Unknown etiology at this point. She is currently on IV steroids. Patient is afebrile. No obvious signs of infection besides URI. Plans: Continue to monitor. Repeat CBC tomorrow morning. Potassium 3.1. Unknown etiology, possibly from diarrhea. Plans: Replace via protocol. Repeat BMP tomorrow morning. Plans: Pain control with morphine as needed. Follow x-ray. Follow orthopedic surgery consult. BP 139/82. Plans: No antihypertensive medication at this time. Plans to monitor vitals and adjust medications as necessary. DVT prophylaxis: [Heparin] Discussed with: [Patient] Anticipated discharge: [2 days] Anticipated discharge place: [Home] A total of [45] minutes was spent on the care of this complex patient more than 50% of the time was spent in counseling and care coordination. Patient names her partner Ashley decision maker if she can't make decisions for herself. Patient will like to be full code.
--- NOTE | 2020-01-02 17:10 | XR ---
EXAMINATION TYPE: XR shoulder complete BILAT DATE OF EXAM: 01/02/2020 COMPARISON: Left shoulder from her second 2020 HISTORY: Shoulder pain TECHNIQUE: 3 views each shoulder FINDINGS: I see no fracture nor dislocation. Joint spaces are normal. There are no pathologic calcifi cations. There is an old fracture of the left clavicle. IMPRESSION: No acute abnormality of the shoulders. There is some healing of the left clavicle fractur e compared to old exam.
[2020-01-02] MEDS: LORazepam 2 MG/ML INJ IV PRN ×2 (18:03→20:52)
[2020-01-02] MEDS: POTASSIUM CHLORIDE ER 20 MEQ TAB.ER PO SCH ×2 (18:21→20:54)
[2020-01-02] MEDS: methylPREDNISolone SOD SUCCI 125 MG/2 ML VIAL IV SCH ×2 (18:22→23:20)
[2020-01-02] MEDS: HYDROcodone/APAP 5-325MG 1 EACH TAB PO PRN (18:39)
[2020-01-02] MEDS: IPRATROPIUM-ALBUTEROL 3 ML NEB INHALATION SCH ×2 (19:43→23:14)
[2020-01-02 20:27] LABS: Glucose,Whole Blood 132 mg/dL (75-99)
[2020-01-02] MEDS: HEPARIN SODIUM,PORCINE 5,000 UNIT/ML 1 ML VIAL SQ SCH (20:55)
[2020-01-02] MEDS: MORPHINE SULFATE 2 MG/ML SYRINGE IVP PRN (21:48)
[2020-01-02] MEDS: INSULIN ASPART (NovoLOG) 100 UNIT/ML VIAL SQ SCH (21:51)
[2020-01-02] MEDS: NICOTINE 7MG/24HR PATCH TRANSDERM SCH (22:03)
[2020-01-03] MEDS: SODIUM CHLORIDE 0.9% 1,000 ML IV SCH ×3 (00:28→20:48)
[2020-01-03] MEDS: LORazepam 2 MG/ML INJ IV PRN ×10 (02:44→23:48)
[2020-01-03] MEDS: IPRATROPIUM-ALBUTEROL 3 ML NEB INHALATION SCH ×6 (03:48→23:54)
[2020-01-03] MEDS: MORPHINE SULFATE 2 MG/ML SYRINGE IVP PRN (03:49)
[2020-01-03 06:13] LABS: Glucose,Whole Blood 224 mg/dL (75-99)
[2020-01-03 06:27] LABS: Basophils % (A) 0 %; Eosinophils % (A) 0 %; HCT 37.7 % (34.0-46.0); HGB 12.4 gm/dL (11.4-16.0); Lymphocytes # (A) 1.4 k/uL (1.0-4.8); Lymphocytes % (A) 30 %; MCH 32.8 pg (25.0-35.0); MCHC 32.9 g/dL (31.0-37.0); MCV 99.9 fL (80.0-100.0); Mean Platelet Volume 7.9; Monocytes # (A) 0.1 k/uL (0-1.0); Monocytes % (A) 1 %; Neutrophils # (A) 3.2 k/uL (1.3-7.7); Neutrophils % (A) 67 %; Platelet Count 264 k/uL (150-450); RBC 3.77 m/uL (3.80-5.40); RDW 13.3 % (11.5-15.5); WBC 4.8 k/uL (3.8-10.6)
[2020-01-03 06:42] LABS: African American GFR (CKD) >90 (>60 ml/min/1.73 sqM); Anion Gap 10 mmol/L; Blood Urea Nitrogen 9 mg/dL (7-17); Calcium 7.4 mg/dL (8.4-10.2); Carbon Dioxide 19 mmol/L (22-30); Chloride 107 mmol/L (98-107); Glucose 250 mg/dL (74-99); Magnesium 1.1 mg/dL (1.6-2.3); Non-African American GFR(CKD) >90 (>60 ml/min/1.73 sqM); Potassium 3.9 mmol/L (3.5-5.1); Sodium 136 mmol/L (137-145)
[2020-01-03] MEDS: methylPREDNISolone SOD SUCCI 125 MG/2 ML VIAL IV SCH ×4 (06:46→22:44)
[2020-01-03] MEDS: INSULIN ASPART (NovoLOG) 100 UNIT/ML VIAL SQ SCH ×4 (06:47→21:02)
[2020-01-03] MEDS: THIAMINE 100 MG TAB PO SCH ×2 (06:48→18:33)
[2020-01-03] MEDS ORDERED: VANCOMYCIN IV PER PHARMACY 1 EACH MISC MISCELLANE PRN (08:12)
[2020-01-03] MEDS: HYDROcodone/APAP 5-325MG 1 EACH TAB PO PRN (08:47)
[2020-01-03] MEDS: LEVOFLOXACIN 500 MG TAB PO SCH (08:48)
[2020-01-03] MEDS: HEPARIN SODIUM,PORCINE 5,000 UNIT/ML 1 ML VIAL SQ SCH ×2 (08:48→20:44)
[2020-01-03] MEDS: NICOTINE 7MG/24HR PATCH TRANSDERM SCH (08:49)
[2020-01-03] MEDS: VANCOMYCIN 1,250 MG in SODIUM CHLORIDE 0.9% 250 ML IVPB SCH ×3 (11:44→23:50)
[2020-01-03] MEDS: MAGNESIUM SULFATE-D5W PMX 1 GM in DEXTROSE/WATER 1 100ML.BAG IVPB SCH ×4 (11:46→16:15)
[2020-01-03 12:06] LABS: Glucose,Whole Blood 150 mg/dL (75-99)
[2020-01-03 13:23] VITALS: BMI 20.7
[2020-01-03] MEDS: ACETAMINOPHEN TAB 325 MG TAB PO PRN ×2 (13:36→20:44)
--- NOTE | 2020-01-03 13:51 | P.CNPUL ---
History of Present Illness Consult date: 01/03/20 Reason for consult: dyspnea, COPD History of present illness: This is a 59-year-old female patient with known history of COPD, alcoholism and she drinks a pint of hard liquor/whiskey on a daily basis and addition to history of fibromyalgia, hypertension, hyperlipidemia, chronic pain and possible narcotic medication use/abuse. The patient has been having pain for the past 6 weeks after she suffered a fall and fractured her left collarbone. [facility] and she was advised to continue and proceed with conservative management. She is coming in today for worsening shortness of breath. She developed symptoms of URI. She has a dry cough congestion and chest tightness wheezing and increased shortness of breath. She doesn't follow- up typically by primary care physician. She does not use any maintenance respiratory medications or inhalers. She has no nebulizer at home. She has more than [id number] smoking history. At a time of admission, she was having active bronchospasm wheezing and emergency. She was a bit tachypneic. Her white cell count was at 14.1. Her lactic acid level was at 3.9. Troponins were less than 0.01. EKG showed sinus tachycardia. Over the 3 was negative. Chest x-ray was consistent with COPD. The patient was covered empirically with Levaquin. The patient was placed on Solu-Medrol [id number]. She is also on DuoNeb nebulized treatments around the clock to IV and when necessary. Review of Systems Constitutional: Reports weakness Eyes: denies as per HPI, denies blurred vision, denies bulging eye, denies decreased vision, denies diplopia, denies discharge, denies dry eye, denies irritation, denies itching, denies pain, denies photophobia, denies loss of peripheral vision, denies loss of vision, denies tunnel vision/blind spots Ears: deny: decreased hearing, ear discharge, earache, tinnitus Breasts: absent: as per HPI, change in shape, gynecomastia, masses, nipple discharge, pain, skin changes, swelling Cardiovascular: Reports decreased exercise tolerance, Reports shortness of breath Respiratory: Reports cough, Reports dyspnea, Reports wheezing Gastrointestinal: Reports as per HPI Genitourinary: Reports as per HPI Menstruation: Reports as per HPI Musculoskeletal: Reports as per HPI (Shoulder pain andKay pain. The patient also has chronic back pain.), Reports fractures, Reports low back pain, Reports neck pain Musculoskeletal: absent: ankle pain, ankle stiffness, ankle swelling Integumentary: Reports as per HPI Neurological: Reports as per HPI Psychiatric: Reports as per HPI Endocrine: Reports as per HPI, Reports fatigue Hematologic/Lymphatic: Reports as per HPI Allergic/Immunologic: Reports as per HPI Past Medical History Past Medical History: COPD, Fibromyalgia, GERD/Reflux, Hyperlipidemia, Hypertension, Renal Disease Additional Past Medical History / Comment(s): ETOH abuse, chronic low back pain, diverticulitis, benign colon polyps, kidney stones with surgical removal, broke collarbone, falls History of Any Multi-Drug Resistant Organisms: MRSA Date of last positivie culture/infection: 08/2014 MDRO Source:: L elbow Past Surgical History: Appendectomy, Bowel Resection, Orthopedic Surgery Additional Past Surgical History / Comment(s): Bowel resection d/t diverticulitis, R wrist fusion with bone graft, cervical fusion with metal, kidney stone surgery x 3, colonoscopy with bening polypectomy, salpingo- oophorectomy (pt cannot recall laterallity). Past Anesthesia/Blood Transfusion Reactions: No Reported Reaction Additional Past Anesthesia/Blood Transfusion Reaction / Comment(s): needed more medication for last colonoscopy Past Psychological History: Anxiety, Depression, PTSD Smoking Status: Current every day smoker Past Alcohol Use History: Abuse, Heavy Past Drug Use History: None Reported - Past Family History Sister(s) Family Medical History: Cancer Additional Family Medical History / Comment(s): Pt states she does not know what type of cancer her sister had Mother Family Medical History: Cancer Additional Family Medical History / Comment(s): Mother of colon cancer. Maternal grandmother had breast cancer. Father Family Medical History: Diabetes Mellitus Additional Family Medical History / Comment(s): alcoholism Medications and Allergies Home Medications Medication Instructions Recorded Confirmed Type No Known Home Medications 01/02/20 01/02/20 History Allergies Allergy/AdvReac Type Severity Reaction Status Date / Time pregabalin [From Lyrica] Allergy Severe Anaphylaxis Verified 01/02/20 14:12 tizanidine HCl Allergy Severe Anaphylaxis Verified 01/02/20 14:12 [From Zanaflex] Physical Exam Vitals: Vital Signs Temp Pulse Pulse Resp BP BP Pulse Ox 01/03/20 11:33 110 H 01/03/20 11:24 104 H 01/03/20 08:31 96 01/03/20 08:21 102 H 96 01/03/20 08:00 97.8 F 107 H 20 165/94 96 01/03/20 04:00 92 18 01/03/20 03:57 97.7 F 92 18 137/68 97 01/03/20 00:00 98.0 F 102 H 18 138/78 98 01/02/20 20:00 98.2 F 102 H 18 138/85 98 01/02/20 19:52 110 H 01/02/20 19:44 110 H 01/02/20 18:53 98.0 F 102 H 20 158/78 98 01/02/20 16:53 98.2 F 100 22 147/47 99 01/02/20 16:00 105 H 22 163/84 95 01/02/20 15:30 108 H 23 123/73 95 01/02/20 15:07 113 H 01/02/20 15:00 106 H 21 132/74 100 01/02/20 14:39 104 H 01/02/20 14:30 113 H 23 139/82 96 01/02/20 14:07 97 01/02/20 14:04 98.6 F 112 H 20 139/82 96 01/02/20 14:00 23 Intake and Output 01/02/20 01/03/20 01/03/20 22:59 06:59 14:59 Intake Total 320 Balance 320 Intake: Oral 320 Other: Voiding Method Bedside Commode Bedside Commode Toilet # Voids 1 1 0 # Bowel Movements 0 Weight 54.431 kg 60.1 kg 60.1 kg The patient appeared well nourished and normally developed. Patient is uncomfortable. She is restless in bed. She is awake and alert and she is following commands. She states that she is tachypneic and in same time having excess amount of pain and she is shaky and she possibly is an early DTs from alcohol withdrawal .Vital signs as documented. Head exam is unremarkable. No scleral icterus or corneal arcus noted. Neck is without jugular venous distensio n, thyromegaly, or carotid bruits. Carotid upstrokes are brisk bilaterally. Lungs diminished breath sounds bilaterally along with prolongation of the exhalation phase of breathing and diffuse expiratory wheezes throughout the lung his bilaterally. Cardiac exam reveals the PMI to be normally sized and situated. Rhythm is regular. First and second heart sounds normal. No murmurs, rubs or gallops. Abdominal exam reveals normal bowel sounds, no masses, no organomegaly and no aortic enlargement. Extremities are nonedematous and both femoral and pedal pulses are normal.the left clavicular area pressure and let us side where it inserts into the acromion is quite deformed and swollen. Examination of the skin revealed no evidence of significant rashes, suspicious appearing nevi or other concerning lesions. Neurologically awake and alert and there is no focal neurological deficits. Results - Laboratory Findings CBC and BMP: 01/03/20 05:59 01/03/20 05:59 PT/INR, D-dimer PT 9.5 sec (9.0-12.0) 01/02/20 14:50 INR 0.9 (<1.2) 01/02/20 14:50 Abnormal lab findings: Abnormal Labs 01/02/20 01/02/20 01/02/20 14:50 14:50 14:50 WBC 14.1 H RBC Lymphocytes # 6.4 H Sodium Potassium 3.1 L Carbon Dioxide Creatinine 0.45 L Glucose POC Glucose (mg/dL) Plasma Lactic Acid Phan 3.9 H* Calcium Magnesium 1.4 L Serum Alcohol 263 H* 01/02/20 01/02/20 01/02/20 18:44 20:25 22:40 WBC RBC Lymphocytes # Sodium Potassium Carbon Dioxide Creatinine Glucose POC Glucose (mg/dL) 132 H Plasma Lactic Acid Phan 3.8 H* 2.1 H* Calcium Magnesium Serum Alcohol 01/03/20 01/03/20 01/03/20 05:59 05:59 05:59 WBC RBC 3.77 L Lymphocytes # Sodium 136 L Potassium Carbon Dioxide 19 L Creatinine 0.39 L Glucose 250 H POC Glucose (mg/dL) Plasma Lactic Acid Phan 4.0 H* Calcium 7.4 L Magnesium 1.1 L Serum Alcohol 01/03/20 01/03/20 06:12 11:49 WBC RBC Lymphocytes # Sodium Potassium Carbon Dioxide Creatinine Glucose POC Glucose (mg/dL) 224 H 150 H Plasma Lactic Acid Phan Calcium Magnesium Serum Alcohol - Diagnostic Findings Chest x-ray: image reviewed Assessment and Plan Plan: 1 acute COPD exacerbation secondary to symptoms of URI/bronchitis. 2 shortness of breath secondary to above 3 chronic tobacco smoker 4 history of alcoholism with signs of delirium tremens and alcohol withdrawal with increased shakiness and irritability 5 history of falls 6 left clavicular fracture, healing 7 hypertension 8 chronic pain involving the back and the neck and the shoulder and rib cage along with history of fibromyalgia 9 history of diverticulosis/complicated diverticulitis 10 history of kidney stones 11 history of acid reflux 12 gram-positive bacillus in the blood, likely a contaminant Plan Continue management of COPD exacerbation with a combination of bronchodilators steroids and antibiotics Significant concern for delirium tremens and the patient is on the CIWA protocol We'll avoid giving the patient narcotics as the patient has history of narcotic dependence. We'll use Tylenol for now. We'll continue to follow. Smoking cessation counseling was done. Alcoholism is obviously an ongoing problem for this patient
--- NOTE | 2020-01-03 14:13 | P.PN ---
Subjective Progress Note Date: 01/03/20 Patient seen and examined at bedside complain of left clavicular and shoulder pain, reported fracture approximately 6-8 weeks ago, has a history of narcotic dependence and is currently on morphine. Discussed that I will be stopping her morphine In any further narcotic medications at this time. The patient continues on CIWA withdrawal protocol, her serum magnesium was 1.1, serum bicarb 19, blood sugar 250, serum lactate level trending down to 1.9. In no acute events overnight Objective - Vital Signs Vital signs: Vital Signs Temp 97.8 F 01/03/20 08:00 Pulse 110 H 01/03/20 11:33 Resp 20 01/03/20 08:00 BP 165/94 01/03/20 08:00 Pulse Ox 96 01/03/20 08:21 Intake & Output 01/02/20 01/03/20 01/03/20 18:59 06:59 18:59 Intake Total 320 Balance 320 Weight 54.431 kg 60.1 kg 60.1 kg Intake: Oral 320 Other: Voiding Method Bedside Commode Toilet # Voids 1 1 0 # Bowel Movements 0 - Exam Constitutional: No acute distress, conversant, pleasant Eyes: Anicteric sclerae, moist conjunctiva, no lid-lag, PERRLA ENMT: NC/AT,Oropharynx clear, no erythema, exudates Neck:Supple, FROM, no masses, or JVD, No carotid bruits; No thyromegaly Lungs: Diminished in the bases with prolonged expiratory phase and diffuse wheezes bilaterally Cardiovascular: Heart regular in rate and rhythm, No murmurs, gallops, or rubs no peripheral edema Abdominal: Soft Nontender, nom distended, no guarding, no rebound or rigidity, Normoactive bowel sounds No hepatomegaly, No splenomegaly, No palpable mass No abdominal wall hernia noted Skin: Normal temperature, tone, texture, turgor, No induration No subcutaneous nodules, No rash, lesions, No ulcers Extremities:No digital cyanosis No clubbing, Pedal pulses intact and symmetrical Radial pulses intact and symmetrical Normal gait and station, No calf tenderness Psychiatric: Alert and oriented to person, place and time, Appropriate affect Intact judgement Neuro: Muscles Strength 5/5 in all 4 extremities, Sensation to light touch grossly present throughout, Cranial nerves II-XII grossly intact. No focal sensory deficits - Labs CBC & Chem 7: 01/03/20 05:59 01/03/20 05:59 Labs: Abnormal Lab Results - Last 24 Hours (Table) 01/02/20 01/02/20 01/02/20 Range/Units 14:50 14:50 14:50 WBC 14.1 H (3.8-10.6) k/uL RBC (3.80-5.40) m/uL Lymphocytes # 6.4 H (1.0-4.8) k/uL Sodium (137-145) mmol/L Potassium 3.1 L (3.5-5.1) mmol/L Carbon Dioxide (22-30) mmol/L Creatinine 0.45 L (0.52-1.04) mg/dL Glucose (74-99) mg/dL POC Glucose (mg/dL) (75-99) mg/dL Plasma Lactic Acid Phan 3.9 H* (0.7-2.0) mmol/L Calcium (8.4-10.2) mg/dL Magnesium 1.4 L (1.6-2.3) mg/dL Serum Alcohol 263 H* mg/dL 01/02/20 01/02/20 01/02/20 Range/Units 18:44 20:25 22:40 WBC (3.8-10.6) k/uL RBC (3.80-5.40) m/uL Lymphocytes # (1.0-4.8) k/uL Sodium (137-145) mmol/L Potassium (3.5-5.1) mmol/L Carbon Dioxide (22-30) mmol/L Creatinine (0.52-1.04) mg/dL Glucose (74-99) mg/dL POC Glucose (mg/dL) 132 H (75-99) mg/dL Plasma Lactic Acid Phan 3.8 H* 2.1 H* (0.7-2.0) mmol/L Calcium (8.4-10.2) mg/dL Magnesium (1.6-2.3) mg/dL Serum Alcohol mg/dL 01/03/20 01/03/20 01/03/20 Range/Units 05:59 05:59 05:59 WBC (3.8-10.6) k/uL RBC 3.77 L (3.80-5.40) m/uL Lymphocytes # (1.0-4.8) k/uL Sodium 136 L (137-145) mmol/L Potassium (3.5-5.1) mmol/L Carbon Dioxide 19 L (22-30) mmol/L Creatinine 0.39 L (0.52-1.04) mg/dL Glucose 250 H (74-99) mg/dL POC Glucose (mg/dL) (75-99) mg/dL Plasma Lactic Acid Phan 4.0 H* (0.7-2.0) mmol/L Calcium 7.4 L (8.4-10.2) mg/dL Magnesium 1.1 L (1.6-2.3) mg/dL Serum Alcohol mg/dL 01/03/20 01/03/20 Range/Units 06:12 11:49 WBC (3.8-10.6) k/uL RBC (3.80-5.40) m/uL Lymphocytes # (1.0-4.8) k/uL Sodium (137-145) mmol/L Potassium (3.5-5.1) mmol/L Carbon Dioxide (22-30) mmol/L Creatinine (0.52-1.04) mg/dL Glucose (74-99) mg/dL POC Glucose (mg/dL) 224 H 150 H (75-99) mg/dL Plasma Lactic Acid Phan (0.7-2.0) mmol/L Calcium (8.4-10.2) mg/dL Magnesium (1.6-2.3) mg/dL Serum Alcohol mg/dL Microbiology - Last 24 Hours (Table) 01/02/20 14:50 Blood Culture Gram Stain - Preliminary Blood 01/02/20 14:50 Blood Culture - Final Blood Assessment and Plan Assessment: Acute COPD exacerbation likely secondary to viral URI * Chest x-ray showing no cardiopulmonary disease * Continue empiric IV antibiotics with Levaquin, continue systemic steroids with IV Solu-Medrol 60 mg IV q6 * Appreciate pulmonary recommendations Lactic acidosis * In the setting of acute alcohol intoxication in a patient with chronic alcohol dependence * Resolved with IV fluids Alcohol intoxication with high risk for withdrawal * Continuous symptom triggered CIWA withdrawal protocol with Ativan * Patient high risk for DTs continue to monitor closely Hypomagnesemia * Replace with 4 g IV and recheck tomorrow Leukocytosis * resolved, patient afebrile however 1 blood culture was positive patient started empirically on vancomycin, ID consult for further recommendations * Acute stress response Hypokalemia * resolved Left collarbone fracture and Right shoulder pain * No acute abnormality of the shoulder some healing left clinic nuclear fracture * Continue Tylenol as needed Hypertension * Continue home medications Continue to follow patient's clinical course
--- NOTE | 2020-01-03 15:26 | P.CNOR ---
History of Present Illness - [facility] Consult date: 01/03/20 Consult reason: fracture History of present illness: Patient is a 59-year-old female who was admitted to [facility] with regards to his COPD exacerbation and other medical comorbidities. We were consulted on the patient about 8 weeks ago with regards to a left clavicle fracture. She was placed in a arm sling at the time and instructed to follow-up in the outpatient setting for further evaluation and treatment. Patient was noncompliant she never did follow-up. She currently is not util izing the sling, she states that she hasn't utilized it in quite some time. After being admitted to [facility], she noted worsening pain in the left shoulder. Like stated she is not utilizing the arm sling. She states that she was lifting a TV of some sort yesterday when she noticed severe pain involving the left shoulder. Currently patient complains of left shoulder pain, more in the collarbone distribution. She has no other orthopedic complaints at this time. She has a history of alcohol dependence. Review of Systems Constitutional: Reports as per HPI Past Medical History Past Medical History: COPD, Fibromyalgia, GERD/Reflux, Hyperlipidemia, Hypertension, Renal Disease Additional Past Medical History / Comment(s): ETOH abuse, chronic low back pain, diverticulitis, benign colon polyps, kidney stones with surgical removal, broke collarbone, falls History of Any Multi-Drug Resistant Organisms: MRSA Year Discovered:: 08/2014 MDRO Source:: [place] elbow Past Surgical History: Appendectomy, Bowel Resection, Orthopedic Surgery Additional Past Surgical History / Comment(s): Bowel resection d/t diverticulitis, R wrist fusion with bone graft, cervical fusion with metal, kidney stone surgery x 3, colonoscopy with bening polypectomy, salpingo-oophorectomy (pt cannot recall laterallity). Past Anesthesia/Blood Transfusion Reactions: No Reported Reaction Additional Past Anesthesia/Blood Transfusion Reaction / Comm: needed more medication for last colonoscopy Past Psychological History: Anxiety, Depression, PTSD Smoking Status: Current every day smoker Past Alcohol Use History: Abuse, Heavy Past Drug Use History: None Reported - Past Family History Sister(s) Family Medical History: Cancer Additional Family Medical History / Comment(s): Pt states she does not know what type of cancer her sister had Mother Family Medical History: Cancer Additional Family Medical History / Comment(s): Mother of colon cancer. Maternal grandmother had breast cancer. Father Family Medical History: Diabetes Mellitus Additional Family Medical History / Comment(s): alcoholism Medications and Allergies Home Medications Medication Instructions Recorded Confirmed Type No Known Home Medications 01/02/20 01/02/20 History Allergies Allergy/AdvReac Type Severity Reaction Status Date / Time pregabalin [From Lyrica] Allergy Severe Anaphylaxis Verified 01/02/20 14:12 tizanidine HCl Allergy Severe Anaphylaxis Verified 01/02/20 14:12 [From Zanaflex] Physical Examination Left upper extremity: No obvious open lesions or sores present, no significant areas of erythema or soft tissue swelling Deformity is present along the clavicle distribution Range of motion was not assessed due to pain Sensation to light touch is intact throughout the extremity, radial pulses 2+ Results - Labs Labs: Abnormal Lab Results - Last 24 Hours (Table) 01/02/20 01/02/20 01/02/20 Range/Units 14:50 14:50 14:50 WBC 14.1 H (3.8-10.6) k/uL RBC (3.80-5.40) m/uL Lymphocytes # 6.4 H (1.0-4.8) k/uL Sodium (137-145) mmol/L Potassium 3.1 L (3.5-5.1) mmol/L Carbon Dioxide (22-30) mmol/L Creatinine 0.45 L (0.52-1.04) mg/dL Glucose (74-99) mg/dL POC Glucose (mg/dL) (75-99) mg/dL Plasma Lactic Acid Phan 3.9 H* (0.7-2.0) mmol/L Calcium (8.4-10.2) mg/dL Magnesium 1.4 L (1.6-2.3) mg/dL Serum Alcohol 263 H* mg/dL 01/02/20 01/02/20 01/02/20 Range/Units 18:44 20:25 22:40 WBC (3.8-10.6) k/uL RBC (3.80-5.40) m/uL Lymphocytes # (1.0-4.8) k/uL Sodium (137-145) mmol/L Potassium (3.5-5.1) mmol/L Carbon Dioxide (22-30) mmol/L Creatinine (0.52-1.04) mg/dL Glucose (74-99) mg/dL POC Glucose (mg/dL) 132 H (75-99) mg/dL Plasma Lactic Acid Phan 3.8 H* 2.1 H* (0.7-2.0) mmol/L Calcium (8.4-10.2) mg/dL Magnesium (1.6-2.3) mg/dL Serum Alcohol mg/dL 01/03/20 01/03/20 01/03/20 Range/Units 05:59 05:59 05:59 WBC (3.8-10.6) k/uL RBC 3.77 L (3.80-5.40) m/uL Lymphocytes # (1.0-4.8) k/uL Sodium 136 L (137-145) mmol/L Potassium (3.5-5.1) mmol/L Carbon Dioxide 19 L (22-30) mmol/L Creatinine 0.39 L (0.52-1.04) mg/dL Glucose 250 H (74-99) mg/dL POC Glucose (mg/dL) (75-99) mg/dL Plasma Lactic Acid Phan 4.0 H* (0.7-2.0) mmol/L Calcium 7.4 L (8.4-10.2) mg/dL Magnesium 1.1 L (1.6-2.3) mg/dL Serum Alcohol mg/dL 01/03/20 01/03/20 Range/Units 06:12 11:49 WBC (3.8-10.6) k/uL RBC (3.80-5.40) m/uL Lymphocytes # (1.0-4.8) k/uL Sodium (137-145) mmol/L Potassium (3.5-5.1) mmol/L Carbon Dioxide (22-30) mmol/L Creatinine (0.52-1.04) mg/dL Glucose (74-99) mg/dL POC Glucose (mg/dL) 224 H 150 H (75-99) mg/dL Plasma Lactic Acid Phan (0.7-2.0) mmol/L Calcium (8.4-10.2) mg/dL Magnesium (1.6-2.3) mg/dL Serum Alcohol mg/dL Microbiology - Last 24 Hours (Table) 01/02/20 14:50 Blood Culture Gram Stain - Preliminary Blood 01/02/20 14:50 Blood Culture - Final Blood H & H 01/02/20 03 Range/Units 14:50 05:59 Hgb 13.7 12.4 (11.4-16.0) gm/dL Hct 41.8 37.7 (34.0-46.0) % Coagulation 01/02/20 Range/Units 14:50 INR 0.9 (<1.2) Result Diagrams: 01/03/20 05:59 01/03/20 05:59 - Diagnostic results Shoulder x-ray: report reviewed, image reviewed Assessment and Plan Plan: Imaging: X-rays of the shoulder were reviewed, they do demonstrate the previous fracture involving the left clavicle. No new fractures or dislocations appreciated Assessment: Left shoulder pain Previous left clavicle fracture Multiple medical comorbidities Plan: I was able to discuss the case, including the physical exam findings and imaging studies attending Dr. Diaz. Recommend use of an arm sling at this time. Like stated in the history, patient has been noncompliant with regards to follow-up. We recommend follow-up with a traumatologist for further evaluation of the left clavicle fracture, this can be done in the outpatient setting Arm sling left upper extremity Pain control and GI and DVT prophylaxis per primary medical service Will be available for any further questions regarding this patient Time with Patient: Less than 30
[2020-01-03 17:25] LABS: Glucose,Whole Blood 188 mg/dL (75-99)
[2020-01-03 20:59] LABS: Glucose,Whole Blood 182 mg/dL (75-99)
--- NOTE | 2020-01-04 00:24 | P.CONS ---
History of Present Illness - Reason for Consult Consult date: 01/03/20 bacteremia Requesting physician: Robbie Friedman - Chief Complaint shortness of breath and cough x weeks - History of Present Illness Patient is a 59-year-old female with a past medical history significant for COPD patient presenting to the ER at [facility] yesterday with chief complaints of increasing shortness of breath and cough that has been getting worse over the last 3 weeks patient describes the cough to moderate intensity and is bringing up occasional sputum patient did have some chills but denies high-grade fever and is not complaining of generalized weakness and pain to the left shoulder area but denies having history of fall or trauma no nausea vomiting abdominal pain or any diarrhea on arrival to the ER patient has been afebrile patient white count was elevated 14 point 1 repeat is normal today serum alcohol level is elevated to 63 influenza PCR was negative patient did have a positive blood culture with gram-positive bacilli patient was started on vancomycin infectious disease was consulted for further recommendation about antibiotic therapy patient did have x-rays of the shoulder which was negative for any acute abnormality. Review of Systems Positive point has been mentioned in HPI rest of the systems are negative Past Medical History Past Medical History: COPD, Fibromyalgia, GERD/Reflux, Hyperlipidemia, Hypertension, Renal Disease Additional Past Medical History / Comment(s): ETOH abuse, chronic low back pain, diverticulitis, benign colon polyps, kidney stones with surgical removal, broke collarbone, falls History of Any Multi-Drug Resistant Organisms: MRSA Year Discovered:: 08/2014 MDRO Source:: L elbow Past Surgical History: Appendectomy, Bowel Resection, Orthopedic Surgery Additional Past Surgical History / Comment(s): Bowel resection d/t diverticulitis, R wrist fusion with bone graft, cervical fusion with metal, kidney stone surgery x 3, colonoscopy with bening polypectomy, salpingo- oophorectomy (pt cannot recall laterallity). Past Anesthesia/Blood Transfusion Reactions: No Reported Reaction Additional Past Anesthesia/Blood Transfusion Reaction / Comm: needed more medication for last colonoscopy Past Psychological History: Anxiety, Depression, PTSD Smoking Status: Current every day smoker Past Alcohol Use History: Abuse, Heavy Past Drug Use History: None Reported - Past Family History Sister(s) Family Medical History: Cancer Additional Family Medical History / Comment(s): Pt states she does not know what type of cancer her sister had Mother Family Medical History: Cancer Additional Family Medical History / Comment(s): Mother of colon cancer. Maternal grandmother had breast cancer. Father Family Medical History: Diabetes Mellitus Additional Family Medical History / Comment(s): alcoholism Medications and Allergies Home Medications Medication Instructions Recorded Confirmed Type No Known Home Medications 01/02/20 01/02/20 History Allergies Allergy/AdvReac Type Severity Reaction Status Date / Time pregabalin [From Lyrica] Allergy Severe Anaphylaxis Verified 01/02/20 14:12 tizanidine HCl Allergy Severe Anaphylaxis Verified 01/02/20 14:12 [From Zanaflex] Physical Exam Vitals: Vital Signs Temp Pulse Pulse Resp BP Pulse Ox 01/03/20 19:37 105 H 01/03/20 19:20 109 H 99 01/03/20 16:26 104 H 01/03/20 16:16 98 01/03/20 16:00 97.5 F L 103 H 20 150/93 100 01/03/20 12:00 97.6 F 104 H 20 158/91 98 01/03/20 11:33 110 H 01/03/20 11:24 104 H 01/03/20 08:31 96 01/03/20 08:21 102 H 96 01/03/20 08:00 97.8 F 107 H 20 165/94 96 01/03/20 04:00 92 18 01/03/20 03:57 97.7 F 92 18 137/68 97 01/03/20 00:00 98.0 F 102 H 18 138/78 98 Intake and Output 01/03/20 01/03/20 01/03/20 06:59 14:59 22:59 Intake Total 320 660 Balance 320 660 Intake: Oral 320 660 Other: Voiding Method Bedside Commode Toilet Toilet # Voids 1 0 0 # Bowel Movements 0 0 Weight 60.1 kg 60.1 kg GENERAL DESCRIPTION: Middle-aged male lying in bed, no distress. No tachypnea or accessory muscle of respiration use. HEENT: Shows Pallor , no scleral icterus. Oral mucous membrane is dry. NECK: Trachea central, no thyromegaly. LUNGS: Unlabored breathing. Decreased intensity of breath sounds with bilateral expiratory wheeze HEART: S1, S2, regular rate and rhythm. ABDOMEN: Soft, no tenderness , guarding or rigidity EXTREMITIES: No edema of feet. SKIN: No rash, no masses palpable. NEUROLOGICAL: The patient is awake, alert, oriented x3, mood and affect normal Results CBC & Chem 7: 01/03/20 05:59 01/03/20 05:59 Labs: Abnormal Lab Results - Last 24 Hours (Table) 01/02/20 01/03/20 01/03/20 Range/Units 22:40 05:59 05:59 RBC (3.80-5.40) m/uL Sodium 136 L (137-145) mmol/L Carbon Dioxide 19 L (22-30) mmol/L Creatinine 0.39 L (0.52-1.04) mg/dL Glucose 250 H (74-99) mg/dL POC Glucose (mg/dL) (75-99) mg/dL Plasma Lactic Acid Phan 2.1 H* 4.0 H* (0.7-2.0) mmol/L Calcium 7.4 L (8.4-10.2) mg/dL Magnesium 1.1 L (1.6-2.3) mg/dL 01/03/20 01/03/20 01/03/20 Range/Units 05:59 06:12 11:49 RBC 3.77 L (3.80-5.40) m/uL Sodium (137-145) mmol/L Carbon Dioxide (22-30) mmol/L Creatinine (0.52-1.04) mg/dL Glucose (74-99) mg/dL POC Glucose (mg/dL) 224 H 150 H (75-99) mg/dL Plasma Lactic Acid Phan (0.7-2.0) mmol/L Calcium (8.4-10.2) mg/dL Magnesium (1.6-2.3) mg/dL 01/03/20 01/03/20 Range/Units 17:02 20:58 RBC (3.80-5.40) m/uL Sodium (137-145) mmol/L Carbon Dioxide (22-30) mmol/L Creatinine (0.52-1.04) mg/dL Glucose (74-99) mg/dL POC Glucose (mg/dL) 188 H 182 H (75-99) mg/dL Plasma Lactic Acid Phan (0.7-2.0) mmol/L Calcium (8.4-10.2) mg/dL Magnesium (1.6-2.3) mg/dL Microbiology - Last 24 Hours (Table) 01/02/20 14:50 Blood Culture Gram Stain - Preliminary Blood 01/02/20 14:50 Blood Culture - Final Blood Assessment and Plan Assessment: 1-patient with a positive blood culture which has been finalized with anaerobic from positive with a question of possible skin contamination however could be GI source, in this patient who do have underlying COPD and has been admitted to hospital with increasing shortness of breath and cough the chest x-ray was negative for any pneumonia in this patient with no fever or elevated white count (1) Bacteremia Current Visit: Yes Status: Acute Code(s): R78.81 - BACTEREMIA SNOMED Code(s): 6358474 Plan: 1- blood cultures will be repeated to document clearance of bacteremia 2-Obtain a CT of abdominal pelvis with contrast to rule out any intra-abdominal pathology was also evaluated the lower lung at the same time 3-Flagyl 500 mg p.o. every 8 hours We will follow on clinical condition and cultures to further adjust medication if needed Thank you for this consultation we will follow the patient along with you Time with Patient: Greater than 30
[2020-01-04] MEDS: LORazepam 2 MG/ML INJ IV PRN ×7 (01:40→18:59)
[2020-01-04] MEDS: IPRATROPIUM-ALBUTEROL 3 ML NEB INHALATION SCH ×5 (03:41→19:11)
[2020-01-04 06:31] LABS: Glucose,Whole Blood 137 mg/dL (75-99)
[2020-01-04] MEDS: THIAMINE 100 MG TAB PO SCH ×2 (06:41→18:03)
[2020-01-04] MEDS: methylPREDNISolone SOD SUCCI 125 MG/2 ML VIAL IV SCH ×4 (06:41→23:52)
[2020-01-04] MEDS: INSULIN ASPART (NovoLOG) 100 UNIT/ML VIAL SQ SCH ×4 (06:42→21:28)
[2020-01-04] MEDS: SODIUM CHLORIDE 0.9% 1,000 ML IV SCH ×2 (06:42→16:54)
[2020-01-04] MEDS: NICOTINE 7MG/24HR PATCH TRANSDERM SCH (08:13)
[2020-01-04] MEDS: IOPAMIDOL CONTRAST (ORAL USE) VIAL PO PRN ×2 (08:14→09:02)
[2020-01-04] MEDS: HEPARIN SODIUM,PORCINE 5,000 UNIT/ML 1 ML VIAL SQ SCH ×2 (08:14→21:32)
[2020-01-04] MEDS: LEVOFLOXACIN 500 MG TAB PO SCH (08:14)
[2020-01-04] MEDS: VANCOMYCIN 1,250 MG in SODIUM CHLORIDE 0.9% 250 ML IVPB SCH ×3 (10:06→23:43)
--- NOTE | 2020-01-04 10:28 | CT ---
EXAMINATION TYPE: CT abdomen pelvis w con DATE OF EXAM: 01/04/2020 HISTORY: bacteremia CT DLP: 696.5mGycm Automated Exposure Control for Dose Reduction was Utilized. CONTRAST: CT scan of the abdomen and pelvis is performed with IV Contrast, patient injected with 100 mL of Isov ue 300. COMPARISON: CTs dated 11/15/2019 and 09/09/2014 FINDINGS: LUNG BASES: Results pleural effusions. LIVER/GB: Hepatic parenchyma is diffusely hypoattenuated in comparison to that of the spleen, most co mmonly seen in hepatic steatosis. This finding limits evaluation for hepatic masses. Rounded 1.1 x 1. 2 cm lesion is seen near the fissure for the falciform ligament and likely represents more focal fatt y infiltration as this was seen dating back to 09/09/2014. No intrahepatic biliary ductal dilatation. No cholelithiasis on CT. PANCREAS: 5 mm hypoattenuated appears within the pancreatic uncinate process on the axial views howev er this appears to be fat between the pancreatic uncinate process and transverse duodenum on coronal image 40. Remainder the pancreas is unremarkable. SPLEEN: No significant abnormality is seen. ADRENALS: No significant abnormality is seen. KIDNEYS: Too small to accurately characterize right lower pole lateral cortical renal lesions are see n. These are subcentimeter. Otherwise the kidneys enhance and excrete symmetrically with slight delay ed excretion bilaterally. BOWEL: Suboptimal evaluation of the colon as contrast has not reached the colon. The previously quest ioned area of sigmoid colitis does appear similar to the prior and likely due to nondistention. Contr ast within the distal esophagus may relate to reflux or delayed passage No significant abnormality is seen. LYMPH NODES: No greater than 1cm abdominal or pelvic lymph nodes are appreciated. OSSEOUS STRUCTURES: Very minimal degenerative change of the spine.. OTHER: Faint density in the posterior left flank subcutaneous tissues on image 34 as well as 36 could represent early fat necrosis is an area of fat necrosis is seen just inferior to this on image 44 an d another area on image 45 3 multiple areas of injection granulomas and fat necrosis are seen in the gluteal regions. There is extensive atherosclerosis of the abdominal aorta and its branches. IMPRESSION: 1. The sigmoid colon is again nondistended. No progressive inflammatory fat stranding. No significant findings to suggest colitis. 2. Resolution of the previously seen pleural effusions. 3. Very mildly delayed excretion of contrast in the kidneys. Correlate with renal function and urinal ysis. 4. Hepatic steatosis and multiple probable focal fatty infiltration near the fissure for the falcifor m ligament seen on exams dating back to 2013.
[2020-01-04 11:32] LABS: ALT 13 U/L (4-34); AST 24 U/L (14-36); African American GFR (CKD) >90 (>60 ml/min/1.73 sqM); Alkaline Phosphatase 80 U/L (38-126); Anion Gap 8 mmol/L; Blood Urea Nitrogen 10 mg/dL (7-17); Calcium 7.8 mg/dL (8.4-10.2); Carbon Dioxide 23 mmol/L (22-30); Chloride 104 mmol/L (98-107); Glucose 121 mg/dL (74-99); Magnesium 1.5 mg/dL (1.6-2.3); Non-African American GFR(CKD) >90 (>60 ml/min/1.73 sqM); Potassium 3.4 mmol/L (3.5-5.1); Sodium 135 mmol/L (137-145); Total Bilirubin 0.4 mg/dL (0.2-1.3); Total Protein 7.1 g/dL (6.3-8.2)
[2020-01-04 12:08] LABS: Glucose,Whole Blood 122 mg/dL (75-99)
[2020-01-04] MEDS: POTASSIUM CHLORIDE ER 20 MEQ TAB.ER PO SCH ×2 (12:27→13:14)
[2020-01-04] MEDS: ACETAMINOPHEN TAB 325 MG TAB PO PRN (12:28)
[2020-01-04] MEDS ORDERED: Potassium Replacement Protocol 1 EACH MISC MISCELLANE PRN (13:50)
[2020-01-04] MEDS ORDERED: PANTOPRAZOLE 40 MG TABLET PO STA (13:53)
--- NOTE | 2020-01-04 13:59 | P.PN ---
Subjective Progress Note Date: 01/04/20 Patient seen and examined at bedside reports her breathing is better today but she still continues to wheeze, most recent CIWA score was 9 receiving Ativan as needed, patient complaining of general body aches in her back neck and shoulder, also had a bout of diarrhea. CT abdomen and pelvis pending, magnesium low at 1.5. Serum potassium 3.4. Noted positive blood culture patient continues on vancomycin appreciate ID recommendations Objective - Vital Signs Vital signs: Vital Signs Temp 97.6 F 01/04/20 08:00 Pulse 102 H 01/04/20 08:01 Resp 20 01/04/20 08:00 BP 172/79 01/04/20 08:00 Pulse Ox 100 01/04/20 08:00 Intake & Output 01/03/20 01/04/20 01/04/20 18:59 06:59 18:59 Intake Total 440 1340 Balance 440 1340 Weight 60.1 kg 60.2 kg Intake: Intake, IV Titration 800 Amount Sodium Chloride 0.9% 1, 800 000 ml @ 100 mls/hr IV . Q10H [facility] Rx#:[id number] Oral 440 540 Other: Voiding Method Toilet Toilet Toilet # Voids 0 1 1 # Bowel Movements 0 1 - Exam Constitutional: No acute distress, conversant, pleasant Eyes: Anicteric sclerae, moist conjunctiva, no lid-lag, PERRLA ENMT: NC/AT,Oropharynx clear, no erythema, exudates Neck:Supple, FROM, no masses, or JVD, No carotid bruits; No thyromegaly Lungs: Diminished in the bases with prolonged expiratory phase and diffuse wheezes bilaterally Cardiovascular: Heart regular in rate and rhythm, No murmurs, gallops, or rubs no peripheral edema Abdominal: Soft Nontender, nom distended, no guarding, no rebound or rigidity, Normoactive bowel sounds No hepatomegaly, No splenomegaly, No palpable mass No abdominal wall hernia noted Skin: Normal temperature, tone, texture, turgor, No induration No subcutaneous nodules, No rash, lesions, No ulcers Extremities:No digital cyanosis No clubbing, Pedal pulses intact and symmetrical Radial pulses intact and symmetrical Normal gait and station, No calf tenderness Psychiatric: Alert and oriented to person, place and time, Appropriate affect Intact judgement Neuro: Muscles Strength 5/5 in all 4 extremities, Sensation to light touch grossly present throughout, Cranial nerves II-XII grossly intact. No focal sensory deficits - Labs CBC & Chem 7: 01/03/20 05:59 01/04/20 11:09 Labs: Abnormal Lab Results - Last 24 Hours (Table) 01/03/20 01/03/20 01/03/20 Range/Units 11:49 17:02 20:58 POC Glucose (mg/dL) 150 H 188 H 182 H (75-99) mg/dL 01/04/20 Range/Units 06:29 POC Glucose (mg/dL) 137 H (75-99) mg/dL Microbiology - Last 24 Hours (Table) 01/02/20 14:50 Blood Culture Gram Stain - Preliminary Blood Blood Culture - Preliminary Anaerobic Gm Positive Bacill 01/02/20 14:50 Blood Culture - Final Blood Assessment and Plan Assessment: Acute COPD exacerbation likely secondary to viral URI * Chest x-ray showing no cardiopulmonary disease * Continue empiric IV antibiotics with Levaquin, continue systemic steroids with IV Solu-Medrol 60 mg IV q6 * Appreciate pulmonary recommendations Lactic acidosis * In the setting of acute alcohol intoxication in a patient with chronic alcohol dependence * Resolved with IV fluids Alcohol intoxication with high risk for withdrawal * Continuous symptom triggered CIWA withdrawal protocol with Ativan * Initiate Librium maintenance * Patient high risk for DTs continue to monitor closely Hypomagnesemia * Replace with 3 g IV and recheck tomorrow * Initiated on daily placement starting tomorrow Bacteremia * Leukocytosis resolved, patient afebrile however 1 blood culture was positive patient started empirically on vancomycin, ID consult for further recommendations * CT abdomen and pelvis not suggestive of colitis or any infectious process, patient started on Flagyl by ID appreciate any further recommendations Hypokalemia * Continue potassium replacement protocol Left collarbone fracture and Right shoulder pain * No acute abnormality of the shoulder some healing left clinic nuclear fracture * Continue Tylenol as needed and ibuprofen Hypertension * Continue home medications Continue to follow patient's clinical course
[2020-01-04] MEDS: MAGNESIUM SULFATE-D5W PMX 1 GM in DEXTROSE/WATER 1 100ML.BAG IVPB SCH ×3 (14:39→16:53)
[2020-01-04] MEDS: chlordiazePOXIDE 25 MG CAP PO SCH ×2 (15:57→21:32)
[2020-01-04] MEDS ORDERED: VANCOMYCIN TROUGH DUE 1 EACH MISC MISCELLANE ONE (16:00)
--- NOTE | 2020-01-04 16:33 | P.PN ---
Subjective Progress Note Date: 01/04/20 Principal diagnosis: Acute COPD exacerbation secondary to symptoms of upper respiratory infection and bronchitis This is a 59-year-old female patient with known history of COPD, alcoholism and she drinks a pint of hard liquor/whiskey on a daily basis and addition to history of fibromyalgia, hypertension, hyperlipidemia, chronic pain and possible narcotic medication use/abuse. The patient has been having pain for the past 6 weeks after she suffered a fall and fractured her left collarbone. [facility] and she was advised to continue and proceed with conservative management. She is coming in today for worsening shortness of breath. She developed symptoms of URI. She has a dry cough congestion and chest tightness wheezing and increased shortness of breath. She doesn't follow- up typically by primary care physician. She does not use any maintenance respiratory medications or inhalers. She has no nebulizer at home. She has more than [id number] smoking history. At a time of admission, she was having active bronchospasm wheezing and emergency. She was a bit tachypneic. Her white cell count was at 14.1. Her lactic acid level was at 3.9. Troponins were less than 0.01. EKG showed sinus tachycardia. Over the 3 was negative. Chest x-ray was consistent with COPD. The patient was covered empirically with Levaquin. The patient was placed on Solu-Medrol [id number]. She is also on DuoNeb nebulized treatments around the clock to IV and when necessary. On 01/04/2020 patient seen in follow-up on selective care unit, still quite dyspneic and bronchospastic, only mild improvement, she remains on 12 the oxygen of the pulse ox of 96%, hemodynamically stable, afebrile. She is somewhat tremulous, and mildly anxious, and to use on CIWA protocol, blood culture showed anaerobic gram-positive bacilli, final blood culture is pending. Sodium is 135, potassium 3.4, chloride is 104, CO2 is 23, BUN is 10, creatinine 0.39, magnesium is 1.5, LFTs were within normal limits, patient is on Levaquin and vancomycin, breathing treatments, IV steroids. Follow up blood cultures have been negative the 24-hour louisa. CT of abdomen and pelvis was completed showing no significant findings to suggest colitis, or other trauma abdominal process, the solution of the previously seen pleural effusions, hepatic steatosis and multiple probable focal fatty infiltrations Objective - Vital Signs Vital signs: Vital Signs Temp 98.1 F 01/04/20 12:00 Pulse 103 H 01/04/20 12:00 Resp 18 01/04/20 12:00 BP 138/73 01/04/20 12:00 Pulse Ox 96 01/04/20 12:00 Intake & Output 01/03/20 01/04/20 01/04/20 18:59 06:59 18:59 Intake Total 440 1340 120 Balance 440 1340 120 Weight 60.1 kg 60.2 kg Intake: Intake, IV Titration 800 Amount Sodium Chloride 0.9% 1, 800 000 ml @ 100 mls/hr IV . Q10H COUNT INCLUDES THE [facility] Rx#:[id number] Oral 440 540 120 Other: Voiding Method Toilet Toilet Toilet # Voids 0 1 1 # Bowel Movements 0 1 - Exam GENERAL EXAM: Alert, very pleasant, 59-year-old female, on 2 L of oxygen and the pulse ox 96%, dyspneic, bronchospastic, mildly anxious and tremulous comfortable in no apparent distress. HEAD: Normocephalic/atraumatic. EYES: Normal reaction of pupils, equal size. Conjunctiva pink, sclera white. NOSE: Clear with pink turbinates. THROAT: No erythema or exudates. NECK: No masses, no JVD, no thyroid enlargement, no adenopathy. CHEST: No chest wall deformity. Symmetrical expansion. LUNGS: Equal air entry with diffuse wheezes CVS: Regular rate and rhythm, normal S1 and S2, no gallops, no murmurs, no rubs ABDOMEN: Soft, nontender. No hepatosplenomegaly, normal bowel sounds, no guarding or rigidity. EXTREMITIES: No clubbing, no edema, no cyanosis, 2+ pulses and upper and lower extremities. MUSCULOSKELETAL: Muscle strength and tone normal. SPINE: No scoliosis or deformity SKIN: No rashes CENTRAL NERVOUS SYSTEM: Alert and oriented -3. No focal deficits, tone is normal in all 4 extremities. PSYCHIATRIC: Alert and oriented -3. Appropriate affect. Intact judgment and insight. - Labs CBC & Chem 7: 01/03/20 05:59 01/04/20 11:09 Labs: Abnormal Lab Results - Last 24 Hours (Table) 01/03/20 01/03/20 01/04/20 Range/Units 17:02 20:58 06:29 Sodium (137-145) mmol/L Potassium (3.5-5.1) mmol/L Creatinine (0.52-1.04) mg/dL Glucose (74-99) mg/dL POC Glucose (mg/dL) 188 H 182 H 137 H (75-99) mg/dL Calcium (8.4-10.2) mg/dL Magnesium (1.6-2.3) mg/dL 01/04/20 01/04/20 Range/Units 11:09 12:00 Sodium 135 L (137-145) mmol/L Potassium 3.4 L (3.5-5.1) mmol/L Creatinine 0.39 L (0.52-1.04) mg/dL Glucose 121 H (74-99) mg/dL POC Glucose (mg/dL) 122 H (75-99) mg/dL Calcium 7.8 L (8.4-10.2) mg/dL Magnesium 1.5 L (1.6-2.3) mg/dL Microbiology - Last 24 Hours (Table) 01/03/20 12:58 Blood Culture - Preliminary Blood No Growth after 24 hours 01/02/20 14:50 Blood Culture Gram Stain - Preliminary Blood Blood Culture - Preliminary Anaerobic Gm Positive Bacill Assessment and Plan Plan: Assessment: 1 acute COPD exacerbation secondary to symptoms of URI/bronchitis. 2 shortness of breath secondary to above 3 chronic tobacco smoker 4 history of alcoholism with signs of delirium tremens and alcohol withdrawal with increased shakiness and irritability 5 history of falls 6 left clavicular fracture, healing 7 hypertension 8 chronic pain involving the back and the neck and the shoulder and rib cage along with history of fibromyalgia 9 history of diverticulosis/complicated diverticulitis 10 history of kidney stones 11 history of acid reflux 12 gram-positive bacillus in the blood, likely a contaminant Plan: Continue current medical treatments, IV steroids, breathing treatments, antibiotics, still quite dyspneic and bronchospastic, and mildly anxious and shaky, continue monitoring for signs of delirium tremens and utilizing CIWA. 18 safety precautions, will continue to follow I performed a history & physical examination of the patient and discussed their management with my nurse practitioner, Julianna Negron. I reviewed the nurse practitioner's note and agree with the documented findings and plan of care. Lung sounds are positive for diffuse wheezes throughout the lung nix. The findings and the impression was discussed with the patient. I attest to the documentation by the nurse practitioner. Time with Patient: Less than 30
[2020-01-04 17:08] LABS: Glucose,Whole Blood 156 mg/dL (75-99)
[2020-01-04] MEDS: IBUPROFEN 400 MG TAB PO SCH (18:03)
[2020-01-04 21:29] LABS: Glucose,Whole Blood 128 mg/dL (75-99)
--- NOTE | 2020-01-04 23:41 | PN ---
PROGRESS NOTE DATE OF SERVICE: 01/04/2020. REASON FOR FOLLOWUP: Bacteremia. INTERVAL HISTORY: The patient is currently afebrile. She has been breathing comfortably. Still complaining of aches and pains all over. No chest pain. Did have a cough, not bringing up any sputum. No abdominal pain, diarrhea. PHYSICAL EXAMINATION: Blood pressure 152/75 with a pulse of 90, temperature 98. She is 98% on room air. General description is a middle-aged female lying in bed in no distress. Respiratory system: Unlabored breathing. Coarse breath sounds bilaterally. Heart S1, S2. Regular rate, and rhythm. Abdomen soft, no tenderness. Extremities are no edema of the feet. LABS: Hemoglobin is 11, BUN of 10, creatinine 0.39, Vanco trough 14.4. Blood with anaerobic gram-positive. Blood culture repeat has been negative so far. A CT abdomen and pelvis did not show any intra-abdominal pathology. DIAGNOSTIC IMPRESSION AND PLAN: Patient with a positive blood culture with anaerobic gram-negative gram-positive bacilli, questionable skin contamination as we do not have any obvious clinical focus for this bacteremia. Repeat blood culture has been negative. Patient at this time recommends to discontinue antibiotics and monitor the patient closely off antibiotic therapy. Continue supportive care. MMODL / IJN: [id number] / MTDD
[2020-01-05] MEDS: IPRATROPIUM-ALBUTEROL 3 ML NEB INHALATION SCH ×3 (00:58→11:21)
[2020-01-05] MEDS ORDERED: IPRATROPIUM-ALBUTEROL 3 ML NEB INHALATION PRN (00:58)
[2020-01-05] MEDS: ACETAMINOPHEN TAB 325 MG TAB PO PRN (03:19)
[2020-01-05] MEDS: LORazepam 2 MG/ML INJ IV PRN ×2 (03:19→07:27)
[2020-01-05] MEDS: SODIUM CHLORIDE 0.9% 1,000 ML IV SCH ×2 (03:48→12:09)
[2020-01-05] MEDS: methylPREDNISolone SOD SUCCI 125 MG/2 ML VIAL IV SCH ×2 (05:07→12:09)
[2020-01-05] MEDS: VANCOMYCIN 1,250 MG in SODIUM CHLORIDE 0.9% 250 ML IVPB SCH (05:14)
[2020-01-05 07:13] LABS: Glucose,Whole Blood 122 mg/dL (75-99)
[2020-01-05] MEDS: INSULIN ASPART (NovoLOG) 100 UNIT/ML VIAL SQ SCH ×2 (07:18→12:05)
[2020-01-05] MEDS: THIAMINE 100 MG TAB PO SCH (07:24)
[2020-01-05] MEDS: IBUPROFEN 400 MG TAB PO SCH ×2 (07:24→12:08)
[2020-01-05] MEDS: HEPARIN SODIUM,PORCINE 5,000 UNIT/ML 1 ML VIAL SQ SCH (07:25)
[2020-01-05] MEDS: LEVOFLOXACIN 500 MG TAB PO SCH (07:25)
[2020-01-05] MEDS: chlordiazePOXIDE 25 MG CAP PO SCH (07:25)
[2020-01-05] MEDS: NICOTINE 7MG/24HR PATCH TRANSDERM SCH (07:26)
[2020-01-05] MEDS ORDERED: PANTOPRAZOLE 40 MG TABLET PO SCH (07:30)
[2020-01-05 07:48] LABS: African American GFR (CKD) >90 (>60 ml/min/1.73 sqM); Non-African American GFR(CKD) >90 (>60 ml/min/1.73 sqM)
[2020-01-05 08:34] VITALS: BP 146/85; RESP 18; TEMP 97.5
[2020-01-05] MEDS ORDERED: MAGNESIUM OXIDE 400 MG TAB PO SCH (09:00)
[2020-01-05 09:03] LABS: Basophils % (A) 0 %; Eosinophils # (A) 0.1 k/uL (0-0.7); Eosinophils % (A) 1 %; HCT 39.8 % (34.0-46.0); HGB 13.3 gm/dL (11.4-16.0); Lymphocytes # (A) 1.1 k/uL (1.0-4.8); Lymphocytes % (A) 9 %; MCH 32.4 pg (25.0-35.0); MCHC 33.5 g/dL (31.0-37.0); MCV 96.7 fL (80.0-100.0); Mean Platelet Volume 9.3; Monocytes # (A) 0.4 k/uL (0-1.0); Monocytes % (A) 3 %; Neutrophils # (A) 10.7 k/uL (1.3-7.7); Neutrophils % (A) 86 %; Platelet Count 224 k/uL (150-450); RBC 4.12 m/uL (3.80-5.40); RDW 13.7 % (11.5-15.5); WBC 12.3 k/uL (3.8-10.6)
[2020-01-05 09:12] LABS: Anion Gap 8 mmol/L; Blood Urea Nitrogen 12 mg/dL (7-17); Calcium 8.3 mg/dL (8.4-10.2); Carbon Dioxide 19 mmol/L (22-30); Chloride 115 mmol/L (98-107); Glucose 138 mg/dL (74-99); Potassium 3.5 mmol/L (3.5-5.1); Sodium 142 mmol/L (137-145)
[2020-01-05] MEDS ORDERED: ALPRAZolam 1 MG TAB PO PRN (10:34)
--- NOTE | 2020-01-05 10:52 | P.PN ---
Subjective Progress Note Date: 01/05/20 Patient seen and examined at bedside, he reports wheezing dyspnea on exertion, also states that she wheezes at baseline, currently not on room air. Nurse reports patient is been very anxious, however no signs of tremulousness or shakiness or other signs of withdrawals or DTs. The patient mentions previously being on Xanax a couple years ago, I think she does having underlying anxiety not related to withdrawals. Appreciate recommendations by ID antibiotics discontinued Objective - Vital Signs Vital signs: Vital Signs Temp 97.5 F L 01/05/20 06:56 Pulse 102 H 01/05/20 09:19 Resp 18 01/05/20 07:30 BP 146/85 01/05/20 06:56 Pulse Ox 94 L 01/05/20 06:56 Intake & Output 01/04/20 01/05/20 01/05/20 18:59 06:59 18:59 Intake Total 360 20 Balance 360 20 Intake: Oral 360 20 Other: Voiding Method Toilet Toilet Toilet # Voids 1 1 # Bowel Movements 1 1 - Exam Constitutional: No acute distress, conversant, pleasant Eyes: Anicteric sclerae, moist conjunctiva, no lid-lag, PERRLA ENMT: NC/AT,Oropharynx clear, no erythema, exudates Neck:Supple, FROM, no masses, or JVD, No carotid bruits; No thyromegaly Lungs: Diminished in the bases with prolonged expiratory phase and diffuse wheezes bilaterally Cardiovascular: Heart regular in rate and rhythm, No murmurs, gallops, or rubs no peripheral edema Abdominal: Soft Nontender, nom distended, no guarding, no rebound or rigidity, Normoactive bowel sounds No hepatomegaly, No splenomegaly, No palpable mass No abdominal wall hernia noted Skin: Normal temperature, tone, texture, turgor, No induration No subcutaneous nodules, No rash, lesions, No ulcers Extremities:No digital cyanosis No clubbing, Pedal pulses intact and symmetrical Radial pulses intact and symmetrical Normal gait and station, No calf tenderness Psychiatric: Alert and oriented to person, place and time, Appropriate affect Intact judgement Neuro: Muscles Strength 5/5 in all 4 extremities, Sensation to light touch grossly present throughout, Cranial nerves II-XII grossly intact. No focal sensory deficits - Labs CBC & Chem 7: 01/05/20 06:30 01/05/20 06:30 Labs: Abnormal Lab Results - Last 24 Hours (Table) 01/04/20 01/04/20 01/04/20 Range/Units 11:09 12:00 16:51 WBC (3.8-10.6) k/uL Neutrophils # (1.3-7.7) k/uL Sodium 135 L (137-145) mmol/L Potassium 3.4 L (3.5-5.1) mmol/L Chloride (98-107) mmol/L Carbon Dioxide (22-30) mmol/L Creatinine 0.39 L (0.52-1.04) mg/dL Glucose 121 H (74-99) mg/dL POC Glucose (mg/dL) 122 H 156 H (75-99) mg/dL Calcium 7.8 L (8.4-10.2) mg/dL Magnesium 1.5 L (1.6-2.3) mg/dL 01/04/20 01/05/20 01/05/20 Range/Units 21:28 06:30 06:30 WBC 12.3 H (3.8-10.6) k/uL Neutrophils # 10.7 H (1.3-7.7) k/uL Sodium (137-145) mmol/L Potassium (3.5-5.1) mmol/L Chloride 115 H (98-107) mmol/L Carbon Dioxide 19 L (22-30) mmol/L Creatinine 0.35 L (0.52-1.04) mg/dL Glucose 138 H (74-99) mg/dL POC Glucose (mg/dL) 128 H (75-99) mg/dL Calcium 8.3 L (8.4-10.2) mg/dL Magnesium (1.6-2.3) mg/dL 01/05/20 Range/Units 07:04 WBC (3.8-10.6) k/uL Neutrophils # (1.3-7.7) k/uL Sodium (137-145) mmol/L Potassium (3.5-5.1) mmol/L Chloride (98-107) mmol/L Carbon Dioxide (22-30) mmol/L Creatinine (0.52-1.04) mg/dL Glucose (74-99) mg/dL POC Glucose (mg/dL) 122 H (75-99) mg/dL Calcium (8.4-10.2) mg/dL Magnesium (1.6-2.3) mg/dL Microbiology - Last 24 Hours (Table) 01/02/20 14:50 Blood Culture Gram Stain - Final Blood Blood Culture - Final Anaerobic Gm Positive Bacill 01/03/20 12:58 Blood Culture - Preliminary Blood No Growth after 24 hours Assessment and Plan Assessment: Acute COPD exacerbation likely secondary to viral URI * Chest x-ray showing no cardiopulmonary disease * continue systemic steroids with IV Solu-Medrol 60 mg IV q6, antibiotics discontinued * Appreciate pulmonary recommendations * Plan for home O2 evaluation Lactic acidosis * In the setting of acute alcohol intoxication in a patient with chronic alcohol dependence * Resolved with IV fluids Alcohol intoxication with high risk for withdrawal * Continuous symptom triggered CIWA withdrawal protocol with Ativan * Continue Librium maintenance * Patient high risk for DTs continue to monitor closely Hypomagnesemia * Resolved after replacement * Initiated on daily placement starting tomorrow Bacteremia * Leukocytosis resolved, patient afebrile however 1 blood culture was positive patient started empirically on vancomycin, ID consult for further recommendations * CT abdomen and pelvis not suggestive of colitis or any infectious process, patient started on Flagyl by ID appreciate any further recommendations Hypokalemia * Continue potassium replacement protocol Left collarbone fracture and Right shoulder pain * No acute abnormality of the shoulder some healing left clinic nuclear fracture * Continue Tylenol as needed and ibuprofen Hypertension * Continue home medications Continue to follow patient's clinical course
[2020-01-05 11:23] VITALS: PULSE 100
[2020-01-05 11:48] LABS: Glucose,Whole Blood 105 mg/dL (75-99)
--- NOTE | 2020-01-05 12:20 | P.PN ---
Subjective Progress Note Date: 01/05/20 On today's evaluation of the 2019 the patient is feeling better in terms of her breathing. She is on Librium for delirium tremens pH was seen by orthopedic surgery and the patient was found to have an old fracture of the left clavicle and she has ongoing left shoulder pain for which she was given ibuprofen. She was also offered a sling to be followed up on outpatient basis. No confusion. No hallucinations. Her bronchospasm wheezing is improved. Her cough and chest tightness improved. She is on bronchodilators and she is also on systemic steroids with Solu Medrol 60 mg every 6 hours. A CAT scan of the abdomen and the pelvis was done yesterday for reported bacteremia. The patient has no significant abnormalities. The sigmoid colon was nondistended. There was some hepatic steatosis and multiple fatty infiltration of the liver that dates back 2013 and this is related to alcoholism. The previously noted pleural effusion has recovered. Note that one of the 4 blood cultures came back positive for positive bacillus. This is likely a contaminant. Objective - Vital Signs Vital signs: Vital Signs Temp 97.5 F L 01/05/20 06:56 Pulse 100 01/05/20 11:21 Resp 18 01/05/20 07:30 BP 146/85 01/05/20 06:56 Pulse Ox 94 L 01/05/20 06:56 Intake & Output 01/04/20 01/05/20 01/05/20 18:59 06:59 18:59 Intake Total 360 20 Balance 360 20 Intake: Oral 360 20 Other: Voiding Method Toilet Toilet Toilet # Voids 1 1 # Bowel Movements 1 1 - Exam GENERAL EXAM: Alert, very pleasant, 59-year-old female, on 2 L of oxygen and the pulse ox 96%, dyspneic, bronchospastic, mildly anxious and tremulous comfortable in no apparent distress. HEAD: Normocephalic/atraumatic. EYES: Normal reaction of pupils, equal size. Conjunctiva pink, sclera white. NOSE: Clear with pink turbinates. THROAT: No erythema or exudates. NECK: No masses, no JVD, no thyroid enlargement, no adenopathy. CHEST: No chest wall deformity. Symmetrical expansion. LUNGS: Equal air entry with diffuse wheezes CVS: Regular rate and rhythm, normal S1 and S2, no gallops, no murmurs, no rubs ABDOMEN: Soft, nontender. No hepatosplenomegaly, normal bowel sounds, no guarding or rigidity. EXTREMITIES: No clubbing, no edema, no cyanosis, 2+ pulses and upper and lower extremities. MUSCULOSKELETAL: Muscle strength and tone normal. SPINE: No scoliosis or deformity SKIN: No rashes CENTRAL NERVOUS SYSTEM: Alert and oriented -3. No focal deficits, tone is normal in all 4 extremities. PSYCHIATRIC: Alert and oriented -3. Appropriate affect. Intact judg - Labs CBC & Chem 7: 01/05/20 06:30 01/05/20 06:30 Labs: Abnormal Lab Results - Last 24 Hours (Table) 01/04/20 01/04/20 01/05/20 Range/Units 16:51 21:28 06:30 WBC (3.8-10.6) k/uL Neutrophils # (1.3-7.7) k/uL Chloride 115 H (98-107) mmol/L Carbon Dioxide 19 L (22-30) mmol/L Creatinine 0.35 L (0.52-1.04) mg/dL Glucose 138 H (74-99) mg/dL POC Glucose (mg/dL) 156 H 128 H (75-99) mg/dL Calcium 8.3 L (8.4-10.2) mg/dL 01/05/20 01/05/20 01/05/20 Range/Units 06:30 07:04 11:46 WBC 12.3 H (3.8-10.6) k/uL Neutrophils # 10.7 H (1.3-7.7) k/uL Chloride (98-107) mmol/L Carbon Dioxide (22-30) mmol/L Creatinine (0.52-1.04) mg/dL Glucose (74-99) mg/dL POC Glucose (mg/dL) 122 H 105 H (75-99) mg/dL Calcium (8.4-10.2) mg/dL Microbiology - Last 24 Hours (Table) 01/02/20 14:50 Blood Culture Gram Stain - Final Blood Blood Culture - Final Anaerobic Gm Positive Bacill 01/03/20 12:58 Blood Culture - Preliminary Blood No Growth after 24 hours Assessment and Plan Plan: 1 acute COPD exacerbation secondary to symptoms of URI/bronchitis. Clinically improving 2 shortness of breath secondary to above 3 chronic tobacco smoker 4 history of alcoholism with signs of delirium tremens and alcohol withdrawal with increased shakiness and irritability 5 history of falls 6 left clavicular fracture, healing 7 hypertension 8 chronic pain involving the back and the neck and the shoulder and rib cage along with history of fibromyalgia 9 history of diverticulosis/complicated diverticulitis 10 history of kidney stones 11 history of acid reflux 12 gram-positive bacillus in the blood, likely a contaminant. The CAT Scan of the Abdomen Showed No Acute Abnormalities. CAT Scan of the Pelvis Was Also within Normal Limits. Plan Continue management of COPD exacerbation with a combination of bronchodilators steroids and antibiotics, she is clinically improving. Significant concern for delirium tremens and the patient is on the CIWA protocol him a she was also started on Librium for delirium tremens. We'll avoid giving the patient narcotics as the patient has history of narcotic dependence. We'll use Tylenol for now. He was also given nonsteroidal anti- inflammatory medication. We'll continue to follow. Smoking cessation counseling was done. Alcoholism is obviously an ongoing problem for this patient Start tapering the steroids as of tomorrow. We'll continue to follow.
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
--- NOTE | 2020-01-09 17:01 | P.DS ---
Providers Date of admission: 01/02/20 16:30 Expected date of discharge: 01/05/20 Attending physician: Marisela Malik DO Consults: 01/02/20 16:47 Consult Physician Routine Consulting Provider: Monika Lemus Consult Reason/Comments: COPD Do you want consulting provider notified?: Yes 01/02/20 16:50 Consult Physician Routine Consulting Provider: Spencer Diaz Consult Reason/Comments: Collar bone fracture Do you want consulting provider notified?: Yes 01/03/20 08:12 Consult Physician Routine Consulting Provider: Alber Valencia Consult Reason/Comments: Pos blood culture Do you want consulting provider notified?: Yes Primary care physician: Stated None Hospital Course: Discharge diagnosis Acute COPD exacerbation Viral bronchitis Acute alcohol intoxication superimposed on chronic alcoholism Hypomagnesemia Hypokalemia Essential hypertension Left shoulder pain due to Left collar bone fracture Positive blood culture due to skin contaminant Left AGAINST MEDICAL ADVICE Hospital course The patient is a 59-year-old female with a past medical history of COPD that presented to the ER with shortness of breath and wheezing and was admitted for acute COPD exacerbation. She was started on standard treatment with systemic steroids with IV Solu-Medrol along with empiric antibiotics with Levaquin and she is also placed on supplemental oxygen with bronchodilator DuoNeb breathing treatments scheduled and PRN. No chest x-ray was negative for pneumonia she was noted to have elevated lactic acid secondary to alcoholic ketosis and starvation. She also placed on symptom triggered CIWA withdrawal protocol with when necessary Ativan and was initiated on scheduled Librium. The patient complained of left shoulder pain this is attributed to her left clavicular fracture, orthopedics was consulted and reported that the patient was noncompliant with follow-up and that the fracture was proximately 8 weeks old. The patient was noted to have a positive blood culture and was started empirically on IV vancomycin and infectious disease was consulted and cultures grew gram-positive bacilli that was attributed to being a skin contaminant. Patient is noted to have some electrolyte abnormalities that were corrected during her hospitalization. With treatment of the patient's status gradually improved as her wheezing improved. The patient continued to demand narcotics for treatment of her shoulder pain and decided to leave [facility] because I told her that I would not give narcotics for fracture that was 8 weeks old. Despite leaving [facility], Prescriptions were sent to her pharmacy. This discharge process took approximately 35 minutes Focused exam Respiratory: Equal air entry diffuse wheezes on room air, unlabored Patient Condition at Discharge: Good Plan - Discharge Summary New Discharge Prescriptions: New chlordiazePOXIDE HCl [Librium] See Taper PO TID #18 cap Magnesium Oxide [Mag-Ox] 400 mg PO BID #60 tab Pantoprazole [Protonix] 40 mg PO AC-BRKFST #30 tablet. Thiamine [Vitamin B-1] 100 mg PO BID-W/MEALS #60 tab predniSONE See Taper PO DAILY 14 Days #39 tab Albuterol Inhaler [Ventolin Hfa Inhaler] 2 - 4 puff INHALATION RT-Q4H PRN #1 inhaler PRN Reason: wheezing Discharge Medication List Albuterol Inhaler [Ventolin Hfa Inhaler] 2 - 4 puff INHALATION RT-Q4H PRN #1 inhaler 01/05/20 [Rx] Magnesium Oxide [Mag-Ox] 400 mg PO BID #60 tab 01/05/20 [Rx] Pantoprazole [Protonix] 40 mg PO AC-BRKFST #30 tablet. 01/05/20 [Rx] Thiamine [Vitamin B-1] 100 mg PO BID-W/MEALS #60 tab 01/05/20 [Rx] chlordiazePOXIDE HCl [Librium] See Taper PO TID #18 cap 01/05/20 [Rx] predniSONE See Taper PO DAILY 14 Days #39 tab 01/05/20 [Rx] Follow up Appointment(s)/Referral(s): Josefa Hudson MD [STAFF PHYSICIAN] - 01/20/20 10:15 am () None,Stated [Primary Care Provider] - 1-2 days Patient Instructions/Handouts: COPD (Chronic Obstructive Pulmonary Disease) (DC), Abuse of Alcohol (DC) Discharge Disposition: Left Against Medical Advice
== END 2020-01-05 14:10 | disposition left against medical advice (07) | DRG 191 ==
LOC: EC 13:46 → 3SCARD 16:30 → 4SSUR 01-04 19:27
PROVIDERS: ADMIT Internal Medicine; ATTEND Internal Medicine
DX: J43.9 Emphysema, unspecified (principal); E87.2 Acidosis; F10.231 Alcohol dependence with withdrawal delirium; J90 Pleural effusion, not elsewhere classified; E78.5 Hyperlipidemia, unspecified; E83.42 Hypomagnesemia; E86.0 Dehydration; E87.6 Hypokalemia; F17.210 Nicotine dependence, cigarettes, uncomplicated; F32.9 Major depressive disorder, single episode, unspecified; F43.10 Post-traumatic stress disorder, unspecified; G89.29 Other chronic pain; I10 Essential (primary) hypertension; J06.9 Acute upper respiratory infection, unspecified; K76.0 Fatty (change of) liver, not elsewhere classified; M79.7 Fibromyalgia; S42.002D Fracture of unspecified part of left clavicle, subsequent encounter for fracture with routine healing; T73.0XXA Starvation, initial encounter; Z91.81 History of falling; Y90.8 Blood alcohol level of 240 mg/100 ml or more; F10.229 Alcohol dependence with intoxication, unspecified; Z80.0 Family history of malignant neoplasm of digestive organs; Z80.3 Family history of malignant neoplasm of breast; Z83.3 Family history of diabetes mellitus; Z81.1 Family history of alcohol abuse and dependence; Z87.19 Personal history of other diseases of the digestive system; Z87.442 Personal history of urinary calculi; Z91.19 Patient's noncompliance with other medical treatment and regimen; Z86.010 Personal history of colon polyps; Z86.14 Personal history of Methicillin resistant Staphylococcus aureus infection; K57.90 Diverticulosis of intestine, part unspecified, without perforation or abscess without bleeding; Z79.899 Other long term (current) drug therapy; K21.9 Gastro-esophageal reflux disease without esophagitis
CPT/HCPCS: 36415; 71046; 74177; 80048; 80053; 80202; 80320; 83605; 83735; 84484; 85025; 85610; 85730; 87040; 87502; 93005; 94640; 94760; 96365; 96367; 96372; 96375; 96376; 99285

== ENCOUNTER 2020-01-16 07:42 | Emergency (ER) | payer MEDICARE, OTHER ==
[2020-01-16 07:52] VITALS: RESP 16; TEMP 97.9
[2020-01-16] MEDS ORDERED: KETOROLAC 60 MG/2 ML VIAL IM STA (07:59)
[2020-01-16] MEDS ORDERED: ORPHENADRINE 30 MG/ML 2 ML VIAL IM STA (07:59)
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
[2020-01-16] MEDS ORDERED: ACET/COD 300 MG/30 MG STARTER PACK 6 TAB BTL PO STA (08:57)
[2020-01-16 09:16] VITALS: BP 121/78; PULSE 89
== END 2020-01-16 09:15 | disposition home or self-care (01) ==
LOC: EC 07:42
DX: S46.912A Strain of unspecified muscle, fascia and tendon at shoulder and upper arm level, left arm, initial encounter (principal); S80.02XA Contusion of left knee, initial encounter; M54.5 Low back pain; S42.002D Fracture of unspecified part of left clavicle, subsequent encounter for fracture with routine healing; R06.2 Wheezing; R05 Cough; F17.200 Nicotine dependence, unspecified, uncomplicated; Z88.8 Allergy status to other drugs, medicaments and biological substances; Z86.14 Personal history of Methicillin resistant Staphylococcus aureus infection; Z87.09 Personal history of other diseases of the respiratory system; Z98.1 Arthrodesis status; X58.XXXD Exposure to other specified factors, subsequent encounter; Y04.2XXA Assault by strike against or bumped into by another person, initial encounter; Y92.009 Unspecified place in unspecified non-institutional (private) residence as the place of occurrence of the external cause
CPT/HCPCS: 72070; 72100; 73030; 73562; 71046; 99284; 96372 ×2; J2360; J1885

== ENCOUNTER 2020-02-11 12:56 | Inpatient (IN) | payer MEDICARE, OTHER ==
[2020-02-11] MEDS ORDERED: SODIUM CHLORIDE 0.9% 500 ML 500 ML IV ONE (13:14)
[2020-02-11] MEDS ORDERED: MORPHINE SULFATE 4 MG/ML SYRINGE IVP STA ×2 (13:26→15:32)
[2020-02-11] MEDS ORDERED: DEXAMETHASONE SOD PHOSPHATE 10 MG/ML 1 ML VIAL IV STA (13:26)
[2020-02-11 14:33] LABS: Basophils % (A) 0 %; Eosinophils # (A) 0.1 k/uL (0-0.7); Eosinophils % (A) 1 %; HGB 13.4 gm/dL (11.4-16.0); Lymphocytes # (A) 2.5 k/uL (1.0-4.8); Lymphocytes % (A) 36 %; MCH 31.5 pg (25.0-35.0); MCV 98.6 fL (80.0-100.0); Mean Platelet Volume 7.9; Monocytes # (A) 0.3 k/uL (0-1.0); Monocytes % (A) 5 %; Neutrophils % (A) 56 %; RBC 4.26 m/uL (3.80-5.40)
[2020-02-11 14:36] LABS: Platelet Count 105 k/uL (150-450)
--- NOTE | 2020-02-11 14:39 | CT ---
EXAMINATION TYPE: CT brain consuelo wo con DATE OF EXAM: 02/11/2020 COMPARISON: 08/07/2019 HISTORY: Fall this am CT DLP: 1301.5 mGycm, Automated exposure control for dose reduction was used. CONTRAST: Patient injected with 0 mL of Isovue 300. CT of the brain is performed utilizing 3 mm thick sections through the posterior fossa and 3 mm thick sections through the remaining calvarium. Study is performed within 24 hours of arrival to the hospital. No abnormal hyperdensity is present to suggest an acute intracranial hemorrhage. No mass lesion is evident. No acute infarcts are evident. Ventricles and sulci are appropriate for the patient age. Paranasal sinuses and mastoid air cells within the [id number]-vt-oxhx are clear. There is soft tissue swelling over the left orbit. No underlying fracture is evident orbits appear sy mmetrical as visualized. Nasal bones appear intact. IMPRESSIONS: 1. No acute intracranial process. 2. Soft tissue slightly over the left orbit. CT cervical spine. COMPARISON: 08/07/2019 CT of the cervical spine is performed in the axial plane at 2 mm thick sections. Reconstructed image s in the coronal, and sagittal plane are reviewed on the computer. No acute fractures are evident. Vertebral body alignment is straightened. There is an anterior cervical fusion C5-C7. Spacers in the vertebral body space Disc heights are preserved. Vertebral body heights are preserved. No spinal canal stenosis is evident. Uncovertebral joint hypertrophy and some facet hypertrophy is present. Some foraminal narrowing is pr esent. IMPRESSIONS: 1. No acute osseous abnormality. 2. Postsurgical changes. 3. Degenerative changes.
[2020-02-11 14:44] LABS: ALT 101 U/L (4-34); AST 216 U/L (14-36); African American GFR (CKD) >90 (>60 ml/min/1.73 sqM); Albumin 2.9 g/dL (3.5-5.0); Alkaline Phosphatase 117 U/L (38-126); Anion Gap 9 mmol/L; Blood Urea Nitrogen 7 mg/dL (7-17); Calcium 6.6 mg/dL (8.4-10.2); Carbon Dioxide 23 mmol/L (22-30); Chloride 113 mmol/L (98-107); Glucose 72 mg/dL (74-99); Non-African American GFR(CKD) >90 (>60 ml/min/1.73 sqM); Sodium 145 mmol/L (137-145); Total Bilirubin 0.2 mg/dL (0.2-1.3); Total Protein 5.7 g/dL (6.3-8.2)
--- NOTE | 2020-02-11 14:49 | XR ---
EXAMINATION TYPE: XR pelvis AP view DATE OF EXAM: 02/11/2020 COMPARISON: None HISTORY: Fall, pain TECHNIQUE: AP pelvis FINDINGS: Femoral heads articulate with the acetabulum. No acute fractures are evident. Symphysis pub is and sacroiliac joints are normal. Normal bowel gas is present. Some scattered granuloma within the gluteal regions IMPRESSION: 1. No acute osseous abnormality AP pelvis.
--- NOTE | 2020-02-11 14:50 | XR ---
EXAMINATION TYPE: XR chest 1V portable DATE OF EXAM: 02/11/2020 COMPARISON: 01/16/2020 INDICATION: Pain TECHNIQUE: Single frontal view of the chest is obtained. FINDINGS: The heart size is normal. The pulmonary vasculature is normal. The lungs are clear. No pneumothorax is evident. No displaced rib fractures are evident. IMPRESSION: 1. No acute pulmonary process. 2. No pneumothorax or displaced rib fractures evident
[2020-02-11 14:59] LABS: Alcohol 344 mg/dL
[2020-02-11 15:00] LABS: Potassium 2.3 mmol/L (3.5-5.1)
[2020-02-11] MEDS ORDERED: POTASSIUM CHLORIDE ER 20 MEQ TAB.ER PO STA (15:15)
[2020-02-11] MEDS ORDERED: IPRATROPIUM-ALBUTEROL 3 ML NEB INHALATION PRN (15:20)
[2020-02-11] MEDS ORDERED: THIAMINE 100 MG/ML 2 ML VIAL IM STA (15:21)
[2020-02-11] MEDS ORDERED: LORazepam 2 MG/ML INJ IV PRN ×2 (15:21)
[2020-02-11] MEDS: POTASSIUM CHLORIDE 10 MEQ in WATER FOR INJECTION 1 100ML.BAG IVPB SCH ×4 (15:33→17:12)
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
[2020-02-11] MEDS: SODIUM CHLORIDE 0.9% 1,000 ML IV SCH (15:43)
[2020-02-11] MEDS: IPRATROPIUM-ALBUTEROL 3 ML NEB INHALATION SCH ×2 (16:20→19:14)
[2020-02-11] MEDS: MAGNESIUM SULFATE-D5W PMX 1 GM in DEXTROSE/WATER 1 100ML.BAG IVPB SCH ×2 (17:24→19:32)
[2020-02-11] MEDS ORDERED: POTASSIUM CHLORIDE ER 20 MEQ TAB.ER PO SCH ×2 (18:00)
[2020-02-11] MEDS: POTASSIUM CHLORIDE ER 20 MEQ TAB.ER PO SCH ×2 (18:16→20:15)
[2020-02-11] MEDS: MORPHINE SULFATE 2 MG/ML SYRINGE IVP PRN ×2 (18:16→21:56)
--- NOTE | 2020-02-11 19:09 | XR ---
Right RIBS: EXAMINATION TYPE: XR shoulder complete 3 views LT, XR ribs 4 views RT, XR clavicle 2 views LT DATE OF EXAM: 02/11/2020 COMPARISON: 01/16/2020 and 11/28/2019 HISTORY: 59-year-old female pain after fall today FINDINGS: Left shoulder and clavicle: Redemonstrated oblique midclavicular shaft fracture. There is one and a half shaft's width of inferio r displacement, similar to 11/28/2019. AC joint shows mild degenerative change and appears intact. Suba cromial space is preserved. No new fracture, subluxation, dislocation is seen. Some heterotopic ossif ication along the coracoclavicular ligaments has progressed. Partially visualized ACDF hardware. Right RIBS: No displaced right rib fracture seen. Visualized right hemithorax is clear. IMPRESSION: 1. Left shoulder and clavicle: Known oblique, midclavicular shaft fracture, displaced inferiorly by o ne and a half shafts width. This remains nonunited. Some progressive heterotopic ossification along t he coracoclavicular ligaments. 2. Right ribs: No displaced right rib fracture seen.
--- NOTE | 2020-02-11 19:11 | XR ---
EXAMINATION TYPE: XR orbit complete bilateral, 3 views DATE OF EXAM: 02/11/2020 COMPARISON: NONE HISTORY: 59-year-old female with fall and pain FINDINGS: No retained radiopaque foreign body seen. Leftward nasal septal deviation. Radiographically, the para nasal sinuses appear aerated. Orbits appear symmetrical. Nasal bone appears intact as does the maxill jaleesa spine. IMPRESSION: No radiographically apparent displaced orbital fracture. If persistent concern, facial bone CT can be performed.
[2020-02-11] MEDS: LORazepam 2 MG/ML INJ IV PRN (19:37)
[2020-02-11] MEDS ORDERED: Potassium Replacement Protocol 1 EACH MISC MISCELLANE PRN (23:38)
[2020-02-12] MEDS ORDERED: POTASSIUM CHLORIDE ER 20 MEQ TAB.ER PO SCH
[2020-02-12] MEDS: POTASSIUM CHLORIDE ER 20 MEQ TAB.ER PO SCH ×2 (00:17→01:44)
[2020-02-12] MEDS: LORazepam 2 MG/ML INJ IV PRN ×2 (00:18→01:49)
[2020-02-12] MEDS: SODIUM CHLORIDE 0.9% 1,000 ML IV SCH ×3 (06:05→22:43)
[2020-02-12] MEDS ORDERED: THIAMINE 100 MG TAB PO SCH (07:30)
[2020-02-12] MEDS: PANTOPRAZOLE 40 MG TABLET PO SCH (07:35)
[2020-02-12] MEDS: THIAMINE 100 MG TAB PO SCH ×2 (07:35→17:22)
[2020-02-12] MEDS: predniSONE 20 MG TAB PO SCH (07:35)
[2020-02-12] MEDS: MORPHINE SULFATE 2 MG/ML SYRINGE IVP PRN ×5 (07:35→23:26)
[2020-02-12] MEDS: IPRATROPIUM-ALBUTEROL 3 ML NEB INHALATION SCH ×4 (09:16→19:53)
[2020-02-12] MEDS: HYDROcodone/APAP 5-325MG 1 EACH TAB PO PRN ×3 (14:44→23:26)
[2020-02-12 16:45] LABS: Basophils % (A) 0 %; Eosinophils # (A) 0.1 k/uL (0-0.7); Eosinophils % (A) 1 %; HCT 41.1 % (34.0-46.0); HGB 13.3 gm/dL (11.4-16.0); Lymphocytes # (A) 1.3 k/uL (1.0-4.8); Lymphocytes % (A) 15 %; MCH 32.2 pg (25.0-35.0); MCHC 32.3 g/dL (31.0-37.0); MCV 99.7 fL (80.0-100.0); Mean Platelet Volume 8.9; Monocytes # (A) 0.4 k/uL (0-1.0); Monocytes % (A) 4 %; Neutrophils # (A) 6.9 k/uL (1.3-7.7); Neutrophils % (A) 79 %; Platelet Count 132 k/uL (150-450); RBC 4.13 m/uL (3.80-5.40); RDW 13.9 % (11.5-15.5); WBC 8.8 k/uL (3.8-10.6)
[2020-02-12 17:10] LABS: ALT 103 U/L (4-34); AST 156 U/L (14-36); African American GFR (CKD) >90 (>60 ml/min/1.73 sqM); Albumin 3.8 g/dL (3.5-5.0); Alkaline Phosphatase 153 U/L (38-126); Anion Gap 9 mmol/L; Blood Urea Nitrogen 9 mg/dL (7-17); Calcium 7.7 mg/dL (8.4-10.2); Carbon Dioxide 23 mmol/L (22-30); Chloride 100 mmol/L (98-107); Glucose 122 mg/dL (74-99); Non-African American GFR(CKD) >90 (>60 ml/min/1.73 sqM); Sodium 132 mmol/L (137-145); Total Bilirubin 0.9 mg/dL (0.2-1.3)
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
[2020-02-13] MEDS: MORPHINE SULFATE 2 MG/ML SYRINGE IVP PRN ×6 (03:31→23:23)
[2020-02-13] MEDS: HYDROcodone/APAP 5-325MG 1 EACH TAB PO PRN ×6 (03:31→23:23)
[2020-02-13 07:20] LABS: Basophils % (A) 0 %; Eosinophils # (A) 0.2 k/uL (0-0.7); Eosinophils % (A) 2 %; HCT 41.6 % (34.0-46.0); HGB 13.5 gm/dL (11.4-16.0); Lymphocytes # (A) 2.5 k/uL (1.0-4.8); Lymphocytes % (A) 25 %; MCH 32.1 pg (25.0-35.0); MCHC 32.4 g/dL (31.0-37.0); MCV 99.2 fL (80.0-100.0); Mean Platelet Volume 8.7; Monocytes # (A) 0.5 k/uL (0-1.0); Monocytes % (A) 5 %; Neutrophils # (A) 6.8 k/uL (1.3-7.7); Neutrophils % (A) 67 %; Platelet Count 112 k/uL (150-450); RBC 4.19 m/uL (3.80-5.40); RDW 13.8 % (11.5-15.5); WBC 10.2 k/uL (3.8-10.6)
[2020-02-13 07:25] LABS: ALT 124 U/L (4-34); AST 300 U/L (14-36); African American GFR (CKD) >90 (>60 ml/min/1.73 sqM); Albumin 3.4 g/dL (3.5-5.0); Alkaline Phosphatase 128 U/L (38-126); Anion Gap 6 mmol/L; Blood Urea Nitrogen 8 mg/dL (7-17); Calcium 7.5 mg/dL (8.4-10.2); Carbon Dioxide 25 mmol/L (22-30); Chloride 99 mmol/L (98-107); Glucose 96 mg/dL (74-99); Non-African American GFR(CKD) >90 (>60 ml/min/1.73 sqM); Potassium 3.5 mmol/L (3.5-5.1); Sodium 130 mmol/L (137-145); Total Protein 6.5 g/dL (6.3-8.2)
[2020-02-13] MEDS: IPRATROPIUM-ALBUTEROL 3 ML NEB INHALATION SCH ×4 (07:26→18:58)
[2020-02-13] MEDS: predniSONE 20 MG TAB PO SCH (07:30)
[2020-02-13] MEDS: THIAMINE 100 MG TAB PO SCH ×2 (07:30→15:21)
[2020-02-13] MEDS: PANTOPRAZOLE 40 MG TABLET PO SCH (07:30)
[2020-02-13] MEDS: SODIUM CHLORIDE 0.9% 1,000 ML IV SCH ×2 (07:34→16:32)
--- NOTE | 2020-02-13 09:45 | CT ---
EXAMINATION TYPE: CT abdomen wo con DATE OF EXAM: 02/13/2020 COMPARISON: Previous study dated 01/04/2020. HISTORY: COPD< Hypokalemia, Alcohol intoxication CT DLP: 260.9 mGycm Automated exposure control for dose reduction was used. TECHNIQUE: Helical acquisition of images was performed from the lung bases through the top of iliac crest to include entire abdomen. CONTRAST: Performed without Oral Contrast and without IV contrast. FINDINGS: Visualized portions of the lungs are clear. There is no pleural or pericardial fluid. The h eart is not enlarged. There is a small sliding hiatal hernia. Within the abdomen is low-attenuation of the liver suggesting fatty infiltration. Liver size is upper limits of normal. The gallbladder is distended. The spleen is normal. Both adrenal glands are normal. The right kidney is slightly malrotated. There is a 1 to 2 mm nonobstructing calculus in one of the u pper pole calyces. The left kidney is unremarkable. The pancreas is unremarkable. There is moderate atheromatous calcification of the visualized arterial tree. There is no significant retroperitoneal adenopathy. Visualized large and small bowel are unremarkable. There is no free fluid and no free air. There is mild facet arthropathy at L5-S1. No definite rib fracture is seen. There are multiple, calcified injection granulomata within both buttock. IMPRESSION: 1. PROBABLE FATTY INFILTRATION OF THE LIVER. 2. DISTENTION OF THE GALLBLADDER. 3. SMALL, SLIDING HIATAL HERNIA. 4. TINY NONOBSTRUCTING RIGHT RENAL CALCULUS.
--- NOTE | 2020-02-13 12:57 | P.CNPUL ---
History of Present Illness Consult date: 02/12/20 Reason for consult: dyspnea Chief complaint: Shortness of breath and chest pain post fall History of present illness: This is a 59-year-old female who was seen evaluated examined in the floor patient admitted into the hospital after a fall and developed right-sided chest pain/rib pain related to fall she was intoxicated also has prior episode of similar events initial lapses history of severe hypokalemia with hypo-magnesium anemia and exacerbation of COPD, right-sided rib x-ray shows nondisplaced refracture, Review of Systems All systems: negative Past Medical History Past Medical History: COPD, Fibromyalgia, GERD/Reflux, Hyperlipidemia, Hypertension, Renal Disease Additional Past Medical History / Comment(s): ETOH abuse, chronic low back pain, diverticulitis, benign colon polyps, kidney stones with surgical removal, broke collarbone, falls History of Any Multi-Drug Resistant Organisms: MRSA Date of last positivie culture/infection: 08/2014 MDRO Source:: L elbow Past Surgical History: Appendectomy, Bowel Resection, Orthopedic Surgery Additional Past Surgical History / Comment(s): Bowel resection d/t diverticulitis, R wrist fusion with bone graft, cervical fusion with metal, kidney stone surgery x 3, colonoscopy with bening polypectomy, salpingo- oophorectomy (pt cannot recall laterallity). Past Anesthesia/Blood Transfusion Reactions: No Reported Reaction Additional Past Anesthesia/Blood Transfusion Reaction / Comment(s): needed more medication for last colonoscopy Past Psychological History: Anxiety, Depression, PTSD Additional Psychological History / Comment(s): Pt resides with her significant other. She uses no assistive device. She does not drive, her family takes her to [employer]. She has a nebulizer. Smoking Status: Current every day smoker Past Alcohol Use History: Abuse, Heavy Additional Past Alcohol Use History / Comment(s): Pt started smoking in 1977 and was a ppd smoker but recently cut down to 5 cigarettes or less. Pt states she has been drinking a fifth of liqour a day and last drank on 11/26/19 Past Drug Use History: None Reported Additional Drug Use History / Comment(s): Rare-marijuana use. Pt states she has past hx of opiod abuse - Past Family History Sister(s) Family Medical History: Cancer Additional Family Medical History / Comment(s): Pt states she does not know what type of cancer her sister had Mother Family Medical History: Cancer Additional Family Medical History / Comment(s): Mother of colon cancer. Maternal grandmother had breast cancer. Father Family Medical History: Diabetes Mellitus Additional Family Medical History / Comment(s): alcoholism Medications and Allergies Home Medications Medication Instructions Recorded Confirmed Type Albuterol Inhaler (Bulk) [Ventolin 2 - 4 puff INHALATION RT-Q4H PRN 01/05/20 02/11/20 Rx Hfa Inhaler (Bulk)] #1 inhaler Magnesium Oxide [Mag-Ox] 400 mg PO BID #60 tab 01/05/20 02/11/20 Rx Pantoprazole [Protonix] 40 mg PO AC-BRKFST #30 tablet.dr 01/05/20 02/11/20 Rx Thiamine [Vitamin B-1] 100 mg PO BID-W/MEALS #60 tab 01/05/20 02/11/20 Rx Ibuprofen [Motrin] 600 mg PO Q8HR PRN #20 tab 01/16/20 02/11/20 Rx Allergies Allergy/AdvReac Type Severity Reaction Status Date / Time pregabalin [From Lyrica] Allergy Severe Anaphylaxis Verified 02/11/20 16:33 tizanidine HCl Allergy Severe Anaphylaxis Verified 02/11/20 16:33 [From Zanaflex] Physical Exam Vitals: Vital Signs Temp Pulse Pulse Resp BP BP Pulse Ox 02/12/20 14:06 98.3 F 113 H 16 155/95 94 L 02/12/20 09:30 108 H 02/12/20 09:17 108 H 02/12/20 07:00 98.5 F 105 H 17 160/104 95 02/12/20 03:10 98.1 F 111 H 161/94 93 L 02/11/20 19:55 98.2 F 118 H 18 141/89 99 02/11/20 19:24 112 H 02/11/20 19:14 116 H 02/11/20 16:29 104 H 02/11/20 16:23 101 H 02/11/20 16:13 98.4 F 105 H 18 132/95 96 02/11/20 16:00 105 H 18 132/95 96 Intake and Output 02/12/20 02/12/20 02/12/20 06:59 14:59 22:59 Intake Total 1860 Balance 1860 Intake: Intake, IV Titration 800 Amount Sodium Chloride 0.9% 1, 800 000 ml @ 100 mls/hr IV . Q10H [facility] Rx#:[id number] Oral 1060 Other: # Voids 1 - Constitutional General appearance: average body habitus, disheveled, mild distress - EENT Eyes: EOMI, PERRLA, poor dentition Ears: bilateral: normal - Neck Neck: normal ROM Carotids: bilateral: upstroke normal Thyroid: bilateral: normal size - Respiratory Respiratory: bilateral: diminished, wheezing (Fine and excuse expiratory), negative: CTA, dullness, rales, rhonchi - Cardiovascular Rhythm: regular Heart sounds: normal: S1, S2 - Gastrointestinal General gastrointestinal: decreased bowel sounds, soft - Neurologic Neurologic: CNII-XII intact - Musculoskeletal Musculoskeletal: gait normal, generalized weakness, strength equal bilaterally - Psychiatric Psychiatric: A&O x's 3, appropriate affect, intact judgment & insight Results - Laboratory Findings CBC and BMP: 02/13/20 06:41 02/13/20 06:41 Abnormal lab findings: Abnormal Labs 02/11/20 02/11/20 02/11/20 14:15 14:15 14:15 Plt Count 105 L D Potassium 2.3 L* Chloride 113 H Creatinine 0.39 L Glucose 72 L Calcium 6.6 L Magnesium 1.0 L AST 216 H ALT 101 H Total Protein 5.7 L Albumin 2.9 L Serum Alcohol 344 H* 02/11/20 21:46 Plt Count Potassium 3.4 L Chloride Creatinine Glucose Calcium Magnesium AST ALT Total Protein Albumin Serum Alcohol - Diagnostic Findings Chest x-ray: report reviewed, image reviewed Assessment and Plan Assessment: Right-sided nondisplaced refracture related to fall Alcohol intoxication Acute exacerbation of COPD Generalized anxiety disorder Plan: Continue breathing treatment Continue oral steroids Patient has been consult about smoking cessation Continue deep breathing exercise incentive spirometry Time with Patient: Greater than 30
--- NOTE | 2020-02-13 13:02 | P.PN ---
Subjective Progress Note Date: 02/13/20 Principal diagnosis: Right-sided nondisplaced refracture related to fall Alcohol intoxication Acute exacerbation of COPD Generalized anxiety disorder Hypokalemia Hyponatremia Alcoholic hepatitis 02/13/2020, patient seen eval examined rest she status slightly better denies any chest pain denies any cough or sputum production labs reviewed, potassium level improved, noted that her sodium is coming down and renal functions remain stable liver functions elevated This is a 59-year-old female who was seen evaluated examined in the floor patient admitted into the hospital after a fall and developed right-sided chest pain/rib pain related to fall she was intoxicated also has prior episode of similar events initial lapses history of severe hypokalemia with hypo-magnesium anemia and exacerbation of COPD, right-sided rib x-ray shows nondisplaced refracture, Objective - Vital Signs Vital signs: Vital Signs Temp 98.0 F 02/13/20 07:00 Pulse 111 H 02/13/20 07:00 Resp 16 02/13/20 07:00 BP 117/89 02/13/20 07:00 Pulse Ox 96 02/13/20 07:00 Intake & Output 02/12/20 02/13/20 02/13/20 18:59 06:59 18:59 Intake Total 2310 350 360 Balance 2310 350 360 Intake: Intake, IV Titration 800 350 Amount Sodium Chloride 0.9% 1, 800 350 000 ml @ 100 mls/hr IV . Q10H [facility] Rx#:[id number] Oral 1510 360 Other: Voiding Method Toilet Toilet # Voids 1 - Exam - Constitutional General appearance: average body habitus, disheveled, mild distress - EENT Eyes: EOMI, PERRLA, poor dentition Ears: bilateral: normal - Neck Neck: normal ROM Carotids: bilateral: upstroke normal Thyroid: bilateral: normal size - Respiratory Respiratory: bilateral: diminished, wheezing (Fine and excuse expiratory), n egative: CTA, dullness, rales, rhonchi - Cardiovascular Rhythm: regular Heart sounds: normal: S1, S2 - Gastrointestinal General gastrointestinal: decreased bowel sounds, soft - Neurologic Neurologic: CNII-XII intact - Musculoskeletal Musculoskeletal: gait normal, generalized weakness, strength equal bilaterally - Psychiatric Psychiatric: A&O x's 3, appropriate affect, intact judgment & insight - Labs CBC & Chem 7: 02/13/20 06:41 02/13/20 06:41 Labs: Abnormal Lab Results - Last 24 Hours (Table) 02/12/20 02/12/20 02/13/20 Range/Units 16:17 16:17 06:41 Plt Count 132 L (150-450) k/uL Sodium 132 L 130 L (137-145) mmol/L Creatinine 0.42 L 0.38 L (0.52-1.04) mg/dL Glucose 122 H (74-99) mg/dL Calcium 7.7 L 7.5 L (8.4-10.2) mg/dL Magnesium 1.0 L 1.0 L (1.6-2.3) mg/dL AST 156 H 300 H (14-36) U/L ALT 103 H 124 H (4-34) U/L Alkaline Phosphatase 153 H 128 H (38-126) U/L Albumin 3.4 L (3.5-5.0) g/dL 02/13/20 Range/Units 06:41 Plt Count 112 L (150-450) k/uL Sodium (137-145) mmol/L Creatinine (0.52-1.04) mg/dL Glucose (74-99) mg/dL Calcium (8.4-10.2) mg/dL Magnesium (1.6-2.3) mg/dL AST (14-36) U/L ALT (4-34) U/L Alkaline Phosphatase (38-126) U/L Albumin (3.5-5.0) g/dL Assessment and Plan Assessment: Right-sided nondisplaced refracture related to fall Alcohol intoxication Acute exacerbation of COPD Generalized anxiety disorder Hypokalemia Hyponatremia Alcoholic hepatitis Plan: Continue breathing treatment Continue oral steroids Patient has been consult about smoking cessation Continue deep breathing exercise incentive spirometry Replace potassium as per protocol Continue normal salin gentle rehydration Time with Patient: Greater than 30
[2020-02-13] MEDS: CALCIUM CARBONATE 500 MG CHEWABLE PO PRN ×2 (15:34→19:38)
[2020-02-13] MEDS: MAGNESIUM SULFATE-D5W PMX 1 GM in DEXTROSE/WATER 1 100ML.BAG IVPB SCH ×2 (20:18→21:26)
--- NOTE | 2020-02-14 00:01 | PN ---
PROGRESS NOTE Complains of pain control for multiple contusions, albeit there are no fractures. She is given CIWA protocol. DuoNeb for updrafts for COPD. Protonix for GERD. Possible discharge home next 24 to 48 hours. Continue on CIWA protocol. She apparently has chronic thrombocytopenia. She had hypokalemia on admission, now is 3.5. Magnesium is still low at 1.0, which may need to be replaced. Liver enzymes went from 200 to 156, now and 300s. Liver enzymes continue to go higher will have to monitor these prior to discharge. MMODL / IJN: [id number] /
[2020-02-14] MEDS: HYDROcodone/APAP 5-325MG 1 EACH TAB PO PRN ×4 (03:35→23:39)
[2020-02-14] MEDS: MORPHINE SULFATE 2 MG/ML SYRINGE IVP PRN ×2 (03:35→07:36)
[2020-02-14] MEDS: SODIUM CHLORIDE 0.9% 1,000 ML IV SCH ×3 (05:11→23:42)
[2020-02-14 06:39] LABS: Basophils % (A) 0 %; Eosinophils # (A) 0.2 k/uL (0-0.7); Eosinophils % (A) 1 %; HGB 14.2 gm/dL (11.4-16.0); Lymphocytes # (A) 3.4 k/uL (1.0-4.8); Lymphocytes % (A) 28 %; MCH 31.9 pg (25.0-35.0); MCHC 32.2 g/dL (31.0-37.0); MCV 98.9 fL (80.0-100.0); Mean Platelet Volume 8.8; Monocytes # (A) 0.7 k/uL (0-1.0); Monocytes % (A) 5 %; Neutrophils # (A) 7.8 k/uL (1.3-7.7); Neutrophils % (A) 64 %; Platelet Count 154 k/uL (150-450); RBC 4.44 m/uL (3.80-5.40); RDW 13.8 % (11.5-15.5); WBC 12.3 k/uL (3.8-10.6)
[2020-02-14 06:59] LABS: ALT 115 U/L (4-34); AST 159 U/L (14-36); African American GFR (CKD) >90 (>60 ml/min/1.73 sqM); Albumin 3.3 g/dL (3.5-5.0); Alkaline Phosphatase 135 U/L (38-126); Anion Gap 8 mmol/L; Blood Urea Nitrogen 10 mg/dL (7-17); Calcium 8.3 mg/dL (8.4-10.2); Carbon Dioxide 22 mmol/L (22-30); Chloride 101 mmol/L (98-107); Glucose 102 mg/dL (74-99); Non-African American GFR(CKD) >90 (>60 ml/min/1.73 sqM); Potassium 3.3 mmol/L (3.5-5.1); Sodium 131 mmol/L (137-145); Total Bilirubin 0.6 mg/dL (0.2-1.3); Total Protein 6.5 g/dL (6.3-8.2)
[2020-02-14] MEDS: predniSONE 20 MG TAB PO SCH (07:36)
[2020-02-14] MEDS: PANTOPRAZOLE 40 MG TABLET PO SCH (07:36)
[2020-02-14] MEDS: THIAMINE 100 MG TAB PO SCH ×2 (07:37→17:26)
[2020-02-14] MEDS: IPRATROPIUM-ALBUTEROL 3 ML NEB INHALATION SCH ×4 (07:45→20:06)
[2020-02-14] MEDS: CALCIUM CARBONATE 500 MG CHEWABLE PO PRN ×2 (08:16→19:27)
--- NOTE | 2020-02-14 08:25 | US ---
EXAMINATION TYPE: US abdomen complete DATE OF EXAM: 02/14/2020 COMPARISON: CT 02/13/2020 CLINICAL HISTORY: lft elevation. RUQ rib pain EXAM MEASUREMENTS: Liver Length: 20.1 cm Gallbladder Wall: 0.2 cm CBD: 0.8 cm Spleen: 7.6 cm Right Kidney: 11.2 x 3.8 x 3.7 cm Left Kidney: 10.8 x 5.4 x 4.5 cm Pancreas: Obscured by bowel gas, duct visualized measuring 0.3 cm Liver: Heterogeneous, enlarged Gallbladder: No stones visualized Evidence for sonographic Cortez's sign: Yes CBD: dilated. Distal portion obscured by bowel gas Spleen: wnl Right Kidney: No hydronephrosis or masses seen Left Kidney: No hydronephrosis or masses seen Upper IVC: wnl Abd Aorta: Atherosclerotic changes visualized The liver is heterogeneous. The intrahepatic portion of the IVC and proximal abdominal aorta are wit hin normal limits. There is no evidence of cholelithiasis. Common bile duct is dilated. The visual ized portions of the pancreas are homogenous. The spleen is unremarkable. Kidneys are symmetric and free of hydronephrosis. No renal lesions are seen. IMPRESSION: 1. Hepatic steatosis 2. Mild Dilatation of the common bile
[2020-02-14 08:36] LABS: INR 0.9 (<1.2)
[2020-02-14 08:37] LABS: Prothrombin Time 9.7 sec (9.0-12.0)
--- NOTE | 2020-02-14 08:57 | XR ---
EXAMINATION TYPE: XR chest 1V portable DATE OF EXAM: 02/14/2020 HISTORY: Shortness of breath. COMPARISON: 02/11/2020 TECHNIQUE: Single view of the chest is submitted. FINDINGS: Demonstrated are scattered senescent parenchymal change. Vague density within the periphery of the left mid lung zone may reflect underlying infiltrate or con tusive change. Correlate clinically. The heart is stable. Hilar and mediastinal structures are within normal limits. Degenerative changes are seen of the dorsal spine. Fracture left clavicle noted. IMPRESSION: 1. Vague density within the periphery of the left mid lung zone may reflect underlying infiltrate or contusive change. Correlate clinically.
[2020-02-14] MEDS ORDERED: Potassium Replacement Protocol 1 EACH MISC MISCELLANE PRN (10:30)
[2020-02-14] MEDS ORDERED: MAG HYDROX/AL HYDROX/SIMETH 30 ML CUP PO PRN (10:55)
[2020-02-14] MEDS: methylPREDNISolone SOD SUCCI 40 MG/ML 1 ML VIAL IV SCH ×3 (11:10→23:38)
[2020-02-14] MEDS: POTASSIUM CHLORIDE ER 20 MEQ TAB.ER PO SCH ×2 (11:10→12:12)
[2020-02-14] MEDS: MORPHINE SULFATE 4 MG/ML SYRINGE IVP PRN ×4 (11:38→23:38)
[2020-02-14 11:42] LABS: Glucose,Whole Blood 120 mg/dL (75-99)
--- NOTE | 2020-02-14 14:37 | P.GSCN ---
History of Present Illness Consult date: 02/14/20 Reason for Consult: Elevated liver enzymes Requesting physician: Ryne Santiago History of present illness: CHIEF COMPLAINT: Elevated liver enzymes HISTORY OF PRESENT ILLNESS: 59-year-old female who was admitted to hospital secondary to fall and EtOH intoxication. Patient found to have elevated liver enzymes. General surgery was consulted for further evaluation. Patient examined this for the bedside. Patient reports right chest wall discomfort. She denies abdominal pain. She denies nausea or vomiting. She reports decreased oral intake. She complains of severe heartburn this morning. She reports drinking a fifth of rum daily. PAST MEDICAL HISTORY: See list. PAST SURGICAL HISTORY: See list. SOCIAL HISTORY: Daily alcohol use REVIEW OF SYSTEMS: CONSTITUTIONAL: Denies fever or chills. HEENT: Denies blurred vision, vision changes, or eye pain. Denies hemoptysis CARDIOVASCULAR: Denies chest pain or pressure. RESPIRATORY: No shortness of breath. GASTROINTESTINAL: Refer to HPI for pertinent findings HEMATOLOGIC: Denies bleeding disorders. GENITOURINARY: Denies any blood in urine. SKIN: Denies pruitis. Denies rash. PHYSICAL EXAM: VITAL SIGNS: Reviewed. GENERAL: Well-developed in no acute distress. HEENT: No sclera icterus. Extraocular movements grossly intact. Moist buccal mucosa. Head is atraumatic, normocephalic. ABDOMEN: Soft. Nondistended. Nontender. NEUROLOGIC: Alert and oriented. Cranial nerves II through XII grossly intact. LABORATORY DATA: WBC 12.3. Hemoglobin 14.2. Platelet count 154. Bilirubin 0.6. AST 159. ALT 115. Alkaline phosphatase 135. IMAGING: -CT abdomen and pelvis: Probable fatty infiltration of the liver. Distention of the gallbladder. Small sliding hiatal hernia. -Abdominal ultrasound: No stones visualized. Mild dilation of the common bile duct ASSESSMENT: 1. Fall, s/p ETOH intoxication 2. Alcohol abuse 3. Elevated LFTs secondary to ETOH abuse PLAN: -Alcohol abstinence recommended -No surgical intervention recommended -Diet as tolerated Nurse practitioner note has been reviewed by physician. Signing provider agrees with the documented findings, assessment, and plan of care. 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 Past Anesthesia/Blood Transfusion Reactions: No Reported Reaction Additional Past Anesthesia/Blood Transfusion Reaction / Comm: needed more medication for last colonoscopy Past Psychological History: Anxiety, Depression, PTSD Additional Psychological History / Comment(s): Pt resides with her significant other. She uses no assistive device. She does not drive, her family takes her to [employer]. She has a nebulizer. Smoking Status: Current every day smoker Past Alcohol Use History: Abuse, Heavy Additional Past Alcohol Use History / Comment(s): Pt started smoking in 1977 and was a ppd smoker but recently cut down to 5 cigarettes or less. Pt states she has been drinking a fifth of liqour a day and last drank on 11/26/19 Past Drug Use History: None Reported Additional Drug Use History / Comment(s): Rare-marijuana use. Pt states she has past hx of opiod abuse - Past Family History Sister(s) Family Medical History: Cancer Additional Family Medical History / Comment(s): Pt states she does not know what type of cancer her sister had Mother Family Medical History: Cancer Additional Family Medical History / Comment(s): Mother of colon cancer. Maternal grandmother had breast cancer. Father Family Medical History: Diabetes Mellitus Additional Family Medical History / Comment(s): alcoholism Medications and Allergies Home Medications Medication Instructions Recorded Confirmed Type Albuterol Inhaler (Bulk) [Ventolin 2 - 4 puff INHALATION RT-Q4H PRN 01/05/20 02/11/20 Rx Hfa Inhaler (Bulk)] #1 inhaler Magnesium Oxide [Mag-Ox] 400 mg PO BID #60 tab 01/05/20 02/11/20 Rx Pantoprazole [Protonix] 40 mg PO AC-LENNIEKFST #30 tablet. 01/05/20 02/11/20 Rx Thiamine [Vitamin B-1] 100 mg PO BID-W/MEALS #60 tab 01/05/20 02/11/20 Rx Ibuprofen [Motrin] 600 mg PO Q8HR PRN #20 tab 01/16/20 02/11/20 Rx Allergies Allergy/AdvReac Type Severity Reaction Status Date / Time pregabalin [From Lyrica] Allergy Severe Anaphylaxis Verified 02/11/20 16:33 tizanidine HCl Allergy Severe Anaphylaxis Verified 02/11/20 16:33 [From Zanaflex] Surgical - Exam Vital Signs Temp Pulse Resp BP Pulse Ox 98.4 F 102 H 20 139/87 90 L 02/11/20 12:58 02/11/20 12:58 02/11/20 12:58 02/11/20 12:58 02/11/20 12:58 Results - Labs 02/14/20 06:22 02/14/20 06:22 Abnormal Lab Results - Last 24 Hours (Table) 02/14/20 02/14/20 02/14/20 Range/Units 06:22 06:22 11:41 WBC 12.3 H (3.8-10.6) k/uL Neutrophils # 7.8 H (1.3-7.7) k/uL Sodium 131 L (137-145) mmol/L Potassium 3.3 L (3.5-5.1) mmol/L Creatinine 0.39 L (0.52-1.04) mg/dL Glucose 102 H (74-99) mg/dL POC Glucose (mg/dL) 120 H (75-99) mg/dL Calcium 8.3 L (8.4-10.2) mg/dL AST 159 H (14-36) U/L ALT 115 H (4-34) U/L Alkaline Phosphatase 135 H (38-126) U/L Albumin 3.3 L (3.5-5.0) g/dL Diabetes panel 02/14/20 Range/Units 06:22 Sodium 131 L (137-145) mmol/L Potassium 3.3 L (3.5-5.1) mmol/L Chloride 101 (98-107) mmol/L Carbon Dioxide 22 (22-30) mmol/L BUN 10 (7-17) mg/dL Creatinine 0.39 L (0.52-1.04) mg/dL Glucose 102 H (74-99) mg/dL Calcium 8.3 L (8.4-10.2) mg/dL AST 159 H (14-36) U/L ALT 115 H (4-34) U/L Alkaline Phosphatase 135 H (38-126) U/L Total Protein 6.5 (6.3-8.2) g/dL Albumin 3.3 L (3.5-5.0) g/dL Calcium panel 02/14/20 Range/Units 06:22 Calcium 8.3 L (8.4-10.2) mg/dL Albumin 3.3 L (3.5-5.0) g/dL Pituitary panel 02/14/20 Range/Units 06:22 Sodium 131 L (137-145) mmol/L Potassium 3.3 L (3.5-5.1) mmol/L Chloride 101 (98-107) mmol/L Carbon Dioxide 22 (22-30) mmol/L BUN 10 (7-17) mg/dL Creatinine 0.39 L (0.52-1.04) mg/dL Glucose 102 H (74-99) mg/dL Calcium 8.3 L (8.4-10.2) mg/dL Adrenal panel 02/14/20 Range/Units 06:22 Sodium 131 L (137-145) mmol/L Potassium 3.3 L (3.5-5.1) mmol/L Chloride 101 (98-107) mmol/L Carbon Dioxide 22 (22-30) mmol/L BUN 10 (7-17) mg/dL Creatinine 0.39 L (0.52-1.04) mg/dL Glucose 102 H (74-99) mg/dL Calcium 8.3 L (8.4-10.2) mg/dL Total Bilirubin 0.6 (0.2-1.3) mg/dL AST 159 H (14-36) U/L ALT 115 H (4-34) U/L Alkaline Phosphatase 135 H (38-126) U/L Total Protein 6.5 (6.3-8.2) g/dL Albumin 3.3 L (3.5-5.0) g/dL
[2020-02-14] MEDS: INSULIN ASPART (NovoLOG) 100 UNIT/ML VIAL SQ SCH ×3 (14:53→20:33)
[2020-02-14 17:10] LABS: Glucose,Whole Blood 136 mg/dL (75-99)
[2020-02-14 20:31] LABS: Glucose,Whole Blood 157 mg/dL (75-99)
--- NOTE | 2020-02-14 23:00 | PN ---
PROGRESS NOTE The patient had an ultrasound today for elevated liver enzymes, complaining of right chest pain. Abdominal ultrasound shows no evidence of gallstones, common bile duct dilated, fatty liver. Chest x-ray shows heart stable, vague density within periphery of the left mid lung zone; may reflect infiltrate or contusive change. Lungs are clear. CARDIOVASCULAR: S1, S2. Continue with CIWA protocol, PT/OT. Wean pain medicines. Possible discharge home in the morning if cleared by Surgery. MMODL / IJN: [id number] /
[2020-02-15] MEDS: HYDROcodone/APAP 5-325MG 1 EACH TAB PO PRN (04:14)
[2020-02-15] MEDS: MORPHINE SULFATE 4 MG/ML SYRINGE IVP PRN ×2 (04:17→08:12)
[2020-02-15 07:14] LABS: Glucose,Whole Blood 119 mg/dL (75-99)
[2020-02-15] MEDS: INSULIN ASPART (NovoLOG) 100 UNIT/ML VIAL SQ SCH ×2 (07:14→13:20)
[2020-02-15] MEDS: IPRATROPIUM-ALBUTEROL 3 ML NEB INHALATION SCH ×2 (07:32→11:09)
[2020-02-15] MEDS: methylPREDNISolone SOD SUCCI 40 MG/ML 1 ML VIAL IV SCH (08:11)
[2020-02-15 08:12] VITALS: BP 149/95; PULSE 90; RESP 17; TEMP 98.7
[2020-02-15] MEDS: THIAMINE 100 MG TAB PO SCH (08:12)
[2020-02-15] MEDS: CALCIUM CARBONATE 500 MG CHEWABLE PO PRN (08:12)
[2020-02-15] MEDS: PANTOPRAZOLE 40 MG TABLET PO SCH (08:12)
[2020-02-15] MEDS: SODIUM CHLORIDE 0.9% 1,000 ML IV SCH (08:13)
[2020-02-15 08:45] LABS: Basophils % (A) 0 %; Eosinophils # (A) 0.1 k/uL (0-0.7); Eosinophils % (A) 1 %; HCT 41.8 % (34.0-46.0); HGB 13.4 gm/dL (11.4-16.0); Lymphocytes # (A) 1.7 k/uL (1.0-4.8); Lymphocytes % (A) 18 %; MCH 32.3 pg (25.0-35.0); MCHC 32.2 g/dL (31.0-37.0); MCV 100.4 fL (80.0-100.0); Macrocytosis Slight; Mean Platelet Volume 8.9; Monocytes # (A) 0.5 k/uL (0-1.0); Monocytes % (A) 6 %; Neutrophils # (A) 7.2 k/uL (1.3-7.7); Neutrophils % (A) 74 %; Platelet Count 165 k/uL (150-450); RBC 4.16 m/uL (3.80-5.40); RDW 14.1 % (11.5-15.5); WBC 9.7 k/uL (3.8-10.6)
[2020-02-15 08:55] LABS: ALT 94 U/L (4-34); AST 72 U/L (14-36); African American GFR (CKD) >90 (>60 ml/min/1.73 sqM); Albumin 3.5 g/dL (3.5-5.0); Alkaline Phosphatase 110 U/L (38-126); Anion Gap 8 mmol/L; Blood Urea Nitrogen 9 mg/dL (7-17); Calcium 8.5 mg/dL (8.4-10.2); Carbon Dioxide 21 mmol/L (22-30); Chloride 102 mmol/L (98-107); Glucose 111 mg/dL (74-99); Non-African American GFR(CKD) >90 (>60 ml/min/1.73 sqM); Potassium 4.1 mmol/L (3.5-5.1); Sodium 131 mmol/L (137-145); Total Bilirubin 0.4 mg/dL (0.2-1.3); Total Protein 6.8 g/dL (6.3-8.2)
[2020-02-15] MEDS ORDERED: HYDROcodone/APAP 7.5-325MG 1 EACH TAB PO PRN (09:39)
[2020-02-15] MEDS ORDERED: LIDOCAINE 5% PATCH TOPICAL SCH (09:45)
[2020-02-15 11:36] LABS: Glucose,Whole Blood 132 mg/dL (75-99)
[2020-02-15] MEDS ORDERED: NICOTINE 21MG/24HR PATCH TRANSDERM SCH (11:45)
--- NOTE | 2020-02-15 12:18 | P.PN ---
Subjective Progress Note Date: 02/15/20 Principal diagnosis: Right-sided nondisplaced refracture related to fall Alcohol intoxication Acute exacerbation of COPD Generalized anxiety disorder Hypokalemia Hyponatremia Alcoholic hepatitis 02/15/2020, patient seen eval examined during the rounds denies any chest pain or shortness of breath breathing comfortably no dizziness lightheadedness present ambulating in hallway and 02/13/2020, patient seen eval examined rest she status slightly better denies any chest pain denies any cough or sputum production labs reviewed, potassium level improved, noted that her sodium is coming down and renal functions remain stable liver functions elevated This is a 59-year-old female who was seen evaluated examined in the floor patient admitted into the hospital after a fall and developed right-sided chest pain/rib pain related to fall she was intoxicated also has prior episode of similar events initial lapses history of severe hypokalemia with hypo-magnesium anemia and exacerbation of COPD, right-sided rib x-ray shows nondisplaced refracture, Objective - Vital Signs Vital signs: Vital Signs Temp 98.7 F 02/15/20 07:00 Pulse 90 02/15/20 07:00 Resp 17 02/15/20 08:00 BP 149/95 02/15/20 07:00 Pulse Ox 97 02/15/20 07:00 Intake & Output 02/14/20 02/15/20 02/15/20 18:59 06:59 18:59 Other: Voiding Method Toilet # Voids 1 - Exam - Constitutional General appearance: average body habitus, disheveled, mild distress - EENT Eyes: EOMI, PERRLA, poor dentition Ears: bilateral: normal - Neck Neck: normal ROM Carotids: bilateral: upstroke normal Thyroid: bilateral: normal size - Respiratory Respiratory: bilateral: diminished, wheezing (Fine and excuse expiratory), negative: CTA, dullness, rales, rhonchi - Cardiovascular Rhythm: regular Heart sounds: normal: S1, S2 - Gastrointestinal General gastrointestinal: decreased bowel sounds, soft - Neurologic Neurologic: CNII-XII intact - Musculoskeletal Musculoskeletal: gait normal, generalized weakness, strength equal bilaterally - Psychiatric Psychiatric: A&O x's 3, appropriate affect, intact judgment & insight - Labs CBC & Chem 7: 02/15/20 07:14 02/15/20 07:14 Labs: Abnormal Lab Results - Last 24 Hours (Table) 02/14/20 02/14/20 02/15/20 Range/Units 17:09 20:30 07:11 MCV (80.0-100.0) fL Sodium (137-145) mmol/L Carbon Dioxide (22-30) mmol/L Creatinine (0.52-1.04) mg/dL Glucose (74-99) mg/dL POC Glucose (mg/dL) 136 H 157 H 119 H (75-99) mg/dL AST (14-36) U/L ALT (4-34) U/L 02/15/20 02/15/20 02/15/20 Range/Units 07:14 07:14 11:35 MCV 100.4 H (80.0-100.0) fL Sodium 131 L (137-145) mmol/L Carbon Dioxide 21 L (22-30) mmol/L Creatinine 0.33 L (0.52-1.04) mg/dL Glucose 111 H (74-99) mg/dL POC Glucose (mg/dL) 132 H (75-99) mg/dL AST 72 H (14-36) U/L ALT 94 H (4-34) U/L Assessment and Plan Assessment: Right-sided nondisplaced refracture related to fall Alcohol intoxication Acute exacerbation of COPD Generalized anxiety disorder Hypokalemia Hyponatremia Alcoholic hepatitis Plan: Continue breathing treatment Continue oral steroids Patient has been consult about smoking cessation Continue deep breathing exercise incentive spirometry Replace potassium as per protocol Continue normal salin gentle rehydration Agree with discharge planning follow-up on outpatient basis Time with Patient: Greater than 30
[2020-02-15] MEDS ORDERED: Magnesium Replacement Protocol 1 EACH MISC MISCELLANE PRN (12:22)
[2020-02-15] MEDS: MAGNESIUM OXIDE 400 MG TAB PO SCH ×2 (12:48→14:44)
--- NOTE | 2020-02-15 13:11 | P.PN ---
Subjective Progress Note Date: 02/15/20 CHIEF COMPLAINT: Elevated liver enzymes HISTORY OF PRESENT ILLNESS: Patient examined at the bedside. She denies abdominal pain. Continues to report discomfort to right chest wall. AST 72. ALT 94. PHYSICAL EXAM: VITAL SIGNS: Reviewed. GENERAL: Well-developed in no acute distress. HEENT: No sclera icterus. Extraocular movements grossly intact. Moist buccal mucosa. Head is atraumatic, normocephalic. ABDOMEN: Soft. Nondistended. Nontender. NEUROLOGIC: Alert and oriented. Cranial nerves II through XII grossly intact. ASSESSMENT: 1. Fall, s/p ETOH intoxication 2. Alcohol abuse 3. Elevated LFTs secondary to ETOH abuse PLAN: -Alcohol abstinence recommended -No surgical intervention recommended -Diet as tolerated -We will sign off. please reconsult if needed Nurse practitioner note has been reviewed by physician. Signing provider agrees with the documented findings, assessment, and plan of care. Objective - Vital Signs Vital signs: Vital Signs Temp 98.7 F 02/15/20 07:00 Pulse 90 02/15/20 07:00 Resp 17 02/15/20 08:00 BP 149/95 02/15/20 07:00 Pulse Ox 97 02/15/20 07:00 Intake & Output 02/14/20 02/15/20 02/15/20 18:59 06:59 18:59 Other: Voiding Method Toilet # Voids 1 - Labs CBC & Chem 7: 02/15/20 07:14 02/15/20 07:14 Labs: Abnormal Lab Results - Last 24 Hours (Table) 02/14/20 02/14/20 02/15/20 Range/Units 17:09 20:30 07:11 MCV (80.0-100.0) fL Sodium (137-145) mmol/L Carbon Dioxide (22-30) mmol/L Creatinine (0.52-1.04) mg/dL Glucose (74-99) mg/dL POC Glucose (mg/dL) 136 H 157 H 119 H (75-99) mg/dL Magnesium (1.6-2.3) mg/dL AST (14-36) U/L ALT (4-34) U/L 02/15/20 02/15/20 02/15/20 Range/Units 07:14 07:14 07:14 MCV 100.4 H (80.0-100.0) fL Sodium 131 L (137-145) mmol/L Carbon Dioxide 21 L (22-30) mmol/L Creatinine 0.33 L (0.52-1.04) mg/dL Glucose 111 H (74-99) mg/dL POC Glucose (mg/dL) (75-99) mg/dL Magnesium 1.2 L (1.6-2.3) mg/dL AST 72 H (14-36) U/L ALT 94 H (4-34) U/L 02/15/20 Range/Units 11:35 MCV (80.0-100.0) fL Sodium (137-145) mmol/L Carbon Dioxide (22-30) mmol/L Creatinine (0.52-1.04) mg/dL Glucose (74-99) mg/dL POC Glucose (mg/dL) 132 H (75-99) mg/dL Magnesium (1.6-2.3) mg/dL AST (14-36) U/L ALT (4-34) U/L
--- NOTE | 2020-02-15 18:00 | P.DS ---
Providers Date of admission: 02/11/20 15:20 Expected date of discharge: 02/15/20 Attending physician: Ryne Santiago Consults: 02/12/20 15:30 Consult Physician Routine Consulting Provider: Arcenio Rivero Consult Reason/Comments: copd Do you want consulting provider notified?: Yes Primary care physician: Stated None Hospital Course: Final Diagnoses: Alcohol intoxication, status post fall Alcohol abuse History of fracture of clavicle Acute exacerbation COPD Alcoholic hepatitis Anxiety Hypokalemia hyponatremia Hypomagnesemia Nicotine dependence Occasional marijuana use Gastroesophageal reflux disease Hypertension hyperlipidemia Chronic kidney disease, stage I Hospital course: This is a 59-year-old female admitted intoxicated, status post fall with multiple traumatic injuries. Evaluated by general surgery, pulmonary. Maintained on CIWA protocol, electrolyte replacements, steroids, nebulized bronchodilators, with significant clinical improvement. Please refer to H&P, consult notes for specifics/details. Cleared by all consults for discharge. Patient is being discharged home in a stable condition with guarded prognosis. The impression and plan of care has been dictated as directed. : I performed a history and examination of this patient, discussed the same with the dictator. I agree with the dictator's note ,documented as a scribe. Any additional findings or plans will be noted. Patient Condition at Discharge: Stable Plan - Discharge Summary Discharge Rx Participant: Yes New Discharge Prescriptions: New Nicotine 21Mg/24Hr Patch [Habitrol] 1 patch TRANSDERM DAILY #30 patch Lidocaine 5% Patch [Lidoderm 5% Patch] 1 patch TOPICAL DAILY #7 patch HYDROcodone/APAP 7.5-325MG [[place] 7.5-325] 1 each PO Q6H PRN #12 tab PRN Reason: Pain Calcium Carbonate [Tums] 500 mg PO QID PRN chew PRN Reason: Heartburn predniSONE 10 mg PO DIRECTED #30 tab Folic Acid 1 mg PO DAILY #30 tablet Multivitamins, Thera [Multivitamin (formulary)] 1 tab PO DAILY #30 tablet Magnesium Oxide [Mag-Ox] 400 mg PO BID #30 tablet Continue Magnesium Oxide [Mag-Ox] 400 mg PO BID #60 tab Pantoprazole [Protonix] 40 mg PO AC-BRKFST #30 tablet. Albuterol Inhaler (Bulk) [Ventolin Hfa Inhaler (Bulk)] 2 - 4 puff INHALATION RT-Q4H PRN #1 inhaler PRN Reason: wheezing Changed Thiamine [Vitamin B-1] 100 mg PO DAILY #1 tab Discontinued Ibuprofen [Motrin] 600 mg PO Q8HR PRN #20 tab PRN Reason: Pain Discharge Medication List Albuterol Inhaler (Bulk) [Ventolin Hfa Inhaler (Bulk)] 2 - 4 puff INHALATION RT- Q4H PRN #1 inhaler 01/05/20 [Rx] Magnesium Oxide [Mag-Ox] 400 mg PO BID #60 tab 01/05/20 [Rx] Pantoprazole [Protonix] 40 mg PO AC-BRKFST #30 tablet. 01/05/20 [Rx] Calcium Carbonate [Tums] 500 mg PO QID PRN chew 02/15/20 [Rx] Folic Acid 1 mg PO DAILY #30 tablet 02/15/20 [Rx] HYDROcodone/APAP 7.5-325MG [[place] 7.5-325] 1 each PO Q6H PRN #12 tab 02/15/20 [Rx] Lidocaine 5% Patch [Lidoderm 5% Patch] 1 patch TOPICAL DAILY #7 patch 02/15/20 [Rx] Magnesium Oxide [Mag-Ox] 400 mg PO BID #30 tablet 02/15/20 [Rx] Multivitamins, Thera [Multivitamin (formulary)] 1 tab PO DAILY #30 tablet 02/15/20 [Rx] Nicotine 21Mg/24Hr Patch [Habitrol] 1 patch TRANSDERM DAILY #30 patch 02/15/20 [Rx] Thiamine [Vitamin B-1] 100 mg PO DAILY #1 tab 02/15/20 [Rx] predniSONE 10 mg PO DIRECTED #30 tab 02/15/20 [Rx] Follow up Appointment(s)/Referral(s): Ryne Santiago MD [STAFF PHYSICIAN] - 3 Days (Please call to make appointment) Arcenio Rivero MD [STAFF PHYSICIAN] - 02/28/20 11:00 am (this will call for a tele health visit) Ambulatory/Diagnostic Orders: Complete Blood Count w/diff [LAB.AMB] Time Frame: 3 Days, Location: None Selected Magnesium [LAB.AMB] Time Frame: 3 Days, Location: None Selected Patient Instructions/Handouts: Rib Fracture (DC), Alcohol Intoxication (DC) Activity/Diet/Wound Care/Special Instructions: Magnesium level pending .No ETOH, No Smoking Continue using incentive spirometer every hour 10 while awake Discharge Disposition: HOME SELF-CARE
== END 2020-02-15 15:21 | disposition home or self-care (01) | DRG 897 ==
LOC: EC 12:56 → 4SSUR 15:20
PROVIDERS: ADMIT Family Medicine; ATTEND Family Medicine
DX: F10.229 Alcohol dependence with intoxication, unspecified (principal); J44.1 Chronic obstructive pulmonary disease with (acute) exacerbation; E87.1 Hypo-osmolality and hyponatremia; F10.239 Alcohol dependence with withdrawal, unspecified; I12.9 Hypertensive chronic kidney disease with stage 1 through stage 4 chronic kidney disease, or unspecified chronic kidney disease; N18.1 Chronic kidney disease, stage 1; K70.10 Alcoholic hepatitis without ascites; K57.30 Diverticulosis of large intestine without perforation or abscess without bleeding; D69.6 Thrombocytopenia, unspecified; E78.5 Hyperlipidemia, unspecified; E83.42 Hypomagnesemia; E87.6 Hypokalemia; F17.210 Nicotine dependence, cigarettes, uncomplicated; F41.1 Generalized anxiety disorder; F43.10 Post-traumatic stress disorder, unspecified; K21.9 Gastro-esophageal reflux disease without esophagitis; M79.7 Fibromyalgia; S05.12XA Contusion of eyeball and orbital tissues, left eye, initial encounter; W19.XXXA Unspecified fall, initial encounter; Z91.81 History of falling; S42.002A Fracture of unspecified part of left clavicle, initial encounter for closed fracture; Z79.52 Long term (current) use of systemic steroids; Z80.0 Family history of malignant neoplasm of digestive organs; Z80.3 Family history of malignant neoplasm of breast; Z83.3 Family history of diabetes mellitus; Z87.19 Personal history of other diseases of the digestive system; Z87.442 Personal history of urinary calculi; K70.0 Alcoholic fatty liver; Z71.41 Alcohol abuse counseling and surveillance of alcoholic; Z90.49 Acquired absence of other specified parts of digestive tract; Z86.010 Personal history of colon polyps; Z86.14 Personal history of Methicillin resistant Staphylococcus aureus infection; Z88.8 Allergy status to other drugs, medicaments and biological substances; Z81.1 Family history of alcohol abuse and dependence; G89.29 Other chronic pain; M54.9 Dorsalgia, unspecified; Z98.1 Arthrodesis status; Y90.8 Blood alcohol level of 240 mg/100 ml or more
CPT/HCPCS: 36415; 70200; 70450; 71045; 72125; 72170; 74150; 76700; 80053; 80320; 83735; 84132; 85025; 85610; 93005; 94640; 96361; 96365; 96372; 96375; 96376; 99291

== ENCOUNTER 2020-02-15 19:31 | Emergency (ER) | payer MEDICARE, OTHER ==
[2020-02-15 19:40] VITALS: RESP 18; TEMP 97.7
[2020-02-15 20:09] LABS: Glucose,Whole Blood 107 mg/dL (75-99)
[2020-02-15] MEDS ORDERED: SODIUM CHLORIDE 0.9% 1,000 ML IV ONE (20:16)
--- NOTE | 2020-02-15 20:23 | ED ---
General Adult HPI - General Chief complaint: Neuro Symptoms/Deficit Stated complaint: Numbness Time Seen by Provider: 02/15/20 19:35 Source: patient, RN notes reviewed, old records reviewed Mode of arrival: EMS - History of Present Illness Initial comments: This is a 59-year-old female with a past medical history significant for alcohol abuse. Patient was recently admitted to the hospital for alcohol intoxication as well as alcoholic hepatitis and rib fractures on the right with clavicle fracture on the left. Patient was discharged earlier in the afternoon today and she went home and started drinking again. Patient states she came back because she having some tingling in her hands and she states is been ongoing for days but she didn't tell anybody washes in the hospital. Patient also states her arm feels a little weak on the left. Patient states she's not any fever or chills patient denies any new trauma. While telling me she can't move her arm as well she was able to take off her gown with her left arm point to her contusions on her back to fix her hair and otherwise move her hand to sit herself up in bed with no problem and no lack of strength. Patient states she only had a couple drinks since she's been home. - Related Data Previous Rx's Medication Instructions Recorded Albuterol Inhaler (Bulk) [Ventolin 2 - 4 puff INHALATION RT-Q4H PRN 01/05/20 Hfa Inhaler (Bulk)] #1 inhaler Magnesium Oxide [Mag-Ox] 400 mg PO BID #60 tab 01/05/20 Pantoprazole [Protonix] 40 mg PO AC-BRKFST #30 tablet. 01/05/20 Calcium Carbonate [Tums] 500 mg PO QID PRN chew 02/15/20 Folic Acid 1 mg PO DAILY #30 tablet 02/15/20 HYDROcodone/APAP 7.5-325MG [[place] 1 each PO Q6H PRN #12 tab 02/15/20 7.5-325] Lidocaine 5% Patch [Lidoderm 5% 1 patch TOPICAL DAILY #7 patch 02/15/20 Patch] Magnesium Oxide [Mag-Ox] 400 mg PO BID #30 tablet 02/15/20 Multivitamins, Thera [Multivitamin 1 tab PO DAILY #30 tablet 02/15/20 (formulary)] Nicotine 21Mg/24Hr Patch [Habitrol] 1 patch TRANSDERM DAILY #30 patch 02/15/20 Thiamine [Vitamin B-1] 100 mg PO DAILY #1 tab 02/15/20 predniSONE 10 mg PO DIRECTED #30 tab 02/15/20 Allergies Allergy/AdvReac Type Severity Reaction Status Date / Time pregabalin [From Lyrica] Allergy Severe Anaphylaxis Verified 02/15/20 19:40 tizanidine HCl Allergy Severe Anaphylaxis Verified 02/15/20 19:40 [From Zanaflex] Review of Systems ROS Statement: Those systems with pertinent positive or pertinent negative responses have been documented in the HPI. ROS Other: All systems not noted in ROS Statement are negative. Past Medical History Past Medical History: COPD, Fibromyalgia, GERD/Reflux, Hyperlipidemia, Hypertension, Renal Disease Additional Past Medical History / Comment(s): ETOH abuse, chronic low back pain, diverticulitis, benign colon polyps, kidney stones with surgical removal, broke collarbone, falls History of Any Multi-Drug Resistant Organisms: MRSA Date of last positivie culture/infection: 08/2014 MDRO Source:: L elbow Past Surgical History: Appendectomy, Bowel Resection, Orthopedic Surgery Additional Past Surgical History / Comment(s): Bowel resection d/t diverticulitis, R wrist fusion with bone graft, cervical fusion with metal, kidney stone surgery x 3, colonoscopy with bening polypectomy, salpingo- oophorectomy (pt cannot recall laterallity). Past Anesthesia/Blood Transfusion Reactions: No Reported Reaction Additional Past Anesthesia/Blood Transfusion Reaction / Comment(s): needed more medication for last colonoscopy Past Psychological History: Anxiety, Depression, PTSD Smoking Status: Current every day smoker Past Alcohol Use History: Abuse, Heavy Past Drug Use History: None Reported - Past Family History Sister(s) Family Medical History: Cancer Additional Family Medical History / Comment(s): Pt states she does not know what type of cancer her sister had Mother Family Medical History: Cancer Additional Family Medical History / Comment(s): Mother of colon cancer. Maternal grandmother had breast cancer. Father Family Medical History: Diabetes Mellitus Additional Family Medical History / Comment(s): alcoholism General Exam - General Exam Comments Initial Comments: GENERAL: Patient is well-developed and well-nourished. Patient is nontoxic and well- hydrated and is in mild distress. ENT: Neck is soft and supple. No significant lymphadenopathy is noted. Oropharynx is clear. Moist mucous membranes. Neck has full range of motion without eliciting any pain. EYES: The sclera were anicteric and conjunctiva were pink and moist. Extraocular movements were intact and pupils were equal round and reactive to light. Eyelids were unremarkable. PULMONARY: Unlabored respirations. Good breath sounds bilaterally. No audible rales rhonchi or wheezing was noted. CARDIOVASCULAR: There is a regular rate and rhythm without any murmurs gallops or rubs. ABDOMEN: Soft and nontender with normal bowel sounds. SKIN: Patient has some bruising in the middle of her back as well as her right arm and ecchymosis around the left eye which were all old according to the patient. NEUROLOGIC: Patient is alert and oriented x3. Cranial nerves II through XII are grossly intact. Motor and sensory are also intact. Normal speech, volume and content. Symmetrical smile. I could not appreciate any motor deficit and the patient at all. MUSCULOSKELETAL: Normal extremities with adequate strength and full range of motion. LYMPHATICS: No significant lymphadenopathy is noted PSYCHIATRIC: Normal psychiatric evaluation. Course Vital Signs 02/15/20 19:32 Temperature 97.7 F Pulse Rate 102 H Respiratory 18 Rate Blood Pressure 138/94 O2 Sat by Pulse 100 Oximetry Medical Decision Making - Medical Decision Making U asked the patient to move left arm and she will not move it fully but when you don't ask her to move and she is distracted she is able to move the arm completely fully and lift her body weight up with the to scoot herself up in bed EKG shows sinus tachycardia at 105 bpm MS interval 168 QRSs 84 QT interval 372 QTC is 491 per patient's EKG shows no ST segment elevation or depression. Patient was able to move her arm without problem and use it to lift herself up and put on her gown. However if he specifically asked her to move her arm she only moves very slowly and weakly - Lab Data Result diagrams: 02/15/20 19:50 02/15/20 19:50 Lab Results 02/15/20 02/15/20 02/15/20 Range/Units 19:50 19:50 20:02 WBC 13.0 H (3.8-10.6) k/uL RBC 4.41 (3.80-5.40) m/uL Hgb 13.9 (11.4-16.0) gm/dL Hct 43.8 (34.0-46.0) % MCV 99.3 (80.0-100.0) fL MCH 31.4 (25.0-35.0) pg MCHC 31.7 (31.0-37.0) g/dL RDW 14.0 (11.5-15.5) % Plt Count 216 (150-450) k/uL Neutrophils % 68 % Lymphocytes % 16 % Monocytes % 12 % Eosinophils % 1 % Basophils % 0 % Neutrophils # 8.9 H (1.3-7.7) k/uL Lymphocytes # 2.1 (1.0-4.8) k/uL Monocytes # 1.5 H (0-1.0) k/uL Eosinophils # 0.1 (0-0.7) k/uL Basophils # 0.0 (0-0.2) k/uL Sodium 137 (137-145) mmol/L Potassium 4.0 (3.5-5.1) mmol/L Chloride 104 (98-107) mmol/L Carbon Dioxide 24 (22-30) mmol/L Anion Gap 9 mmol/L BUN 12 (7-17) mg/dL Creatinine 0.44 L (0.52-1.04) mg/dL Est GFR (CKD-EPI)AfAm >90 (>60 ml/min/1.73 sqM) Est GFR (CKD-EPI)NonAf >90 (>60 ml/min/1.73 sqM) Glucose 90 (74-99) mg/dL POC Glucose (mg/dL) 107 H (75-99) mg/dL POC Glu Stress Test Technician ID Silvio Esquivel A Calcium 9.5 (8.4-10.2) mg/dL Magnesium 1.6 (1.6-2.3) mg/dL Total Bilirubin 0.3 (0.2-1.3) mg/dL AST 73 H (14-36) U/L ALT 90 H (4-34) U/L Alkaline Phosphatase 117 (38-126) U/L Total Protein 7.0 (6.3-8.2) g/dL Albumin 3.8 (3.5-5.0) g/dL Disposition Clinical Impression: Paresthesia of arm, ETOH abuse Disposition: HOME SELF-CARE Condition: Good Is patient prescribed a controlled substance at d/c from ED?: No Referrals: None,Stated [Primary Care Provider] - 1-2 days Time of Disposition: 21:24
[2020-02-15 21:02] LABS: Basophils % (A) 0 %; Eosinophils # (A) 0.1 k/uL (0-0.7); Eosinophils % (A) 1 %; HCT 43.8 % (34.0-46.0); HGB 13.9 gm/dL (11.4-16.0); Lymphocytes # (A) 2.1 k/uL (1.0-4.8); Lymphocytes % (A) 16 %; MCH 31.4 pg (25.0-35.0); MCHC 31.7 g/dL (31.0-37.0); MCV 99.3 fL (80.0-100.0); Mean Platelet Volume 8.2; Monocytes # (A) 1.5 k/uL (0-1.0); Monocytes % (A) 12 %; Neutrophils # (A) 8.9 k/uL (1.3-7.7); Neutrophils % (A) 68 %; Platelet Count 216 k/uL (150-450); RBC 4.41 m/uL (3.80-5.40)
[2020-02-15 21:13] LABS: ALT 90 U/L (4-34); AST 73 U/L (14-36); African American GFR (CKD) >90 (>60 ml/min/1.73 sqM); Albumin 3.8 g/dL (3.5-5.0); Alkaline Phosphatase 117 U/L (38-126); Anion Gap 9 mmol/L; Blood Urea Nitrogen 12 mg/dL (7-17); Calcium 9.5 mg/dL (8.4-10.2); Carbon Dioxide 24 mmol/L (22-30); Chloride 104 mmol/L (98-107); Glucose 90 mg/dL (74-99); Magnesium 1.6 mg/dL (1.6-2.3); Non-African American GFR(CKD) >90 (>60 ml/min/1.73 sqM); Sodium 137 mmol/L (137-145); Total Bilirubin 0.3 mg/dL (0.2-1.3)
[2020-02-15 21:43] VITALS: BP 126/72; PULSE 84
== END 2020-02-15 21:40 | disposition home or self-care (01) ==
LOC: EC 19:31
DX: F10.10 Alcohol abuse, uncomplicated (principal); R20.2 Paresthesia of skin; R00.0 Tachycardia, unspecified; S30.0XXA Contusion of lower back and pelvis, initial encounter; S40.021A Contusion of right upper arm, initial encounter; S05.12XA Contusion of eyeball and orbital tissues, left eye, initial encounter; F17.200 Nicotine dependence, unspecified, uncomplicated; Z88.8 Allergy status to other drugs, medicaments and biological substances; Z98.1 Arthrodesis status; X58.XXXA Exposure to other specified factors, initial encounter
CPT/HCPCS: 36415; 80053; 83735; 85025; 96360; 99284